=== PATIENT | female | born 1975 | race Caucasian/White ===

== ENCOUNTER 2020-03-31 07:11 | Outpatient (REF) | payer OTHER, SELFPAY ==
[2020-03-31 08:03] LABS: COVID-19 Test Negative (Negative)
== END 2020-03-31 07:12 | disposition home or self-care (01) ==
LOC: HO.EMPCOV 07:11
PROVIDERS: PCP Internal Medicine; Visit Provider Internal Medicine
DX: Z20.828 Contact with and (suspected) exposure to other viral communicable diseases (principal)
CPT/HCPCS: 87635; C9803

== ENCOUNTER 2020-06-11 12:55 | Outpatient (REF) | payer OTHER, SELFPAY ==
[2020-06-11 13:24] LABS: COVID-19 Test Negative (Negative)
== END 2020-06-11 12:56 | disposition home or self-care (01) ==
LOC: HO.EMPCOV 12:55
PROVIDERS: Visit Provider Internal Medicine
DX: Z20.822 Contact with and (suspected) exposure to COVID-19 (principal)
CPT/HCPCS: 36415; 87635; C9803

== ENCOUNTER 2020-06-17 08:00 | Outpatient (REF) | payer OTHER, SELFPAY ==
[2020-06-17 08:40] LABS: COVID-19 Test Negative (Negative)
== END 2020-06-17 08:01 | disposition home or self-care (01) ==
LOC: HO.EMPCOV 08:00
PROVIDERS: Visit Provider Internal Medicine
DX: Z20.822 Contact with and (suspected) exposure to COVID-19 (principal)
CPT/HCPCS: 36415; 87635; C9803

== ENCOUNTER 2020-09-22 16:18 | Outpatient (REF) | payer OTHER, SELFPAY ==
--- NOTE | ~2020-09-22 | XR_ITS ---
EXAMINATION: XR CERVICAL SPINE XR LUMBAR SPINE CLINICAL INFORMATION: Cervical radiculopathy. Lumbar radiculitis. COMPARISON: None TECHNIQUE: AP, lateral, open-mouth, and bilateral oblique views of the cervical spine. AP, lateral, coned-down, and bilateral oblique views of the lumbar spine. FINDINGS: Cervical Spine: Mild reversal of the normal cervical lordosis, which may be positional or related to muscular spasm. No acute fracture or subluxation. Normal atlantoaxial alignment. No loss of vertebral body height. Moderate loss of intervertebral disc height with endplate osteophytes at C3-C4 and C4-C5. No significant neural foraminal stenosis. Surgical clips within the thyroid fossa. Otherwise unremarkable prevertebral soft tissues. Lumbar Spine: Normal vertebral body alignment. The lumbar lordosis is maintained. No acute fracture or subluxation. No loss of vertebral body height. Loss of intervertebral disc height with anterior endplate osteophytes at L1-L4. No lytic or blastic osseous lesion. Right upper quadrant surgical clips. XR/XR lumbar spine 4V min IMPRESSION: Cervical Spine: Mild reversal of the normal cervical lordosis, which may be positional or related to muscle spasm. Moderate degenerative disc disease at C3-C4 and C4-C5. Lumbar Spine: Mild degenerative disc disease at L1-L4.
--- NOTE | ~2020-09-22 | XR_ITS ---
EXAMINATION: XR CERVICAL SPINE XR LUMBAR SPINE CLINICAL INFORMATION: Cervical radiculopathy. Lumbar radiculitis. COMPARISON: None TECHNIQUE: AP, lateral, open-mouth, and bilateral oblique views of the cervical spine. AP, lateral, coned-down, and bilateral oblique views of the lumbar spine. FINDINGS: Cervical Spine: Mild reversal of the normal cervical lordosis, which may be positional or related to muscular spasm. No acute fracture or subluxation. Normal atlantoaxial alignment. No loss of vertebral body height. Moderate loss of intervertebral disc height with endplate osteophytes at C3-C4 and C4-C5. No significant neural foraminal stenosis. Surgical clips within the thyroid fossa. Otherwise unremarkable prevertebral soft tissues. Lumbar Spine: Normal vertebral body alignment. The lumbar lordosis is maintained. No acute fracture or subluxation. No loss of vertebral body height. Loss of intervertebral disc height with anterior endplate osteophytes at L1-L4. No lytic or blastic osseous lesion. Right upper quadrant surgical clips. XR/XR cervical spine min 6V IMPRESSION: Cervical Spine: Mild reversal of the normal cervical lordosis, which may be positional or related to muscle spasm. Moderate degenerative disc disease at C3-C4 and C4-C5. Lumbar Spine: Mild degenerative disc disease at L1-L4.
== END 2020-09-22 16:19 | disposition home or self-care (01) ==
LOC: HO.XRAY 16:18
PROVIDERS: PCP Internal Medicine; Visit Provider Physician Assistant Medical
DX: M54.12 Radiculopathy, cervical region (principal); M54.16 Radiculopathy, lumbar region
CPT/HCPCS: 72052; 72110

== ENCOUNTER 2020-10-02 12:49 | Outpatient (REF) | payer OTHER, SELFPAY ==
--- NOTE | ~2020-10-02 | MR_ITS ---
EXAMINATION: MR CERVICAL SPINE WITHOUT CONTRAST CLINICAL INFORMATION: 45-year-old with worsening left-sided cervical radiculopathy. Left hand numbness. COMPARISON: None TECHNIQUE: MRI of the cervical spine was obtained using routine sequences without contrast. FINDINGS: ALIGNMENT: There is lordotic loss in the upper cervical spine with a very slight reversal centered at C4-C5. No spondylolisthesis or retrolisthesis. CRANIOCERVICAL JUNCTION/C1-C2 ARTICULATIONS: Intact and aligned. VISUALIZED INTRACRANIAL STRUCTURES: The visualized intracranial structures appear grossly unremarkable. VERTEBRAL BODIES: Normal height. BONE MARROW: Multilevel degenerative endplate changes primarily at C3-C4 and to a lesser degree at C4-C5. Scattered small benign vertebral hemangiomata noted throughout the cervical and upper thoracic spine. C2-C3: Disc space height is well maintained. Tiny central disc protrusion noted with no significant spondylosis, DJD, canal or neural foraminal stenosis. C3-C4: Mild disc space height loss is noted with disc desiccation, Schmorl's nodes and type II marrow signal changes along the endplates with anterior marginal disc osteophyte complex. Broad-based central disc herniation noted with effacement of the dural sac centrally without cord compression. There is mild central spinal canal stenosis associated with this. There is minor facet hypertrophic change on the left with no significant bony canal stenosis. C4-C5: Severe loss of disc space height is noted with Schmorl's nodes, disc desiccation and minor anterior marginal endplate spurring. There is posterior disc osteophyte complex with effacement of the dural sac resulting in mild ventral cord impingement. There is associated [id number] central spinal canal stenosis. Bilateral uncovertebral spurring is noted, left more than right with no significant neural foraminal stenosis. C5-C6: Disc space height is well maintained, with disc desiccation and minor anterior marginal endplate spurring. Tiny central disc protrusion noted with a tiny central annular fissure without significant thecal sac encroachment. No significant DJD, canal or neural foraminal stenosis. C6-C7: Disc space height is well maintained with disc desiccation. Mild broad-based central disc protrusion with [id number]-[id number] flattening of the dural sac without cord impingement. No significant DJD, canal or neural foraminal stenosis. C7-T1: Disc space height is well maintained, with normal disc signal and contours. No disc herniation or spondylosis. There is mild facet hypertrophic change on the right without significant canal or neural foraminal stenosis. The cervical and visualized upper thoracic spinal cord is normal in signal intensity throughout, without focal lesion, edema or syrinx formation. MR/MR cervical spine wo con IMPRESSION: 1. Slight lordotic reversal centered at C4-C5 noted with multilevel discogenic degenerative changes between C3-C4 and C6-C7 inclusive. 2. Posterior disc osteophyte complex at C4-C5 resulting in mild ventral cord impingement with [id number] spinal canal stenosis. 3. Central disc herniations at C3-C4, C5-C6 and C6-C7 without spinal cord impingement with mild central spinal canal narrowing at C3-C4. 4. No significant bony neural foraminal stenosis.
--- NOTE | ~2020-10-02 | MR_ITS ---
EXAMINATION: MR LUMBAR SPINE WITHOUT CONTRAST CLINICAL INFORMATION: Worsening back pain. COMPARISON: None TECHNIQUE: MRI of the lumbar spine was obtained using routine sequences without contrast. FINDINGS: VERTEBRAL BODIES AND PARASPINAL STRUCTURES: The marrow signal is mildly heterogeneous with regions of fatty change. There is mild disc space narrowing with anterior endplate spurring and mild degenerative Schmorl's nodes at the L1-L2 and L2-L3 levels. No compression fracture or subluxation is visible. Mild rightward lumbar spinal curvature noted. The paraspinal soft tissues are unremarkable. The imaged bony pelvis appears normal. CONUS MEDULLARIS AND CAUDA EQUINA: Normal, terminating at the level of L1-L2. No lower cord signal abnormality is seen. The cauda equina nerve roots are normal. SPINAL LEVELS: L1-L2: Mild disc bulge and anterior endplate spurring without central canal stenosis or foraminal narrowing. L2-L3: Mild generalized disc bulge without central canal stenosis or foraminal encroachment. L3-L4 and L4-L5: Well-hydrated normal appearance of the disc without central canal stenosis or foraminal narrowing. Mild facet arthropathy at the L4-L5 level. L5-S1: Very mild facet arthropathy and small right subarticular zone disc protrusion without nerve root compression. Partially conjoined right L5 and S1 nerve roots. MR/MR lumbar spine wo con IMPRESSION: Mild degenerative endplate changes and disc bulges at the L1-L2 and L2-L3 levels. Very small right subarticular zone disc protrusion without nerve root impingement at L5-S1 with partially conjoined right L5/S1 nerve roots.
== END 2020-10-02 12:50 | disposition home or self-care (01) ==
LOC: HO.MRI 12:49
PROVIDERS: PCP Physician Assistant Medical; Visit Provider Physician Assistant Medical
DX: M51.9 Unspecified thoracic, thoracolumbar and lumbosacral intervertebral disc disorder (principal); M54.12 Radiculopathy, cervical region
CPT/HCPCS: 72141; 72148

== ENCOUNTER 2020-10-31 16:36 | Outpatient (REF) | payer OTHER, SELFPAY ==
--- NOTE | ~2020-10-31 | XR_ITS ---
EXAMINATION: XR THORACIC SPINE CLINICAL INFORMATION: Thoracic back pain COMPARISON: None TECHNIQUE: 3 views of the thoracic spine were obtained. FINDINGS: Multilevel mild degenerative disc changes manifested by endplate osteophytes without significant disc space narrowing. Surrounding soft tissues normal. No fracture or bone lesion. Miscellaneous: Surgical clips overlie the right upper quadrant XR/XR thoracic spine 3V IMPRESSION: Mild Spondylosis of the dorsal spine. No acute disease.
== END 2020-10-31 16:37 | disposition home or self-care (01) ==
LOC: HO.XRAY 16:36
PROVIDERS: PCP Internal Medicine; Visit Provider Physician Assistant Medical
DX: M54.6 Pain in thoracic spine (principal); G89.29 Other chronic pain
CPT/HCPCS: 72072

== ENCOUNTER 2021-03-05 09:33 | Outpatient (REF) | payer OTHER, SELFPAY ==
--- NOTE | ~2021-03-05 | MM_ITS ---
EXAMINATION: BONE DENSITOMETRY CLINICAL INDICATION: Age-related osteoporosis without current pathological fracture. COMPARISON: This is the patient's baseline examination. TECHNIQUE: Using a [employer] DXA System (software version: 13.1) manufactured by [employer], dual-energy x-ray absorptiometry was performed of the lumbar spine and left hip. The images are of good technical quality. Summary results are attached. FINDINGS: AP SPINE L1-L4: BMD 1.388 g/cm2, Z-score 1.1, T-score 1.7, normal. LEFT FEMUR, NECK: BMD 1.037 g/cm2, Z-score 0.2, T-score 0.0, normal. LEFT FEMUR, TOTAL: BMD 1.139 g/cm2, Z-score 0.9, T-score 1.0, normal. IDENTIFIED RISK FACTORS: Osteoporosis, low calcium intake. Early menopause, secondary osteoporosis, hysterectomy. HISTORY OF FRACTURE: None listed. MEDICATIONS: Vitamin D. MM/XR DEXA axial skeleton IMPRESSION: 1. DIAGNOSIS: Normal bone density based on the lowest T-score value of 0.0 in the femoral neck applying World Health Organization criteria. 2. 10-YEAR FRACTURE RISK PREDICTION, FRAX: Major osteoporotic fracture (clinical spine, forearm, hip or shoulder) 2.2%. Hip fracture 0.0%. 3. Treatment Recommendations: NOF guidelines recommend consideration for treatment in postmenopausal women and men age 50 and older presenting with the following: -A hip or vertebral (clinical or morphometric) fracture. -T-score less than or equal to -2.5 at the femoral neck or spine after appropriate evaluation to exclude secondary causes. -Low bone mass at the hip or spine and a 10-year fracture probability by FRAX of greater than or equal to 3% for hip fracture or greater than or equal to 20% for major osteoporotic fracture based on the [place] adapted WHO algorithm. 4. Other Recommendations: All treatment decisions require clinical judgment and consideration of individual patient factors, including patient preferences, comorbidities, previous drug use, risk factors not captured in the FRAX model (e.g. frailty, falls, vitamin D deficiency, increased bone turnover, interval significant decline in bone density) and possible under or overestimation of fracture risk by FRAX. FUTURE SCAN RECOMMENDATION: People with diagnosed cases of osteoporosis or at high risk for fracture should have regular bone mineral density tests. For patients eligible for Medicare, routine testing is allowed once every 2 years. The testing frequency can be increased to one year for patients who have rapidly progressing disease, those who are receiving or discontinuing medical therapy to restore bone mass, or have additional risk factors.
== END 2021-03-05 09:34 | disposition home or self-care (01) ==
LOC: HO.MAMMO 09:33
PROVIDERS: Visit Provider Nurse Practitioner Family
DX: Z13.820 Encounter for screening for osteoporosis (principal); M81.0 Age-related osteoporosis without current pathological fracture; Z78.0 Asymptomatic menopausal state; Z79.899 Other long term (current) drug therapy; Z98.890 Other specified postprocedural states
CPT/HCPCS: 77080

== ENCOUNTER 2021-03-09 08:49 | Outpatient (REF) | payer OTHER, SELFPAY ==
[2021-03-09 17:44] LABS: Alanine Aminotransferase 28 U/L (0-31); Albumin Level 4.5 g/dL (3.5-5.0); Alkaline Phosphatase 77 U/L (39-117); Anion Gap 12 (12-20); Aspartate Amino Transferase 18 U/L (5-31); Bilirubin Total 0.7 mg/dL (0.0-1.0); Blood Urea Nitrogen 17 mg/dL (9-16); C Reactive Protein 0.36 mg/dL (< or = 0.50); Calcium 9.9 mg/dL (8.4-10.2); Carbon Dioxide 25 mmol/L (22-29); Chloride 108 mmol/L (96-108); Estimated Glomerular Filt Rate > 60; Glucose Random 96 mg/dL (60-115); Potassium 4.4 mmol/L (3.3-5.1); Sodium 141 mmol/L (135-145); Total Protein 7.1 g/dL (6.5-8.0)
[2021-03-09 17:57] LABS: Eosinophils Absolute Auto 0.2 X10*3/uL (0.0-0.4); Eosinophils Percent Auto 2.3 % (0-4); Hemoglobin 12.9 g/dl (12.0-16.0); Imm Gran Abs Auto 0.05 X10*3/uL (0.00-0.03); Imm Gran Pct Auto 0.5 % (0.0-0.4); MANUAL DIFF FLAG SCAN; PLT CLUMP 1; Red Cell Distribution Width 12.2 % (11.0-16.0); SCAN SMEAR FLAG 1
[2021-03-09 17:59] LABS: Basophils Absolute Auto 0.1 X10*3/uL (0.0-0.2); Basophils Percent Auto 0.9 % (0-2); Hematocrit 38.1 % (37.0-47.0); Lymphocytes Absolute Auto 3.4 X10*3/uL (1.2-4.9); Lymphocytes Percent Auto 33.7 % (20-40); Mean Corpuscular HGB Conc 33.9 g/dl (31.0-35.0); Mean Corpuscular Hemoglobin 28.7 pg (27.0-33.0); Mean Corpuscular Volume 84.7 fL (80.0-98.0); Monocytes Absolute Auto 0.5 X10*3/uL (0.1-1.2); Monocytes Percent Auto 5.4 % (2-11); Neutrophils Absolute Auto 5.7 x10*3/uL (2.0-8.3); Neutrophils Percent Auto 57.2 % (45-73)
[2021-03-09 18:05] LABS: Ferritin 43 ng/mL (10-250); TSH reflex Free T4 2.03 uIU/mL (0.32-4.0); Vitamin D 25-OH Total 33.6 ng/mL (>30)
[2021-03-09 18:18] LABS: Folate 5.5 ng/mL (> or = 4.0); Vitamin B12 523 pg/mL (200-900)
[2021-03-09 18:24] LABS: SLIDE REVIEW VERIFIED
[2021-03-09 18:46] LABS: Erythrocyte Sedimentation Rate 3 MM/HR (0-20)
[2021-03-10 20:31] LABS: Immunoglobulin G Subclass 1 231 mg/dL (382-929); Immunoglobulin G Subclass 2 307 mg/dL (241-700); Immunoglobulin G Subclass 3 13 mg/dL (22-178); Immunoglobulin G Subclass 4 19.4 mg/dL (4-86); Immunoglobulin G Total 643 mg/dL (600-1640)
[2021-03-11 02:16] LABS: IgA 257 mg/dL (47-310); IgG 649 mg/dL (600-1640); IgM 107 mg/dL (50-300)
[2021-03-11 21:21] LABS: Zinc 73 mcg/dL (60-130)
[2021-03-12 14:37] LABS: Vitamin C 0.2 mg/dL (0.3-2.7)
[2021-03-12 16:31] LABS: Gliadin Deamidated IgA Ab <1.0 U/mL; Gliadin Deamidated IgG Ab <1.0 U/mL; Transglutaminase Ab IgG <1.0 U/mL; Transglutaminase IgA <1.0 U/mL
[2021-03-12 17:17] LABS: Vitamin B6 5.5 ng/mL (2.1-21.7)
[2021-03-13 09:46] LABS: Nicotinamide <20 ng/mL; Vit B3 - Nicotinic Acid <20 ng/mL
[2021-03-13 12:41] LABS: Vitamin B5 (Pantothenic Acid) <40 ng/mL (<275)
[2021-03-13 14:20] LABS: Vitamin K1 1250 pg/mL (130-1500)
[2021-03-13 15:35] LABS: Vitamin A 63 mcg/dL (38-98)
[2021-03-13 18:46] LABS: Histamine Plasma >28.6 ng/mL (< OR = 1.8)
[2021-03-14 01:46] LABS: Alpha-Tocopherol 18.9 mg/L (5.7-19.9); Beta-Gamma Tocopherol 2.4 mg/L (<=4.3)
== END 2021-03-09 08:50 | disposition home or self-care (01) ==
LOC: HO.LAB 08:49
PROVIDERS: PCP Nurse Practitioner Family; Referring Provider Nurse Practitioner Family; Visit Provider Internal Medicine Gastroenterology
DX: R19.7 Diarrhea, unspecified (principal); K75.81 Nonalcoholic steatohepatitis (NASH); G89.29 Other chronic pain; R10.33 Periumbilical pain; Z90.49 Acquired absence of other specified parts of digestive tract
CPT/HCPCS: 36415; 80053; 82180; 82306; 82607; 82728; 82746; 82784; 83088; 83516; 83520; 84207; 84443; 84446; 84590; 84591; 84597; 84630; 85025; 85652; 86003; 86140

== ENCOUNTER 2021-03-09 18:20 | Outpatient (REF) | payer OTHER, SELFPAY ==
[2021-03-10 12:40] LABS: CDiff Gene PCR NEGATIVE (Negative)
[2021-03-13 21:42] LABS: Calprotectin, Fecal 8 mcg/g
[2021-03-16 14:21] LABS: Fecal Fat Qualitative Normal (Normal)
[2021-03-16 22:11] LABS: Pancreatic Elastase-1 >500 mcg/g
== END 2021-03-09 18:21 | disposition home or self-care (01) ==
LOC: HO.LNP 18:20
PROVIDERS: Visit Provider Internal Medicine Gastroenterology
DX: R19.7 Diarrhea, unspecified (principal)
CPT/HCPCS: 82656; 82705; 83993; 87329; 87493

== ENCOUNTER 2021-03-12 08:00 | Outpatient (RCR) | payer OTHER, SELFPAY | END 2021-09-07 11:31 | disposition home or self-care (01) | LOC: HO.PTCHIC 08:00 | PROVIDERS: PCP Nurse Practitioner Family; Visit Provider Physician Assistant | DX: M54.2 Cervicalgia (principal); M54.50 Low back pain, unspecified | CPT/HCPCS: 97014; 97110; 97140; 97161 ==

== ENCOUNTER 2021-03-12 10:18 | Outpatient (REF) | payer OTHER, SELFPAY ==
--- NOTE | ~2021-03-12 | MR_ITS ---
EXAMINATION: MR LUMBAR SPINE WITHOUT CONTRAST CLINICAL INFORMATION: Incontinence. Low back pain. COMPARISON: MRI dated 10/02/2020. TECHNIQUE: MRI of the lumbar spine was obtained using routine sequences without contrast. FINDINGS: VERTEBRAL BODIES AND PARASPINAL STRUCTURES: The marrow signal is within normal limits. There are no compression fractures or subluxations. Endplate spurring again visible at the L1-L2 and L2-L3 levels with mild disc space narrowing. The paraspinal soft tissues are unremarkable. Low signal foci in the left iliac bone are stable, possibly representing bone islands. CONUS MEDULLARIS AND CAUDA EQUINA: Normal, terminating at the level of L2. No lower cord signal abnormality is seen. The cauda equina nerve roots are normal. SPINAL LEVELS: L1-L2: Mild disc bulge and shallow left paracentral disc protrusion without central canal stenosis or foraminal narrowing. Bulky anterior endplate spurring again evident. L2-L3: Mild disc bulge and endplate spurring again evident without central canal stenosis or foraminal narrowing. L3-L4: Very small central disc protrusion and left lateral annular fissure with mild facet arthropathy. No central canal stenosis or foraminal narrowing. L4-L5: Hypertrophic facet arthropathy is stable without disc disease. Patent central canal and foramina. L5-S1: Stable facet arthropathy, worse on the right side with partially conjoined right L5-S1 nerve roots. No central canal stenosis or foraminal narrowing. MR/MR lumbar spine wo con IMPRESSION: Stable mild degenerative endplate changes and loss of disc height with disc bulges at the L1-L2 and L2-L3 levels. No central canal stenosis.
== END 2021-03-12 10:19 | disposition home or self-care (01) ==
LOC: HO.MRI 10:18
PROVIDERS: PCP Nurse Practitioner Family; Visit Provider Nurse Practitioner Family
DX: R15.9 Full incontinence of feces (principal)
CPT/HCPCS: 72148

== ENCOUNTER 2021-05-27 09:52 | Day surgery (SDC) | payer OTHER, SELFPAY ==
--- NOTE | 2021-05-26 09:37 | P.CONAN_ITS ---
Documented by User: Kourtney Aguilar NP 05/26/21 09:38 HPI - Anesthesia Eval Consult details Narrative: 46yo F for Upper Endoscopy and Colonoscopy PMFSH Active Problems Active Problems: All Active Problems (Updated 05/08/21 @ 11:30 by Mary Yeung) Diarrhea (Acute) Past Medical History Medical History (Updated 05/27/21 @ 10:22 by Adri Jensen RN) Anxiety GERD (gastroesophageal reflux disease) Hypothyroid Intermittent palpitations Lichen planus Low vitamin D level Migraine Rapid palpitations Surgical History Surgical History (Updated 05/06/21 @ 09:15 by VERONICA Bowser) H/O partial thyroidectomy H/O wisdom tooth extraction H/O: hysterectomy Hx of cholecystectomy Social History Social History Patient Tobacco Use Status: Never used Tobacco Are you DNR?: No Advance Directives: No Advance Directives Information Provided: Yes Meds Allergies Allergy/AdvReac Type Severity Reaction Status Date / Time Iodinated Contrast Media AdvReac Severe Hives Verified 03/09/21 08:58 Home Medications Medication Instructions Recorded Confirmed Last Taken Type cholecalciferol 10 mcg PO DAILY 03/09/21 Unknown History (vitamin D3) 10 mcg (400 unit) capsule estradiol g VAGINAL 03/09/21 Unknown History hydroxyzine HCl 25 mg PO BEDTIME 03/09/21 Unknown History 25 mg tablet levothyroxine 50 50 mcg PO DAILY 03/09/21 Unknown History mcg capsule meloxicam 7.5 mg mg PO 03/09/21 Unknown History tablet metoprolol 25 mg PO DAILY 03/09/21 Unknown History succinate 25 mg tablet,extended release 24 hr omeprazole 20 mg 20 mg PO DAILY 03/09/21 Unknown History tablet,delayed release sertraline 100 mg 100 mg PO DAILY 03/09/21 Unknown History tablet tizanidine 4 mg 0 mg PO 03/09/21 Unknown History tablet topiramate 25 mg 25 mg PO BID 03/09/21 Unknown History tablet triamcinolone TOPICAL BEDTIME 03/09/21 Unknown History acetonide 0.1 % topical ointment ubrogepant 50 mg 0 mg PO 03/09/21 Unknown History tablet (Ubrelvy) Exam Exam Date and Time: May 26, 2021 0937 Pertinent Lab Results Pertinent Lab Results: Laboratory Tests 03/09/21 03/09/21 17:20 17:20 WBC 10.0 Hgb 12.9 Hct 38.1 Sodium 141 Potassium 4.4 Chloride 108 Carbon Dioxide 25 BUN 17 H Creatinine 0.88 Assessment and Plan Assessment Anesthesia Assessment: Chart Reviewed Documented by User: Noy Guzmán MD 05/27/21 10:42 [facility] Past Medical History Medical History (Updated 05/27/21 @ 10:22 by Adri Jensen RN) Anxiety GERD (gastroesophageal reflux disease) Hypothyroid Intermittent palpitations Lichen planus Low vitamin D level Migraine Rapid palpitations Family History Family history of problems with anesthesia: No Surgical History Surgical History (Updated 05/06/21 @ 09:15 by VERONICA Bowser) H/O partial thyroidectomy H/O wisdom tooth extraction H/O: hysterectomy Hx of cholecystectomy History of Problems with Anesthesia: No Social History Social History Patient Tobacco Use Status: Never used Tobacco Are you DNR?: No Advance Directives: No Advance Directives Information Provided: Yes Meds Allergies Allergy/AdvReac Type Severity Reaction Status Date / Time Iodinated Contrast Media AdvReac Severe Hives Verified 03/09/21 08:58 Home Medications Medication Instructions Recorded Confirmed Last Taken Type cholecalciferol 10 mcg PO DAILY 03/09/21 Unknown History (vitamin D3) 10 mcg (400 unit) capsule estradiol g VAGINAL 03/09/21 Unknown History hydroxyzine HCl 25 mg PO BEDTIME 03/09/21 Unknown History 25 mg tablet levothyroxine 50 50 mcg PO DAILY 03/09/21 Unknown History mcg capsule meloxicam 7.5 mg mg PO 03/09/21 Unknown History tablet metoprolol 25 mg PO DAILY 03/09/21 Unknown History succinate 25 mg tablet,extended release 24 hr omeprazole 20 mg 20 mg PO DAILY 03/09/21 Unknown History tablet,delayed release sertraline 100 mg 100 mg PO DAILY 03/09/21 Unknown History tablet tizanidine 4 mg 0 mg PO 03/09/21 Unknown History tablet topiramate 25 mg 25 mg PO BID 03/09/21 Unknown History tablet triamcinolone TOPICAL BEDTIME 03/09/21 Unknown History acetonide 0.1 % topical ointment ubrogepant 50 mg 0 mg PO 03/09/21 Unknown History tablet (Ubrelvy) Exam Airway Mallampati Class: II TM Dist: >3cm Neck ROM: Full Heart: rrr Lungs: cta Assessment and Plan Assessment Anesthesia Assessment: Anesthesia Plan Discussed and Chart Reviewed Final Anesthetic Review Family History of Problems with Anesthesia: No History of Problems with Anesthesia: No NPO: Yes ASA Class: II Final Preanesthetic Review: No Changes in Pt Med Stat, Meds/Allgs Chart Reviewed and Consent Obtained/Reviewed Patient Risk: Intermediate Procedure Risk: Intermediate Anesthetic Plan Anesthetic Plan: MAC: Disposition: Standard PACU
--- NOTE | 2021-05-26 09:37 | HO.ANESPROP2 ---
Documented by User: Kourtney Aguilar NP 05/26/21 09:38 HPI - Anesthesia Eval Consult details Narrative: 46yo F for Upper Endoscopy and Colonoscopy PMFSH Active Problems Active Problems: All Active Problems (Updated 05/08/21 @ 11:30 by Mary Yeung) Diarrhea (Acute) Past Medical History Medical History (Updated 05/27/21 @ 10:22 by Adri Jensen RN) Anxiety GERD (gastroesophageal reflux disease) Hypothyroid Intermittent palpitations Lichen planus Low vitamin D level Migraine Rapid palpitations Surgical History Surgical History (Updated 05/06/21 @ 09:15 by VERONICA Bowser) H/O partial thyroidectomy H/O wisdom tooth extraction H/O: hysterectomy Hx of cholecystectomy Social History Social History Patient Tobacco Use Status: Never used Tobacco Are you DNR?: No Advance Directives: No Advance Directives Information Provided: Yes Meds Allergies Allergy/AdvReac Type Severity Reaction Status Date / Time Iodinated Contrast Media AdvReac Severe Hives Verified 03/09/21 08:58 Home Medications Medication Instructions Recorded Confirmed Last Taken Type cholecalciferol (vitamin D3) 10 10 mcg PO DAILY 03/09/21 Unknown History mcg (400 unit) capsule estradiol g VAGINAL 03/09/21 Unknown History hydroxyzine HCl 25 mg tablet 25 mg PO BEDTIME 03/09/21 Unknown History levothyroxine 50 mcg capsule 50 mcg PO DAILY 03/09/21 Unknown History meloxicam 7.5 mg tablet mg PO 03/09/21 Unknown History metoprolol succinate 25 mg 25 mg PO DAILY 03/09/21 Unknown History tablet,extended release 24 hr omeprazole 20 mg tablet,delayed 20 mg PO DAILY 03/09/21 Unknown History release sertraline 100 mg tablet 100 mg PO DAILY 03/09/21 Unknown History tizanidine 4 mg tablet 0 mg PO 03/09/21 Unknown History topiramate 25 mg tablet 25 mg PO BID 03/09/21 Unknown History triamcinolone acetonide 0.1 % TOPICAL BEDTIME 03/09/21 Unknown History topical ointment ubrogepant 50 mg tablet (Ubrelvy) 0 mg PO 03/09/21 Unknown History Exam Exam Date and Time: May 26, 2021 0937 Pertinent Lab Results Pertinent Lab Results: Laboratory Tests 03/09/21 03/09/21 17:20 17:20 WBC 10.0 Hgb 12.9 Hct 38.1 Sodium 141 Potassium 4.4 Chloride 108 Carbon Dioxide 25 BUN 17 H Creatinine 0.88 Assessment and Plan Assessment Anesthesia Assessment: Chart Reviewed Documented by User: Noy Guzmán MD 05/27/21 10:42 [facility] Past Medical History Medical History (Updated 05/27/21 @ 10:22 by Adri Jensen RN) Anxiety GERD (gastroesophageal reflux disease) Hypothyroid Intermittent palpitations Lichen planus Low vitamin D level Migraine Rapid palpitations Family History Family history of problems with anesthesia: No Surgical History Surgical History (Updated 05/06/21 @ 09:15 by VERONICA Bowser) H/O partial thyroidectomy H/O wisdom tooth extraction H/O: hysterectomy Hx of cholecystectomy History of Problems with Anesthesia: No Social History Social History Patient Tobacco Use Status: Never used Tobacco Are you DNR?: No Advance Directives: No Advance Directives Information Provided: Yes Meds Allergies Allergy/AdvReac Type Severity Reaction Status Date / Time Iodinated Contrast Media AdvReac Severe Hives Verified 03/09/21 08:58 Home Medications Medication Instructions Recorded Confirmed Last Taken Type cholecalciferol (vitamin D3) 10 10 mcg PO DAILY 03/09/21 Unknown History mcg (400 unit) capsule estradiol g VAGINAL 03/09/21 Unknown History hydroxyzine HCl 25 mg tablet 25 mg PO BEDTIME 03/09/21 Unknown History levothyroxine 50 mcg capsule 50 mcg PO DAILY 03/09/21 Unknown History meloxicam 7.5 mg tablet mg PO 03/09/21 Unknown History metoprolol succinate 25 mg 25 mg PO DAILY 03/09/21 Unknown History tablet,extended release 24 hr omeprazole 20 mg tablet,delayed 20 mg PO DAILY 03/09/21 Unknown History release sertraline 100 mg tablet 100 mg PO DAILY 03/09/21 Unknown History tizanidine 4 mg tablet 0 mg PO 03/09/21 Unknown History topiramate 25 mg tablet 25 mg PO BID 03/09/21 Unknown History triamcinolone acetonide 0.1 % TOPICAL BEDTIME 03/09/21 Unknown History topical ointment ubrogepant 50 mg tablet (Ubrelvy) 0 mg PO 03/09/21 Unknown History Exam Airway Mallampati Class: II TM Dist: >3cm Neck ROM: Full Heart: rrr Lungs: cta Assessment and Plan Assessment Anesthesia Assessment: Anesthesia Plan Discussed and Chart Reviewed Final Anesthetic Review Family History of Problems with Anesthesia: No History of Problems with Anesthesia: No NPO: Yes ASA Class: II Final Preanesthetic Review: No Changes in Pt Med Stat, Meds/Allgs Chart Reviewed and Consent Obtained/Reviewed Patient Risk: Intermediate Procedure Risk: Intermediate Anesthetic Plan Anesthetic Plan: MAC: Disposition: Standard PACU
[2021-05-27 10:12] VITALS: BP 120/69; PULSE 128; RESP 18; TEMP 36.6; O2SAT 97; BMI 35.9
[2021-05-27 10:29] VITALS: BP 121/69; PULSE 103; RESP 18; TEMP 36.6; O2SAT 97
[2021-05-27] MEDS: Lactated Ringers 1,000 ML 100 ML IVCONT (10:29)
--- NOTE | 2021-05-27 10:30 | MHC.SHP ---
Pre-Procedural Eval Section A Date of Service: 05/27/21 Section B Chief Complaint: screening,reflux disease Relevant Family History (Specify if Yes): No Relevant Social History: None Present Medications: see Short Stay Collaborative assessment Medical History: Significant History (Anxiety GERD (gastroesophageal reflux disease) Hypothyroid Intermittent palpitations Lichen planus Low vitamin D level Migraine Rapid palpitations) History of Previous Operations: Relevant previous surgery/procedure and date(s) (H/O partial thyroidectomy H/O wisdom tooth extraction H/O: hysterectomy Hx of cholecystectomy) Allergies: Allergies Allergy/AdvReac Type Severity Reaction Status Date / Time Iodinated Contrast Media AdvReac Severe Hives Verified 03/09/21 08:58 Review of Systems Sugical H&P ROS: Negative: Constitution, Cardiovascular, Respiratory, Neurological, Psychiatric, Hem-Onc, Allergic/Immunologic, Gastrointestinal, Genitourinary, Musculoskeletal, Integumentary, Endocrine and Eyes/Ears/Nose/Throat Exam Surgical H&P Exam: Normal: HEENT, Normal: Heart, Normal: Lungs, Normal: Extremities, Normal: Abdomen, Normal: Skin and Normal: Neurological Plan Diagnosis/Plan: Unchanged I have reviewed the history and physical and performed a pertinent physical examination on my patient. No changes have occurred unless specified.
--- NOTE | 2021-05-27 11:45 | P.OP_ITS ---
Operative Note Operative Note Date of Service: 05/27/21 Narrative: Operative Information Procedure Description: EGD, Colonoscopy FLEXIBLE TRANSORAL UPPER GASTROINTESTINAL ENDOSCOPY AND COLONOSCOPY PROCEDURE NOTE UPPER ENDOSCOPY Consent: Indications for the procedure and potential complications of bleeding, perforation, reaction to medications and missed diagnosis were discussed with the patient and informed consent was obtained. Instrument: Olympus GIF H 190 J mid size upper endoscope Monitoring: Vital signs and clinical assessment, continuous EKG monitoring, Pulse oximetry, Carbon Dioxide monitoring and blood pressure monitoring were done throughout the procedure. Procedure: The patient was placed in the left lateral decubitis position and pre-procedure medications were administered and a bite block was placed. The endoscope was inserted into the mouth and advanced under direct vision to the third part of duodenum. A careful inspection was made as the upper endoscope was withdrawn including a retroflexed examination of the proximal stomach; Findings and interventions are described below. Findings: Larynx:normal Esophagus: GE junction at 38 cm, diaphragm hiatus at 38 cm, normal mucosa Stomach: Streaky gastritis. Biopsies were obtained. Grade 3 flap valve on retroflexed examination of the cardia with lax LEs. There were several large transparent appearing polpys in the mid stomach area, consistent with fundic gland polyps, measuring in range from 10-18 mm, several were snare excised and retrieved. Duodenum: Normal bulb and descending duodenum, bx taken Intervention: Biopsies as noted above, snare polypectomy COLONOSCOPY Instrument: Olympus variable stiffness pediatric scope 190L Colonoscopy Monitoring: Vital signs and clinical assessment, continuous EKG monitoring, Pulse oximetry, Carbon Dioxide monitoring and blood pressure monitoring were done throughout the procedure. Colon withdrawal time was 7 minutes. Procedure: The patient was placed in the left lateral decubitis position and pre-procedure medications were administered. After a digital rectal examination of the ano-rectum, the video colonoscope was inserted into the rectum and advanced through the colon to the cecum/TI. The colonoscope was slowly withdrawn in a retrograde panoramic fashion and the colon mucosa was carefully examined including a retroflexed view of the rectum. Findings and interventions are described below. Procedure Difficulty: easy Findings: Terminal Ileum-normal, bx taken Bx taken from right and left colon in separate jars Cecum:normal Ascending Colon: normal Transverse Colon -normal Descending Colon:normal Sigmoid Colon: normal Rectum: Retroflexion with small internal hemorrhoids, grade I Anorectum - normal Colon preparation: [place] Bowel Preparation Scale Right colon; 2 Transverse colon: 2 Left colon; 2 (0 = Unprepared colon segment with mucosa not seen due to solid stool that cannot be cleared. 1 = Portion of mucosa of the colon segment seen, but other areas of the colon segment not well seen due to staining, residual stool and/or opaque liquid. 2 = Minor amount of residual staining, small fragments of stool and/or opaque l iquid, but mucosa of colon segment seen well. 3 = Entire mucosa of colon segment seen well with no residual staining, small fragments of stool or opaque liquid) Impression and Post Procedure Diagnosis: Endoscopy Findings: gastric polyps gastritis Colonoscopy Findings: internal hemorrhoids Plan: Await Pathology results Repeat Colonoscopy in 10 years or earlier if clinically indicated High fiber diet leaflet avoid straining at stool, epsom salts and sitz bath, anusol supps or cream if hyperplastic polyps then will need repeat EGD in 3-6 months, if H pylori pos then treat Above findings were reviewed with the patient and relevant handouts were provided if indicated.
--- NOTE | 2021-05-27 11:45 | P.BOP_ITS ---
Brief Operative Note Date of Service: 05/27/21 Pre-op diagnosis: diarrhea Post-op diagnosis: same Procedure: see op note Surgeon: Solange Kaur MD Anesthesia: MAC Was an Ammonium Nitrate Crystallizer used for this Procedure?: No Estimated blood loss (mL): 0 Condition: stable Disposition: PACU
[2021-05-27 12:11] VITALS: BP 108/71; PULSE 92; RESP 12; TEMP 36.2; O2SAT 97
[2021-05-27 12:26] VITALS: BP 121/72; PULSE 96; RESP 18; TEMP 36.4; O2SAT 97
== END 2021-05-27 12:50 | disposition home or self-care (01) ==
PROVIDERS: PCP Nurse Practitioner Family; Visit Provider Internal Medicine Gastroenterology
PROC: (CPT 45380; principal; 2021-05-27 11:10)
DX: Z12.11 Encounter for screening for malignant neoplasm of colon (principal); K64.0 First degree hemorrhoids; K21.9 Gastro-esophageal reflux disease without esophagitis; K31.7 Polyp of stomach and duodenum; K29.50 Unspecified chronic gastritis without bleeding; K44.9 Diaphragmatic hernia without obstruction or gangrene; E03.9 Hypothyroidism, unspecified; E55.9 Vitamin D deficiency, unspecified; G43.909 Migraine, unspecified, not intractable, without status migrainosus; L43.9 Lichen planus, unspecified; F41.1 Generalized anxiety disorder; Z91.040 Latex allergy status; Z90.49 Acquired absence of other specified parts of digestive tract; Z79.899 Other long term (current) drug therapy
CPT/HCPCS: 45380; 43251; 88305; 88342

== ENCOUNTER → 2021-08-10 11:32 | Outpatient (BNVA) | payer OTHER, SELFPAY | PROVIDERS: PCP Nurse Practitioner Family; Referring Provider Nurse Practitioner Family; Visit Provider Internal Medicine Gastroenterology | DX: Z13.89 Encounter for screening for other disorder (principal) ==

== ENCOUNTER 2021-09-04 11:22 | Outpatient (REF) | payer OTHER, SELFPAY ==
--- NOTE | ~2021-09-04 | MM_ITS ---
EXAMINATION: MM SCREENING DIGITAL BREAST TOMOSYNTHESIS, BILATERAL CLINICAL INFORMATION: Screening. Asymptomatic. Age 46. No prior family history breast cancer. The lifetime risk of breast cancer based on the Tyrer-Cuzick Model is 8%. COMPARISON: Outside mammography: 04/03/2020, 03/22/2019, 03/16/2018 ([facility]). TECHNIQUE: Digital breast tomosynthesis is performed in both the craniocaudal and mediolateral oblique views along with computer-aided detection (CAD). Synthesized 2D images are generated from the tomosynthesis. FINDINGS: There are scattered areas of fibroglandular density (ACR BI-RADS breast composition Category b). There are no significant masses, abnormal calcifications, or other abnormalities. Parenchymal pattern is similar to prior outside exams. No developing density. The axilla and skin contours are unremarkable. MM/MM tomosynthesis screening BI IMPRESSION: No mammographic evidence of malignancy. ASSESSMENT: BI-RADS 1: Negative RECOMMENDATION: Routine annual mammography screening. This patient's information was entered into a reminder system with a target due date for their next mammogram.
== END 2021-09-04 11:23 | disposition home or self-care (01) ==
LOC: HO.MAMMO 11:22
PROVIDERS: Visit Provider Nurse Practitioner Family
DX: Z12.31 Encounter for screening mammogram for malignant neoplasm of breast (principal)
CPT/HCPCS: 77063; 77067

== ENCOUNTER 2022-02-19 09:17 | Outpatient (REF) | payer OTHER, SELFPAY ==
[2022-02-19 09:41] LABS: MANUAL DIFF FLAG NO
[2022-02-19 10:04] LABS: Basophils Absolute Auto 0.1 X10*3/uL (0.0-0.2); Basophils Percent Auto 1.4 % (0-2); Eosinophils Absolute Auto 0.4 X10*3/uL (0.0-0.4); Eosinophils Percent Auto 4.5 % (0-4); Imm Gran Abs Auto 0.04 X10*3/uL (0.00-0.03); Imm Gran Pct Auto 0.5 % (0.0-0.4); Lymphocytes Absolute Auto 2.9 X10*3/uL (1.2-4.9); Mean Corpuscular HGB Conc 33.3 g/dl (31.0-35.0); Mean Corpuscular Hemoglobin 27.8 pg (27.0-33.0); Mean Corpuscular Volume 83.3 fL (80.0-98.0); Monocytes Absolute Auto 0.6 X10*3/uL (0.1-1.2); Monocytes Percent Auto 6.4 % (2-11); Neutrophils Absolute Auto 4.7 x10*3/uL (2.0-8.3); Neutrophils Percent Auto 54.2 % (45-73); Platelet Count 286 X10*3/uL (160-400); Red Blood Count 5.04 X10*6/uL (4.20-5.50); Red Cell Distribution Width 12.2 % (11.0-16.0); White Blood Count 8.7 X10*3/uL (4.8-10.8)
[2022-02-19 10:13] LABS: Estimated Average Glucose 114 mg/dL; Hemoglobin A1c % 5.6 %
[2022-02-19 10:35] LABS: Alanine Aminotransferase 34 U/L (0-31); Albumin Level 4.5 g/dL (3.5-5.0); Alkaline Phosphatase 76 U/L (39-117); Anion Gap 16 (12-20); Aspartate Amino Transferase 22 U/L (5-31); Bilirubin Total 0.5 mg/dL (0.0-1.0); Blood Urea Nitrogen 15 mg/dL (9-16); Calcium 9.8 mg/dL (8.4-10.2); Carbon Dioxide 22 mmol/L (22-29); Chloride 109 mmol/L (96-108); Cholesterol 195 mg/dL; Estimated Glomerular Filt Rate > 60; Glucose Random 114 mg/dL (60-115); HDL Cholesterol 32 mg/dL; LDL Cholesterol Calculated 101 mg/dl; Potassium 4.5 mmol/L (3.3-5.1); Sodium 142 mmol/L (135-145); Total Protein 7.1 g/dL (6.5-8.0); Triglycerides 311 mg/dL; Uric Acid 4.1 mg/dL (2.4-5.7)
[2022-02-19 10:47] LABS: Free T4 (Free Thyroxine) 0.95 ng/dL (0.71-1.85); Thyroid Stimulating Hormone 0.81 uIU/mL (0.32-4.0); Vitamin D 25-OH Total 36.9 ng/mL (>30)
[2022-02-21 18:02] LABS: DHEA Sulfate 65 mcg/dL (15-205); Follicle Stimulating Hormone 3.3 mIU/mL; Lutenizing Hormone 3.5 mIU/mL
[2022-02-24 10:36] LABS: Triiodothyronine T3 Reverse 11 ng/dL (8-25)
[2022-02-27 00:22] LABS: Estrogen 320.5 pg/mL
[2022-03-02 17:27] LABS: Progesterone 3.5 ng/mL
== END 2022-02-19 09:18 | disposition home or self-care (01) ==
LOC: HO.LAB 09:17
PROVIDERS: PCP Registered Nurse; Visit Provider Registered Nurse
DX: N95.1 Menopausal and female climacteric states (principal); R73.01 Impaired fasting glucose; R53.83 Other fatigue; M13.0 Polyarthritis, unspecified; E03.9 Hypothyroidism, unspecified; R00.2 Palpitations; E78.2 Mixed hyperlipidemia; E28.2 Polycystic ovarian syndrome; E55.9 Vitamin D deficiency, unspecified
CPT/HCPCS: 36415; 80053; 80061; 82306; 82627; 82672; 83001; 83002; 83036; 84144; 84439; 84443; 84482; 84550; 85025

== ENCOUNTER 2022-06-08 12:24 | Outpatient (REF) | payer OTHER, SELFPAY ==
--- NOTE | ~2022-06-08 | US_ITS ---
EXAMINATION: US PELVIS CLINICAL INFORMATION: Right lower quadrant pain; postmenopausal patient; there is a history of prior hysterectomy. COMPARISON: None TECHNIQUE: Ultrasound of the pelvis is performed using both transabdominal and transvaginal transducers along with Doppler. Transvaginal imaging is performed due to inadequate visualization transabdominally. FINDINGS: Uterus: The uterus is surgically absent. Adnexa: Both ovaries are visualized. There is normal color flow to the adnexa. There is no ovarian torsion. There is no pelvic ascites or fluid collection. Right ovary measures 2.5 x 2.0 x 1.6 cm, volume 4.2 mL. Small simple follicles are noted. Left ovary measures 2.8 x 1.2 x 1.5 cm, volume 2.6 mL. 3 simple follicles are noted, the largest measuring 1.0 cm in maximal diameter. US/US pelvic and transvaginal IMPRESSION: The uterus is surgically absent. The examination is otherwise unremarkable
--- NOTE | ~2022-06-08 | US_ITS ---
EXAMINATION: US ABDOMEN COMPLETE CLINICAL INFORMATION: Right lower quadrant pain. COMPARISON: None TECHNIQUE: Real-time imaging of the abdominal viscera. FINDINGS: PANCREAS: Normal. The visualized pancreatic head and body are normal in appearance. The remainder of the pancreas is obscured from visualization by the overlying bowel gas. ABDOMINAL AORTA: The proximal, mid, and distal segments are normal in caliber. INFERIOR VENA CAVA: Visualized portions are normal. LIVER: There is hepatomegaly, with a longitudinal span of 21.1 cm. The liver contour is normal. There is diffuse increased liver parenchymal echogenicity. Within the left hepatic lobe, a 5 mm anechoic, simple cyst is seen. This is a benign finding, for which no imaging follow-up is recommended. There is no intrahepatic biliary duct dilatation seen. GALLBLADDER: Surgically absent. COMMON BILE DUCT: Normal in caliber measuring 0.7 cm in diameter. RIGHT KIDNEY: Normal. No hydronephrosis. No renal calculi or focal parenchymal lesions. The kidney measures 11.4 cm in maximum dimension. LEFT KIDNEY: Normal. No hydronephrosis. No renal calculi or focal parenchymal lesions. The kidney measures 11.7 cm in maximum dimension. SPLEEN: Normal. The spleen measures 11.7 cm in maximum dimension. FREE FLUID: None. US/US abdomen complete IMPRESSION: 1. There is hepatomegaly. 2. There is generalized increase in hepatic echotexture, consistent with fatty infiltration or hepatocellular disease. Please correlate clinically. No focal hepatic mass or intrahepatic biliary dilatation is seen. 3. Technically limited ultrasound examination of the pancreatic tail.
== END 2022-06-08 12:25 | disposition home or self-care (01) ==
LOC: HO.US 12:24
PROVIDERS: PCP Registered Nurse; Visit Provider Registered Nurse
DX: R10.31 Right lower quadrant pain (principal)
CPT/HCPCS: 76700; 76830; 76856

== ENCOUNTER 2022-06-14 16:47 | Outpatient (REF) | payer OTHER, SELFPAY ==
--- NOTE | ~2022-06-14 | XR_ITS ---
EXAMINATION: XR LUMBOSACRAL SPINE CLINICAL INFORMATION: Back pain, sacroiliitis. M46.1 COMPARISON: MR lumbar spine 03/12/2021, radiographs lumbar spine 09/22/2020 TECHNIQUE: 4 views of the lumbosacral spine. FINDINGS: Normal lumbar segmentation with 5 nonrib-bearing lumbar vertebrae of normal height and normal lumbar lordosis. No lumbar vertebral compression, spondylolisthesis, destructive process. There are multilevel degenerative disc changes again seen, greatest at L1-L2 and L2-L3 with disc narrowing and vertebral spurring. Lesser degenerative changes other 3 levels. The SI joints are similar to prior radiographs 2020. No interval erosive changes or subchondral sclerosis. There is bone island again suggested upper left medial ilium. XR/XR lumbar spine 2-3V IMPRESSION: 1. Multilevel degenerative disc changes, greatest at L1-L2 and L2-L3. 2. No vertebral compression, spondylolisthesis, destructive process. 3. SI joint stable from prior study.
== END 2022-06-14 16:48 | disposition home or self-care (01) ==
LOC: HO.XRAY 16:47
PROVIDERS: PCP Registered Nurse; Visit Provider Registered Nurse
DX: M46.1 Sacroiliitis, not elsewhere classified (principal)
CPT/HCPCS: 72100

== ENCOUNTER 2022-09-03 14:56 | Outpatient (REF) | payer OTHER, SELFPAY ==
--- NOTE | ~2022-09-03 | MR_ITS ---
EXAMINATION: MR LUMBAR SPINE WITHOUT CONTRAST CLINICAL INFORMATION: Left lower extremity pain, numbness, and weakness. COMPARISON: Lumbar spine MRI 03/12/2021. TECHNIQUE: MRI of the lumbar spine was obtained using routine sequences without contrast. FINDINGS: Alignment is normal. Vertebral body heights are preserved. There are type I degenerative endplate changes at L1-L2. Bone marrow signal intensity is otherwise unremarkable. There is slight loss of intervertebral disc height and T2 signal intensity at multiple levels related to disc degeneration. The tip of the conus medullaris is located at L2. No mass effect on the conus. Visualized distal cord signal intensity is normal. At L1-L2 there is a shallow left central protrusion superimposed upon a bulging disc. No canal stenosis. No mass effect on the traversing or foraminal nerve roots. At L2-L3 there is a slightly bulging disc. No canal stenosis. No mass effect on the traversing or foraminal nerve roots. At L3-L4 there is a shallow central protrusion superimposed upon a bulging disc. No canal stenosis. No mass effect on the traversing or foraminal nerve roots. At L4-L5 the annular contour is normal. Bilateral facet degenerative change. No canal stenosis. No mass effect on the traversing or foraminal nerve roots. At L5-S1 the annular contour is normal. No canal stenosis. 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 This finding is best depicted on sagittal image 11 of 14 series 2 and axial image 27 of 30 series 6. Otherwise no mass effect on traversing or foraminal nerve roots. Limited visualization of the retroperitoneal anatomy reveals no abnormal finding. Psoas and paraspinal muscle groups are symmetric. MR/MR lumbar spine wo con IMPRESSION: There is disc degeneration at multiple levels within the lumbar spine. No canal stenosis. No mass effect on the traversing or foraminal nerve roots. 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
== END 2022-09-03 14:57 | disposition home or self-care (01) ==
LOC: HO.MRI 14:56
PROVIDERS: PCP Registered Nurse; Visit Provider Registered Nurse
DX: M51.37 Other intervertebral disc degeneration, lumbosacral region (principal)
CPT/HCPCS: 72148

== ENCOUNTER 2022-09-24 11:53 | Outpatient (REF) | payer OTHER, SELFPAY ==
--- NOTE | ~2022-09-24 | MM_ITS ---
EXAMINATION: MM SCREENING DIGITAL BREAST TOMOSYNTHESIS, BILATERAL CLINICAL INFORMATION: Screening. Asymptomatic. The lifetime risk of breast cancer based on the Tyrer-Cuzick Model is 6%. COMPARISON: Mammography: 09/04/2021; outside exams 04/03/2020, 02/19/2019 ([place]) TECHNIQUE: Digital breast tomosynthesis is performed in both the craniocaudal and mediolateral oblique views along with computer-aided detection (CAD). Synthesized 2D images are generated from the tomosynthesis. FINDINGS: There are scattered areas of fibroglandular density (ACR BI-RADS breast composition Category b). There are no significant masses, abnormal calcifications, or other abnormalities. Parenchymal pattern is similar to prior studies. There is no developing density or architectural abnormality. The axilla and skin contours are unremarkable. No significant changes. MM/MM tomosynthesis screening BI IMPRESSION: No mammographic evidence of malignancy. ASSESSMENT: BI-RADS 1: Negative RECOMMENDATION: Routine annual mammography screening. This patient's information was entered into a reminder system with a target due date for their next mammogram.
== END 2022-09-24 11:54 | disposition home or self-care (01) ==
LOC: HO.MAMMO 11:53
PROVIDERS: PCP Registered Nurse; Visit Provider Registered Nurse
DX: Z12.31 Encounter for screening mammogram for malignant neoplasm of breast (principal)
CPT/HCPCS: 77063; 77067

== ENCOUNTER → 2022-10-15 11:23 | Outpatient (BNVA) | payer OTHER, SELFPAY | PROVIDERS: PCP Registered Nurse; Visit Provider Internal Medicine Gastroenterology ==

== ENCOUNTER 2022-12-21 16:08 | Outpatient (AMB) | payer OTHER, SELFPAY ==
--- NOTE | 2022-12-21 16:10 | A.OFFVIS_ITS ---
Intake Intake Visit Reasons: breast exam Intake Note: The patient agreed to use of a medical records assistant during this encounter. Scribed for DL Lopes by Selma Velásquez medical records assistant, on 12/21/2022 at 4:09p m EST. Allergies Iodinated Contrast Media Adverse Reaction (Severe, Verified 10/15/22 11:26) Hives HPI HPI Comments History of Present Illness Details She is here for a breast exam due to right sided breast pain. Denies breast reduction, prior breast surgeries, no scarring, biopsies, nipple discharge, breast lumps or FMHx of breast cancer. UTD with mammogram. Reports Hx of cyst but does not recall which breast. PFS Medical History Anxiety Breast pain, right GERD (gastroesophageal reflux disease) Hypothyroid Intermittent palpitations Lichen planus Low vitamin D level Migraine Rapid palpitations Surgical History H/O partial thyroidectomy H/O wisdom tooth extraction H/O: hysterectomy History of esophagogastroduodenoscopy (EGD) Hx of cholecystectomy Hx of colonoscopy Social History Patient Tobacco Use Status: Never used Tobacco Physical Exam Const General: cooperative, healthy appearing, comfortable, no acute distress, well developed, alert and awake Chest Other: patient referred to pain at 12:00 area of right breast; large pendulous breast. Chest palpation & inspection: normal inspection of the chest and normal palpation of entire chest wall Breast/axilla inspection: normal inspection of the breasts, normal inspection of the axillae and Other ((no puckering, dimpling, peau de orange, retraction, discharge, masses)) Breast/axilla palpation: normal palpation of the breasts and normal palpation of the axillae Assessment & Plan Assessment & Plan (1) Breast pain, right: Code(s): N64.4 - Mastodynia Plan: Discussed: Dx.Mammogram and Right breast US ordered. All of her questions and concerns were addressed to the best of my ability and shared decision making. She is agreeable to plan of care. Orders: Orders MM tomosynthesis diagnostic BI Today Z12.31 - Encounter for screening mammogram for malignant neoplasm of breast US breast RT complete Today N64.4 - Mastodynia Coding Level of Care Code New Pt Level 3 (94174) Diagnoses Breast pain, right N64.4
== END 2022-12-22 08:48 | disposition home or self-care (01) ==
LOC: HO.HWS 16:08
PROVIDERS: PCP Registered Nurse; Visit Provider Advanced Practice Midwife
DX: N64.4 Mastodynia (principal)
CPT/HCPCS: 99203

== ENCOUNTER → 2022-12-21 16:08 | Outpatient (BNVA) | payer OTHER, SELFPAY | PROVIDERS: PCP Registered Nurse; Visit Provider Advanced Practice Midwife ==

== ENCOUNTER 2022-12-23 13:51 | Outpatient (REF) | payer OTHER, SELFPAY ==
--- NOTE | ~2022-12-23 | US_ITS ---
EXAMINATION: MM DIAGNOSTIC DIGITAL BREAST TOMOSYNTHESIS, RIGHT US BREAST LIMITED, RIGHT MAMMOGRAPHY: CLINICAL INFORMATION: 47-year-old female complaining of right breast pain in the 12:00 axis. No palpable abnormality. COMPARISON: Mammography: 09/24/2022, 09/04/2021, and dating back to 2019. TECHNIQUE: Digital right breast tomosynthesis is performed in both the craniocaudal and mediolateral oblique views along with computer-aided detection (CAD). Synthesized 2D images are generated from the tomosynthesis. FINDINGS: There are scattered areas of fibroglandular density (ACR BI-RADS breast composition Category b). There are no suspicious masses, suspicious grouped calcifications, or areas of architectural distortion in the right breast. The parenchymal pattern is stable from prior exams. Specifically, there is no mammographic abnormality in the superior right breast to correlate with the region of breast pain as reported by the patient. ULTRASOUND: CLINICAL INFORMATION: 47-year-old female complaining of right breast pain in the 12:00 axis. No palpable abnormality. COMPARISON: None relevant. TECHNIQUE: Targeted sonographic evaluation right breast superior axis was performed using a high frequency linear transducer. Selected archived documentation. FINDINGS: RIGHT BREAST: The right breast was scanned from the 10 to the 2:00 location, in the region of the main as reported by the patient. No mass, cystic abnormality, abnormal shadowing, or shift edema along soft tissue planes is identified. Only normal fibrofatty breast tissue is seen. US/US breast RT limited mamm only IMPRESSION: No sonographic or mammographic abnormality to correlate with the patient's complaint of superior right breast pain. No findings suspicious for malignancy. Recommend clinical management. OVERALL ASSESSMENT: Mammography: BI-RADS 1 - Negative Ultrasound: BI-RADS 1 - Negative RECOMMENDATION: 1 year F/U Results were provided to the patient at time of visit by the technologist. This patient's information was entered into a reminder system with a target due date for their next mammogram.
== END 2022-12-23 13:52 | disposition home or self-care (01) ==
LOC: HO.MAMMO 13:51
PROVIDERS: PCP Registered Nurse; Visit Provider Registered Nurse
DX: N64.4 Mastodynia (principal)
CPT/HCPCS: 76642; 77061; 77065

== ENCOUNTER → 2022-12-23 14:00 | Outpatient (BNV) | payer OTHER, SELFPAY | PROVIDERS: PCP Registered Nurse; Visit Provider Radiology Diagnostic Radiology | DX: N64.4 Mastodynia (principal) | CPT/HCPCS: 76642; 77061; 77065 ==

== ENCOUNTER 2023-07-18 07:02 | Outpatient (REF) | payer OTHER, SELFPAY ==
[2023-07-18 07:19] LABS: MANUAL DIFF FLAG NO
[2023-07-18 07:40] LABS: Basophils Absolute Auto 0.1 X10*3/uL (0.0-0.2); Basophils Percent Auto 1.6 % (0-2); Eosinophils Absolute Auto 0.4 X10*3/uL (0.0-0.4); Eosinophils Percent Auto 5.1 % (0-4); Hematocrit 40.3 % (37.0-47.0); Hemoglobin 13.3 g/dl (12.0-16.0); Imm Gran Abs Auto 0.05 X10*3/uL (0.00-0.03); Imm Gran Pct Auto 0.6 % (0.0-0.4); Lymphocytes Absolute Auto 2.2 X10*3/uL (1.2-4.9); Mean Corpuscular Hemoglobin 27.9 pg (27.0-33.0); Mean Corpuscular Volume 84.7 fL (80.0-98.0); Mean Platelet Volume 9.9 fL (9.4-12.3); Monocytes Absolute Auto 0.5 X10*3/uL (0.1-1.2); Monocytes Percent Auto 5.6 % (2-11); Neutrophils Absolute Auto 4.9 x10*3/uL (2.0-8.3); Neutrophils Percent Auto 60.1 % (45-73); Platelet Count 312 X10*3/uL (160-400); Red Blood Count 4.76 X10*6/uL (4.20-5.50); Red Cell Distribution Width 12.3 % (11.0-16.0); White Blood Count 8.2 X10*3/uL (4.8-10.8)
[2023-07-18 07:42] LABS: Estimated Average Glucose 120 mg/dL; Hemoglobin A1c % 5.8 % (<6.0)
[2023-07-18 08:03] LABS: Appearance Urine Cloudy; Color Urine Yellow; Glucose Urine UA Negative (Negative); Leukocyte Esterase Urine Negative (Negative); Nitrite Urine Negative (Negative); PH 6.5 (5.0-9.0); Specific Gravity - Urine 1.015 (1.005-1.025); Urine Blood Negative (Negative); Urine Ketones Negative (Negative); Urine Protein Negative (Neg-Trace)
[2023-07-18 08:07] LABS: Alanine Aminotransferase 53 U/L (0-31); Albumin Level 4.3 g/dL (3.5-5.0); Alkaline Phosphatase 49 U/L (39-117); Anion Gap 12 (12-20); Aspartate Amino Transferase 48 U/L (5-31); Bilirubin Total 0.4 mg/dL (0.0-1.0); Blood Urea Nitrogen 18 mg/dL (9-16); Calcium 9.4 mg/dL (8.4-10.2); Carbon Dioxide 22 mmol/L (22-29); Chloride 111 mmol/L (96-108); Estimated Glomerular Filt Rate > 60; Glucose Random 106 mg/dL (60-115); Lipase 20 U/L (8-78); Potassium 3.9 mmol/L (3.3-5.1); Sodium 141 mmol/L (135-145); Total Protein 6.8 g/dL (6.5-8.0)
[2023-07-18 08:25] LABS: Ferritin 108 ng/mL (10-250); Thyroid Stimulating Hormone 2.28 uIU/mL (0.32-4.0); Vitamin D 25-OH Total 40.8 ng/mL (>30)
[2023-07-18 08:33] LABS: Creatinine Urine 152.43 mg/dL; Microalbum/Creatinine Ratio Ur 4.5 ug/mg cr (<30)
[2023-07-21 22:18] LABS: Apolipoprotein A1 141 mg/dL (>=125); Apolipoprotein B 98 mg/dL (<90)
[2023-07-22 16:28] LABS: Triiodothyronine T3 Reverse 18 ng/dL (8-25)
== END 2023-07-18 07:03 | disposition home or self-care (01) ==
LOC: HO.LAB 07:02
PROVIDERS: PCP Registered Nurse; Visit Provider Registered Nurse
DX: Z00.01 Encounter for general adult medical examination with abnormal findings (principal); Z13.31 Encounter for screening for depression; Z13.89 Encounter for screening for other disorder; Z12.11 Encounter for screening for malignant neoplasm of colon; L43.9 Lichen planus, unspecified
CPT/HCPCS: 36415; 80053; 81003; 82043; 82172; 82306; 82570; 82728; 83036; 83690; 84443; 84482; 85025

== ENCOUNTER 2023-10-04 15:24 | Outpatient (REF) | payer OTHER, SELFPAY | END 2023-10-04 15:25 | disposition home or self-care (01) | LOC: HO.MAMMO 15:24 | PROVIDERS: PCP Registered Nurse; Visit Provider Registered Nurse | DX: Z12.31 Encounter for screening mammogram for malignant neoplasm of breast (principal) | CPT/HCPCS: 77063; 77067 ==

== ENCOUNTER → 2023-10-04 16:00 | Outpatient (BNV) | payer OTHER, SELFPAY | PROVIDERS: PCP Registered Nurse; Visit Provider Radiology Diagnostic Radiology | DX: Z12.31 Encounter for screening mammogram for malignant neoplasm of breast (principal) | CPT/HCPCS: 77063; 77067 ==

== ENCOUNTER 2023-12-19 08:23 | Outpatient (REF) | payer OTHER, SELFPAY ==
--- NOTE | ~2023-12-19 | US_ITS ---
EXAMINATION: US ABDOMEN COMPLETE CLINICAL INFORMATION: Elevated LFTs. COMPARISON: Ultrasound abdomen complete 06/08/2022. TECHNIQUE: Real-time imaging of the abdominal viscera. FINDINGS: PANCREAS: Normal. ABDOMINAL AORTA: The proximal, mid, and distal segments are normal in caliber. INFERIOR VENA CAVA: Visualized portions are normal. LIVER: Liver is mildly enlarged measuring 18.8 cm in span, previously 21.1 cm in span. The liver contour is normal. Moderately increased hepatic echogenicity which can be seen in the setting of hepatic steatosis or underlying liver disease similar to prior. Subcentimeter simple hepatic cyst. There is no intrahepatic biliary duct dilatation seen. GALLBLADDER: Surgically absent. COMMON BILE DUCT: Normal in caliber measuring 0.7 cm in diameter. RIGHT KIDNEY: Pelviectasis without iron hydronephrosis, slightly increased from prior. No renal calculi or focal parenchymal lesions. The kidney measures 11.1 cm in maximum dimension. LEFT KIDNEY: Normal. No hydronephrosis. No renal calculi or focal parenchymal lesions. The kidney measures 12.2 cm in maximum dimension. SPLEEN: Normal. The spleen measures 11.4 cm in maximum dimension. FREE FLUID: None. US/US abdomen complete IMPRESSION: 1. Mild hepatomegaly, decreased from prior. Moderately increased hepatic echogenicity which can be seen in the setting of hepatic steatosis or underlying liver disease similar to prior. 2. Pelviectasis without iron hydronephrosis, slightly increased from prior. Electronically signed by: Ana Laura Johnson MD 01/09/2024 06:11 PM EDT
== END 2023-12-19 08:24 | disposition home or self-care (01) ==
LOC: HO.US 08:23
PROVIDERS: PCP Physician Assistant Medical; Visit Provider Physician Assistant Medical
DX: R79.89 Other specified abnormal findings of blood chemistry (principal)
CPT/HCPCS: 76700

== ENCOUNTER 2024-04-02 13:03 | Outpatient (AMB) | payer OTHER, SELFPAY ==
--- NOTE | 2024-04-02 13:07 | MHC.OFFVIS ---
Intake Visit Reasons: LUTS/hx of urinary retention Intake Note: Patient is present for LUTS/HX OF URINARY RETENTION Urology Medication:NONE Antibiotic Allergy:NONE Blood Thinner:NONE TODAY'S PVR:0ML'S Flat Machine Cutter Required: No Allergies Iodinated Contrast Media Adverse Reaction (Severe, Verified 04/02/24 13:08) Hives HPI Comments Details: Lyla is a pleasant 49-year-old female patient of . She has a past medical history of palpitations, GERD, anxiety, hypothyroidism, migraines, and lichen planus. She presents to the office today as a new patient for LUTS and history of urinary retention. In discussion with the patient today she reports having had a recent abdominal ultrasound and recommendations were made for urology referral as there was an abnormality within the imaging. These results were reviewed with the patient today. Right kidney with pelviectasis without iron hydronephrosis, slightly increased from prior. No renal calculi or focal parenchymal lesions. The kidney measures 11.1 cm in maximum dimension. Left kidney normal. No hydronephrosis. No renal calculi or focal parenchymal lesions. The kidney measures 12.2 cm in maximum dimension. In office urinalysis results reviewed with the patient today. PVR 0 mL. When asked she denies any bothersome urinary issues or concerns. She denies urinary urgency, urinary frequency, incontinence, nocturia, hematuria, dysuria, foul smelling urine, changes to urinary stream, flank pain, fever, and or chills. She is happy with her current voiding parameters. We discussed potential causes of pelviectasis. We discussed surveillance monitoring. She otherwise offers no other issues or concerns at this time. BUN: 02/20 15, 07/23 18 Creatinine: 02/20 0.79, 07/23 0.97 PFSH Medical History Breast pain, right Rapid palpitations Intermittent palpitations GERD (gastroesophageal reflux disease) Anxiety Low vitamin D level Hypothyroid Migraine Lichen planus Surgical History H/O partial thyroidectomy H/O wisdom tooth extraction H/O: hysterectomy History of esophagogastroduodenoscopy (EGD) Hx of cholecystectomy Hx of colonoscopy Social History Patient Tobacco Use Status: Never used Tobacco Review of Systems Const All systems reviewed & are unremarkable except as noted in HPI and below Physical Exam Const General: cooperative, comfortable, no acute distress, well developed, alert and awake Orientation/consciousness: patient oriented x3 HEENT Head: Yes normal to inspection, Yes normocephalic and Yes atraumatic Ears: hearing grossly normal bilaterally Eyes General: appearance normal, both eyes and all related structures Neck Neck: Yes normal visual inspection and Yes trachea midline Chest Chest palpation & inspection: normal inspection of the chest Resp Effort & Inspection: normal respiratory effort and able to speak in complete sentences Cardio Rate: regular rate GI Inspection: Yes normal to inspection General: Yes no CVA tenderness Back/Spine/Pelvis Back: no CVA tenderness Skin General skin exam: no rashes or lesions noted Neuro General: patient oriented x3 Extrem General: Yes normal to inspection Psych Appearance: grossly normal and well kempt Mental Status: mental status grossly normal Speech and movement: Normal speech and movement present and Clear speech present Affect: normal affect Attitude: cooperative Thought process: Normal thought process present Thought content: Normal thought content present Office Procedures Post Void Residual Post Residual Void Post Void Residual (PVR): 0 [id number]-[id number] Void Residual by ultrasound Results AMB Urinalysis, Automated UA Leukoctes 0 Roma/uL Last Edit by ANGEL LUIS Stone on 04/02/24 13:21 UA Nitrite Negative Last Edit by ANGEL LUIS Stone on 04/02/24 13:21 UA Urobilinogen 0.2 mg/dL Last Edit by ANGEL LUIS Stone on 04/02/24 13:21 UA Protein 0 mg/dL Last Edit by ANGEL LUIS Stone on 04/02/24 13:21 UA pH 6.0 Last Edit by ANGEL LUIS Stone on 04/02/24 13:21 UA Blood 10 Aston/uL Last Edit by ANGEL LUIS Stone on 04/02/24 13:21 UA Specific [place] 1.020 Last Edit by ANGEL LUIS Stone on 04/02/24 13:21 UA Ketone Negative Last Edit by ANGEL LUIS Stone on 04/02/24 13:21 UA Bilirubin 0 mg/dL Last Edit by ANGEL LUIS Stone on 04/02/24 13:21 UA Glucose 0 mg/dL Last Edit by ANGEL LUIS Stone on 04/02/24 13:21 Results Reviewed Results Reviewed: Laboratory Last Values Urine pH (Auto) 6.0 04/02/24 13:21 Specific [place] (Auto) 1.020 04/02/24 13:21 Urine Protein (Auto) 0 mg/dL 04/02/24 13:21 Glucose (UA)(Auto) 0 mg/dL 04/02/24 13:21 Urine Ketones (Auto) Negative 04/02/24 13:21 Urine Blood (Auto) 10 Aston/uL 04/02/24 13:21 Urine Nitrite (Auto) Negative 04/02/24 13:21 Urine Bilirubin (Auto) 0 mg/dL 04/02/24 13:21 Urine Urobilinogen (Auto) 0.2 mg/dL 04/02/24 13:21 Leukocyte Esterase (Auto) 0 Roma/uL 04/02/24 13:21 Date of Service: 12/19/23 EXAMINATION: US ABDOMEN COMPLETE FINDINGS: PANCREAS: Normal. ABDOMINAL AORTA: The proximal, mid, and distal segments are normal in caliber. INFERIOR VENA CAVA: Visualized portions are normal. LIVER: Liver is mildly enlarged measuring 18.8 cm in span, previously 21.1 cm in span. The liver contour is normal. Moderately increased hepatic echogenicity which can be seen in the setting of hepatic steatosis or underlying liver disease similar to prior. Subcentimeter simple hepatic cyst. There is no intrahepatic biliary duct dilatation seen. GALLBLADDER: Surgically absent. COMMON BILE DUCT: Normal in caliber measuring 0.7 cm in diameter. RIGHT KIDNEY: Pelviectasis without iron hydronephrosis, slightly increased from prior. No renal calculi or focal parenchymal lesions. The kidney measures 11.1 cm in maximum dimension. LEFT KIDNEY: Normal. No hydronephrosis. No renal calculi or focal parenchymal lesions. The kidney measures 12.2 cm in maximum dimension. SPLEEN: Normal. The spleen measures 11.4 cm in maximum dimension. FREE FLUID: None. IMPRESSION: 1. Mild hepatomegaly, decreased from prior. Moderately increased hepatic echogenicity which can be seen in the setting of hepatic steatosis or underlying liver disease similar to prior. 2. Pelviectasis without iron hydronephrosis, slightly increased from prior. Assessment & Plan Assessment & Plan (1) Pelviectasis: Code(s): N28.89 - Other specified disorders of kidney and ureter Category: Medical Plan In office urinalysis results reviewed with the patient today; as noted above. PVR 0 mL Recent abdominal ultrasound results reviewed with the patient today; as noted above. Patient currently denies any bothersome urinary issues or concerns. She reports be happy with current voiding parameters. Will continue with surveillance monitoring. Will obtain renal ultrasound in 6 months. Will obtain BUN and creatinine. Follow-up in 6 months with imaging and labs; or sooner with any issues, concerns, and or questions. Orders: Orders Blood Urea Nitrogen Today R39.15 - Urgency of urination US retroperitoneal comp 6 Months N28.89 - Other specified disorders of kidney and ureter AMB Urinalysis Automated Today Z13.9 - Encounter for screening, unspecified Creatinine Today R39.15 - Urgency of urination Patient Instructions: The patient had an opportunity to ask questions regarding the treatment plan. All questions were answered. Physical exam, labs, and imaging were discussed and reviewed in detail. As well as risks, benefits, and discussion of treatment choices. No major barriers to understanding were identified. The patient expressed understanding and agreement with the above treatment plan. The patient was made aware they should contact our office by phone for worsening of their current condition, the appearance of new symptoms, or with any questions or concerns. Compliance is encouraged with any medications and follow up testing that is ordered. It is a privilege to be allowed the opportunity to participate in? your urological care.? Again, if you have any questions or concerns If you have any questions or concerns please do not hesitate to contact me. The office is [phone]. This note is constructed using voice recognition software. While every effort has been made to ensure accuracy architectural wood model maker errors may have been included. Yours sincerely, BEATRICE Becerril Coding Level of Care Code New Pt Level 3 (06297) Diagnoses Pelviectasis N28.89 CPT Codes Post Residual Void - PVR CPT Code: 64816-Dgei Void Residual by ultrasound ([id number])
== END 2024-04-02 13:42 | disposition home or self-care (01) ==
PROVIDERS: PCP Physician Assistant Medical; Visit Provider Nurse Practitioner Family
DX: N28.89 Other specified disorders of kidney and ureter (principal); Z13.9 Encounter for screening, unspecified
CPT/HCPCS: 99203

== ENCOUNTER → 2024-04-02 13:03 | Outpatient (BNVA) | payer OTHER, SELFPAY | PROVIDERS: PCP Physician Assistant Medical; Visit Provider Nurse Practitioner Family | DX: N28.89 Other specified disorders of kidney and ureter (principal); R39.15 Urgency of urination | CPT/HCPCS: 51798; 81003 ==

== ENCOUNTER 2024-04-04 07:01 | Outpatient (REF) | payer OTHER, SELFPAY ==
[2024-04-04 08:31] LABS: Alanine Aminotransferase 57 U/L (0-31); Albumin Level 4.6 g/dL (3.5-5.0); Alkaline Phosphatase 47 U/L (39-117); Aspartate Amino Transferase 48 U/L (5-31); Bilirubin Direct 0.2 mg/dL (0.0-0.5); Bilirubin Total 0.5 mg/dL (0.0-1.0); Iron 82 mcg/dL (30-160); Percent Iron Saturation 19 % (15-50); Total Iron Binding Capacity 440 mcg/dL (228-428); Total Protein 7.3 g/dL (6.5-8.0); Unsaturated Iron Binding 358 ug/dL
[2024-04-04 08:46] LABS: HBS Num1 29.33 mIU/mL (0-7.99); HBsAGNum1 0.45 S/CO (0.00-0.99); Hepatitis B Surface Antigen Negative (Negative); TSH reflex Free T4 2.41 uIU/mL (0.32-4.0); ~HepC Num1 0.09 S/CO (0.00-0.79); ~Hepatitis B Surface Antibody REACTIVE (Nonreactive); ~Hepatitis C Antibody Nonreactive (Nonreactive)
[2024-04-04 09:16] LABS: HBc Num1 0.06 S/CO (0.00-0.79); Hepatitis A Antibody IgM 0.13 Index (0-0.79); Hepatitis B Core Antibody Nonreactive (Nonreactive); ~Hepatitis A Antibody IgM Nonreactive (Nonreactive)
[2024-04-04 09:25] LABS: Hepatitis A Antibody IgG Nonreactive (Nonreactive); ~Hepatitis A Antibody IgG 0.17 S/CO (0.00-0.99)
[2024-04-05 20:14] LABS: Immunoglobulin A 223 mg/dL (47-310); Transglutaminase IgA <1.0 U/mL
[2024-04-06 11:34] LABS: Anti Nuclear Antibody Screen NEGATIVE (NEGATIVE)
[2024-04-06 12:44] LABS: Alpha 1 Anti-trypsin 164 mg/dL (83-199); Ceruloplasmin 27 mg/dL (14-48)
[2024-04-07 23:34] LABS: Smooth Muscle Antibody <20 U (<20)
--- OUTSIDE RECORDS SUMMARY | 2024-04-10 16:13 | XMS_ITS | Patient Health Record ---
Author Organization [facility] [employer] Address [address] [place] [address] [phone] Care Team Providers Care Visual Designer Name Role Phone MARLENE MCLAIN Primary Care Provider ALLERGIES Allergen (clinical drug ingredient) Drug/Non Drug Allergy documented on EMR Reaction Allergy Type Onset Date Status Deconsal CT Tannate (uncoded) , Severity Observation:Mode rate to severe , Allergy Active REASON FOR REFERRAL No Information MEDICATIONS Medication SIG (Take, Route, Frequency, Duration) Notes Start Date End Date Status Omeprazole 20 MG TAKE 1 CAPSULE BY MOUTH EVERY DAY for 90 Active Levothyroxine Sodium 100 MCG TAKE 1 TABLET BY MOUTH EACH MORNING DIRECTED for 90 Active Fenofibrate Micronized 134 MG 1 capsule with a meal Orally Once a day for 90 days Active Janeth 0.05 MG/24HR APPLY 1 PATCH TO THE SKIN TWICE WEEKLY DIRECTED Transdermal Two times a Week for 90 days Active Sertraline HCl 50 MG TAKE 3 TABLETS BY MOUTH ONCE A DAY FOR 90 DAYS for 90 Active hydrOXYzine HCl 25 MG TAKE 1 TABLET BY MOUTH THREE (3) TIMES DAILY NEEDED for 90 Active magnenesium Glyci 400mg 1daily @ night magnenesium Glyci *Reorder from [employer] for eRx and Interaction Alerts* 02/05/2022 Active Niacin 500 MG 1 tablet with food Oral Once a day 04/19/2022 Active Progesterone 100 MG TAKE 1 CAPSULE BY MOUTH EVERYDAY AT BEDTIME for 90 days Active Colestipol HCl 1 GM daily Oral colestipoL 1 gram tablet 02/05/2022 Active Vitamin D3 50 MCG (1999 UT) 2 Tablets Orally Once a day Active Fenofibrate 40 MG TAKE 1 TABLET BY MOUTH DAILY for 90 Active tiZANidine HCl 4 MG 1 tablet as needed Orally Three times a day Active Benzonatate 100 MG 1 capsule as needed Orally Three times a day for 10 days 05/09/2023 Not-Taking Azithromycin 250 MG 2 tabs once on day one, then 1 tab daily until gone Orally once a day for 5 days 05/09/2023 Not-Taking Ubrelvy 50 MG 1 tablet may take second dose at least 2 hours after first dose as needed Oral Once a day for 90 days Ubrelvy 50 mg tablet 02/05/2022 Active ALPRAZolam 0.5 MG 1 tablet Orally Twice a day for 30 days 07/18/2023 Active Metoprolol Succinate ER 25 MG TAKE 1 TABLET BY MOUTH EVERY EVENING DIRECTED Orally Once a day for 90 days Active Ondansetron HCl 8 MG 1 tablet as needed Orally Once a day for 30 day(s) 07/25/2022 Active Estradiol 0.1 MG/GM 1 gram Vaginal once daily for 14 days, then twice a week for 30 days 07/08/2023 Active Topiramate 50 MG TAKE 1 TABLET BY MOUTH TWICE DAILY Orally Once a day for 90 days Active buPROPion HCl ER (XL) 150 MG THEN BY MOUTH EVERY DAY IN THE MORNING for 90 Active SOCIAL HISTORY Sex Assigned At : Social History Observation Description Sex Assigned At Female Section Notes: Lives in [place], [place] with h usband & daughter Lives [place] usband & daughter Lives [place] usband & daughter Lives [place] usband & daughter [place] usband & daughter [place] usband & daughter [place] usband & daughter [place] usband [place] daughter [place] usband & daughter [place] usband [place] daughter [place] usband & daughter Lives [place] usband & daughter Lives [place] usband & daughter PROBLEMS Problem Type ICD Code Onset Dates Problem Status W/U Status Risk SNOMED Code Notes Problem Major depressive disorder, recurrent, in partial remission (F33.41) Active confirmed Recurrent major depression in remission (71043893) Problem Sacroiliitis, not elsewhere classified (M46.1) Active confirmed Solitary sacroiliitis (226170607) Problem Other intervertebral disc degeneration, lumbosacral region (M51.37) Active confirmed Degeneration of lumbosacral intervertebral disc (95649480) Problem Mittelschmerz (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) Active confirmed Mittelschmerz (04395378) Problem Anxiety (F41.9) Active confirmed Anxiet y (23065916) Problem Degenerative disc disease, lumbar (M51.36) Active confirmed Degeneration of lumbar intervertebral disc (51115843) Problem PTSD (post-traumatic stress disorder) (F43.10) Active confirmed Posttraumatic stress disorder (44987214) VITAL SIGNS Heart Rate 85 /min 08/01/2023 Height-cm 154.94 cm 08/01/2023 Oximetry 99 % 08/01/2023 Blood pressure diastolic 64 mm Hg 08/01/2023 Weight-kg 86.82 kg 08/01/2023 Height 61 in 08/01/2023 Blood pressure systolic 108 mm Hg 08/01/2023 Weight 191.4 lbs 08/01/2023 BMI 36.16 kg/m2 08/01/2023 Encounters Encounter Location Date Provider Diagnosis [address] [id number] 05/09/[address] [id number] 06/27/[address] [id number] 09/12/[address] [id number] 04/12/2023 [facility] Anxiety F41.9 and PT SD (post-traumatic stress disorder) F43.[address] [id number] 07/08/2023 [facility] Annual visit for general adult medical examination with abnormal findings Z00.01 ; Depression screen Z13.31 ; Encounter for screening for other disorder Z13.89 ; Encounter for screening for malignant neoplasm of colon Z12.11 ; Encounter for screening for cardiovascular disorders Z13.6 ; Encounter for screening mammogram for malignant neoplasm of breast Z12.31 ; Encounter for screening for malignant neoplasm of cervix Z12.4 ; Lichen planus L43.9 and Phimosis N47.[address] [id number] 08/01/2023 MARLENETIERNEY MCLAIN Phimosis N47.1 [facility], [address] [id number] 04/10/2023 MARLENE MCLAIN Anxiety F41.[address] [id number] 04/11/[address] [id number] 04/12/[address] [id number] 04/13/[address] [id number] 05/03/[address] [id number] 05/06/[address] [id number] 05/09/2023 [facility] SARS-associated coronavirus as the cause of diseases classified elsewhere B97.21 ; Cough R05.1 ; Fever and chills R50.9 ; Dyspnea, unspecified type R06.00 and Sore throat J02.[address] [id number] 05/10/[address] [id number] 05/30/[address] [id number] 07/12/2023 MARLENE MCLAIN Lichen planus L43.[address] [id number] 07/21/[address] [id number] 09/13/[address] [id number] 10/20/[address] [id number] 05/10/2023 [facility] ASSESSMENTS Encounter Date Diagnosis Assessment Notes Treatment Notes Treatment Clinical Notes Section Notes 04/10/2023 Anxiety (ICD-10 - F41.9) 04/12/2023 Anxiety (ICD-10 - F41.9) Referral made to our therapy group ([facility]OR[facility]) 04/12/2023 PTSD (post-traumatic stress disorder) (ICD-10 - F43.10) a lot of childhood trauma coming back, we spent a great deal of time talking about this and tools. She would benefit greatly from seeing a therapist 05/09/2023 SARS-associated coronavirus as the cause of diseases classified elsewhere (ICD-10 - B97.21) 05/09/2023 Cough (ICD-10 - R05.1) Cough: Care Instructions material was published 08/01/2023 Phimosis (ICD-10 - N47.1) We performed a clitoril phimosis procedure today under local anasthesia, bulb of clitoris was palpated and 2 sterile tip applicators were used with traction to expose and separate labia minora from clitoris-debris was removed and procedure was tolerated well with NBL and minimal discomfort to the patient. Advised to continue daily use of clobetasol and estrodial as discussed. We will plan to have her f/u in office in 6 weeks 07/08/2023 Annual visit for general adult medical examination with abnormal findings (ICD-10 - Z00.01) The exam today was without concern. We discussed short and long-term health goals. The exam today was without concerns, states feel safe at home. Reports having working CO2 and Smoke detectors. Encouraged to wear sunscreen. Reports wearing a seatbelt when driving or as a passenger. Encourage regular exercise of moderate intensity 30 min 5x/week., Well Visit 50 to 65: Care Instructions material was published, Learning About Sleeping Well material was published, Learning About Polypharmacy material was published 07/08/2023 Depression screen (ICD-10 - Z13.31) PHQ9 Score: 13 High risk for major depressive disorder, is feeling better and is seeing a therapist, Learning About Depression Screening material was published 07/12/2023 Lichen planus (ICD-10 - L43.9) 07/08/2023 Encounter for screening for other disorder (ICD-10 - Z13.89) CAGE Questions Adapted to Include Drug Use (CAGE-AID) 1. Have you ever felt you ought to cut down on your drinking or drug use? N 2. Have people annoyed you by criticizing your drinking or drug use? N 3. Have you felt bad or guilty about your drinking or drug use? N 4. Have you ever had a drink or used drugs first thing in the morning to steady your nerves or to get rid of a hangover (eye-accident report clerk)? N Total Score: 0 Scoring: Item responses on the CAGE questions are scored 0 for no and 1 for yes answers, with a higher score being an indication of alcohol problems. A total score of two or greater is considered clinically significant. 05/09/2023 Fever and chills (ICD-10 - R50.9) Fever: Care Instructions material was published 05/09/2023 Dyspnea, unspecified type (ICD-10 - R06.00) Shortness of Breath: Care Instructions material was published 07/08/2023 Encounter for screening for malignant neoplasm of colon (ICD-10 - Z12.11) Pap not done at patient's request, Colon Cancer Screening: Care Instructions material was published 07/08/2023 Encounter for screening for cardiovascular disorders (ICD-10 - Z13.6) 05/09/2023 Sore throat (ICD-10 - J02.9) Sore Throat: Care Instructions material was published 07/08/2023 Encounter for screening mammogram for malignant neoplasm of breast (ICD-10 - Z12.31) Patient Education was given regarding breast mass and breast pain. Self breast examination was discussed. Assessment and plan reviewed with patient 07/08/2023 Encounter for screening for malignant neoplasm of cervix (ICD-10 - Z12.4) Colon cancer screening options reviewed in detail. Schedule colonoscopy for colorectal cancer screening 07/08/2023 Lichen planus (ICD-10 - L43.9) 07/08/2023 Phimosis (ICD-10 - N47.1) This is a procedure we can do in the office. She agrees to book today 04/12/2023 Other Total time spen t with patient 34 minutes which includes face to face visit, education and coordination of care. 08/01/2023 Other Total time spen t with patient 41 minutes which includes face to face visit, education and coordination of care. PLAN OF TREATMENT Pending Test Test Name Order Date MRI : Lumbosacral Spines 08/16/2022 X ray : Spines, lumbosacral 06/11/2022 Ultrasound : Abdomen and Pelvis 06/04/19 Ultrasound : (OB) Transavaginal 06/04/19 THYROID PANEL WITH TSH (7444) 07/08/2023 ALBUMIN, RANDOM URINE W/CREATININE (6517 ) 07/08/2023 COMPREHENSIVE METABOLIC PANEL (99802) CBC (INCLUDES DIFF/PLT) (6399) URINALYSIS, COMPLETE (5463) 07/08/2023 HEMOGLOBIN A1c (496) 07/08/2023 LIPASE (606) 07/08/2023 APOLIPOPROTEIN A1 (5223) 07/08/2023 APOLIPOPROTEIN B (5224) 07/08/2023 FERRITIN (457) 07/08/2023 VITAMIN D,25-OH,TOTAL,IA (75925) 024 T3 REVERSE, LC/MS/MS (01916) 07/08/2023 Insurance Providers Payer Name Payer Address Payer Phone Subscriber Number Group Number Insured Name Patient Relationship to Insured Coverage Start Date Coverage End Date [employer] [place] [address] [address] [place] [address] [id number] JESSA CABRERA Self - patient is the insured MEDICAL (GENERAL) HISTORY Medical History History ICD Code Depression GERD Severe headache/migraines Hypothyroidism Moles Psoriasis Sinus infections Hemorrhoids Lichen Planus Surgical History Surgery Date(Month/Year) Cholecystectomy 2010 Hysterectomy 2013 Colonoscopy - normal per patient 2021 Endoscopy - Polyp on her stomach 2021 Thyroidectomy (partial) 2016
--- OUTSIDE RECORDS SUMMARY | 2024-04-10 16:13 | XMS_ITS ---
Author Organization [facility], [facility] Address [address] [place] [phone] Care Team Providers Care Logistics Planning Manager Name Role Phone MARLENE MCLAIN Primary Care Provider [phone] REASON FOR VISIT RTW note SOCIAL HISTORY Sex Assigned At : Social History Observation Description Sex Assigned At Female Encounters Encounter Location Date Provider Diagnosis [facility], [address] [id number] 10/20/2023 MARLENE MCLAIN PLAN OF TREATMENT No Information Progress Notes * JESSA CABRERA MDOB:1974 (48 yo F)Acc No.[id number]:10/20/2023 Patient:??JESSA CABRERA :1975?Age:48 Y?Sex:Fe male Phone: Address:[facility] [place] [address] * true * Date:??
--- OUTSIDE RECORDS SUMMARY | 2024-04-10 16:13 | XMS_ITS ---
Author Organization [facility], [facility] Address [address] [place] [phone] Care Team Providers Care Branch Specialist Name Role Phone MARLENE MCLAIN Primary Care Provider REASON FOR VISIT PFMLA SOCIAL HISTORY Sex Assigned At : Social History Observation Description Sex Assigned At Female Encounters Encounter Location Date Provider Diagnosis [facility], [address] [id number] 09/13/2023 MARLENE MCLAIN PLAN OF TREATMENT No Information Progress Notes * JESSA CABRERA MDOB:1974 (48 yo F)Acc No.[id number]:09/13/2023 Patient:??JESSA CABRERA :1975?Age:48 Y?Sex:Fe male Phone: Address:[facility] [place] [address] * true * Date:??
--- OUTSIDE RECORDS SUMMARY | 2024-04-10 16:13 | XMS_ITS ---
Author Organization [facility], [facility] Address [address] [place] [phone] Care Team Providers Care Gambling Dealer Name Role Phone MARLENE PLATA Primary Care Provider [phone] ALLERGIES Allergen (clinical drug ingredient) Drug/Non Drug Allergy documented on EMR Reaction Allergy Type Onset Date Status Deconsal CT Tannate (uncoded) , Severity Observation:Mode rate to severe , Allergy Active REASON FOR VISIT Phimosis SOCIAL HISTORY Sex Assigned At : Social History Observation Description Sex Assigned At Female Section Notes: Lives in [place], [place] with h usband & daughter Encounters Encounter Location Date Provider Diagnosis [facility], [address] [phone] 09/12/2023 MARLENE PLATA PLAN OF TREATMENT No Information Progress Notes * LYLA CABRERA MDOB:1974 (49 yo F)Acc No.[id number]:09/12/2023 Progress Notes Patient:??LYLA CABRERA Provider:??Marlene Plata DNP :1975?Age:48 Y?Sex:Fe male Date:09/12/2023 Phone: Address:[address] [place] [address] [place], [place] Subjective: * Chief Complaints: * ?1. Phimosis. * HPI: ?Patient Care Team:?Automation Software Engineer:??Dr. Kaur @ [facility]..?Clothes Drier Assembler:??Lens Mark Sawyer MA.? Lyla presents today for Phimosis procedure. * Medical History:??Depression , GERD, Severe headache/migraines, Hypothyroidism, Moles, Psoriasis, Sinus infections, Hemorrhoids, Lichen Planus. * Central Sterilization Technician History:?Menstrual history: ?LMP:??Hysterectomy 10 years ago ?Age of Menarche:??12 ?Abnormal menstruations??yes, Hx of irregular menses.?Last pap smear date??10+ years ago.?Last mammogram date??08/2022 - normal per patient.?Infertility??Hx of HRT use, Hx of fertility drugs,.?? * OB History:? History:?Total pregnancies:??3 ?Full-term pregnancies:??2 ?AB Induced:??1 * Surgical History:??Cholecyst ectomy 2010, Hysterectomy 2013, Colonoscopy - normal per patient 2021, Endoscopy - Polyp on her stomach 2021, Thyroidectomy (partial) 2016. * Family History:??Father: ali ve, Hyperlipidemia.??Mother: alive, HTN.??Brother: alive, Cerebral Palsy.?? * Social History:?Migrated Social History:?Migrated Social History: Smoking Status:Former smoker, [[id number]],. ?Drugs/Alcohol:?Do you drink alcohol?: Yes, Occasionally. ?Lives in [place], [place] with & daughter. * Allergies:??Deconsal CT Tann ate: , Severity Observation:Moderate to severe , - Allergy. Objective: Assessment: Plan: * Treatment: * Preventive Medicine:?Last CPE: 2021 @ [facility] Colonoscopy: Yes, 05/2021 for diarrhea (Dx'd Bile Acid Disease) @ [facility] Endoscopy: Yes, 05/2021 for diarrhea (Dx'd Bile Acid Disease) @ [facility] Covid Vac: Yes Flu Vac: No. * Billing Information: * Visit Code:?? * Procedure Codes:?? * Sign off status: Pending * Provider:??Marlene Plata DNP Date:??0 09/12/2023 History and Physical Notes * HPI (History of Present Illness) Category Sub-Category Detail Notes Category Not es Patient Care Team Automation Software Engineer: Dr. Kaur @ [facility]. Lyla presents today for Phimosis procedure. Clothes Drier Assembler: Tierra Lang MA
--- OUTSIDE RECORDS SUMMARY | 2024-04-10 16:13 | XMS_ITS | Continuity of Care Document ---
Author Organization [facility] Address [address] [place] [address] Phone [phone] Social History Type Date Description Comments Sex Unknown Medications Active Medications SIG Qnty Indications Ordering Provider Date Hydroxyzine VSD43tu Tablets take 2 tablets at bedtime, can add 1 extra tab as needed Misty Sharma M.D. 11/11/2021 Sertraline [id number] Tablets 1 by mouth every day Misty Sharma M.D. 11/11/2021 Metoprolol Succinate ER25mg Tablets ER 24HR 1 by mouth every day Misty Sharma M.D. 11/11/[address] 1 tab by mouth as needed 90caps Misty Sharma M.D. 11/11/2021 Lenxvvw47cs Tablets take 1 tablet twice daily Misty Sharma M.D. 11/11/2021 Levothyroxine Zquogu03lbi Capsules 1 cap by mouth every day Misty Sharma M.D. 10/09/2021 Procedures Date Code Description Status 11/12/2021 NSHOWOFF No Show Office Visit Complet ed Medical Devices Description No Information Available Encounters Description No Information Available Assessments Description No Information Available Plan of Treatment No Information Available Functional Status Description No Information Available Mental Status Description No Information Available Referrals Description No Information Available
== END 2024-04-04 07:02 | disposition home or self-care (01) ==
LOC: HO.LAB 07:01
PROVIDERS: PCP Physician Assistant Medical; Visit Provider Physician Assistant Medical
DX: R79.89 Other specified abnormal findings of blood chemistry (principal)
CPT/HCPCS: 36415; 80076; 82103; 82390; 82784; 83540; 84443; 86015; 86038; 86364; 86704; 86706; 86708; 86709; 86803; 87340

== ENCOUNTER 2024-06-09 18:17 | Outpatient (REF) | END 2024-06-09 18:18 | disposition home or self-care (01) | LOC: HO.MRI 18:17 | DX: G25.2 Other specified forms of tremor (principal) | CPT/HCPCS: 70551 ==

== ENCOUNTER → 2024-06-09 18:17 | Outpatient (BNV) | payer OTHER, SELFPAY | PROVIDERS: PCP Physician Assistant Medical; Visit Provider Radiology Diagnostic Radiology | DX: G25.2 Other specified forms of tremor (principal) | CPT/HCPCS: 70551 ==

== ENCOUNTER 2024-07-10 10:50 | Outpatient (REF) | payer OTHER, SELFPAY ==
--- NOTE | ~2024-07-10 | US_ITS ---
EXAMINATION: US PELVIS CLINICAL INFORMATION: Pelvic and perineal pain COMPARISON: None available. TECHNIQUE: Ultrasound of the pelvis is performed using both transabdominal and transvaginal transducers along with Doppler. Transvaginal imaging is performed due to inadequate visualization transabdominally. FINDINGS: The uterus has been surgically removed. Adnexa: Both ovaries are visualized. There is normal color flow to the adnexa. There is no ovarian torsion. There is no pelvic ascites or fluid collection. Right ovary measures 1.8 x 1 0.0, 1.1 cm. Volume 1.0 mL. There are small follicles visualized. There are dilated right pelvic vessels question venous congestion. Left ovary measures 2.2 x 1.7 x 1.1 cm. Volume 2.1 mL. There is a echogenic heterogenesis lesion measuring 1.0 x 0.6 x 1.1 cm and peripheral vascularity most suspicious for corpus luteal cyst. There is minimal free fluid adjacent to left ovary. There is a left paraovarian anechoic cyst measuring 1.0 x 0.8 x 1.0 cm. US/US pelvic and transvaginal IMPRESSION: Uterus has been cyst removal. Suspect corpus luteal cyst left ovary. There are bilateral ovarian simple anechoic cyst. Right ovary is unremarkable except for small follicular cysts. There is a right pelvic venous congestion suspected. Electronically signed by: Parish Hannah MD 07/10/2024 11:51 AM EDT
--- OUTSIDE RECORDS SUMMARY | 2024-07-10 13:09 | XMS_ITS | Encounter Summary ---
Author Organization [facility] Address [address] [place] [address] Care Team Providers Care Counterintelligence Analyst Name Role Phone Pcp, No Primary Care Provider Ashley Tyson PA-C Primary Care Provi mario Encounter Details Date Type Department Care Team (Late st Contact Info) Description 03/04/2022 Scanned Document [facility] INTERNAL MED SCAN Provider, Generic External Data Social History Tobacco Use Types Packs/Day Years Used Date Smoking Tobacco: Never Assessed Sex and Gender Information Value Date Recorded Sex Assigned at Female 10/03/2023 1:43 PM EDT Gender Identity Female 10/03/2023 1:43 PM EDT Sexual Orientation Heterosexual (straight) 10/02 1:43 PM EDT documented as of this encounter Plan of Treatment Upcoming Encounters Date Type Department Care Team (Late st Contact Info) Description 12/07/2024 10:00 AM EDT Office Visit [address] [place] [phone] Ashley Beal PA-C [address] [place] [address] documented as of this encounter Visit Diagnoses Not on filedocumented in this encounter Care Teams Counterintelligence Analyst Relationship Specialty Start Date End Date Pcp, No PCP - General General Medicine 10/03/23 10/10/23 Ashley Beal PA-C [address] [place], [place] [phone] PCP - General Internal Medicine 10/11/23 Solange Kaur Physician Gastroenterology 09/26/23 Gab Campos Physician Ophthalmology 09/26/23 documented as of this encounter
--- OUTSIDE RECORDS SUMMARY | 2024-07-10 13:09 | XMS_ITS | Encounter Summary ---
Author Organization [facility] Address [address] [place] [address] Care Team Providers Care Floor Covering Contractor Name Role Phone Pcp, No Primary Care Provider Ashley Tyson PA-C Primary Care Provi mario Encounter Details Date Type Department Care Team (Late st Contact Info) Description 08/16/2022 Scanned Document [facility] INTERNAL MED SCAN Provider, Generic External Data [...] Description 12/07/2024 10:00 AM EDT Office Visit [address] [place] [phone] Ashley Beal PA-C [address] [place], [place] [address] documented as of this encounter Visit Diagnoses Not on filedocumented in this encounter Care Teams Floor Covering Contractor Relationship Specialty Start Date End Date Pcp, No PCP - General General Medicine 10/03/23 10/10/23 Ashley Beal PA-C [address] [place], [place] [phone] PCP - General Internal Medicine 10/11/23 Solange Kaur Physician Gastroenterology 09/26/23 Gab Campos Physician Ophthalmology 09/26/23 documented as of this encounter
--- OUTSIDE RECORDS SUMMARY | 2024-07-10 13:09 | XMS_ITS | Clinical Summary ---
Author Organization [facility] Address [address] [place] [address] Care Team Providers Care Radiology Orderly Name Role Phone Ashley Beal PA-C Primary Care Provi mario Allergies Active Allergy Reactions Criticality Noted Date Comments Oxymetazoline Unknown/Patient and Family Unable to Define Medium 10/12/2023 Iodinated Contrast Media Hives,Shortness Of Breath High 10/12/2023 Medications Medication Sig Dispensed Refills Start Date End Date Status colestipol (COLESTID) 1 g tablet Take 1 tablet (1 g total) by mouth 2 (two) times a day. Active estradiol (VIVELLE-DOT) 0.0375 MG/24HR external patch Apply twice weekly Active metoPROLOL SUCCINATE (TOPROL-XL) 25 MG 24 hr tablet Take 1 tablet (25 mg total) by mouth daily. 09/27/2023 Active niacin 250 MG tablet Take 2 tablets (500 mg total) by mouth daily. Active progesterone (PROMETRIUM) 100 MG capsule Take 1 capsule (100 mg total) by mouth nightly. 09/21/2023 Active sertraline (ZOLOFT) 50 MG tablet Take 3 tablets (150 mg total) by mouth daily. 08/08/2023 Active buPROPion (WELLBUTRIN XL) 150 MG 24 hr tablet Take 1 tablet (150 mg total) by mouth every morning. Swallow whole; do not crush, chew, or divide. Active fexofenadine (BIRDIE) 180 MG tablet Take 1 tablet (180 mg total) by mouth daily. Administer with water only; do not administer with fruit juices. Active Vitamin D3 (CHOLECALCIFEROL) 50 MCG (2000 UT) tablet Take 2 tablets (4,000 Units total) by mouth daily. Active MAGNESIUM GLYCINATE PO Take 400 mg by mouth. Active hydrOXYzine pamoate (VISTARIL) 50 MG capsule Take 1 capsule (50 mg total) by mouth 3 (three) times a day as needed for itching. Active TiZANidine (ZANAFLEX) 4 MG capsule Take 1 capsule (4 mg total) by mouth 3 (three) times a day. Active estradiol (ESTRACE) 0.01 % vaginal cream Insert 2 g into the vagina daily. Active clobetasol (TEMOVATE) 0.05 % ointment Apply topically as needed. Active OMEprazole (PriLOSEC) 20 MG capsuleIndication s:Gastroesophagea l reflux disease without esophagitis TAKE ONE (1) CAPSULE BY MOUTH EVERY DAY 90 capsule 2 04/30/2024 Active fenofibrate micronized (LOFIBRA) 134 MG capsuleIndication s:Hypertriglyceri demia TAKE ONE (1) CAPSULE BY MOUTH EVERY DAY WITH FOOD 90 capsule 1 04/30/2024 Active topiramate (TOPAMAX) 50 MG tabletIndications :Migraine without aura and without status migrainosus, not intractable Take 1 tablet (50 mg total) by mouth 2 times a day. 60 tablet 5 06/04/2024 Active Ubrelvy 50 MG tabletIndications :Migraine without aura and without status migrainosus, not intractable Take 1 tablet (50 mg total) by mouth as needed for migraine. For Migraine. 10 tablet 1 06/04/2024 Active ALPRAZolam (XANAX) 0.5 MG tabletIndications :Anxiety Take 1 tablet (0.5 mg total) by mouth 3 times daily (every 8 hours) as needed for anxiety. 30 tablet 06/04/2024 Active levothyroxine (SYNTHROID, LEVOTHROID) 100 MCG tabletIndications :Hypothyroidism, unspecified type Take 1 tablet (100 mcg total) by mouth daily. 30 tablet 5 06/19/2024 Active levothyroxine (SYNTHROID, LEVOTHROID) 100 MCG tablet Take 1 tablet (100 mcg total) by mouth daily. 08/09/2023 Discontinue d(Reorder) Active Problems Problem Noted Date Diagnosed Date Class 2 obesity 01/08/2024 Palpitations 12/01/2023 Tremor 12/01/2023 Recurrent major depressive disorder, in partial remission 12/01/2023 Other specified hypothyroidism 10/12/2023 Psoriasis 10/12/2023 Elevated LFTs 10/12/2023 IFG (impaired fasting glucose) 10/12/2023 Hypertriglyceridemia 10/12/2023 Anxiety 10/11/2023 10/11/2023 Fatty (change of) liver, not elsewhere classifie d 10/11/2023 10/11/2023 GERD (gastroesophageal reflux disease) 10/11/2023 Lichen planus 10/11/2023 10/11/2023 Migraine 10/11/2023 10/11/2023 Degenerative disc disease, cervical 10/11/2023 10/11/2023 Degenerative disc disease, lumbar 10/11/2023 10/11/2023 PCOS (polycystic ovarian syndrome) 10/11/2023 Degenerative cervical spinal stenosis 11/17/2020 Overview (01/08/2024): Has been evaluated by neurosurgery and she is not a surgical candidate. Follows with [facility] spine and sport on a as needed basis. Has had good relief with cortisone injections. Vaginal atrophy 09/07/2019 Overview (01/08/2024): Last Assessment & Plan: Continue Estrace cream. Use oil based lubricant and superior position to see if more comfortable. TRINITY (obstructive sleep apnea) 07/12/2019 Overview (01/08/2024): Mild. Currently on CPAP. Vitamin D deficiency 04/04/2016 Thyroid nodule 01/20/2016 Overview (01/08/2024): Left thyroid lobectomy 04/20/2016, nodular follicular hyperplasia Premature atrial contraction 02/25/2015 Resolved Problems Problem Noted Date Diagnosed Date Resolved Date Bilateral ovarian cysts 10/11/2023 09/0 12/2023 Perimenopausal vasomotor symptoms 09/07/2019 01/08/2024 Overview (01/08/2024): Last Assessment & Plan: Will check FSH, TSH, estradiol. Cerebellar tonsillar ectopia 04/30/2018 01/08/2024 Sinus tachycardia by electrocardiogram 02/25/2015 01/08/2024 Obese 08/21/2012 01/08/2024 Neck pain 08/21/2012 01/08/2024 Dysplastic nevi 11/18/2009 01/08/2024 Overview (01/08/2024): Dysplastic nevi 11/12 right arm (moderate atypia) 11/08 left upper back, superior & inferior (mild atypia) Encounters Date Type Department Care Team Description 06/18/[address] [place] [address] Ashley Beal PA-C Hypothyroidism, unspecified type (Primary Dx) 06/12/2024 Scanned Document [facility] [address] [place] [address] Neurology, Scan 06/11/2024 Orders Only [facility] [address] [place] [address] Neurology, Scan 06/04/2024 [facility] [address] [facility] [address] [place] [address] Ashley Beal PA-C Migraine without aura and without status migrainosus, not intractable; Anxiety 06/04/2024 [facility] [address] [facility] [address] [place] [address] Ashley Beal PA-C Migraine without aura and without status migrainosus, not intractable 05/14/2024 3:45 PM EST Office Visit [facility] [address] [facility] [address] [place] [address] Ashley Beal PA-C Migraine without aura and without status migrainosus, not intractable (Primary Dx); Elevated LFTs; Palpitations; Tremor 05/14/2024 Travel 05/01/2024 Orders Only [address] [phone] Provider, Generic External Data 04/30/[address] [phone] Ashley Beal PA-C Gastroesophageal reflux disease without esophagitis (Primary Dx); Anxiety; Hypertriglyceridemia 04/26/2024 Scanned Document [address] [phone] Primary Care, Scan from Last 3 Months Immunizations Name Administration Dates Next Due Hepatitis B 06/07/2011, 5,01/08/2004,2003 Influenza Inactivated/Split Preservative Free IM 03/04/2017,02/10/2011,02/09/2010 MMR 10/07/2009 Tdap 06/07/2011 Family History Medical History Relation Name Comments Cerebral palsy Brother Hyperlipidemia Father Hypertension Mother Relation Name Status Comments Brother Father Mother Social History Tobacco Use Types Packs/Day Years Used Date Smoking Tobacco: Former Cigarettes Smokeless Tobacco: Former Tobacco Cessation:Counseling Given: Not Answered Alcohol Use Standard Drinks/Week Comments Yes 0 (1 standard drink = 0.6 oz pur e alcohol) [facility] Utilities Answer Date Recorded In the past 12 months has [employer], gas, oil, or water [employer] threatened to shut off services in your home? No 05/13/2024 Social Connection and Isolation Panel [NHANES] A nswer Date Recorded In a typical week, how many times do you talk on the phone with family, friends, or neighbors? Once a week 05/13/2024 Frequency of Social Gatherings with Friends and Family Not on file 05/13/2024 Attends Alevism Services Not on file 05/13 Active Member of Clubs or Organizations Not on f ile 05/13/2024 Attends Club or Organization Meetings Not on janes e 05/13/2024 Marital Status Not on file 05/13/2024 AUDIT-C Answer Date Recorded Q1: How often do you have a drink containing alc ohol? Monthly or less 05/13/2024 Q2: How many drinks containi ng alcohol do you have on a typical day when you are drinking? 1 or 2 05/13/2024 Frequency of Binge Drinking Not on file 05/02 PHQ-2 Answer Date Recorded PHQ-2 Total Score 2 12/01/2023 Hunger Vital Sign Answer Date Recorded Within the past 12 months, y ou worried that your food would run out before you got the money to buy more. Never true 05/13/19 25 Within the past 12 months, t he food you bought just didn't last and you didn't have money to get more. Never true 05/13/2024 PRAPARE - Transportation Answer Date Re corded In the past 12 months, has l ack of transportation kept you from medical appointments or from getting medications? No 05/02 In the past 12 months, has l ack of transportation kept you from meetings, work, or from getting things needed for daily living? No 05/13/2024 Housing Stability Vital Sign Answer Allen e Recorded In the last 12 months, was t here a time when you were not able to pay the mortgage or rent on time? No 05/13/2024 In the past 12 months, how m any times have you moved where you were living? 0 05/13/2024 At any time in the past 12 m [facility], were you homeless or living in a snf (including now)? No 05/13/2024 Education Answer Date Recorded What is the highest level of school you have completed or the highest degree you have received? Associate degree: occupational, technical, or vocational program 05/13/2024 Sex and Gender Information Value Date Recorded Sex Assigned at Female 10/03/2023 1:43 PM EDT Gender Identity Female 10/03/2023 1:43 PM EDT Sexual Orientation Heterosexual (straight) 10/02 1:43 PM EDT Last Filed Vital Signs Vital Sign Reading Time Taken Comments Blood Pressure 112/80 05/14/2024 3:37 PM EST Pulse 71 05/14/2024 3:37 PM EST Temperature 35.9 ??C (96.7 ??F) 05/14/2024 3:37 PM ES T Respiratory Rate 17 05/14/2024 3:37 PM EST Oxygen Saturation 97% 05/14/2024 3:37 PM EST Inhaled Oxygen Concentration - - Weight 86.2 kg (190 lb) 05/14/2024 3:37 PM EST Height 154.9 cm (5' 1 ) 05/14/2024 3:37 PM EST Body Mass Index 35.9 05/14/2024 3:37 PM EST Plan of Treatment Upcoming Encounters Date Type Department Care Team (Late st Contact Info) Description 12/07/2024 10:00 AM EDT Office Visit [facility] [address] [place] [address] Ashley Beal PA-C [address] [place] [address] Health Maintenance Due Date Last Done Comments HIV Screening 01/09/1989 Physical 01/09/1994 Pap Smear (Ages 21-65) 01/09/1997 Mammogram 2016 DTaP/Tdap/Td Vaccines (2 - Td or Tdap) 06/07/2021 06/07/2011 Influenza Vaccine 12/01/2023 03/04/2017, , 02/09/2010 COVID-19 Vaccine ( season) 2024 Colonoscopy 05/02/2031 05/02/2021 (Prev iously Completed) Hepatitis B Vaccines Completed 06/07/2011, 06/13/2004, 01/08/2004, Additional history exists Hepatitis C Virus Screening Completed 04/04/2024 Pneumococcal Vaccine: Pediatric (0-5 Years) and At-Risk Patients (6 to 49 Years) Aged Out No longer eligible based on patient's age to complete this topic Procedures Procedure Name Priority Date/Time Associated Diagnosis Comments MRI EXTERNAL RESULT Routine 06/09/2024 1 :33 PM EST HEPATITIS C VIRUS (HCV) ANTIBODY Routine 04/04/2024 Elevated LFTs from Last 3 Months or Most Recently Relevant to Health Maintenance Results * MRI External Result (06/09/2024 1:33 PM EST) Anatomical Region Laterality Modality Magnetic Resonan ce Scan Neurology IMG MRI ORDERABLES * HEPATITIS C VIRUS (HCV) ANTIBODY (04/04/2024) Blood Blood specimen / Unknown 04/04/2024 Ashley Beal PA-C LAB BLOOD O RDERABLES [facility] from Last 3 Months or Most Recently Relevant to Health Maintenance Care Teams Radiology Orderly Relationship Specialty Start Date End Date Ashley Beal PA-C [address] [place] [address] PCP - General Internal Medicine 10/11/23 Solange Kaur Physician Gastroenterology 09/26/23 Gab Campos Physician Ophthalmology 09/26/23
--- OUTSIDE RECORDS SUMMARY | 2024-07-10 13:09 | XMS_ITS | Encounter Summary ---
Author Organization [facility] Address [address] [place] [address] Care Team Providers Care Navy Senior Officer Name Role Phone Pcp, No Primary Care Provider Ashley Tyson PA-C Primary Care Provi mario Encounter Details Date Type Department Care Team (Late st Contact Info) Description 06/23/2022 Scanned Document [facility] INTERNAL MED SCAN Provider, Generic External [...] Description 12/07/2024 10:00 AM EDT Office Visit [address] [place] [phone] Ashley Beal PA-C [address] [place], [place] [address] documented as of this encounter Visit Diagnoses Not on filedocumented in this encounter Care Teams Navy Senior Officer Relationship Specialty Start Date End Date Pcp, No PCP - General General Medicine 10/03/23 10/10/23 Ashley Beal PA-C [address] [place], [place] [phone] PCP - General Internal Medicine 10/11/23 Solange Kaur Physician Gastroenterology 09/26/23 Gab Campos Physician Ophthalmology 09/26/23 documented as of this encounter
--- OUTSIDE RECORDS SUMMARY | 2024-07-10 13:09 | XMS_ITS | Encounter Summary ---
Author Organization [facility] Address [address] [place] [address] Care Team Providers Care Webmethods Architect Name Role Phone Pcp, No Primary Care Provider Ashley Tyson PA-C Primary Care Provi mario Encounter Details Date Type Department Care Team (Late st Contact Info) Description 02/16/2023 Scanned Document [facility] INTERNAL MED SCAN Provider, Generic External [...] Description 12/07/2024 10:00 AM EDT Office Visit [address] [place] [phone] Ashley Beal PA-C [address] [place], [place] [address] documented as of this encounter Visit Diagnoses Not on filedocumented in this encounter Care Teams Webmethods Architect Relationship Specialty Start Date End Date Pcp, No PCP - General General Medicine 10/03/23 10/10/23 Ashley Beal PA-C [address] [place], [place] [phone] PCP - General Internal Medicine 10/11/23 Solange Kaur Physician Gastroenterology 09/26/23 Gab Campos Physician Ophthalmology 09/26/23 documented as of this encounter
--- OUTSIDE RECORDS SUMMARY | 2024-07-10 13:09 | XMS_ITS ---
Author Organization [facility] Address [address] [place] [id number] Care Team Providers Care Steam Setter Name Role Phone MARLENE MCLAIN Primary Care Provider REASON FOR VISIT PFMLA SOCIAL HISTORY Sex Assigned At : Social History Observation Description Sex Assigned At Female Encounters Encounter Location Date Provider Diagnosis [facility], [address] [phone] 09/13/2023 MARLENE MCLAIN PLAN OF TREATMENT No Information Progress Notes * JESSA CABRERA MDOB:1974 (48 yo F)Acc No.[id number]:09/13/2023 Patient:??JESSA CABRERA :1975?Age:48 Y?Sex:Fe male Phone: Address:[facility] [place] [place] [address] * true * Date:??
--- OUTSIDE RECORDS SUMMARY | 2024-07-10 13:09 | XMS_ITS | Encounter Summary ---
Author Organization [facility] Address [address] [place] [address] Care Team Providers Care Manager Finance Name Role Phone Pcp, No Primary Care Provider Ashley Tyson PA-C Primary Care Provi mario Encounter Details Date Type Department Care Team (Late st Contact Info) Description 07/08/2023 Scanned Document [facility] INTERNAL MED SCAN Provider, Generic External [...] Description 12/07/2024 10:00 AM EDT Office Visit [address] [place] [phone] Ashley Beal PA-C [address] [place], [place] [address] documented as of this encounter Visit Diagnoses Not on filedocumented in this encounter Care Teams Manager Finance Relationship Specialty Start Date End Date Pcp, No PCP - General General Medicine 10/03/23 10/10/23 Ashley Beal PA-C [address] [place], [place] [phone] PCP - General Internal Medicine 10/11/23 Solange Kaur Physician Gastroenterology 09/26/23 Gab Campos Physician Ophthalmology 09/26/23 documented as of this encounter
--- OUTSIDE RECORDS SUMMARY | 2024-07-10 13:09 | XMS_ITS ---
Author Name [facility] Organization Unknown Encounters Encounter Type Encounter Reason Primary Diagnosis Location Date Ambulatory Follow-up Follow-up [facility] 05/14/2024 Ambulatory Other specified abnormal findings of blood chemistry Other specified abnormal findings of blood chemistry [facility] 12/01/2023
--- OUTSIDE RECORDS SUMMARY | 2024-07-10 13:09 | XMS_ITS | Encounter Summary ---
Author Organization [facility] Address [address] [place] [address] Care Team Providers Care Farmworker Vegetable Name Role Phone Pcp, No Primary Care Provider Ashley Tyson PA-C Primary Care Provi mario Encounter Details Date Type Department Care Team (Late st Contact Info) Description 08/01/2023 Scanned Document [place] INTERNAL MED SCAN Provider, Generic External Data [...] 12/07/2024 10:00 AM EDT Office Visit [address] [place] [phone] Ashley Beal PA-C [address] [place], [place] [address] documented as of this encounter Visit Diagnoses Not on filedocumented in this encounter Care Teams Farmworker Vegetable Relationship Specialty Start Date End Date Pcp, No PCP - General General Medicine 10/03/23 10/10/23 Ashley Beal PA-C [address] [place], [place] [phone] PCP - General Internal Medicine 10/11/23 Solange Kaur Physician Gastroenterology 09/26/23 Gab Campos Physician Ophthalmology 09/26/23 documented as of this encounter
--- OUTSIDE RECORDS SUMMARY | 2024-07-10 13:09 | XMS_ITS | Encounter Summary ---
Author Organization [facility] Address [address] [place] [address] Care Team Providers Care Limehouse Worker Name Role Phone Ashley Beal PA-C Primary Care [facility] Encounter Details Date Type Department Care Team (Late st Contact Info) Description 06/11/2024 Orders Only [facility] [address] [place] [address] Neurology, Scan Social History Tobacco Use Types Packs/Day Years Used Date Smoking Tobacco: Former Cigarettes Smokeless Tobacco: Former Alcohol Use Standard Drinks/Week Comments Yes 0 (1 standard drink = 0.6 oz pur e alcohol) [facility] Utilities Answer Date Recorded In the past 12 months has e electric, gas, oil, or water company threatened to shut off services in your home? No 05/13/2024 Social Connection and Isolation Panel [NHANES] A nswer Date Recorded In a typical week, how many times do you talk on the phone with family, friends, or neighbors? Once a week 05/13/2024 Frequency of Social Gatherings with Friends and Family Not on file 05/13/2024 Attends Sikhism Services Not on file 05/13 Active Member [...] any time in the past [address] [facility], were you homeless or living in a chcf (including now)? No 05/13/2024 Education Answer Date [...] Description 12/07/2024 10:00 AM EDT Office Visit [address] [phone] Ashley Beal PA-C [address] [place] [address] documented as of this encounter Procedures Procedure Name Priority Date/Time Associated Diagnosis Comments MRI EXTERNAL RESULT Routine 06/09/2024 1:33 PM EST documented in this encounter Results * MRI External Result (06/09/2024 1:33 PM EST) Anatomical Region Laterality Modality Magnetic Resonan ce Scan Neurology IMG MRI ORDERABLES documented in this encounter Visit Diagnoses Not on filedocumented in this encounter Care Teams Limehouse Worker Relationship Specialty Start Date End Date Ashley Beal PA-C [address] [place] [address] PCP - General Internal Medicine 10/11/23 Solange Kaur Physician Gastroenterology 09/26/23 Gab Campos Physician Ophthalmology 09/26/23 documented as of this encounter
--- OUTSIDE RECORDS SUMMARY | 2024-07-10 13:09 | XMS_ITS ---
Continuity of Care Document (CCD) Created on: July 10, 2024 Lyla Castaneda External Reference #: [id number] : [id number] Sex: Female Author Organization [facility] Address [address] [facility] [place] [address] Phone [phone] Social History Type Date Description Comments Sex Unknown Medications Active Medications SIG Qnty Indications Ordering Provider Date Hydroxyzine [id number] Tablets take 2 tablets at bedtime, can add 1 extra tab as needed Misty Sharma M.D. 11/11/2021 Sertraline UQH370by Tablets 1 by mouth every day Misty Sharma M.D. 11/11/2021 Metoprolol Succinate ER25mg Tablets ER 24HR 1 by mouth every day Misty Sharma M.D. 11/11/[id number] 1 tab by mouth as needed 90caps Misty Sharma M.D. 11/11/2021 Xymntxc02gt Tablets take 1 tablet twice daily Misty Sharma M.D. 11/11/2021 Levothyroxine Efzxbh09ydq Capsules 1 cap by mouth every day [...]
--- OUTSIDE RECORDS SUMMARY | 2024-07-10 13:09 | XMS_ITS | Encounter Summary ---
Author Organization [facility] Address [address] [place] [address] Care Team Providers Care Unix Systems Administrator Name Role Phone Pcp, No Primary Care Provider Ashley Tyson PA-C Primary Care Provi mario Encounter Details Date Type Department Care Team (Late st Contact Info) Description 02/05/2022 Scanned Document [facility] INTERNAL MED SCAN Provider, Generic [...] Description 12/07/2024 10:00 AM EDT Office Visit [address] [place] [phone] Ashley Beal PA-C [address] [place] [address] documented as of this encounter Visit Diagnoses Not on filedocumented in this encounter Care Teams Unix Systems Administrator Relationship Specialty Start Date End Date Pcp, No PCP - General General Medicine 10/03/23 10/10/23 Ashley Beal PA-C [address] [place], [place] [phone] PCP - General Internal Medicine 10/11/23 Solange Kaur Physician Gastroenterology 09/26/23 Gab Campos Physician Ophthalmology 09/26/23 documented as of this encounter
--- OUTSIDE RECORDS SUMMARY | 2024-07-10 13:09 | XMS_ITS | Encounter Summary ---
Author Organization [facility] Address [address] [place] [address] Care Team Providers Care Vertical Roll Operator Name Role Phone Ashley Beal PA-C Primary Care [facility] Encounter Details Date Type Department Care Team (Late Contact Info) Description 04/26/2024 Scanned Document [address] [phone] Primary Care, Scan Social History Tobacco Use Types Packs/Day Years Used Date Smoking Tobacco: Former Cigarettes Smokeless Tobacco: Former Alcohol Use Standard Drinks/Week Comments Yes 0 (1 standard drink = 0.6 oz pur e alcohol) PHQ-2 Answer Date Recorded PHQ-2 Total Score 2 12/01/2023 Sex and Gender Information Value Date Recorded Sex Assigned at Female 10/03/2023 1:43 PM EDT Gender Identity Female 10/03/2023 1:43 PM EDT Sexual Orientation Heterosexual (straight) 10/02 1:43 PM EDT documented as of this encounter Plan of Treatment Upcoming Encounters Date Type Department Care Team (Late st Contact Info) Description 12/07/2024 10:00 AM EDT Office Visit [address] [phone] Ashley Beal PA-C [address] [place] [address] documented as of this encounter Visit Diagnoses Not on filedocumented in this encounter Care Teams Vertical Roll Operator Relationship Specialty Start Date End Date Ashley Beal PA-C [address] [place] [address] PCP - General Internal Medicine 10/11/23 Solange Kaur Physician Gastroenterology 09/26/23 Gab Campos Physician Ophthalmology 09/26/23 documented as of this encounter
--- OUTSIDE RECORDS SUMMARY | 2024-07-10 13:09 | XMS_ITS ---
Author Organization [facility] Address [address] [place] [id number] Care Team Providers Care Coil Cleaner Name Role Phone MARLENE PLATA Primary Care Provider ALLERGIES Allergen (clinical drug ingredient) Drug/Non Drug Allergy documented on EMR Reaction Allergy Type Onset Date Status Deconsal CT Tannate (uncoded) , Severity Observation:Mode rate to severe , Allergy Active REASON FOR VISIT Phimosis SOCIAL HISTORY Sex Assigned At : Social History Observation Description Sex Assigned At Female Section Notes: Lives in [place], [place] with h usband & daughter Encounters Encounter Location Date Provider Diagnosis [facility], [address] [phone] 09/12/2023 MARLENE PLATA PLAN OF TREATMENT No Information Progress Notes * LYLA CABRERA MDOB:1974 (49 yo F)Acc No.[id number]:09/12/2023 Progress Notes Patient:??LYLA CABRERA Provider:??Marlene Plata DNP :1975?Age:48 Y?Sex:Fe male Date:09/12/2023 Phone: Address:[address] [place] [address] [id number] Subjective: * Chief Complaints: * ?1. Phimosis. * HPI: ?Patient Care Team:?Collet Gluer:??Dr. Kaur @ [facility]..?School Program Director:??Lens Mark Sawyer MA.? Lyla presents today for Phimosis procedure. * Medical History:??Depression , GERD, Severe headache/migraines, Hypothyroidism, Moles, Psoriasis, Sinus infections, Hemorrhoids, Lichen Planus. * Substation Engineer History:?Menstrual history: ?LMP:??Hysterectomy 10 years ago ?Age [...] Social History:?Migrated Social History: Smoking Status:Former smoker, [[id number]],. ?Drugs/Alcohol:?Do you drink alcohol?: Yes, Occasionally. ?Lives in [place], [place] with & daughter. * Allergies:??Deconsal CT Tann ate: , Severity Observation:Moderate to severe , - Allergy. 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 Covid Vac: Yes Flu Vac: No. * Billing Information: * Visit Code:?? * Procedure Codes:?? * Sign off status: Pending * Provider:??Marlene Plata DNP Date:??0 09/12/2023 History and Physical Notes * HPI (History of Present Illness) Category Sub-Category Detail Notes Category Not es Patient Care Team Collet Gluer: Dr. Kaur @ [facility]. Lyla presents today for Phimosis procedure. School Program Director: Tierra Lang MA
--- OUTSIDE RECORDS SUMMARY | 2024-07-10 13:09 | XMS_ITS | Encounter Summary ---
Author Organization [facility] Address [address] [place] [address] Care Team Providers Care Windshield Wiper Repairer Name Role Phone Pcp, No Primary Care Provider Ashley Tyson PA-C Primary Care Provi mario Encounter Details Date Type Department Care Team (Late st Contact Info) Description 04/12/[address] [facility] INTERNAL MED SCAN Provider, Generic External [...] Description 12/07/2024 10:00 AM EDT Office Visit [address] [place] [phone] Ashley Beal PA-C [address] [place], [place] [address] documented as of this encounter Visit Diagnoses Not on filedocumented in this encounter Care Teams Windshield Wiper Repairer Relationship Specialty Start Date End Date Pcp, No PCP - General General Medicine 10/03/23 10/10/23 Ashley Beal PA-C [address] [place], [place] [phone] PCP - General Internal Medicine 10/11/23 Solange Kaur Physician Gastroenterology 09/26/23 Gab Campos Physician Ophthalmology 09/26/23 documented as of this encounter
--- OUTSIDE RECORDS SUMMARY | 2024-07-10 13:09 | XMS_ITS | Encounter Summary ---
Author Organization [facility] Address [address] [place] [address] Care Team Providers Care Scrap Charger Name Role Phone Pcp, No Primary Care Provider Ashley Tyson PA-C Primary Care Provi mario Encounter Details Date Type Department Care Team (Late st Contact Info) Description 03/16/2023 Scanned Document [facility] INTERNAL MED SCAN Provider, Generic External [...] Description 12/07/2024 10:00 AM EDT Office Visit [address] [place] [phone] Ashley Beal PA-C [address] [place], [place] [address] documented as of this encounter Visit Diagnoses Not on filedocumented in this encounter Care Teams Scrap Charger Relationship Specialty Start Date End Date Pcp, No PCP - General General Medicine 10/03/23 10/10/23 Ashley Beal PA-C [address] [place], [place] [phone] PCP - General Internal Medicine 10/11/23 Solange Kaur Physician Gastroenterology 09/26/23 Gab Campos Physician Ophthalmology 09/26/23 documented as of this encounter
--- OUTSIDE RECORDS SUMMARY | 2024-07-10 13:09 | XMS_ITS | Encounter Summary ---
Author Organization [facility] Address [address] [place] [address] Care Team Providers Care Business Intelligence Etl Developer Name Role Phone Pcp, No Primary Care Provider Ashley Tyson PA-C Primary Care Provi mario Encounter Details Date Type Department Care Team (Late st Contact Info) Description 09/15/2022 Scanned Document [facility] INTERNAL MED SCAN Provider, Generic [...] Description 12/07/2024 10:00 AM EDT Office Visit [address] [place] [phone] Ashley Beal PA-C [address] [place], [place] [address] documented as of this encounter Visit Diagnoses Not on filedocumented in this encounter Care Teams Business Intelligence Etl Developer Relationship Specialty Start Date End Date Pcp, No PCP - General General Medicine 10/03/23 10/10/23 Ashley Beal PA-C [address] [place], [place] [phone] PCP - General Internal Medicine 10/11/23 Solange Kaur Physician Gastroenterology 09/26/23 Gab Campos Physician Ophthalmology 09/26/23 documented as of this encounter
--- OUTSIDE RECORDS SUMMARY | 2024-07-10 13:10 | XMS_ITS | Encounter Summary ---
Author Organization [facility] Address [address] [place] [address] Care Team Providers Care Twisting Department End Finder Name Role Phone Pcp, No Primary Care Provider Ashley Tyson PA-C Primary Care Provi mario Encounter Details Date Type Department Care Team (Late st Contact Info) Description 03/12/2022 Scanned Document [facility] INTERNAL [...] Description 12/07/2024 10:00 AM EDT Office Visit [address] [place] [phone] Ashley Beal PA-C [address] [place] [address] documented as of this encounter Visit Diagnoses Not on filedocumented in this encounter Care Teams Twisting Department End Finder Relationship Specialty Start Date End Date Pcp, No PCP - General General Medicine 10/03/23 10/10/23 Ashley Beal PA-C [address] [place], [place] [phone] PCP - General Internal Medicine 10/11/23 Solange Kaur Physician Gastroenterology 09/26/23 Gab Campos Physician Ophthalmology 09/26/23 documented as of this encounter
--- OUTSIDE RECORDS SUMMARY | 2024-07-10 13:10 | XMS_ITS ---
Author Organization [facility] Address [address] [place] [id number] Care Team Providers Care Tso Name Role Phone MARLENE MCLAIN Primary Care Provider REASON FOR VISIT RTW note SOCIAL HISTORY Sex Assigned At : Social History Observation Description Sex Assigned At Female Encounters Encounter Location Date Provider Diagnosis [facility], [address] [phone] 10/20/2023 MARLENE MCLAIN PLAN OF TREATMENT No Information Progress Notes * JESSA CABRERA MDOB:1974 (48 yo F)Acc No.[id number]:10/20/2023 Patient:??JESSA CABRERA :1975?Age:48 Y?Sex:Fe male Phone: Address:[facility] [address] * true * Date:??
--- OUTSIDE RECORDS SUMMARY | 2024-07-10 13:10 | XMS_ITS | Encounter Summary ---
Author Organization [facility] Address [address] [place] [address] Care Team Providers Care Size Roller Operator Name Role Phone Ashley Beal PA-C Primary Care [facility] Encounter Details Date Type Department Care Team (Late st Contact Info) Description 06/12/2024 Scanned Document [facility]ENTRAL SCANNING [address] [place] [address] Neurology, Scan Social History Tobacco Use Types Packs/Day Years Used Date Smoking Tobacco: Former Cigarettes Smokeless Tobacco: Former Alcohol Use Standard Drinks/Week Comments Yes 0 (1 standard drink = 0.6 oz pur e alcohol) [facility] Utilities Answer Date Recorded In the past 12 months has [employer] electric, gas, oil, or water company threatened to shut off services in your home? No 05/13/2024 Social Connection and Isolation Panel [NHANES] A nswer Date Recorded In a typical week, how many times do you talk on the phone with family, friends, or neighbors? Once a week 05/13/2024 Frequency of Social Gatherings with Friends and Family Not on file 05/13/2024 Attends Restorationism Services Not on file 05/13 Active Member [...] any time in the past 12 m [facility], were you homeless or living in a retirement (including now)? No 05/13/2024 Education Answer Date [...] 12/07/2024 10:00 AM EDT Office Visit [address] [phone] Ashley Beal PA-C [address] [place] [address] documented as of this encounter Visit Diagnoses Not on filedocumented in this encounter Care Teams Size Roller Operator Relationship Specialty Start Date End Date Ashley Beal PA-C [address] [place] [address] PCP - General Internal Medicine 10/11/23 Solange Kaur Physician Gastroenterology 09/26/23 Gab Campos Physician Ophthalmology 09/26/23 documented as of this encounter
--- OUTSIDE RECORDS SUMMARY | 2024-07-10 13:10 | XMS_ITS | Encounter Summary ---
Author Organization [facility] Address [address] [place] [address] Care Team Providers Care Storm Chaser Name Role Phone Pcp, No Primary Care Provider Ashley Tyson PA-C Primary Care Provi mario Encounter Details Date Type Department Care Team (Late st Contact Info) Description 04/19/2022 Scanned Document [facility] INTERNAL MED SCAN Provider, Generic External Data [...] Description 12/07/2024 10:00 AM EDT Office Visit [address] [place] [phone] Ashley Beal PA-C [address] [place] [address] documented as of this encounter Visit Diagnoses Not on filedocumented in this encounter Care Teams Storm Chaser Relationship Specialty Start Date End Date Pcp, No PCP - General General Medicine 10/03/23 10/10/23 Ashley Beal PA-C [address] [place], [place] [phone] PCP - General Internal Medicine 10/11/23 Solange Kaur Physician Gastroenterology 09/26/23 Gab Campos Physician Ophthalmology 09/26/23 documented as of this encounter
--- OUTSIDE RECORDS SUMMARY | 2024-07-10 13:10 | XMS_ITS | Encounter Summary ---
Author Organization [facility] Address [address] [place] [address] Care Team Providers Care Grease Buffer Name Role Phone Pcp, No Primary Care Provider Ashley Tyson PA-C Primary Care Provi mario Encounter Details Date Type Department Care Team (Late st Contact Info) Description 06/04/2022 Scanned Document [facility] INTERNAL MED SCAN Provider, Generic External Data [...] Description 12/07/2024 10:00 AM EDT Office Visit [address] [place] [phone] Ashley Beal PA-C [address] [place], [place] [address] documented as of this encounter Visit Diagnoses Not on filedocumented in this encounter Care Teams Grease Buffer Relationship Specialty Start Date End Date Pcp, No PCP - General General Medicine 10/03/23 10/10/23 Ashley Beal PA-C [address] [place], [place] [phone] PCP - General Internal Medicine 10/11/23 Solange Kaur Physician Gastroenterology 09/26/23 Gab Campos Physician Ophthalmology 09/26/23 documented as of this encounter
--- OUTSIDE RECORDS SUMMARY | 2024-07-10 13:10 | XMS_ITS | Encounter Summary ---
Author Organization [facility] Address [address] [place] [address] Care Team Providers Care Lunch Truck Operator Name Role Phone Ashley Beal PA-C Primary Care [facility] Reason for Visit * Reason Onset Date Comments Medication Refill 06/18/2024 Encounter Details Date Type Department Care Team (Late st Contact Info) Description 06/18/[address] [phone] Ashley Beal PA-C [address] [place] [address] Hypothyroidism, unspecified type (Primary Dx) Social History Tobacco Use Types Packs/Day Years Used Date Smoking Tobacco: Former Cigarettes Smokeless Tobacco: Former Alcohol Use Standard Drinks/Week Comments Yes 0 (1 standard drink = 0.6 oz pur e alcohol) [facility] Utilities Answer Date Recorded In the past 12 months has e [employer], gas, oil, or water [employer] threatened to shut off services in your home? No 05/13/2024 Social Connection and Isolation Panel [NHANES] A nswer Date Recorded In a typical week, how many times do you talk on the phone with family, friends, or neighbors? Once a week 05/13/2024 Frequency of Social Gatherings with Friends and Family Not on file 05/13/2024 Attends Mormonism Services Not on file 05/13 Active Member [...] any time in the past 12 m [facility], were you homeless or living in a assisted (including now)? No 05/13/2024 Education Answer Date [...] Description 12/07/2024 10:00 AM EDT Office Visit [address] [place] [address] Ashley Beal PA-C [address] [place] [address] documented as of this encounter Visit Diagnoses Diagnosis Hypothyroidism, unspecified type- Primary documented in this encounter Care Teams Lunch Truck Operator Relationship Specialty Start Date End Date Ashley Beal PA-C [address] [place] [address] PCP - General Internal Medicine 10/11/23 Solange Kaur Physician Gastroenterology 09/26/23 Gab Campos Physician Ophthalmology 09/26/23 documented as of this encounter
--- OUTSIDE RECORDS SUMMARY | 2024-07-10 13:10 | XMS_ITS | Encounter Summary ---
Author Organization [facility] Address [address] [place] [address] Care Team Providers Care Commodity Lead Name Role Phone Pcp, No Primary Care Provider Ashley Tyson PA-C Primary Care Provi mario Encounter Details Date Type Department Care Team (Late st Contact Info) Description 06/11/2022 Scanned Document [facility] INTERNAL MED SCAN [...] Description 12/07/2024 10:00 AM EDT Office Visit [address] [place] [phone] Ashley Beal PA-C [address] [place], [place] [address] documented as of this encounter Visit Diagnoses Not on filedocumented in this encounter Care Teams Commodity Lead Relationship Specialty Start Date End Date Pcp, No PCP - General General Medicine 10/03/23 10/10/23 Ashley Beal PA-C [address] [place], [place] [phone] PCP - General Internal Medicine 10/11/23 Solange Kaur Physician Gastroenterology 09/26/23 Gab Campos Physician Ophthalmology 09/26/23 documented as of this encounter
== END 2024-07-10 10:51 | disposition home or self-care (01) ==
LOC: HO.US 10:50
PROVIDERS: PCP Physician Assistant Medical; Visit Provider Advanced Practice Midwife
DX: R10.2 Pelvic and perineal pain (principal)
CPT/HCPCS: 76830; 76856

== ENCOUNTER → 2024-07-10 10:51 | Outpatient (BNV) | payer OTHER, SELFPAY | PROVIDERS: PCP Physician Assistant Medical; Visit Provider Radiology Diagnostic Radiology | DX: R10.2 Pelvic and perineal pain (principal) | CPT/HCPCS: 76830; 76856 ==

== ENCOUNTER → 2024-08-06 09:52 | Outpatient (REF) | payer OTHER, SELFPAY ==
--- OUTSIDE RECORDS SUMMARY | 2024-08-06 11:31 | XMS_ITS ---
Author Organization [facility], [facility] Address [address] [place] [id number] Care Team Providers Care Housekeeping Staff Name Role Phone MARLENE PLATA Primary Care Provider ALLERGIES Allergen (clinical drug ingredient) Drug/Non Drug Allergy documented on EMR Reaction Allergy Type Onset Date Status Deconsal CT Tannate (uncoded) , Severity Observation:Mode rate to severe , Allergy Active REASON FOR VISIT Phimosis SOCIAL HISTORY Sex Assigned At : Social History Observation Description Sex Assigned At Female Section Notes: Lives in [place], [place] with h usband & daughter Encounters Encounter Location Date Provider Diagnosis [facility], [address] [id number] 09/12/2023 MARLENE PLATA PLAN OF TREATMENT No Information Progress Notes * LYLA CABRERA MDOB:1974 (49 yo F)Acc No.[id number]:09/12/2023 Progress Notes Patient:??LYLA CABRERA Provider:??Marlene Plata DNP :1975?Age:48 Y?Sex:Fe male Date:09/12/2023 Phone: Address:[address] [place] [address] [place], [place] Subjective: * Chief Complaints: * ?1. Phimosis. * HPI: ?Patient Care Team:?Home Demonstrator:??Dr. Kaur @ [facility]..?Chief Of Field Operations:??Lens Mark Sawyer MA.? Lyla presents today for Phimosis procedure. * Medical History:??Depression , GERD, Severe headache/migraines, Hypothyroidism, Moles, Psoriasis, Sinus infections, Hemorrhoids, Lichen Planus. * Basket Grader History:?Menstrual history: ?LMP:??Hysterectomy 10 years ago ?Age [...] Social History:?Migrated Social History: Smoking Status:Former smoker, [[id number]],. ?Drugs/Alcohol:?Do you drink alcohol?: Yes, Occasionally. ?Lives in [place], [place] with & daughter. * Allergies:??Deconsal CT Tann ate: , Severity Observation:Moderate to severe , - Allergy. 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 * Billing Information: * Visit Code:?? * Procedure Codes:?? * Sign off status: Pending * Provider:??Marlene Plata DNP Date:??0 09/12/2023 History and Physical Notes * HPI (History of Present Illness) Category Sub-Category Detail Notes Category Not es Patient Care Team Home Demonstrator[facility] Lyla presents today for Phimosis procedure. Chief Of Field Operations: Tierra Lang MA
--- OUTSIDE RECORDS SUMMARY | 2024-08-06 11:31 | XMS_ITS | Encounter Summary ---
Author Organization [facility] Address [address] [place] [address] Care Team Providers Care Senior Stack Engineer Name Role Phone Kirit Amado MD Primary Care Provider [phone] [facility], [facility] Encounter Details Date Type Department Care Team Description 08/30/2019 Pt. Non Urgent Medical Question Dermatology - [address] [phone] Ania Allen PA-C Social History Tobacco Use Types Packs/Day Years Used Date Smoking Tobacco: Former Cigarettes 0.5 10 Q uit: 05/02/1996 Smokeless Tobacco: Never Alcohol Use Standard Drinks/Week Comments Yes 0 (1 standard drink = 0.6 oz pur e alcohol) soc Alcohol Habits Answer Date Recorded How often do you have a drink containing alcohol ? Monthly or less 04/26/2019 How many drinks containing a lcohol do you have on a typical day when you are drinking? 1 or 2 04/26/2019 How often do you have six or more drinks on one occasion? Never 04/26/2019 Sex Assigned at Date Recorded Female 09/03/2020 11:19 AM EDT documented as of this encounter Miscellaneous Notes * Telephone Encounter - Amy Araiza MA. - 08/30/2019 2:34 PM EDTFrom: Lyla Leonel To: Ania Allen PA-C Sent: 08/30/2019 11:16 AM EDT Subject: appointment I would like to change the appointment i have on September 12 to my follow up i was supposed to have . documented in this encounter Plan of Treatment Not on file documented as of this encounter Visit Diagnoses Not on filedocumented in this encounter Care Teams Senior Stack Engineer Relationship Specialty Start Date End Date Kirit Amado MD [address] [place] [address] PCP - General 07/15/09 07/07/21 [facility], Pcp [address] [place] [address] PCP - General Internal Medicine 07/08/21 documented as of this encounter
--- OUTSIDE RECORDS SUMMARY | 2024-08-06 11:31 | XMS_ITS | Encounter Summary ---
Author Organization [facility] Address [address] [place] [address] Care Team Providers Care Electrical Manufacturing Engineer Name Role Phone Kirit Amado MD Primary Care Provider [phone] [facility], [facility] Encounter Details Date Type Department Care Team Description 01/08/2020 Pt. Non Urgent Medic al Question Adult Medicine [address] [address] Tigist Duncan PA Social History Tobacco Use Types Packs/Day Years [...] Date Recorded Female 09/03/2020 11:19 AM EDT COVID-19 Exposure Response Date Recorded In the last month, have you been in contact with someone who was confirmed or suspected to have Coronavirus / COVID-19? No / Unsure 01/03/2020 1:22 PM EDT documented as of this encounter Miscellaneous Notes * Telephone Encounter - Jessika Lynch M.A. - 01/08/2020 3:08 PM EDTFrom: Lyla Castaneda To: Tigist Whittaker PA-C Sent: 01/08/2020 1:29 PM EDT Subject: appointment I would like to schedule an appointment to discuss my ongoing issues with depression and anxiety. Garcia only available on but not this (the ). If you could please get back to me. Thank you in advance documented in this encounter Plan of Treatment Not on file documented as of this encounter Visit Diagnoses Not on filedocumented in this encounter Care Teams Electrical Manufacturing Engineer Relationship Specialty Start Date End Date Kirit Amado MD [address] [place] [address] PCP - General 07/15/09 07/07/21 [facility], Pcp [address] [place] [address] PCP - General Internal Medicine 07/08/21 documented as of this encounter
--- OUTSIDE RECORDS SUMMARY | 2024-08-06 11:31 | XMS_ITS | Encounter Summary ---
Author Organization [facility] Address [address] [place] [address] Care Team Providers Care Tassel Snipper Name Role Phone Kirit Amado MD Primary Care Provider [phone] [facility] Primary Care Provider Unavailabl e Reason for Visit * Reason Onset Date Comments Faxed Refill 09/05/2019 Encounter Details Date Type Department Care Team Description 09/05/2019 Refill Adult Medicine [facility] [address] [place] [address] Kirit Amado MD [address] [place] [address] [phone] Faxed Refill Social History Tobacco Use Types Packs/Day Years [...] AM EDT documented as of this encounter Plan of Treatment Not on file documented as of this encounter Visit Diagnoses Not on filedocumented in this encounter Care Teams Tassel Snipper Relationship Specialty Start Date End Date Kirit Amado MD [address] [place] [address] PCP - General 07/15/09 07/07/21 [facility], [address] [address] PCP - General Internal Medicine 07/08/21 documented as of this encounter
--- OUTSIDE RECORDS SUMMARY | 2024-08-06 11:31 | XMS_ITS | Encounter Summary ---
Author Organization [facility] Address [address] [place] [address] Care Team Providers Care Industrial Services Worker Name Role Phone Kirit Amado MD Primary Care Provider [phone] [facility], Pcp Primary Care Provider Unavailabl e Encounter Details Date Type Department Care Team Description 02/20/2016 Camp Nurse Report Medical Records [address] [place] [address] Precious Pressley MD Social History Tobacco Use Types Packs/Day Years [...] on filedocumented in this encounter Care Teams Industrial Services Worker Relationship Specialty Start Date End Date Kirit Amado MD [address] [place], [place] [phone] PCP - General 07/15/09 07/07/21 [facility], Pcp [address] [place] [address] PCP - General Internal Medicine 07/08/21 documented as of this encounter
--- OUTSIDE RECORDS SUMMARY | 2024-08-06 11:31 | XMS_ITS | Encounter Summary ---
Author Organization [facility] Address [address] [place] [address] Care Team Providers Care Senior Account Representative Name Role Phone Kirit Amado MD Primary Care Provider [phone] [facility], [facility] Primary Care Provider Unavailabl e Encounter Details Date Type Department Care Team Description 01/16/2016 Pt. Non Urgent Medical Question Adult Medicine [facility] [address] [place] [phone] Kirit Amado MD [address] [place] [address] [phone] Social History Tobacco Use Types Packs/Day Years [...] AM EDT documented as of this encounter Progress Notes * Zina Tolbert M.A. - 01/16/2016 1:18 PM EDTFrom: Lyla Castaneda To: Kirit Amado MD Sent: 01/16/2016 1:13 PM EDT Subject: ultrasound I saw Tigist Whittkaer yesterday 01/14. I was just wondering if she had a chance to review my ultrasound results. documented in this encounter Plan of Treatment Not on file documented as of this encounter Visit Diagnoses Not on filedocumented in this encounter Care Teams Senior Account Representative Relationship Specialty Start Date End Date Kirit Amado MD [address] [place] [address] PCP - General 07/15/09 07/07/21 [facility], Pcp [address] [place] [address] PCP - General Internal Medicine 07/08/21 documented as of this encounter
--- OUTSIDE RECORDS SUMMARY | 2024-08-06 11:31 | XMS_ITS | Encounter Summary ---
Author Organization [facility] Address [address] [place] [address] Care Team Providers Care Wig Comber Name Role Phone Kirit Amado MD Primary Care Provider [phone] [facility], [facility] Primary Care Provider [facility] Encounter Details Date Type Department Care Team Description 07/25/2019 Pt. Non Urgent Medic al Question Adult Medicine [address] [address] Tigist Duncan PA Social History Tobacco Use [...] encounter Miscellaneous Notes * Telephone Encounter - Gerri Biggs M.A. - 07/25/2019 10:11 AM EDTFrom: Lyla Castaneda To: Tigist Whittaker PA-C Sent: 07/25/2019 10:06 AM EDT Subject: Form for migraine Hi Tigist hope you are well. I dropped off a FMLA form for my migraines (just to cover me at work in case I am out because of one). I was hoping you would be able to fill it out for me. Thanks in advance. Have a good day. Lyla documented in this encounter Plan of Treatment Not on file documented as of this encounter Visit Diagnoses Not on filedocumented in this encounter Care Teams Wig Comber Relationship Specialty Start Date End Date Kirit Amado MD [address] [place] [address] PCP - General 07/15/09 07/07/21 [facility], Pcp [address] [place] [address] PCP - General Internal Medicine 07/08/21 documented as of this encounter
--- OUTSIDE RECORDS SUMMARY | 2024-08-06 11:32 | XMS_ITS | Encounter Summary ---
Author Organization [facility] Address [address] [place] [address] Care Team Providers Care Smeller Name Role Phone Kirit Amado MD Primary Care Provider [phone] [facility], [facility] Primary Care Provider [facility] Encounter Details Date Type Department Care Team Description 12/24/2013 Pt. Non Urgent Medical Question Adult Medicine [address] [address] Hoang Mueller PA-C Lumbar paraspinal muscle spasm (Primary Dx) Social History Tobacco Use Types [...] as of this encounter Progress Notes * Tabatha Madison L.P.N. - 12/24/2013 3:01 PM EDTFrom: Lyla Castaneda To: Hoang Mueller PA-C Sent: 12/24/2013 1:58 PM EDT Subject: Back pain Hoang, I finished the prednisone for about 10 days now and the pain has returned. I have been taking the muscle relaxers that you gave me with no relief. I was wondering what to do next. Thank you. Lyla documented in this encounter Plan of Treatment Not on file documented as of this encounter Visit Diagnoses Diagnosis Lumbar paraspinal muscle spasm- Primary Other symptoms referable to back documented in this encounter Care Teams Smeller Relationship Specialty Start Date End Date Kirit Amado MD [address] [place] [address] PCP - General 07/15/09 07/07/21 [facility], Pcp [address] [place] [address] PCP - General Internal Medicine 07/08/21 documented as of this encounter
--- OUTSIDE RECORDS SUMMARY | 2024-08-06 11:32 | XMS_ITS | Encounter Summary ---
Author Organization [facility] Address [address] [place] [address] Care Team Providers Care Molder Wax Ball Name Role Phone Kirit Amado MD Primary Care Provider [phone] [facility], [facility] Primary Care Provider [facility] Encounter Details Date Type Department Care Team Description 10/26/2020 Pt. Non Urgent Medic al Question Adult Medicine [address] [address] Tigist Duncan PA Social History Tobacco Use Types Packs/Day Years Used Date Smoking Tobacco: Former Cigarettes 0.5 10 Q uit: 05/02/1996 Smokeless Tobacco: Never Alcohol Use Standard Drinks/Week Comments Not Currently 0 (1 standard drink = 0.6 oz [...] have Coronavirus / COVID-19? No / Unsure 10/01/2020 9:30 AM EDT documented as of this encounter Miscellaneous Notes * Telephone Encounter - Juana Garcia M.A. - 10/27/2020 7:24 AM EDTFrom: Lyla Castaneda To: Ernesto Whittaker Sent: 10/26/2020 10:35 AM EDT Subject: back pain Tigist, I know it is Tuesday and you will not see this till tomorrow. I have been having a lot of pain in the middle of my back the past few days. I know we did the MRIs on cervical and lumbar but I was wondering if I should get one on my thoracic spine too. I have pain and stiffness every morning especially bending over. It has just increased the past few days. The pain is in the center of my spine. Let me know your thoughts. documented in this encounter Plan of Treatment Not on file documented as of this encounter Visit Diagnoses Not on filedocumented in this encounter Care Teams Molder Wax Ball Relationship Specialty Start Date End Date Kirit Amado MD [address] [place] [address] PCP - General 07/15/09 07/07/21 [facility], [address] [address] PCP - General Internal Medicine 07/08/21 documented as of this encounter
--- OUTSIDE RECORDS SUMMARY | 2024-08-06 11:32 | XMS_ITS | Encounter Summary ---
Author Organization [facility] Address [address] [place] [address] Care Team Providers Care Lumber Tripper Name Role Phone Kirit Amado MD Primary Care Provider [phone] [facility], [facility] Primary Care Provider Unavailabl e Encounter Details Date Type Department Care Team Description 05/19/2018 Pinball Machine Repairer Report Medical Records [address] [place] [address] Sugar Joshi PA-C [address] [place] [address] [place] [address] Social History Tobacco Use Types Packs/Day Years [...] on filedocumented in this encounter Care Teams Lumber Tripper Relationship Specialty Start Date End Date Kirit Amado MD [address] [place] [address] PCP - General 07/15/09 07/07/21 [facility], Pcp [address] [place] [address] PCP - General Internal Medicine 07/08/21 documented as of this encounter
--- OUTSIDE RECORDS SUMMARY | 2024-08-06 11:32 | XMS_ITS | Encounter Summary ---
Author Organization [facility] Address [address] [place] [address] Care Team Providers Care Director Of Pediatric Rehabilitation Name Role Phone Kirit Amado MD Primary Care Provider [phone] [facility], [facility] Primary Care Provider Unavailabl e Reason for Referral * EXTERNAL (Routine) - Closed Specialty Diagnoses / Procedures Referred By Contac t Referred To Contact Neurosurgery Procedures REFERRAL TO NEUROSURGERY (OUT OF NETWORK) Tigist Duncan PA [address] [place] [address] External Neuro Surg Referral ID Status Reason Start Date Expiration Date Visits Re quested Visits Authorized [id number] Closed 10/21/2020 1 1 Encounter Details Date Type Department Care Team Description 10/21/2020 Orders Only Adult Medicine [address] [address] Tigist Duncan PA Cervical radiculopathy (Primary Dx) Social History Tobacco Use Types [...] as of this encounter Visit Diagnoses Diagnosis Cervical radiculopathy- Primary Brachial neuritis or radiculitis nos documented in this encounter Care Teams Director Of Pediatric Rehabilitation Relationship Specialty Start Date End Date Kirit Amado MD [address] [place] [address] PCP - General 07/15/09 07/07/21 [facility], [address] [address] PCP - General Internal Medicine 07/08/21 documented as of this encounter
--- OUTSIDE RECORDS SUMMARY | 2024-08-06 11:32 | XMS_ITS | Clinical Summary ---
Author Organization [facility] Address [address] [place] [address] Care Team Providers Care Merchandise Distributor Name Role Phone Community, Pcp Primary Care Provider Unavailabl e Allergies Active Allergy Reactions Severity Noted Date Comments Iv Contrast Dye 06/26/2010 Medications Medication Sig Dispensed Refills Start Date End Date Status Fexofenadine HCl (BIRDIE OR) Take by mouth. daily 0 Active topiramate (TOPAMAX) 25 MG tablet 0 04/06/2019 Active omeprazole (PRILOSEC) 20 MG capsule Take 1 Cap by mouth daily. 90 Cap 1 07/18/2020 Active metoprolol (TOPROL-XL) 25 MG 24 hr tablet Take 1 Tab by mouth daily. 90 Tab 1 07/18/2020 Active estradiol (ESTRACE) 0.1 MG/GM vaginal cream Apply 0.5 g nightly for two weeks, then MWF 42.5 g 1 08/14/2020 Active triamcinolone (KENALOG) 0.1 % ointment Apply nightly 30 g 0 08/14/2020 Active Cholecalciferol (Vitamin D) 50 MCG (1999) Tab Take by mouth. 0 Active meloxicam (MOBIC) 7.5 MG tablet Take 1 tablet by mouth daily as needed for Pain (with FULL meal). 30 tablet 0 12/17/2020 Active levothyroxine (SYNTHROID, LEVOTHROID) 50 MCG tablet Take 50 mcg by mouth every morning (before breakfast). 0 10/16/2020 Active sertraline (ZOLOFT) 100 MG tablet TAKE 1 TABLET BY MOUTH EVERY DAY 30 tablet 0 06/11/2021 Active hydrOXYzine (ATARAX) 25 MG tablet TAKE 1 TABLET BY MOUTH THREE TIMES A DAY NEEDED FOR ANXIETY 90 tablet 0 06/11/2021 Active Active Problems Problem Noted Date Degenerative cervical spinal stenosis Overview: Has been evaluated by neurosurgery and she is not a surgical candidate. Follows with [facility] spine and sport on a as needed basis. Has had good relief with cortisone injections. Lumbar degenerative disc disease 021 Overview: Has been evaluated by neurosurgery and is not a surgical candidate Perimenopausal vasomotor symptoms 2019 Last Assessment & Plan: Will check FSH, TSH, estradiol. Vaginal atrophy 09/07/2019 Last Assessment & Plan: Continue Estrace cream. Use oil based lubricant and superior position to see if more comfortable. TRINITY (obstructive sleep apnea) 07/12/2019 Overview: Mild. Currently on CPAP. Cerebellar tonsillar ectopia 04/30/2018 Lichenoid dermatitis 04/21/2018 Last Assessment & Plan: Well controlled. Continue nightly Mycolog Anxiety 04/13/2018 Vitamin D deficiency 04/04/2016 Thyroid nodule 01/20/2016 Overview: Left thyroid lobectomy 04/20/2016, nodular follicular hyperplasia Sinus tachycardia by electrocardiogram 1 Premature atrial contraction 02/25/2015 GERD (gastroesophageal reflux disease) 1 05/08/2012 Neck pain 08/21/2012 Obese 08/21/2012 Dysplastic nevi 11/18/2009 Overview: Dysplastic nevi 11/12 right arm (moderate atypia) 11/08 left upper back, superior & inferior (mild atypia) Resolved Problems Problem Noted Date Resolved Date Excessive or frequent menstruation 07/27/2012 11/28/2012 Overview: Vaginal hysterectomy performed on October 25, [address] Wesley. Cholelithiasis 10/16/2010 08/21/2012 NO ACTIVE MEDICAL PROBLEMS 08/21 Immunizations Name Administration Dates Next Due Flu Vaccine 3 Yrs> Im 02/10/2011,02/09/2010 Hepatitis B > 19yrs 06/07/2011,06/13/2004,2003,12/11/2003 Influenza (> 6 Months) 03/04/2017 Influenza Flu (PT Reported) 02/27/2019, 6 MMR (Gyhepxv-Blubp-Pwhctiz) 10/07/2009 Tdap 06/07/2011 Family History Medical History Relation Name Comments cerebal palsy Brother 2 Cholesterol Level Father brain tumor Maternal Grandfather No Known Problems Maternal Grandmother Hypertension Mother cardiac disease Paternal Grandfather No Known Problems Paternal Grandmother CA Breast Negative Hx CA Colon Negative Hx CA Ovarian Negative Hx Cancer of the Pancreas Negative Hx Cancer of the Prostate Negative Hx Uterine Cancer Negative Hx Relation Name Status Comments Brother 1 Alive Brother 2 Alive Daughter Alive Father Alive Maternal Grandfather Maternal Grandmother Mother Alive Paternal Grandfather Paternal Grandmother Son Alive Social History Tobacco Use Types Packs/Day Years Used Date Smoking Tobacco: Former Cigarettes 0.5 10 Q uit: 05/02/1996 Smokeless Tobacco: Never Tobacco Cessation:Counseling Given: Yes Alcohol Use Standard Drinks/Week Comments Not Currently [...] Date Recorded Female 09/03/2020 11:19 AM EDT Last Filed Vital Signs Vital Sign Reading Time Taken Comments Blood Pressure 108/72 10/01/2020 9:39 AM EDT C Pulse 84 10/01/2020 9:39 AM EDT Temperature 36.7 ??C (98 ??F) 10/01/2020 9:39 AM EDT Respiratory Rate 12 07/07/2020 8:43 AM EST Oxygen Saturation 99% 07/08/2017 8:56 AM EST Inhaled Oxygen Concentration - - Weight 85.3 kg (188 lb) 10/01/2020 9:39 AM EDT Height 154.9 cm (5' 1 ) 10/01/2020 9:39 AM EDT Body Mass Index 35.52 10/01/2020 9:39 AM EDT Plan of Treatment Health Maintenance Due Date Last Done Comments Covid-19 Vaccine (#1) 1975 BASELINE HEALTH EXAM 40-64 01/11/202101/11, 12/14/2018, 09/24/2016, Additional history exists MAMMOGRAM 04/03/2021 04/03/2020, 03/03, 03/16/2018, Additional history exists DTAP/TDAP/TD (2 - Td or Tdap) 06/07/2021 06/07/2011 BMI CHECK/ADVISE 05/02/2024 08/28/2020, 11/2020, 07/12/2019, Additional history exists INFLUENZA (Season Ended) 2024 019, 03/13/2018 (Completed), 03/04/2017, Additional history exists CHOLESTEROL SCREENING 07/07/2025 07/07/2020 , 09/06/2019, 01/11/2019, Additional history exists PNEUMOCOCCAL VACCINE FOR HIG H RISK PATIENTS (#1) 01/09/2041 Insurance Payer Benefit Plan / Group Subscriber ID Effective Dates Phone Address Type BLADIMIR GARCIA/BLADIMIR/$40/30V/ F/PPO [id number] 2009-Beryl saucedo [address] [place] [address] PPO Fee-for- Service [facility]UE [facility] PPO $20 BEVERLY SHORES [id number] 2019-Beryl saucedo [address] [address] [place] [address] PPO Fee-for- Service [employer] CLIENT PPO $0 LAYLA [id number] 2010-Beryl saucedo [address] [place] [id number] PPO Fee-for- Service Care Teams Merchandise Distributor Relationship Specialty Start Date End Date [facility], Pcp PCP - General Internal Medicine 07/08/21
--- OUTSIDE RECORDS SUMMARY | 2024-08-06 11:32 | XMS_ITS | Encounter Summary ---
Author Organization [facility] Address [address] [place] [address] Care Team Providers Care Digital Camera Technician Name Role Phone Pcp, No Primary Care Provider Ashley Tyson PA-C Primary Care Provi mario Encounter Details Date Type Department Care Team (Late st Contact Info) Description 03/04/2022 Scanned Document [facility] INTERNAL MED SCAN Provider, Generic External Data [...] Description 12/07/2024 10:00 AM EDT Office Visit [address] [place] [address] Ashley Beal PA-C [address] [place] [address] documented as of this encounter Visit Diagnoses Not on filedocumented in this encounter Care Teams Digital Camera Technician Relationship Specialty Start Date End Date Pcp, No PCP - General General Medicine 10/03/23 10/10/23 Ashley Beal PA-C [address] [place], [place] [phone] PCP - General Internal Medicine 10/11/23 Solange Kaur Physician Gastroenterology 09/26/23 Gab Campos Physician Ophthalmology 09/26/23 documented as of this encounter
--- OUTSIDE RECORDS SUMMARY | 2024-08-06 11:32 | XMS_ITS | Patient Health Record ---
Author Organization [facility] [employer] Address [address] [place] [phone] Care Team Providers Care Pocket Setter Lockstitch Name Role Phone MARLENE MCLAIN Primary Care Provider [phone] ALLERGIES Allergen (clinical drug ingredient) Drug/Non Drug [...] 1daily @ night magnenesium Glyci *Reorder from Be my eyes for eRx and Interaction Alerts* 02/05/2022 Active [...] Assigned At Female Section Notes: Lives in [place], [place] with [place] usband & daughter [place], [place] usband & daughter [place] usband & daughter [place] usband & daughter [place] usband & daughter [place] usband & daughter [place] usband & daughter [place] usband & daughter [place] usband & daughter [place] usband [place] daughter [place] usband & daughter [place] usband & daughter [place] usband & daughter PROBLEMS Problem Type ICD Code Onset Dates Problem Status W/U Status Risk SNOMED Code Notes Problem Major depressive disorder, recurrent, in partial remission (F33.41) Active confirmed Recurrent major depression in remission (02199858) Problem Sacroiliitis, not elsewhere classified (M46.1) Active confirmed Solitary sacroiliitis (369702780) Problem Other intervertebral disc degeneration, lumbosacral region (M51.37) Active confirmed Degeneration of lumbosacral intervertebral disc (89566776) Problem 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 PLAN OF TREATMENT Pending Test Test Name Order Date MRI : Lumbosacral Spines 08/16/2022 X ray : Spines, lumbosacral 06/11/2022 Ultrasound : Abdomen and Pelvis 06/04/19 Ultrasound : (OB) Transavaginal 06/04/19 THYROID PANEL WITH TSH (7444) 07/08/2023 ALBUMIN, RANDOM URINE W/CREATININE (6517 ) 07/08/2023 COMPREHENSIVE METABOLIC PANEL (62406) CBC (INCLUDES DIFF/PLT) (6399) URINALYSIS, COMPLETE (5463) 07/08/2023 HEMOGLOBIN A1c (496) 07/08/2023 LIPASE (606) 07/08/2023 APOLIPOPROTEIN A1 (5223) 07/08/2023 APOLIPOPROTEIN B (5224) 07/08/2023 FERRITIN (457) 07/08/2023 VITAMIN D,25-OH,TOTAL,IA (73346) 024 T3 REVERSE, LC/MS/MS (75371) 07/08/2023 Insurance Providers Payer Name Payer Address Payer Phone Subscriber Number Group Number Insured Name Patient Relationship to Insured Coverage Start Date Coverage End Date [employer] [place] [address] [address] [place] [address] [id number] JESSA CABRERA Self - patient is the insured MEDICAL (GENERAL) HISTORY Medical History History ICD Code Depression GERD Severe headache/migraines Hypothyroidism Moles Psoriasis Sinus infections Hemorrhoids Lichen Planus Surgical History Surgery Date(Month/Year) Cholecystectomy 2010 Hysterectomy 2013 Colonoscopy - normal per patient 2021 Endoscopy - Polyp on her stomach 2021 Thyroidectomy (partial) 2016
--- OUTSIDE RECORDS SUMMARY | 2024-08-06 11:32 | XMS_ITS | Encounter Summary ---
Author Organization [facility] Address [address] [place] [address] Care Team Providers Care Buggy Operator Name Role Phone Kirit Amado MD Primary Care Provider [phone] [facility], Pcp Primary Care Provider Unavailabl e Encounter Details Date Type Department Care Team Description 11/15/2012 Release of Information Medical Records [address] [place] [id number] Abstract, Provider Social History Tobacco Use Types Packs/Day Years [...] on filedocumented in this encounter Care Teams Buggy Operator Relationship Specialty Start Date End Date Kirit Amado MD [address] [place], [place] [phone] PCP - General 07/15/09 07/07/21 [facility], Pcp [address] [place] [address] PCP - General Internal Medicine 07/08/21 documented as of this encounter
--- OUTSIDE RECORDS SUMMARY | 2024-08-06 11:32 | XMS_ITS ---
Author Organization [facility] Address [address] [place] [phone] Care Team Providers Care Tennis Professional Name Role Phone MARLENE MCLAIN Primary Care Provider REASON FOR VISIT PFMLA SOCIAL HISTORY Sex Assigned At : Social History Observation Description Sex Assigned At Female Encounters Encounter Location Date Provider Diagnosis [facility], [address] [id number] 09/13/2023 MARLENE MCLAIN PLAN OF TREATMENT No Information Progress Notes * JESSA CABRERA MDOB:1974 (48 yo F)Acc No.[id number]:09/13/2023 Patient:??JESSA CABRERA :1975?Age:48 Y?Sex:Fe male Phone: Address:[facility] [place] [address] * true * Date:??
--- OUTSIDE RECORDS SUMMARY | 2024-08-06 11:32 | XMS_ITS | Encounter Summary ---
Author Organization [facility] Address [address] [place] [address] Care Team Providers Care Road Freight Brake Coupler Name Role Phone Kirit Amado MD Primary Care Provider [phone] [facility], [facility] Primary Care Provider Unavailabl e Reason for Visit * Reason Onset Date Comments Actuary Feedback 11/11/2020 Ortho Encounter Details Date Type Department Care Team Description 11/11/2020 [facility] [address] [place] [address] Md Noelle Social History Tobacco Use Types Packs/Day Years [...] on filedocumented in this encounter Care Teams Road Freight Brake Coupler Relationship Specialty Start Date End Date Kirit Amado MD [address] [place] [address] PCP - General 07/15/09 07/07/21 [facility], Pcp [address] [place] [address] PCP - General Internal Medicine 07/08/21 documented as of this encounter
--- OUTSIDE RECORDS SUMMARY | 2024-08-06 11:32 | XMS_ITS | Encounter Summary ---
Author Organization [facility] Address [address] [place] [address] Care Team Providers Care Funeral Car Driver Name Role Phone Kirit Amado MD Primary Care Provider [phone] [facility], [facility] Primary Care Provider [facility] e Encounter Details Date Type Department Care Team Description 10/14/2020 [facility] [address] [place] [address] Md Noelle Social History Tobacco Use Types [...] on filedocumented in this encounter Care Teams Funeral Car Driver Relationship Specialty Start Date End Date Kirit Amado MD [address] [place] [address] PCP - General 07/15/09 07/07/21 [facility], Pcp [address] [place] [address] PCP - General Internal Medicine 07/08/21 documented as of this encounter
--- OUTSIDE RECORDS SUMMARY | 2024-08-06 11:32 | XMS_ITS | Encounter Summary ---
Author Organization [facility] Address [address] [place] [address] Care Team Providers Care Coremaker Name Role Phone Kirit Amado MD Primary Care Provider [phone] [facility], Pcp Primary Care Provider Unavailabl e Encounter Details Date Type Department Care Team Description 11/11/2020 Gem Carver Report Medical Records [address] [place] [address] Devin Wallace Np Social History Tobacco Use Types Packs/Day Years [...] on filedocumented in this encounter Care Teams Coremaker Relationship Specialty Start Date End Date Kirit Amado MD [address] [place], [place] [phone] PCP - General 07/15/09 07/07/21 [facility], Pcp [address] [place] [address] [place] [address] PCP - General Internal Medicine 07/08/21 documented as of this encounter
--- OUTSIDE RECORDS SUMMARY | 2024-08-06 11:32 | XMS_ITS | Encounter Summary ---
Author Organization [facility] Address [address] [place] [address] Care Team Providers Care Storeroom Attendant Name Role Phone Kirit Amado MD Primary Care Provider [phone] [facility], [facility] Primary Care Provider [facility] Encounter Details Date Type Department Care Team Description 10/13/2020 Pt. Non Urgent Medic al Question Adult Medicine [address] [address] Tigist Duncan PA Social History Tobacco Use [...] as of this encounter Progress Notes * Lakisha Juárez M.A. - 10/13/2020 2:55 PM EDT Please see Noelle olmos and ria MUNIZ 10/01/2020 documented in this encounter Miscellaneous Notes * Telephone Encounter - Lakisha Juárez M.A. - 10/13/2020 2:54 PM EDTFrom: Lyla Castaneda To: Ernesto Whittaker Sent: 10/13/2020 12:42 PM EDT Subject: referral Tigist, I was wondering if you could please put in a referral for a surgical consultation with [facility] [address] in [place]. I just want to see what their thoughts are on my neck especially because of the pinched nerve. Let me know what you think. Lyla documented in this encounter Plan of Treatment Not on file documented as of this encounter Visit Diagnoses Not on filedocumented in this encounter Care Teams Storeroom Attendant Relationship Specialty Start Date End Date Kirit Amado MD [address] [place] [address] PCP - General 07/15/09 07/07/21 [facility], [address] [address] PCP - General Internal Medicine 07/08/21 documented as of this encounter
--- OUTSIDE RECORDS SUMMARY | 2024-08-06 11:32 | XMS_ITS | Encounter Summary ---
Author Organization [facility] Address [address] [place] [address] Care Team Providers Care Human Resources Benefits Assistant Name Role Phone Kirit Amado MD Primary Care Provider [phone] [facility], [facility] Primary Care Provider Unavailmulticare health e Encounter Details Date Type Department Care Team Description 12/20/2012 Pt. Non Urgent Medic al Question Adult Medicine [address] [address] Hoang Mueller PA-C Social History Tobacco Use Types Packs/Day [...] Progress Notes * Zina Tolbert M.A. - 12/20/2012 11:26 AM EDTFrom: RUTHLYLA Orozco To: Hoang Mueller PA-C Sent: TueDec 20, 2012 10:37 AM Subject: Allergy testing I was wondering if you could put a referal in for allergy testing for me. Thank you. documented in this encounter Plan of Treatment Not on file documented as of this encounter Visit Diagnoses Not on filedocumented in this encounter Care Teams Human Resources Benefits Assistant Relationship Specialty Start Date End Date Kirit Amado MD [address] [place] [address] PCP - General 07/15/09 07/07/21 [facility], Pcp [address] [place] [address] PCP - General Internal Medicine 07/08/21 documented as of this encounter
--- OUTSIDE RECORDS SUMMARY | 2024-08-06 11:32 | XMS_ITS | Encounter Summary ---
Author Organization [facility] Address [address] [place] [address] Care Team Providers Care Global Chief Experience Officer Name Role Phone Ashley Beal PA-C Primary Care [facility] Encounter Details Date Type Department Care Team (Late Contact Info) Description 04/26/2024 Scanned Document [address] [phone] Primary Care, Scan Social History Tobacco Use [...] Description 12/07/2024 10:00 AM EDT Office Visit [address] [phone] Ashley Beal PA-C [address] [place] [address] documented as of this encounter Visit Diagnoses Not on filedocumented in this encounter Care Teams Global Chief Experience Officer Relationship Specialty Start Date End Date Ashley Beal PA-C [address] [place] [address] PCP - General Internal Medicine 10/11/23 Solange Kaur Physician Gastroenterology 09/26/23 Gab Campos Physician Ophthalmology 09/26/23 documented as of this encounter
--- OUTSIDE RECORDS SUMMARY | 2024-08-06 11:32 | XMS_ITS | Encounter Summary ---
Author Organization [facility] Address [address] [place] [address] Care Team Providers Care Puddler Pile Driving Name Role Phone Ashley Beal PA-C Primary Care [facility] Encounter Details Date Type Department Care Team (Late st Contact Info) Description 07/27/2024 Scanned Document [facility] [address] [facility] [address] [place] [phone] Ashley Beal PA-C [address] [place] [address] Social History Tobacco Use Types Packs/Day Years Used Date Smoking Tobacco: Former Cigarettes Smokeless Tobacco: Former Alcohol Use Standard Drinks/Week Comments Yes 0 (1 standard drink = 0.6 oz pur e alcohol) [facility] Utilities Answer Date Recorded In the past 12 months has [facility] [employer] gas, oil, or water [employer] threatened to shut off services in your home? No 05/13/2024 Social Connection and Isolation Panel [NHANES] A nswer Date Recorded In a typical week, how many times do you talk on the phone with family, friends, or neighbors? Once a week 05/13/2024 Frequency of Social Gatherings with Friends and Family Not on file 05/13/2024 Attends Latter Day Services Not on file 05/13 Active Member [...] any time in the past 12 m [facility], were you homeless or living in [...] 12/07/2024 10:00 AM EDT Office Visit [address] [phone] Ashley Beal PA-C [address] [place] [address] documented as of this encounter Visit Diagnoses Not on filedocumented in this encounter Care Teams Puddler Pile Driving Relationship Specialty Start Date End Date Ashley Beal PA-C [address] [place] [address] PCP - General Internal Medicine 10/11/23 Solange Kaur Physician Gastroenterology 09/26/23 Gab Campos Physician Ophthalmology 09/26/23 documented as of this encounter
--- OUTSIDE RECORDS SUMMARY | 2024-08-06 11:32 | XMS_ITS | Clinical Summary ---
Author Organization [facility] Address [address] [place] [address] Care Team Providers Care Gear Design Engineer Name Role Phone Ashley Beal PA-C Primary [...] EVERY DAY 90 capsule 2 04/30/2024 Active topiramate (TOPAMAX) 50 MG tabletIndications [...] For Migraine. 10 tablet 1 06/04/2024 Active levothyroxine (SYNTHROID, LEVOTHROID) 100 MCG tabletIndications :Hypothyroidism, unspecified type Take 1 tablet (100 mcg total) by mouth daily. 30 tablet 5 06/19/2024 Active ALPRAZolam (XANAX) 0.5 MG tabletIndications :Anxiety TAKE 1 TABLET (0.5 MG TOTAL) BY MOUTH 3 TIMES DAILY (EVERY 8 HOURS) NEEDED FOR ANXIETY. 30 tablet 07/30/2024 Active fenofibrate micronized (LOFIBRA) 134 MG capsuleIndication s:Hypertriglyceri demia TAKE ONE (1) CAPSULE BY MOUTH EVERY DAY WITH FOOD 90 capsule 1 07/30/2024 Active fenofibrate micronized (LOFIBRA) 134 MG capsuleIndication s:Hypertriglyceri demia TAKE ONE (1) CAPSULE BY MOUTH EVERY DAY WITH FOOD 90 capsule 1 04/30/2024 Discontinued ALPRAZolam (XANAX) 0.5 MG tabletIndications :Anxiety Take 1 tablet (0.5 mg total) by mouth 3 times daily (every 8 hours) as needed for anxiety. 30 tablet 06/04/2024 Discontinued Active Problems Problem Noted Date Diagnosed Date [...] is not a surgical candidate. Follows with [facility] spine and sport on a [...] Diagnosed Date Resolved Date Bilateral ovarian cysts 10/11/202312/2023 Perimenopausal vasomotor symptoms 09/07/2019 01/08/2024 Overview (01/08/2024): Last Assessment & Plan: Will check FSH, TSH, estradiol. Cerebellar tonsillar ectopia 04/30/2018 01/08/2024 Sinus tachycardia by electrocardiogram 02/25/2015 01/08/2024 Obese 08/21/2012 01/08/2024 Neck pain 08/21/2012 01/08/2024 Dysplastic nevi 11/18/2009 01/08/2024 Overview (01/08/2024): Dysplastic nevi 11/12 right arm (moderate atypia) 11/08 left upper back, superior & inferior (mild atypia) Encounters Date Type Department Care Team Description 07/30/[address] [place] [phone] Ashley Beal PA-C Anxiety; Hypertriglyceridemia 07/27/2024 Scanned Document [address] [place] [phone] Ashley Beal PA-C 07/27/[address] [place] [phone] Ashley Beal PA-C 07/18/2024 Orders Only [facility] [place] [address] Radiology, Scan 06/18/[address] [place] [phone] Ashley Beal PA-C Hypothyroidism, unspecified type (Primary Dx) 06/12/2024 Scanned Document [facility] [address] [place] [address] Neurology, Scan 06/11/2024 Orders Only [facility] [address] [place] [address] Neurology, Scan 06/04/[address] [place] [address] Ashley Beal PA-C Migraine without aura and without status migrainosus, not intractable; Anxiety 06/04/[address] [place] [address] Ashley Beal PA-C Migraine without aura and without status migrainosus, not intractable 05/14/2024 3:45 PM EST Office Visit [address] [place] [address] Ashley Beal PA-C Migraine without aura and without status migrainosus, not intractable (Primary Dx); Elevated LFTs; Palpitations; Tremor 05/14/2024 Travel from Last 3 Months Immunizations Name Administration [...] drink = 0.6 oz pur e alcohol) [facility] Utilities Answer Date Recorded In the [...] and Family Not on file 05/13/2024 Attends Taoist Services Not on file 05/13 Active Member [...] in the past 12 m [facility], were you homeless or living in a group home (including now)? No 05/13/2024 Education Answer Date [...] Description 12/07/2024 10:00 AM EDT Office Visit [facility] 100 [facility] [address] [place] [address] Ashley Beal PA-C [address] [place] [address] Health Maintenance Due Date Last Done Comments [...] Procedure Name Priority Date/Time Associated Diagnosis Comments ULTRASOUND EXTERNAL RESULT Routine 07/10/2024 MRI EXTERNAL RESULT Routine 06/09/2024 1 :33 PM EST HEPATITIS C VIRUS (HCV) ANTIBODY Routine 04/04/2024 Elevated LFTs from Last 3 Months or Most Recently Relevant to Health Maintenance Results * Ultrasound External Result (07/10/2024) Anatomical Region Laterality Modality Ultrasound Scan Radiology IMG US ORDERABLES * MRI External Result (06/09/2024 1:33 PM EST) Anatomical Region Laterality Modality Magnetic Resonan ce Scan Neurology IMG MRI ORDERABLES * HEPATITIS C VIRUS (HCV) ANTIBODY (04/04/2024) Blood Blood specimen / Unknown 04/04/2024 Ashley Beal PA-C LAB BLOOD O RDERABLES Performing Organization Address City/State/[facility] Co de Phone Number [facility] from Last 3 Months or Most Recently Relevant to Health Maintenance Care Teams Gear Design Engineer Relationship Specialty Start Date End Date Ashley Beal PA-C [address] [place] [address] PCP - General Internal Medicine 10/11/23 Solange Kaur Physician Gastroenterology 09/26/23 Gab Campos Physician Ophthalmology 09/26/23
--- OUTSIDE RECORDS SUMMARY | 2024-08-06 11:32 | XMS_ITS | Encounter Summary ---
Author Organization [facility] Address [address] [place] [address] Care Team Providers Care Cad Administrator Name Role Phone Kirit Amado MD Primary Care Provider [phone] [facility], [facility] Primary Care Provider Unavailabl e Encounter Details Date Type Department Care Team Description 01/05/2013 Orders Only OBGYN - [place] [address] [place] [address] Helena Diaz CNM Hematuria (Primary Dx) Social History Tobacco Use Types [...] on file documented as of this encounter Results * URINE, CULTURE (01/05/2013 3:37 PM EDT) Urine (Urine) 01/05/2013 3:3 7 PM EDT 01/05/2013 3:37 PM EDT Narrative [facility] - 01/06/2013 2:11 PM EDT No growth Helena Diaz CNM LAB ALVIN CARBAJAL documented in this encounter Visit Diagnoses Diagnosis Hematuria- Primary Hematuria, unspecified documented in this encounter Care Teams Cad Administrator Relationship Specialty Start Date End Date Kirit Amado MD [address] [place] [address] PCP - General 07/15/09 07/07/21 [facility], Pcp [address] [place] [address] PCP - General Internal Medicine 07/08/21 documented as of this encounter
--- OUTSIDE RECORDS SUMMARY | 2024-08-06 11:32 | XMS_ITS ---
Author Organization [facility] Address [address] [place] [id number] Care Team Providers Care Rail Car Loader Name Role Phone MARLENE MCLAIN Primary Care Provider REASON FOR VISIT RTW note SOCIAL HISTORY Sex Assigned At : Social History Observation Description Sex Assigned At Female Encounters Encounter Location Date Provider Diagnosis [facility], [address] [phone] 10/20/2023 MARLENE MCLAIN PLAN OF TREATMENT No Information Progress Notes * JESSA CABRERA MDOB:1974 (48 yo F)Acc No.[id number]:10/20/2023 Patient:??JESSA CABRERA :1975?Age:48 Y?Sex:Fe male Phone: Address:[facility] [address] * true * Date:??
--- OUTSIDE RECORDS SUMMARY | 2024-08-06 11:32 | XMS_ITS | Encounter Summary ---
Author Organization [facility] Address [address] [place] [address] Care Team Providers Care Top Cager Name Role Phone Kirit Amado MD Primary Care Provider [phone] [facility], Pcp Primary Care Provider Unavailabl e Encounter Details Date Type Department Care Team Description 04/06/2021 Intake Rn Report Medical Records [address] [place] [address] Tayo Hook Social History Tobacco Use Types Packs/Day Years [...] on filedocumented in this encounter Care Teams Top Cager Relationship Specialty Start Date End Date Kirit Amado MD [address] [place], [place] [phone] PCP - General 07/15/09 07/07/21 [facility], Pcp [address] [place] [address] PCP - General Internal Medicine 07/08/21 documented as of this encounter
--- OUTSIDE RECORDS SUMMARY | 2024-08-06 11:32 | XMS_ITS | Encounter Summary ---
Author Organization [facility] Address [address] [place] [address] Care Team Providers Care Van Driver Name Role Phone Kirit Amado MD Primary Care Provider [phone] [facility], [facility] Primary Care Provider [facility] Encounter Details Date Type Department Care Team Description 03/02/2019 Pt. Non Urgent Medic al Question Adult Medicine [address] [address] Tigist Duncan PA Social History Tobacco Use [...] Telephone Encounter - Jessika Lynch M.A. - 03/02/2019 9:32 AM EDTFrom: Lyla Castaneda To: Tigist Whittaker PA-C Sent: 03/02/2019 9:29 AM EDT Subject: headache You mentioned yesterday to try not to take the naproxen or ibuprofen while on the prednisone but I woke up with a really bad headache again. Just wondering if there was something else I could take. Also I forgot to talk with you about some other concerns. I have been asked by numerous people if its possib le that I could have fibromyalgia. In years past (about 12 yrs ago) I had a chiropractor mention that it was possible I had it. When I research the symptoms I do experience most of them. I wanted your take on it and to see if there is a way to test for it or at the very least rule it out. I know it has only been a day since starting the prednisone but I am just feeling miserable. Please let me your thoughts. Thank you documented in this encounter Plan of Treatment Not on file documented as of this encounter Visit Diagnoses Not on filedocumented in this encounter Care Teams Van Driver Relationship Specialty Start Date End Date Kirit Amado MD [address] [place] [address] PCP - General 07/15/09 07/07/21 [facility], Pcp [address] [place] [address] PCP - General Internal Medicine 07/08/21 documented as of this encounter
--- OUTSIDE RECORDS SUMMARY | 2024-08-06 11:32 | XMS_ITS | Encounter Summary ---
Author Organization [facility] Address [address] [place] [address] Care Team Providers Care Pigs Feet Finisher Name Role Phone Pcp, No Primary Care Provider Ashley Tyson PA-C Primary Care Provi mario Encounter Details Date Type Department Care Team (Late st Contact Info) Description 02/05/2022 Scanned Document [facility] INTERNAL MED SCAN Provider, Generic External [...] Description 12/07/2024 10:00 AM EDT Office Visit [address] [place] [address] Ashley Beal PA-C [address] [place] [address] documented as of this encounter Visit Diagnoses Not on filedocumented in this encounter Care Teams Pigs Feet Finisher Relationship Specialty Start Date End Date Pcp, No PCP - General General Medicine 10/03/23 10/10/23 Ashley Beal PA-C [address] [place], [place] [id number] PCP - General Internal Medicine 10/11/23 Solange Kaur Physician Gastroenterology 09/26/23 Gab Campos Physician Ophthalmology 09/26/23 documented as of this encounter
--- OUTSIDE RECORDS SUMMARY | 2024-08-06 11:32 | XMS_ITS | Encounter Summary ---
Author Organization [facility] Address [address] [place] [address] Care Team Providers Care Cancer Registry Coordinator Name Role Phone Kirit Amado MD Primary Care Provider [phone] [facility], Pcp Primary Care Provider Unavailabl e Encounter Details Date Type Department Care Team Description 10/18/2013 Finger Buffs Assembler Report Medical Records [address] [place] [address] Eder Lee PA-C Social History Tobacco Use Types Packs/Day [...] on filedocumented in this encounter Care Teams Cancer Registry Coordinator Relationship Specialty Start Date End Date Kirit Amado MD [address] [place], [place] [phone] PCP - General 07/15/09 07/07/21 [facility], Pcp [address] [place], [place] [address]XIOM[place] hagen [address] PCP - General Internal Medicine 07/08/21 documented as of this encounter
--- OUTSIDE RECORDS SUMMARY | 2024-08-06 11:32 | XMS_ITS | Encounter Summary ---
Author Organization [facility] Address [address] [place] [address] Care Team Providers Care Production Control Planner Name Role Phone Kirit Amado MD Primary Care Provider [phone] [facility] Encounter Details Date Type Department Care Team Description 06/13/2015 Pt. Non Urgent Medic al Question Adult Medicine [address] [address] Hoang Mueller PA-C Social History Tobacco Use [...] as of this encounter Progress Notes * Patricia Covington M.A. - 06/13/2015 4:06 PM ESTFrom: Lyla Dineronilaysalazar To: Hoang Mueller PA-C Sent: 06/13/2015 3:38 PM EST Subject: Holter Monitor I was just wondering if the results from the holter monitor came in. I called [facility] Cardiology and they said that it was faxed this afternoon. documented in this encounter Plan of Treatment Not on file documented as of this encounter Visit Diagnoses Not on filedocumented in this encounter Care Teams Production Control Planner Relationship Specialty Start Date End Date Kirit Amado MD [address] [place] [address] PCP - General 07/15/09 07/07/21 [facility], Pcp [address] [place] [address] PCP - General Internal Medicine 07/08/21 documented as of this encounter
--- OUTSIDE RECORDS SUMMARY | 2024-08-06 11:32 | XMS_ITS | Encounter Summary ---
Author Organization [facility] Address [address] [place] [address] Care Team Providers Care Streetcar Conductor Name Role Phone Kirit Amado MD Primary Care Provider [phone] [facility], [facility] Primary Care Provider Unavailabl e Encounter Details Date Type Department Care Team Description 04/24/2018 Orders Only Medical Records [address] [place] [address] Tigist Duncan PA Social History Tobacco Use [...] on file documented as of this encounter Procedures Procedure Name Priority Date/Time Associated Diagnosis Comments OUTSIDE HOLTER MONITOR Routine 04/19/2018 documented in this encounter Results * OUTSIDE HOLTER MONITOR (04/19/2018) Tigist [facility] documented in this encounter Visit Diagnoses Not on filedocumented in this encounter Care Teams Streetcar Conductor Relationship Specialty Start Date End Date Kirit Amado MD [address] [place] [address] PCP - General 07/15/09 07/07/21 [facility], Pcp [address] [place] [address] PCP - General Internal Medicine 07/08/21 documented as of this encounter
--- OUTSIDE RECORDS SUMMARY | 2024-08-06 11:33 | XMS_ITS | Encounter Summary ---
Author Organization [facility] Address [address] [place] [address] Care Team Providers Care Armor Senior Sergeant Name Role Phone Kirit Amado MD Primary Care Provider [phone] [facility] Encounter Details Date Type Department Care Team Description 10/08/2020 Pt. Non Urgent Medic al Question Adult Medicine [address] [address] Tigist Duncan PA Social History Tobacco Use [...] encounter Miscellaneous Notes * Telephone Encounter - Megan Rico C.M.A - 10/08/2020 11:51 AM EDTFrom: Lyla Dineronilaysalazar To: Salazar Whittaker Sent: 10/08/2020 11:21 AM EDT Subject: MRI Tigist, I was wondering if you received my MRI's yet ? I had them done last at [place]. The past several days I have been in a lot of pain. I have been taking the muscle relaxer at night but I don'tfeel like it is helping at all. I have increased pain in my neck and between my shoulders and through my left shoulder to my elbow and wrist. Also my lower back and left hip, knee and ankle. This morning my had to help me out of bed because I could not lift myself up. I also have noticed that when I lie on my back at night (sometimes even on my side)both of my arms and hands will go numb.Let me know what you think. Lyla documented in this encounter Plan of Treatment Not on file documented as of this encounter Visit Diagnoses Not on filedocumented in this encounter Care Teams Armor Senior Sergeant Relationship Specialty Start Date End Date Kirit Amado MD [address] [place] [address] PCP - General 07/15/09 07/07/21 [facility], [address] [address] PCP - General Internal Medicine 07/08/21 documented as of this encounter
--- OUTSIDE RECORDS SUMMARY | 2024-08-06 11:33 | XMS_ITS | Encounter Summary ---
Author Organization [facility] Address [address] [place] [address] Care Team Providers Care Swimming Instructor Name Role Phone Kirit Amado MD Primary Care Provider [phone] [facility] Primary Care Provider Unavailabl e Reason for Visit * Reason Onset Date Comments medication problems 07/08/2017 Encounter Details Date Type Department Care Team Description 07/08/2017 Telephone Adult Medicine [address] [address] Tigist Duncan PA medication problems Social History Tobacco Use Types Packs/Day Years [...] encounter Miscellaneous Notes * Telephone Encounter - Karina Castañeda C.M.A. - 07/11/2017 11:18 AM EDT Can you resend to pharamacy * Telephone Encounter - Bianca Jolie - 07/08/2017 3:41 PM EST Who is calling? The patient Name of the medication Fluoxetine 20 mg What is the specific problem or interaction? Please re-fax pharmacy has not received If the patient is having a problem with taking the med - how long has the problem been going on? N/A documented in this encounter Plan of Treatment Not on file documented as of this encounter Visit Diagnoses Not on filedocumented in this encounter Care Teams Swimming Instructor Relationship Specialty Start Date End Date Kirit Amado MD [address] [place] [address] PCP - General 07/15/09 07/07/21 [facility], [address] [address] PCP - General Internal Medicine 07/08/21 documented as of this encounter
--- OUTSIDE RECORDS SUMMARY | 2024-08-06 11:33 | XMS_ITS | Encounter Summary ---
Author Organization [facility] Address [address] [place] [address] Care Team Providers Care Cement Loader Name Role Phone Pcp, No Primary Care Provider Ashley Tyson PA-C Primary Care Provi mario Encounter Details Date Type Department Care Team (Late st Contact Info) Description 08/01/2023 Scanned Document [facility] INTERNAL MED SCAN Provider, Generic [...] 12/07/2024 10:00 AM EDT Office Visit [address] [place] [address] Ashley Beal PA-C [address] [place], [place] [address] documented as of this encounter Visit Diagnoses Not on filedocumented in this encounter Care Teams Cement Loader Relationship Specialty Start Date End Date Pcp, No PCP - General General Medicine 10/03/23 10/10/23 Ashley Beal PA-C [address] [place], [place] [phone] PCP - General Internal Medicine 10/11/23 Solange Kaur Physician Gastroenterology 09/26/23 Gab Campos Physician Ophthalmology 09/26/23 documented as of this encounter
--- OUTSIDE RECORDS SUMMARY | 2024-08-06 11:33 | XMS_ITS | Encounter Summary ---
Author Organization [facility] Address [address] [place] [address] Care Team Providers Care Windows Systems Architect Name Role Phone Pcp, No Primary Care Provider Ashley Tyson PA-C Primary Care Provi mario Encounter Details Date Type Department Care Team (Late st Contact Info) Description 04/19/2022 Scanned Document [facility] INTERNAL MED SCAN Provider, Generic [...] Description 12/07/2024 10:00 AM EDT Office Visit [address] [place] [address] Ashley Beal PA-C [address] [place] [address] documented as of this encounter Visit Diagnoses Not on filedocumented in this encounter Care Teams Windows Systems Architect Relationship Specialty Start Date End Date Pcp, No PCP - General General Medicine 10/03/23 10/10/23 Ashley Beal PA-C [address] [place], [place] [id number] PCP - General Internal Medicine 10/11/23 Solange Kaur Physician Gastroenterology 09/26/23 Gab Campos Physician Ophthalmology 09/26/23 documented as of this encounter
--- OUTSIDE RECORDS SUMMARY | 2024-08-06 11:33 | XMS_ITS | Encounter Summary ---
Author Organization [facility] Address [address] [place] [address] Care Team Providers Care Drafter Landscape Name Role Phone Kirit Amado MD Primary Care Provider [phone] [facility], [facility] Primary Care [facility] Encounter Details Date Type Department Care Team Description 07/11/2020 Pt. Non Urgent Medic al Question Adult Medicine [address] [address] Tigist Duncan PA Social History Tobacco Use [...] have Coronavirus / COVID-19? No / Unsure 07/07/2020 8:38 AM EST documented as of this encounter Miscellaneous Notes * Telephone Encounter - Juana Garcia M.A. - 07/11/2020 2:10 PM ESTFrom: Lyla Castaneda To: Tigist Whittaker PA-C Sent: 07/11/2020 10:55 AM EST Subject: Med follow up Tigist, I am following up with you as requested. I have been taking the Zoloft since Tuesday. I had some mild nausea the first day but nothing bad. Over all I do not feel any different than I did on the Prozac. Is it going to take time to feel a difference? The depression, anxiety and stress is all sti ll the same as well as the constant pressure in my chest. I did notice that I was having some palpitations yesterday. But the question always is was it my anxiety? I would love to hear your thoughts. Lyla documented in this encounter Plan of Treatment Not on file documented as of this encounter Visit Diagnoses Not on filedocumented in this encounter Care Teams Drafter Landscape Relationship Specialty Start Date End Date Kirit Amado MD [address] [place] [address] PCP - General 07/15/09 07/07/21 [facility], Pcp [address] [place] [address] PCP - General Internal Medicine 07/08/21 documented as of this encounter
--- OUTSIDE RECORDS SUMMARY | 2024-08-06 11:33 | XMS_ITS | Continuity of Care Document ---
Author Organization [facility] Address [address] [place] [address] Phone [phone] Social History Type Date Description Comments Sex Unknown Medications Active Medications SIG Qnty Indications Ordering Provider Date Hydroxyzine VVQ96gp Tablets take 2 tablets at bedtime, can add 1 extra tab as needed Misty Sharma M.D. 11/11/2021 Sertraline [id number] Tablets 1 by mouth every day Misty Sharma M.D. 11/11/2021 Metoprolol Succinate ER25mg Tablets ER 24HR 1 by mouth every day Misty Sahrma M.D. 11/11/[address] 1 tab by mouth as needed 90caps Misty Sharma M.D. 11/11/2021 Xqzklms95oe Tablets take 1 tablet twice daily Misty Sharma M.D. 11/11/2021 Levothyroxine Huftep46wjj Capsules 1 cap by mouth every day [...]
--- OUTSIDE RECORDS SUMMARY | 2024-08-06 11:33 | XMS_ITS | Encounter Summary ---
Author Organization [facility] Address [address] [place] [address] Care Team Providers Care Pilot Boat Captain Name Role Phone Pcp, No Primary Care Provider Ashley Tyson PA-C Primary Care Provi mario Encounter Details Date Type Department Care Team (Late st Contact Info) Description 02/16/2023 Scanned Document [facility] INTERNAL MED SCAN Provider, Generic External Data [...] Description 12/07/2024 10:00 AM EDT Office Visit [address] [place] [address] Ashley Beal PA-C [address] [place], [place] [address] documented as of this encounter Visit Diagnoses Not on filedocumented in this encounter Care Teams Pilot Boat Captain Relationship Specialty Start Date End Date Pcp, No PCP - General General Medicine 10/03/23 10/10/23 Ashley Beal PA-C [address] [place], [place] [phone] PCP - General Internal Medicine 10/11/23 Solange Kaur Physician Gastroenterology 09/26/23 Gab Campos Physician Ophthalmology 09/26/23 documented as of this encounter
--- OUTSIDE RECORDS SUMMARY | 2024-08-06 11:33 | XMS_ITS | Encounter Summary ---
Author Organization [facility] Address [address] [place] [address] Care Team Providers Care Medicinal Plant Picker Name Role Phone Kirit Amado MD Primary Care Provider [phone] [facility], Pcp Primary Care Provider Unavailabl e Encounter Details Date Type Department Care Team Description 10/22/2011 Environmental Restoration Planner Report Medical Records [address] [place] [address] Jim Singh PA-C Social History Tobacco Use Types Packs/Day Years Used Date Smoking Tobacco: Former Cigarettes 0.5 10 Q uit: 05/02/1996 Smokeless Tobacco: Former Alcohol Use Standard Drinks/Week [...] on filedocumented in this encounter Care Teams Medicinal Plant Picker Relationship Specialty Start Date End Date Kirit Amado MD [address] [place], [place] [phone] PCP - General 07/15/09 07/07/21 [facility], Pcp [address] [place] [address] [place] [address] PCP - General Internal Medicine 07/08/21 documented as of this encounter
--- OUTSIDE RECORDS SUMMARY | 2024-08-06 11:33 | XMS_ITS | Encounter Summary ---
Author Organization [facility] Address [address] [place] [address] Care Team Providers Care Online Content Developer Name Role Phone Kirit Amado MD Primary Care Provider [phone] [facility], [facility] Primary Care [facility] Encounter Details Date Type Department Care Team Description 10/01/2020 Pt. Non Urgent Medic al Question Adult Medicine [address] [address] Tigist Duncan PA Social History Tobacco Use [...] Telephone Encounter - Juana Garcia M.A. - 10/01/2020 4:06 PM EDTFrom: Lyla Castaneda To: Ernesto Whittaker Sent: 10/01/2020 3:38 PM EDT Subject: MRI I received a letter about the MRI being sent to [facility]. I need it to be done at [facility] because of my insurance. If you could please fax the order and any additional paperwork to [phone]. The paperwork at that I was given this morning was not an actual order according to [facility] MRI department. Thank you. documented in this encounter Plan of Treatment Not on file documented as of this encounter Visit Diagnoses Not on filedocumented in this encounter Care Teams Online Content Developer Relationship Specialty Start Date End Date Kirit Amado MD [address] [place] [address] PCP - General 07/15/09 07/07/21 [facility], Pcp [address] [place] [address] PCP - General Internal Medicine 07/08/21 documented as of this encounter
--- OUTSIDE RECORDS SUMMARY | 2024-08-06 11:33 | XMS_ITS | Encounter Summary ---
Author Organization [facility] Address [address] [place] [address] Care Team Providers Care Brand Advisor Name Role Phone Kirit Amado MD Primary Care Provider [phone] [facility], [facility] Primary Care Provider Unavailabl e Encounter Details Date Type Department Care Team Description 10/14/2020 Orders Only Adult Medicine [address] [address] Tigist Duncan PA Lumbar disc disease Social History Tobacco Use Types Packs/Day Years [...] Name Priority Date/Time Associated Diagnosis Comments MRI OF LUMBAR SPINE NO CONTRAST Routine Lumbar disc disease documented in this encounter Results * MRI OF LUMBAR SPINE NO CONTRAST (10/02/2020) Tigist [facility] MRI Performing Organization Address City/State/[facility] Co ar Phone Number [address] documented in this encounter Visit Diagnoses Diagnosis Lumbar disc disease Other and unspecified disc disorder of lumbar region documented in this encounter Care Teams Brand Advisor Relationship Specialty Start Date End Date Kirit Amado MD [address] [place] [address] PCP - General 07/15/09 07/07/21 [facility], Pcp [address] [place] [address] PCP - General Internal Medicine 07/08/21 documented as of this encounter
--- OUTSIDE RECORDS SUMMARY | 2024-08-06 11:33 | XMS_ITS | Encounter Summary ---
Author Organization [facility] Address [address] [place] [address] Care Team Providers Care Slunk Skinner Name Role Phone Pcp, No Primary Care Provider Ashley Tyson PA-C Primary Care Provi mario Encounter Details Date Type Department Care Team (Late st Contact Info) Description 03/16/2023 Scanned Document [facility] INTERNAL MED SCAN Provider, Generic [...] 12/07/2024 10:00 AM EDT Office Visit [address] [place] [address] Ashley Beal PA-C [address] [place], [place] [address] documented as of this encounter Visit Diagnoses Not on filedocumented in this encounter Care Teams Slunk Skinner Relationship Specialty Start Date End Date Pcp, No PCP - General General Medicine 10/03/23 10/10/23 Ashley Beal PA-C [address] [place], [place] [id number] PCP - General Internal Medicine 10/11/23 Solange Kaur Physician Gastroenterology 09/26/23 Gab Campos Physician Ophthalmology 09/26/23 documented as of this encounter
--- OUTSIDE RECORDS SUMMARY | 2024-08-06 11:33 | XMS_ITS | Encounter Summary ---
Author Organization [facility] Address [address] [place] [address] Care Team Providers Care Beef Cattle Grazier Name Role Phone Kirit Amado MD Primary Care Provider [phone] [facility], [facility] Primary Care Provider Unavailabl e Reason for Visit * Reason Onset Date Comments APPOINTMENT 09/25/2020 Encounter Details Date Type Department Care Team Description 09/25/2020 Telephone Pulmonology - [place] [address] [facility] [address] [place] [address] Sara Rey APRN [address] [facility] [address] [place] [phone] APPOINTMENT Social History Tobacco Use Types Packs/Day Years [...] have Coronavirus / COVID-19? No / Unsure 09/18/2020 10:09 AM EDT documented as of this encounter Miscellaneous Notes * Telephone Encounter - Shelbie Pascal - 09/25/2020 11:51 AM EDT I lori patient to book appointment for a follow up with Sara for barbie left a voice mail message. documented in this encounter Plan of Treatment Not on file documented as of this encounter Visit Diagnoses Not on filedocumented in this encounter Care Teams Beef Cattle Grazier Relationship Specialty Start Date End Date Kirit Amado MD [address] [place] [id number] PCP - General 07/15/09 07/07/21 [facility], Pcp [address] [place] [address] PCP - General Internal Medicine 07/08/21 documented as of this encounter
--- OUTSIDE RECORDS SUMMARY | 2024-08-06 11:33 | XMS_ITS | Encounter Summary ---
Author Organization [facility] Address [address] [place] [address] Care Team Providers Care Tnt Powder Worker Name Role Phone Pcp, No Primary Care Provider Ashley Tyson PA-C Primary Care Provi mario Encounter Details Date Type Department Care Team (Late st Contact Info) Description 08/16/2022 Scanned Document [facility] INTERNAL MED SCAN Provider, Generic External [...] Description 12/07/2024 10:00 AM EDT Office Visit [address] [place] [address] Ashley Beal PA-C [address] [place], [place] [address] documented as of this encounter Visit Diagnoses Not on filedocumented in this encounter Care Teams Tnt Powder Worker Relationship Specialty Start Date End Date Pcp, No PCP - General General Medicine 10/03/23 10/10/23 Ashley Beal PA-C [address] [place], [place] [phone] PCP - General Internal Medicine 10/11/23 Solange Kaur Physician Gastroenterology 09/26/23 Gab Campos Physician Ophthalmology 09/26/23 documented as of this encounter
--- OUTSIDE RECORDS SUMMARY | 2024-08-06 11:33 | XMS_ITS | Encounter Summary ---
Author Organization [facility] Address [address] [place] [address] Care Team Providers Care Wealth Management Manager Name Role Phone Kirit Amado MD Primary Care Provider [phone] Formerly [facility], Pcp Primary Care Provider Unavailabl e Encounter Details Date Type Department Care Team Description 02/25/2011 Hospital Medical Records [address] [place] [address] Karina Flores MD Social History Tobacco Use Types Packs/Day [...] on filedocumented in this encounter Care Teams Wealth Management Manager Relationship Specialty Start Date End Date Kirit Amado MD [address] [place], [place] [id number] PCP - General 07/15/09 07/07/21 Formerly [facility], Pcp [address] [place], [place] [address]XI[place] hagen [id number] PCP - General Internal Medicine 07/08/21 documented as of this encounter
--- OUTSIDE RECORDS SUMMARY | 2024-08-06 11:33 | XMS_ITS | Encounter Summary ---
Author Organization [facility] Address [address] [place] [address] Care Team Providers Care Grain Sacker Name Role Phone Pcp, No Primary Care Provider Ashley Tyson PA-C Primary Care Provi mario Encounter Details Date Type Department Care Team (Late st Contact Info) Description 07/08/2023 Scanned Document [facility] INTERNAL MED SCAN Provider, Generic External [...] Description 12/07/2024 10:00 AM EDT Office Visit [address] [place] [phone] Ashley Beal PA-C [address] [place], [place] [phone] documented as of this encounter Visit Diagnoses Not on filedocumented in this encounter Care Teams Grain Sacker Relationship Specialty Start Date End Date Pcp, No PCP - General General Medicine 10/03/23 10/10/23 Ashley Beal PA-C [address] [place], [place] [id number] PCP - General Internal Medicine 10/11/23 Solange Kaur Physician Gastroenterology 09/26/23 Gab Campos Physician Ophthalmology 09/26/23 documented as of this encounter
--- OUTSIDE RECORDS SUMMARY | 2024-08-06 11:33 | XMS_ITS | Encounter Summary ---
Author Organization [facility]ly [facility] Address [address] [place] [address] Care Team Providers Care Slip Filler Name Role Phone Pcp, No Primary Care Provider Ashley Tyson PA-C Primary Care Provi mario Encounter Details Date Type Department Care Team (Late st Contact Info) Description 06/23/2022 Scanned Document [facility] INTERNAL MED SCAN Provider, Generic [...] Description 12/07/2024 10:00 AM EDT Office Visit [address] [place] [phone] Ashley Beal PA-C [address] [place], [place] [address] documented as of this encounter Visit Diagnoses Not on filedocumented in this encounter Care Teams Slip Filler Relationship Specialty Start Date End Date Pcp, No PCP - General General Medicine 10/03/23 10/10/23 Ashley Beal PA-C [address] [place], [place] [phone] PCP - General Internal Medicine 10/11/23 Solange Kaur Physician Gastroenterology 09/26/23 Gab Campos Physician Ophthalmology 09/26/23 documented as of this encounter
--- OUTSIDE RECORDS SUMMARY | 2024-08-06 11:33 | XMS_ITS | Encounter Summary ---
Author Organization [facility] Address [address] [place] [address] Care Team Providers Care Burglar Alarm Assembler Name Role Phone Pcp, No Primary Care Provider Ashley Tyson PA-C Primary Care Provi mario Encounter Details Date Type Department Care Team (Late st Contact Info) Description 09/15/2022 Scanned Document [facility] INTERNAL MED SCAN Provider, Generic External [...] Description 12/07/2024 10:00 AM EDT Office Visit [address] [place] [phone] Ashley Beal PA-C [address] [place], [place] [address] documented as of this encounter Visit Diagnoses Not on filedocumented in this encounter Care Teams Burglar Alarm Assembler Relationship Specialty Start Date End Date Pcp, No PCP - General General Medicine 10/03/23 10/10/23 Ashley Beal PA-C [address] [place], [place] [phone] PCP - General Internal Medicine 10/11/23 Solange Kaur Physician Gastroenterology 09/26/23 Gab Campos Physician Ophthalmology 09/26/23 documented as of this encounter
== END ==
LOC: HO.SL 09:52
PROVIDERS: PCP Physician Assistant Medical; Visit Provider Psychiatry & Neurology Neurology
DX: G47.10 Hypersomnia, unspecified (principal); R06.83 Snoring
CPT/HCPCS: 95806

== ENCOUNTER → 2024-08-06 10:03 | Outpatient (BNV) | payer OTHER, SELFPAY | PROVIDERS: PCP Physician Assistant Medical; Visit Provider Psychiatry & Neurology Neurology | DX: R06.83 Snoring (principal); G47.10 Hypersomnia, unspecified | CPT/HCPCS: 95806 ==

== ENCOUNTER 2024-10-05 13:28 | Outpatient (REF) | payer OTHER, SELFPAY ==
--- OUTSIDE RECORDS SUMMARY | 2024-10-05 13:31 | XMS_ITS | Encounter Summary ---
Author Organization Formerly [facility] Address [address] [place] [address] Care Team Providers Care Mid Level Clinician Name Role Phone Pcp, No Primary Care Provider Ashley Tyson PA-C Primary Care Provi mario Encounter Details Date Type Department Care Team (Late st Contact Info) Description 03/16/2023 Scanned Document [facility] INTERNAL MED SCAN Provider, Generic External Data Social History Tobacco Use Types Packs/Day Years Used Date Smoking Tobacco: Never Assessed Comments Unknown Sex and Gender Information Value Date Recorded Sex Assigned at Female 10/03/2023 1:43 PM EDT Legal Sex Female 1:07 PM EDT Gender Identity Female 10/03/2023 1:43 PM EDT Sexual Orientation Heterosexual (straight) 10/02 1:43 PM EDT documented as of this encounter Plan of Treatment Upcoming Encounters Date Type Department Care Team (Late st Contact Info) Description 12/07/2024 10:00 AM EDT Office Visit [address] [place] [address] Ashley Beal PA-C [address] [place] [address] documented as of this encounter Visit Diagnoses Not on filedocumented in this encounter Care Teams Mid Level Clinician Relationship Specialty Start Date End Date Pcp, No PCP - General General Medicine 10/03/23 10/10/23 Ashley Beal PA-C [address] [place] [address] PCP - General Internal Medicine 10/11/23 Solange Kaur Physician Gastroenterology 09/26/23 Gab Campos Physician Ophthalmology 09/26/23 documented as of this encounter
== END 2024-10-05 13:29 | disposition home or self-care (01) ==
LOC: HO.MAMMO 13:28
PROVIDERS: PCP Physician Assistant Medical; Visit Provider Physician Assistant Medical
DX: Z12.31 Encounter for screening mammogram for malignant neoplasm of breast (principal)
CPT/HCPCS: 77063; 77067

== ENCOUNTER → 2024-10-05 13:30 | Outpatient (BNV) | payer OTHER, SELFPAY | PROVIDERS: PCP Physician Assistant Medical; Visit Provider Internal Medicine | DX: Z12.31 Encounter for screening mammogram for malignant neoplasm of breast (principal) | CPT/HCPCS: 77063; 77067 ==

== ENCOUNTER 2024-10-15 13:58 | Outpatient (REF) | payer OTHER, SELFPAY ==
--- NOTE | ~2024-10-15 | US_ITS ---
EXAMINATION: US RETROPERITONEAL COMPLETE (RENAL) CLINICAL INFORMATION: Disorders of the kidney and ureter.. COMPARISON: December 19, 2023 TECHNIQUE: Real-time imaging of the kidneys and bladder. FINDINGS: RIGHT KIDNEY: 12 x 5 x 5 cm (SAG x AP x TRV). Volume: 155 cc. Normal echotexture. Normal renal cortical thickness. No hydronephrosis. No gross solid or cystic lesion detected by the technologist. LEFT KIDNEY: 13 x 4 x 5 cm (SAG x AP x TRV). Volume: 140 cc. Normal echotexture. Normal renal cortical thickness. No hydronephrosis. No solid or cystic lesion. BLADDER: Fluid-filled. Bilateral ureteral jets are demonstrated. Prevoid bladder volume is 307 mL. Postvoid bladder volume is 72 mL. US/US retroperitoneal comp IMPRESSION: No hydronephrosis. 72 cc retained urine in a post void image.. Electronically signed by: Mj Portillo MD 10/15/2024 02:49 PM EDT
--- OUTSIDE RECORDS SUMMARY | 2024-10-15 15:38 | XMS_ITS | Encounter Summary ---
Author Organization [facility] Address [address] [place] [address] Care Team Providers Care Business Coordinator Name Role Phone Ashley Beal PA-C Primary Care [facility] Encounter Details Date Type Department Care Team (Late st Contact Info) Description 10/15/2024 Orders Only [facility] [address] [place] [address] Obstetrics And Gynecology, Scan Social History Tobacco Use Types Packs/Day Years Used Date Smoking Tobacco: Former Cigarettes Smokeless Tobacco: Former Alcohol Use Standard Drinks/Week Comments Yes 0 (1 standard drink = 0.6 oz pur e alcohol) [facility] Utilities Answer Date Recorded In the [...] and Family Not on file 05/13/2024 Attends [employer] Not on file 05/13 Active Member [...] any time in the past 12 m [facility], were you homeless or living in a care home (including now)? No 05/13/2024 Education Answer Date Recorded What is the highest level of school you have completed or the highest degree you have received? Associate degree: occupational, technical, or vocational program 05/13/2024 Comments No Sex and Gender Information Value Date Recorded Sex Assigned at Female 10/03/2023 1:43 PM EDT Legal Sex Female 1:07 PM EDT Gender Identity Female 10/03/2023 1:43 PM EDT Sexual Orientation Heterosexual (straight) 10/02 1:43 PM EDT documented as of this encounter Plan of Treatment Upcoming Encounters Date Type Department Care Team (Late st Contact Info) Description 12/07/2024 10:00 AM EDT Office Visit [address] [place] [phone] Ashley Beal PA-C [address] [place] [address] documented as of this encounter Procedures Procedure Name Priority Date/Time Associated Diagnosis Comments IMAGING BREAST/BX/MAMMO Routine 10/05/2024 10:06 AM EDT documented in this encounter Results * Imaging Breast/Bx/Mammo Result (10/05/2024 10:06 AM EDT) Anatomical Region Laterality Modality Other us Scan Obstetrics And Gynecology IMG LEGACY PROCED URES Edited Result - Final documented in this encounter Visit Diagnoses Not on filedocumented in this encounter Care Teams Business Coordinator Relationship Specialty Start Date End Date Ashley Beal PA-C [address] [place] [address] PCP - General Internal Medicine 10/11/23 Solange Kaur Physician Gastroenterology 09/26/23 Gab Campos Physician Ophthalmology 09/26/23 documented as of this encounter
== END 2024-10-15 13:59 | disposition home or self-care (01) ==
LOC: HO.US 13:58
PROVIDERS: PCP Physician Assistant Medical; Visit Provider Nurse Practitioner Family
DX: N28.89 Other specified disorders of kidney and ureter (principal)
CPT/HCPCS: 76770

== ENCOUNTER → 2024-10-15 14:00 | Outpatient (BNV) | payer OTHER, SELFPAY | PROVIDERS: PCP Physician Assistant Medical; Visit Provider Radiology Diagnostic Radiology | DX: R33.9 Retention of urine, unspecified (principal) | CPT/HCPCS: 76770 ==

== ENCOUNTER 2024-10-15 15:04 | Outpatient (AMB) | payer OTHER, SELFPAY ==
[2024-10-15 15:17] VITALS: BP 112/82; BMI 35.1
--- NOTE | 2024-10-15 15:17 | A.OFFVIS_ITS ---
Vital Signs 10/15/24 15:17 Height 5 ft 1 in Weight 186 lb BMI 35.1 BP 112/82 Blood Pressure Location Rt brachial Position Sitting Intake Visit Reasons: follow up Tremor Intake Note: Patient presents for follow up MRI 06/09/24 sleep study 08/21/24 Allergies Iodinated Contrast Media Adverse Reaction (Severe, Verified 10/15/24 15:18) Hives Medication List - Last Reconciled 10/15/24 by Silva Melendez MD bupropion HCl XL 150 mg PO DAILY cholecalciferol (vitamin D3) 10 mcg PO DAILY clonazepam 0.5 mg PO DAILY colestipol 1 g PO BID fenofibrate 40 mg PO DAILY fexofenadine (Minoo Allergy) 180 mg PO DAILY hydroxyzine HCl 25 mg PO BEDTIME levothyroxine 100 mcg PO DAILY magnesium gluconate 500 mg PO TID magnesium glycinate takes 400mg metoprolol succinate ER 25 mg PO DAILY niacin ER 500 mg PO DAILY omeprazole 20 mg PO DAILY ondansetron HCl 4 mg PO Q4H PRN 30 days sertraline 150 mg PO DAILY tizanidine 0 mg PO topiramate 50 mg PO BID ubrogepant (Ubrelvy) 0 mg PO HPI Comments Details: 49y/o Right handed female comes for follow up of tremors.No change since last visit. MRI brain and home sleep test were normal. History from initial visit-The tremors are both in her hands and legs. They are intermittent and can be at rest or action. she started noticing tremors about 2-3 years and it increased and became more noticeable in the past 1 year. No voice or head tremors. when she relaxes she is able to suppress. She has trouble holding things, trouble with fine motor coordination. she remembers her grand mother with tremors. No weakness, no change in voic e, no gait issues. etc. No known head injury. SHe has h/o migraines fairly controlled.- 2-3 /month Her sleep is poor- she takes hydroxyzine 50mg, magnesium for sleep. she has h/o anxiety depression managed by a therapist and her PCP.she has been on sertraline 150mg and wellbutrin for few years . she has rare panic attacks. she works as a MA at [employer] and is worried that it could affect her performance. she has snoring and hypersomnia.she was diagnosed with TRINITY and was given CPAP but she could not tolerate it. [facility] Medical History (Updated 10/15/24 @ 15:44 by Silva Melendez MD) Hypersomnia Snoring Coarse tremors Breast pain, right Rapid palpitations Intermittent palpitations GERD (gastroesophageal reflux disease) Anxiety Low vitamin D level Hypothyroid Migraine Lichen planus Surgical History History of esophagogastroduodenoscopy (EGD) Hx of colonoscopy H/O partial thyroidectomy H/O wisdom tooth extraction Hx of cholecystectomy H/O: hysterectomy Social History Alcohol intake: never Patient Tobacco Use Status: Never used Tobacco Physical Exam Vital Signs: Last Vital Signs BP 112/82 10/15/24 15:17 BMI result Body Mass Index 35.1 Const General: cooperative, healthy appearing and comfortable Nutritional Appearance: obese Orientation/consciousness: patient oriented x3 Eyes Pupils: Equal, round and reactive pupils present Neuro Other: mild postural tremors frankie UE Mallampatti grade 4 Good facial expression and blink General: patient oriented x3, gait normal, tone normal, moves all extremities and no focal motor deficits Cranial nerves: Yes Facial sensation intact/muscles of mastication intact, Yes Equal, round and reactive pupils present, Yes Bilaterally intact EOM present, Yes Nystagmus not present, Yes Normal facial strength present, Yes Midline tongue present, Yes Symmetric palate elevation present, Yes Ability to bilate rally rotate head present and Yes Ability to bilaterally elevate shoulders present Cognition (Neuro): normal cognition Gait exam (Neuro): Normal gait present Motor exam (neuro): 5/5 motor strength present throughout and Normal motor muscle tone present throughout Coordination: [id number] test normal Assessment & Plan Assessment & Plan (1) Coarse tremors: Comment: exaggerated physiological tremors vs poorly controlled anxiety Code(s): G25.2 - Other specified forms of tremor Category: Medical (2) Snoring: Code(s): R06.83 - Snoring Category: Medical (3) Hypersomnia: Code(s): G47.10 - Hypersomnia, unspecified Category: Medical (4) Migraine: Code(s): G43.909 - Migraine, unspecified, not intractable, without status migrainosus Category: Medical Qualifiers: Migraine type: migraine (< 15 days per month) without aura Status migrainosus presence: without status migrainosus Intractability: not intractable Qualified Code(s): G43.009 - Migraine without aura, not intractable, without status migrainosus Plan MRI brain was normal will monitor her tremors clinically. no evidence of parkinsons Home sleep test was inconclusive In lab sleep study to r/o sleep apnea Discuss with therapist about anxiety continue ubrelvy 50 mg as needed and topiramate 50mg bid Orders: Orders RT PSG in-lab sleep study Today G47.10 - Hypersomnia, unspecified, R06.83 - Snoring Coding Level of Care Code Est Pt Level 4 (38083) Complex EM visit Add On G2211 Diagnoses Coarse tremors G25.2 Snoring R06.83 Hypersomnia G47.10 Migraine without aura and without status migrainosus, not intractable G43.009 Migraine type: migraine (< 15 days per month) without aura Status migrainosus presence: without status migrainosus Intractability: not intractable
== END 2024-10-15 15:48 | disposition home or self-care (01) ==
LOC: HO.HSMS 15:05
PROVIDERS: PCP Physician Assistant Medical; Visit Provider Psychiatry & Neurology Neurology
DX: G25.2 Other specified forms of tremor (principal); R06.83 Snoring; G47.10 Hypersomnia, unspecified; G43.009 Migraine without aura, not intractable, without status migrainosus
CPT/HCPCS: 99214

== ENCOUNTER 2024-10-22 11:50 | Outpatient (AMB) | payer OTHER, SELFPAY ==
--- NOTE | 2024-10-22 12:00 | MHC.OFFVIS ---
Vital Signs 10/22/24 12:01 Height 5 ft 1 in Weight 180 lb 12.465 oz BMI 34.2 BP 119/86 Blood Pressure Location Lt brachial Position Sitting Pulse 73 Intake Visit Reasons: f/u reschedule from Jun Intake Note: Lyla presents in the office as a follow up. CC: She states that she is just having a follow up - no concerns just fatty liver. 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 Allergies Iodinated Contrast Media Adverse Reaction (Severe, Verified 10/22/24 12:02) Hives HPI HPI f/u reschedule from Jun: Details: 49 yr old f here for f/u RECAP main issue is diarrhea -complete watery, up to 6/day, wakes her up at night she has noted oil and greasiness in stool sometimes, easy to flush she had her GB 10 yrs ago and since then on and off, but being getting worse with time one incident of a hemorrhoidal bleed per her she can't tell if sometimes if it is black or not she has diffuse abdominal pain no obivous triggers, no food triggers she is sarita menopausal has sweats at night appetite is fair nausea on top of current she took rifaximin and it made no difference EGD/colonoscopy: 05/2021 fundic gland polyps random bx of colon and TI were nml Stool: neg calprotectin, fecal fat nml, neg giardia, neg pancreatic elastase, neg celiac serology INTERIM: she is still taking colestipol and it works well she has been found to have fatty liver she has mild elevation in AST/ALT very rarely drinks alcohol takes red meat and beef several times a week not much physical activity minimal fruit and veg in diet not taking fiber supplement EXAM: GENERAL: The patient is well developed and nontoxic. VITAL SIGNS:see workflow HEENT: Nonicteric sclerae, PERRLA, EOMI. Oropharynx clear. Moist mucous membranes. Conjunctivae appear well perfused. No thyroid mass. CHEST: Chest wall is nontender. HEART: Regular rate and rhythm without murmurs. LUNGS: Clear to auscultation bilaterally. ABDOMEN: Soft, positive bowel sounds, nontender, no organomegaly.no flank tenderness SKIN: No rash, no excessive bruising, petechiae, or purpura. NEUROLOGIC: Cranial nerves II-XII intact without motor/sensory deficit. 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)--responded well to colestipol 2/ fatty liver, and MASH PLAN: 1/ cont with colestipol,, 2/ recheck labs today, a1at, etc 3/ US liver 4/ can start vit E 400 units bid 5/ might conside rrezdiffra or she can see pcp for ozempic PFSH Medical History Hypersomnia Snoring Coarse tremors Breast pain, right Rapid palpitations Intermittent palpitations GERD (gastroesophageal reflux disease) Anxiety Low vitamin D level Hypothyroid Migraine Lichen planus Surgical History History of esophagogastroduodenoscopy (EGD) Hx of colonoscopy H/O partial thyroidectomy H/O wisdom tooth extraction Hx of cholecystectomy H/O: hysterectomy Social History Alcohol intake: never Patient Tobacco Use Status: Never used Tobacco Physical Exam Vital Signs: Last Vital Signs Pulse 73 10/22/24 12:01 BP 119/86 10/22/24 12:01 BMI result Body Mass Index 34.2 Assessment & Plan Assessment & Plan (1) Metabolic dysfunction-associated steatohepatitis (MASH): Code(s): K75.81 - Nonalcoholic steatohepatitis (ANGELES) Category: Medical Plan: as above Coding Level of Care Code Est Pt Level 4 (81596) Diagnoses Metabolic dysfunction-associated steatohepatitis (MASH) K75.81
[2024-10-22 12:01] VITALS: BP 119/86; PULSE 73; BMI 34.2
--- OUTSIDE RECORDS SUMMARY | 2024-10-22 13:27 | XMS_ITS | Encounter Summary ---
Author Organization [facility] Address [address] [place] [address] Care Team Providers Care Pantograph Transferrer Name Role Phone Ashley Beal PA-C Primary Care [facility] Encounter Details Date Type Department Care Team (Late st Contact Info) Description 10/15/2024 Orders Only [facility] [address] [place] [address] Obstetrics And Gynecology, Scan Social History Tobacco Use Types Packs/Day Years Used Date Smoking Tobacco: Former Cigarettes Smokeless Tobacco: Former Alcohol Use Standard Drinks/Week Comments Yes 0 (1 standard drink = 0.6 oz pur e alcohol) [facility] Utilities Answer Date Recorded In the [...] and Family Not on file 05/13/2024 Attends [employer] Not on file 05/13 Active Member [...] any time in the past 12 m [facility], were you homeless or living in a custodial (including now)? No 05/13/2024 Education Answer Date [...] Description 12/07/2024 10:00 AM EDT Office Visit [address] [place] [phone] Ashley Beal PA-C [address] [place] [address] documented as of this encounter Procedures Procedure [...] on filedocumented in this encounter Care Teams Pantograph Transferrer Relationship Specialty Start Date End Date Ashley Beal PA-C [address] [place] [address] PCP - General Internal Medicine 10/11/23 Solange Kaur Physician Gastroenterology 09/26/23 Gab Campos Physician Ophthalmology 09/26/23 documented as of this encounter
== END 2024-10-22 12:26 | disposition home or self-care (01) ==
LOC: HO.HGI 11:51
PROVIDERS: PCP Physician Assistant Medical; Visit Provider Internal Medicine Gastroenterology
DX: K75.81 Nonalcoholic steatohepatitis (NASH) (principal)
CPT/HCPCS: 99214

== ENCOUNTER 2024-11-05 13:05 | Outpatient (REF) | payer OTHER, SELFPAY ==
--- NOTE | ~2024-11-05 | XR_ITS ---
EXAMINATION: XR FOOT 3 OR MORE VIEWS LEFT HISTORY: M79.673 - Pain in unspecified foot COMPARISON: There are no prior studies available for comparison. FINDINGS: Three views of the left foot are submitted. Osseous mineralization is normal. There is no fracture or dislocation. The joint spaces are preserved. The soft tissues are unremarkable. XR/XR foot LT min 3V IMPRESSION: Unremarkable examination of the left foot. Electronically signed by: Dc Cool MD 11/05/2024 01:20 PM EDT
== END 2024-11-05 13:06 | disposition home or self-care (01) ==
LOC: HO.HOSX 13:05
PROVIDERS: PCP Physician Assistant Medical; Visit Provider Physician Assistant
DX: S90.212A Contusion of left great toe with damage to nail, initial encounter (principal); M79.675 Pain in left toe(s)
CPT/HCPCS: 73630

== ENCOUNTER 2024-11-05 13:05 | Outpatient (AMB) | payer OTHER, SELFPAY ==
--- NOTE | 2024-11-05 13:19 | MHC.OFFVIS ---
Vital Signs 11/05/24 13:23 Height 5 ft 1 in Weight 180 lb BMI 34.0 Handedness Right Intake Visit Reasons: FC, Left great toe injury Intake Note: phillip is a 49 year old female who presents today for a evaluation of her left great toe injury, DOI 11/03/24. Patient reports she stubbed her toe when she was tubing. She mentions that they tried draining at the urgent care yesterday. Patient informed me that her pain is sharp/throbbing. She states it is very tender to touch. Denies numbness and tingling. Allergies Iodinated Contrast Media Adverse Reaction (Severe, Verified 11/05/24 13:23) Hives HPI HPI FC, Left great toe injury: Details: Ms. Castaneda this is a 49-year-old female who presents to the office today for evaluation of a left great toe injury that she sustained on 11/03/2024. She reports that she was tubing and they were approaching the area in which they stop. Therefore, she attempted to exit the tube and walk toward rock to walk toward shore. While attempting to walk towards shore, she hit her toe on a rock and felt immediate pain. The following day she went to an urgent care where x-rays were obtained and she was diagnosed with a nondisplaced tuft fracture of the left great toe. Additionally, she had a subungual hematoma in which the urgent care performed a trephination. She was given a postoperative shoe but reports that this actually made ambulation more painful to her. She reports that she did not receive any antibiotics at that time. 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 [facility] Medical History Hypersomnia Snoring Coarse tremors Breast pain, right Rapid palpitations Intermittent palpitations GERD (gastroesophageal reflux disease) Anxiety Low vitamin D level Hypothyroid Migraine Lichen planus Surgical History History of esophagogastroduodenoscopy (EGD) Hx of colonoscopy H/O partial thyroidectomy H/O wisdom tooth extraction Hx of cholecystectomy H/O: hysterectomy Social History (Updated 11/05/24 @ 13:23 by Giancarlo Pascal) Alcohol intake: never Patient Tobacco Use Status: Never used Tobacco Current occupational status: employed Current occupation: MA at [employer] Review of Systems Const All systems reviewed & are unremarkable except as noted in HPI and below Physical Exam Vital Signs: BMI result Body Mass Index 34.0 Const General: cooperative, healthy appearing and no acute distress Resp Effort & Inspection: normal respiratory effort and able to speak in complete sentences Extrem Other: Left great toe evidence of prior subungual hematoma with evidence of trephination. Sensation reportedly intact. Able to ambulate with an antalgic gait. No surrounding erythema or active drainage. No current signs of infection. Assessment & Plan Assessment & Plan (1) Subungual hematoma of great toe of left foot: Code(s): S90.212A - Contusion of left great toe with damage to nail, initial encounter Category: Medical Plan Ms. Castaneda this is a 49-year-old female who presents to the office today for evaluation of a left great toe injury that she sustained on 11/03/2024. She reports that she was tubing and they were approaching the area in which they stop. Therefore, she attempted to exit the tube and walk toward rock to walk toward shore. While attempting to walk towards shore, she hit her toe on a rock and felt immediate pain. The following day she went to an urgent care where x-rays were obtained and she was diagnosed with a nondisplaced tuft fracture of the left great toe. Additionally, she had a subungual hematoma in which the urgent care performed a trephination. She was given a postoperative shoe but reports that this actually made ambulation more painful to her. She reports that she did not receive any antibiotics at that time. 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 While in the office today x-rays were obtained and reviewed by me, Tiny England PA-C, and I did not appreciate any acute fracture or dislocation. Additionally, the radiologist's interpretation is in agreement with no acute fracture or dislocation. I discussed with the patient the use of the postoperative shoe but in this case she reports this is causing more pain with ambulation. I suggested a supportive walking sneaker with a wide toe box. Due to the disruption of the nail bed with a subungual hematoma and trephination I have sent a prescription for Augmentin to the pharmacy prophylactically. She is unable to ambulate for any length of time without significant pain. Therefore, I have provided her with an out-of-work note until her follow up appointment. She was educated on signs of infection, which are as follows but not limited to erythema, edema, drainage, or warmth. If she is to experience any of these symptoms, she must contact the office immediately or present to the ED for evaluation. Patient understands and accepts. She will follow up in 3 weeks with repeat x-rays, sooner if needed. Orders: Orders XR foot LT min 3V Today M79.673 - Pain in unspecified foot Coding Level of Care Code New Pt Level 3 (47566) Diagnoses Subungual hematoma of great toe of left foot S90.212A
[2024-11-05 13:23] VITALS: BMI 34.0
--- OUTSIDE RECORDS SUMMARY | 2024-11-05 13:33 | XMS_ITS | Encounter Summary ---
Author Organization [facility] Address [address] [place] [address] Care Team Providers Care Authorization Representative Name Role Phone Kirit Amado MD Primary Care Provider [phone] [facility], Pcp Primary Care Provider Unavailabl e Encounter Details Date Type Department Care Team Description 02/20/2016 Foster Parent Report Medical Records [address] [place] [address] Precious Pressley MD Social History Tobacco Use [...] on filedocumented in this encounter Care Teams Authorization Representative Relationship Specialty Start Date End Date Kirit Amado MD [address] [place], [place] [id number] PCP - General 07/15/09 07/07/21 [facility], Pcp [address] [place] [address] PCP - General Internal Medicine 07/08/21 documented as of this encounter
--- OUTSIDE RECORDS SUMMARY | 2024-11-05 13:33 | XMS_ITS | Continuity of Care Document ---
Author Organization [facility] Address [address] [place] [address] Phone [phone] Social History Type Date Description Comments Sex Female Sex Unknown Medications Active Medications SIG Qnty Indications Ordering Provider Date Hydroxyzine [id number] Tablets take 2 tablets at bedtime, can add 1 extra tab as needed Misty Sharma M.D. 11/11/2021 Sertraline [id number] Tablets 1 by mouth every day Misty Sharma M.D. 11/11/2021 Metoprolol Succinate ER25mg Tablets ER 24HR 1 by mouth every day Misty Sharma M.D. 11/11/[address] 1 tab by mouth as needed 90caps Misty Sharma M.D. 11/11/2021 Eznsajw74kd Tablets take 1 tablet twice daily Misty Sharma M.D. 11/11/2021 Levothyroxine Bpjppd76kid Capsules 1 cap by mouth every day [...]
--- OUTSIDE RECORDS SUMMARY | 2024-11-05 13:33 | XMS_ITS ---
Author Name [facility] Organization Unknown Encounters Encounter Type Encounter Reason Primary Diagnosis Location Date Ambulatory Follow-up Follow-up [facility] 05/14/2024 Ambulatory Other specified abnormal findings of blood chemistry Other specified abnormal findings of blood chemistry [facility] 12/01/2023 Care Team Organization Name Specialty Phone Email Start Date End Da te [facility] 05/01/2024 [facility] ANTHONY Primary Care 12/01/2023 [facility] SADIE CRUZ Primary Care 10/13/2023 [facility] NO PCP Primary Care 10/03/2023
--- OUTSIDE RECORDS SUMMARY | 2024-11-05 13:33 | XMS_ITS | Encounter Summary ---
Author Organization [facility] Address [address] [place] [address] Care Team Providers Care Prepress Specialist Name Role Phone Ashley Beal PA-C Primary Care [facility] Encounter Details Date Type Department Care Team (Late st Contact Info) Description 10/25/2024 Scanned Document [facility] [address] [place] [address] Gastroenterology, Scan Social History Tobacco Use Types Packs/Day Years Used Date Smoking Tobacco: Former Cigarettes Smokeless Tobacco: Former Alcohol Use Standard Drinks/Week Comments Yes 0 (1 standard drink = 0.6 oz pur e alcohol) [facility] Utilities Answer Date Recorded In the past [...] and Family Not on file 05/13/2024 Attends [employer] Not on file 05/13 Active Member [...] any time in the past 12 m [facility], were you homeless or living in a longterm (including now)? No 05/13/2024 Education Answer Date [...] Description 12/07/2024 10:00 AM EDT Office Visit [address] [place] [address] Ashley Beal PA-C [address] [place] [address] documented as of this encounter Visit Diagnoses Not on filedocumented in this encounter Care Teams Prepress Specialist Relationship Specialty Start Date End Date Ashley Beal PA-C [address] [place] [address] PCP - General Internal Medicine 10/11/23 Solange Kaur Physician Gastroenterology 09/26/23 Gab Campos Physician Ophthalmology 09/26/23 documented as of this encounter
== END 2024-11-05 13:44 | disposition home or self-care (01) ==
LOC: HO.HOS 13:06
PROVIDERS: PCP Physician Assistant Medical; Visit Provider Physician Assistant
DX: S90.212A Contusion of left great toe with damage to nail, initial encounter (principal)
CPT/HCPCS: 99203

== ENCOUNTER → 2024-11-05 13:11 | Outpatient (BNV) | payer OTHER, SELFPAY | PROVIDERS: PCP Physician Assistant Medical; Visit Provider Radiology Diagnostic Radiology | DX: M79.672 Pain in left foot (principal) | CPT/HCPCS: 73630 ==

== ENCOUNTER 2024-11-26 09:01 | Outpatient (REF) | payer OTHER, SELFPAY ==
--- NOTE | ~2024-11-26 | XR_ITS ---
EXAMINATION: XR FOOT, LEFT CLINICAL INFORMATION: M79.673 - Pain in unspecified foot COMPARISON: 11/23/2024. TECHNIQUE: AP, lateral, and oblique views of the left foot. FINDINGS: No fracture, dislocation, or suspicious bone lesion. Normal bone mineralization. Normal alignment. Joint spaces are preserved. No significant arthropathy. Normal plantar arch. Soft tissues appear normal. XR/XR foot LT min 3V IMPRESSION: Normal left foot. Electronically signed by: Holland Giles MD 11/26/2024 02:06 PM EDT
--- OUTSIDE RECORDS SUMMARY | 2024-11-27 09:22 | XMS_ITS | Encounter Summary ---
Author Organization [facility] Address [address] [place] [address] Care Team Providers Care Swimming Pool Installer And Servicer Name Role Phone Pcp, No Primary Care Provider Ashley Tyson PA-C Primary Care [facility] Encounter Details Date Type Department Care Team (Late st Contact Info) Description 03/16/2023 Scanned Document [facility] INTERNAL MED SCAN Provider, Generic External [...] Description 12/07/2024 10:00 AM EDT Office Visit [address] [place] [address] Ashley Beal PA-C [address] [place] [address] documented as of this encounter Visit Diagnoses Not on filedocumented in this encounter Care Teams Swimming Pool Installer And Servicer Relationship Specialty Start Date End Date Pcp, No PCP - General General Medicine 10/03/23 10/10/23 Ashley Beal PA-C [address] [place] [address] PCP - General Internal Medicine 10/11/23 Solange Kaur Physician Gastroenterology 09/26/23 Gab Campos Physician Ophthalmology 09/26/23 documented as of this encounter
== END 2024-11-26 09:02 | disposition home or self-care (01) ==
LOC: HO.HOSX 09:01
PROVIDERS: Visit Provider Physician Assistant
DX: S90.212A Contusion of left great toe with damage to nail, initial encounter (principal); S92.402A Displaced unspecified fracture of left great toe, initial encounter for closed fracture; M79.673 Pain in unspecified foot; X58.XXXA Exposure to other specified factors, initial encounter
CPT/HCPCS: 73630

== ENCOUNTER 2024-11-26 13:02 | Outpatient (AMB) | payer OTHER, SELFPAY ==
--- NOTE | 2024-11-26 13:34 | MHC.OFFVIS ---
Vital Signs 11/26/24 13:37 Height 5 ft 1 in Weight 180 lb BMI 34.0 Intake Visit Reasons: OV - left great toe fx, DOI 11/03/24 Intake Note: Lyla is a 49 year old female who presents today for a follow up of her left great toe subungual hematoma, DOI 11/03/24. At her last visit she was advised to wear a supported shoe with a wide enough snuff box. She states that she was able to wear a supported shoe, however she can have the shoe on for a short period of time. Patient reports her toe still hurts. She feels that the bottom of her toe is numb. Allergies Iodinated Contrast Media Adverse Reaction (Severe, Verified 11/26/24 13:37) Hives HPI HPI OV - left great toe fx, DOI 11/03/24: Details: Ms. Castaneda this is a 49-year-old female who presents to the office today for routine follow-up status post left great toe fracture that she sustained on 11/03/2024. Patient states that she is only able to wear footwear that does not cover the top of her foot. She has hypersensitivity over the top of the great toe. Additionally, she reports that she has numbness along the bottom of the toe. She also reports that she has difficulty with performing range of motion at the IP joint. 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 No current signs of infection. Patient has difficulty with flexing and extending at the IP joint. Patient is however able to perform this indicating EHL is intact. Reports numbing sensation on the plantar aspect of the great toe. Pedal pulse intact Assessment & Plan Assessment & Plan (1) Subungual hematoma of great toe of left foot: Code(s): S90.212A - Contusion of left great toe with damage to nail, initial encounter Category: Medical (2) Fracture of left great toe: Code(s): S92.402A - Displaced unspecified fracture of left great toe, initial encounter for closed fracture Category: Medical Plan Ms. Castaneda this is a 49-year-old female who presents to the office today for routine follow-up status post left great toe fracture that she sustained on 11/03/2024. Patient states that she is only able to wear footwear that does not cover the top of her foot. She has hypersensitivity over the top of the great toe. Additionally, she reports that she has numbness along the bottom of the toe. She also reports that she has difficulty with performing range of motion at the IP joint. While the office today repeat x-rays were obtained and show routine healing of the distal phalanx of the great toe. At this time the fracture appears to be healed. The next recommendation would be a referral to podiatry for further evaluation and treatment with the patient's continued hypersensitivity and numbness on the plantar aspect of the great toe. She will follow up with Orthopedics PRN. Podiatry referral has been placed. Orders: Referrals Podiatry Referral S90.212A - Contusion of left great toe with damage to nail, initial encounter, S92.402A - Displaced unspecified fracture of left great toe, initial encounter for closed fracture Coding Level of Care Code Est Pt Level 3 (32838) Diagnoses Subungual hematoma of great toe of left foot S90.212A Fracture of left great toe S92.402A
[2024-11-26 13:37] VITALS: BMI 34.0
--- OUTSIDE RECORDS SUMMARY | 2024-11-26 13:42 | XMS_ITS | Encounter Summary ---
Author Organization [facility] Address [address] [place] [address] Care Team Providers Care Patient Account Liaison Name Role Phone Kirit Amado MD Primary Care Provider [phone] [facility], Pcp Primary Care Provider Unavailabl e Encounter Details Date Type Department Care Team Description 02/20/2016 Mechanical Engineering Technologist Report Medical Records [address] [place] [address] Precious Pressley MD Social History Tobacco Use [...] on filedocumented in this encounter Care Teams Patient Account Liaison Relationship Specialty Start Date End Date Kirit Amado MD [address] [place], [place] [id number] PCP - General 07/15/09 07/07/21 [facility], Pcp [address] [place] [address] PCP - General Internal Medicine 07/08/21 documented as of this encounter
--- OUTSIDE RECORDS SUMMARY | 2024-11-26 13:42 | XMS_ITS | Continuity of Care Document ---
Author Organization [facility] Address [address] [facility] [address] [place] [address] Phone [phone] Social History Type Date Description Comments Sex Female Sex Unknown Medications Active Medications SIG Qnty Indications Ordering Provider Date Hydroxyzine HLV87fw Tablets take 2 tablets at bedtime, can add 1 extra tab as needed Misty Sharma M.D. 11/11/2021 Sertraline [id number] Tablets 1 by mouth every day Misty Sharma M.D. 11/11/2021 Metoprolol Succinate ER25mg Tablets ER 24HR 1 by mouth every day Misty Sharma M.D. 11/11/[address] 1 tab by mouth as needed 90caps Misty Sharma M.D. 11/11/2021 Rufismq45wy Tablets take 1 tablet twice daily Misty Sharma M.D. 11/11/2021 Levothyroxine Srbuai71swy Capsules 1 cap by mouth every day [...]
--- OUTSIDE RECORDS SUMMARY | 2024-11-26 13:42 | XMS_ITS | Encounter Summary ---
Author Organization [facility] Address [address] [place] [address] Care Team Providers Care Research Chef Name Role Phone Ashley Beal PA-C Primary Care [facility] Encounter Details Date Type Department Care Team (Late st Contact Info) Description 10/25/2024 Scanned Document [facility] [address] [place] [address] Gastroenterology, Scan Social History Tobacco Use Types Packs/Day Years Used Date Smoking Tobacco: Former Cigarettes Smokeless Tobacco: Former Alcohol Use Standard Drinks/Week Comments Yes 0 (1 standard drink = 0.6 oz pur e alcohol) [facility] Utilities Answer Date Recorded In the past [...] and Family Not on file 05/13/2024 Attends [employer] Services Not on file 05/13 Active Member [...] any time in the past 12 m [facility], were you homeless or living in a halfway (including now)? No 05/13/2024 Education Answer Date [...] 12/07/2024 10:00 AM EDT Office Visit [address] [place] [address] Ashley Beal PA-C [address] [place] [address] documented as of this encounter Visit Diagnoses Not on filedocumented in this encounter Care Teams Research Chef Relationship Specialty Start Date End Date Ashley Beal PA-C [address] [place] [address] PCP - General Internal Medicine 10/11/23 Solange Kaur Physician Gastroenterology 09/26/23 Gab Campos Physician Ophthalmology 09/26/23 documented as of this encounter
== END 2024-11-26 13:58 | disposition home or self-care (01) ==
LOC: HO.HOS 13:03
PROVIDERS: PCP Physician Assistant Medical; Visit Provider Physician Assistant
DX: S90.212A Contusion of left great toe with damage to nail, initial encounter (principal); S92.402A Displaced unspecified fracture of left great toe, initial encounter for closed fracture
CPT/HCPCS: 99213

== ENCOUNTER → 2024-11-26 13:14 | Outpatient (BNV) | payer OTHER, SELFPAY | PROVIDERS: Visit Provider Radiology Diagnostic Radiology | DX: M79.672 Pain in left foot (principal) | CPT/HCPCS: 73630 ==

== ENCOUNTER 2024-11-26 14:01 | Outpatient (REF) | payer OTHER, SELFPAY ==
[2024-11-26 14:18] LABS: MANUAL DIFF FLAG NO
[2024-11-26 14:48] LABS: Hematocrit 39.3 % (37.0-47.0); Hemoglobin 13.2 g/dl (12.0-16.0); Imm Gran Abs Auto 0.07 X10*3/uL (0.00-0.03); Imm Gran Pct Auto 0.7 % (0.0-0.4); Lymphocytes Absolute Auto 2.3 X10*3/uL (1.2-4.9); Mean Corpuscular HGB Conc 33.6 g/dl (31.0-35.0); Mean Corpuscular Hemoglobin 28.1 pg (27.0-33.0); Mean Corpuscular Volume 83.8 fL (80.0-98.0); NRBC Abs Auto 0.000 X10*3/uL (0.0-0.012); NRBC Pct Auto 0.0 /100WBC (0.0-0.2); Platelet Count 309 X10*3/uL (160-400); Red Blood Count 4.69 X10*6/uL (4.20-5.50); White Blood Count 10.2 X10*3/uL (4.8-10.8)
[2024-11-26 14:57] LABS: INTERNATIONAL NORM RATIO 0.9 (0.9-1.1); Prothrombin Time 10.5 SEC (10.9-12.4)
[2024-11-26 15:42] LABS: Alanine Aminotransferase 60 U/L (0-31); Albumin Level 4.8 g/dL (3.5-5.0); Alkaline Phosphatase 44 U/L (39-117); Anion Gap 14 (12-20); Aspartate Amino Transferase 56 U/L (5-31); Blood Urea Nitrogen 21 mg/dL (9-16); Calcium 9.4 mg/dL (8.4-10.2); Carbon Dioxide 22 mmol/L (22-29); Chloride 110 mmol/L (96-108); Estimated Glomerular Filt Rate > 60; Potassium 3.6 mmol/L (3.3-5.1); Sodium 142 mmol/L (135-145); Total Protein 7.0 g/dL (6.5-8.0)
[2024-11-26 15:43] LABS: Ferritin 99 ng/mL (10-250)
[2024-11-27 03:23] LABS: Immunoglobulin G 573 mg/dL (600-1640)
[2024-11-27 03:50] LABS: HBS Num1 23.76 mIU/mL (0-7.99); HBc Num1 0.07 S/CO (0.00-0.79); HBsAGNum1 0.32 S/CO (0.00-0.99); Hepatitis A Antibody IgM 0.12 Index (0-0.79); Hepatitis B Surface Antigen Negative (Negative); ~HepC Num1 0.07 S/CO (0.00-0.79); ~Hepatitis A Antibody IgM Nonreactive (Nonreactive); ~Hepatitis B Surface Antibody REACTIVE (Nonreactive); ~Hepatitis C Antibody Nonreactive (Nonreactive)
[2024-11-27 21:23] LABS: Transglutaminase Ab IgG <1.0 U/mL
[2024-11-28 11:54] LABS: Anti Nuclear Antibody Screen NEGATIVE (NEGATIVE)
[2024-11-29 13:13] LABS: Liver Kidney Microsomal Ab <=20.0 U (<=20.0)
== END 2024-11-26 14:02 | disposition home or self-care (01) ==
LOC: HO.LAB 14:01
PROVIDERS: Absent Provider Nurse Practitioner Family; PCP Physician Assistant Medical; Visit Provider Internal Medicine Gastroenterology
DX: K75.81 Nonalcoholic steatohepatitis (NASH) (principal); K52.839 Microscopic colitis, unspecified; R10.33 Periumbilical pain; G89.29 Other chronic pain; R79.82 Elevated C-reactive protein (CRP)
CPT/HCPCS: 36415; 80053; 81596; 82103; 82390; 82550; 82728; 82784; 83520; 85025; 85610; 86015; 86038; 86140; 86364; 86376; 86704; 86706; 86709; 86803; 87340

== ENCOUNTER 2024-11-29 08:13 | Outpatient (REF) | payer OTHER, SELFPAY ==
--- OUTSIDE RECORDS SUMMARY | 2024-11-30 08:19 | XMS_ITS | Continuity of Care Document ---
Author Organization [facility] Address [address] [place] [address] Phone [phone] Social History Type Date Description Comments Sex Female Sex Unknown Medications Active Medications SIG Qnty Indications Ordering Provider Date Hydroxyzine SBI19yo Tablets take 2 tablets at bedtime, can add 1 extra tab as needed Misty Sharma M.D. 11/11/2021 Sertraline [id number] Tablets 1 by mouth every day Misty Sharma M.D. 11/11/2021 Metoprolol Succinate ER25mg Tablets ER 24HR 1 by mouth every day Misty Sharma M.D. 11/11/[address] 1 tab by mouth as needed 90caps Misty Sharma M.D. 11/11/2021 Tlfdzuh46la Tablets take 1 tablet twice daily Misty Sharma M.D. 11/11/2021 Levothyroxine Idjgyj63ycb Capsules 1 cap by mouth every day Misty hSarma M.D. 10/09/2021 Procedures Date Code Description Status 11/12/2021 NSHOWOFF No Show Office Visit Complet ed Medical Devices Description No Information Available Encounters Description No Information Available Assessments Description No Information Available Plan of Treatment No Information Available Functional Status Description No Information Available Mental Status Description No Information Available Referrals Description No Information Available
--- OUTSIDE RECORDS SUMMARY | 2024-11-30 08:19 | XMS_ITS | Encounter Summary ---
Author Organization [facility] Address [address] [place] [address] Care Team Providers Care Longwall Foreman Name Role Phone Ashley Beal PA-C Primary Care [facility] Encounter Details Date Type Department Care Team (Late st Contact Info) Description 11/27/2024 Orders Only [facility] [address] [place] [address] Primary Care, Scan Social History Tobacco Use Types Packs/Day Years Used Date Smoking Tobacco: Former Cigarettes Smokeless Tobacco: Former Alcohol Use Standard Drinks/Week Comments Yes 0 (1 standard drink = 0.6 oz pur e alcohol) [facility] Utilities Answer Date Recorded In the [...] and Family Not on file 05/13/2024 Attends [employer] Not on file 05/13 Active Member [...] any time in the past 12 m [facility], were you homeless or living in a alf (including now)? No 05/13/2024 Education Answer Date [...] 12/07/2024 10:00 AM EDT Office Visit [address] [place] [address] Ashley Beal PA-C [address] [place] [address] documented as of this encounter Procedures Procedure Name Priority Date/Time Associated Diagnosis Comments LAB RESULT Routine 11/26/2024 1:56 PM EDT documented in this encounter Results * LAB RESULT (11/26/2024 1:56 PM EDT) us Scan Primary Care HX AMB PROCEDURES Edited Resul t - Final documented in this encounter Visit Diagnoses Not on filedocumented in this encounter Care Teams Longwall Foreman Relationship Specialty Start Date End Date Ashley Beal PA-C [address] [place] [address] PCP - General Internal Medicine 10/11/23 Solange Kaur Physician Gastroenterology 09/26/23 Gab Campos Physician Ophthalmology 09/26/23 documented as of this encounter
== END 2024-11-29 08:14 | disposition home or self-care (01) ==
LOC: HO.HOSX 08:13
PROVIDERS: Visit Provider Physician Assistant
DX: Z13.89 Encounter for screening for other disorder (principal)

== ENCOUNTER 2024-12-03 13:53 | Outpatient (AMB) | payer OTHER, SELFPAY ==
--- NOTE | 2024-12-03 13:58 | A.OFFVIS_ITS ---
Intake Visit Reasons: labs/US Intake Note: Patient is present for LABS/US Urology Medication:NONE Antibiotic Allergy:NONE Blood Thinner:NONE Metal Sprayer Protective Coating Required: No Allergies Iodinated Contrast Media Adverse Reaction (Severe, Verified 12/03/24 14:00) Hives HPI Comments Details: Lyla is a pleasant 49-year-old female patient of . She has a past medical history of palpitations, GERD, anxiety, hypothyroidism, migraines, and lichen planus. She presents to the office today for follow-up. Of note, patient was seen approximately 8 months ago as a new patient for LUTS and history of urinary retention at which time a retroperitoneal ultrasound was ordered for further assessment evaluation. These results were reviewed and communicated with the patient today. 10/24 bilateral kidneys are normal in echotexture and thickness. No hydronephrosis noted bilaterally. The bladder is fluid-filled. In discussion with the patient today she does continue to report episodes of stress incontinence. She reports having had stress incontinence over the last 11 years however feels over the last 8-10 months symptoms have been more persistent and bothersome. She does have a history of a hysterectomy in her late 30s. In office urinalysis results reviewed with the patient today. She denies urinary urgency, urinary frequency, incontinence, nocturia, hematuria, dysuria, foul smelling urine, changes to urinary stream, flank pain, fever, and or chills. We did discussed further treatment options of stress incontinence and risks and benefits of these treatment options. All questions were answered. She otherwise offers no other issues or concerns at this time. BUN: 03/22 17, 02/20 15, 07/23 18, 11/23 21 Creatinine: 03/22 0.88, 02/20 0.79, 07/23 0.97, 11/23 0.88 PFSH Medical History Hypersomnia Snoring Coarse tremors Breast pain, right Rapid palpitations Intermittent palpitations GERD (gastroesophageal reflux disease) Anxiety Low vitamin D level Hypothyroid Migraine Lichen planus Surgical History History of esophagogastroduodenoscopy (EGD) Hx of colonoscopy H/O partial thyroidectomy H/O wisdom tooth extraction Hx of cholecystectomy H/O: hysterectomy Social History (Updated 11/05/24 @ 13:23 by Giancarlo Pascal) Alcohol intake: never Patient Tobacco Use Status: Never used Tobacco Current occupational status: employed Current occupation: MA at [employer] Review of Systems Const All systems reviewed & are unremarkable except as noted in HPI and below Physical Exam Const General: cooperative, healthy appearing, comfortable, no acute distress, well developed, alert and awake Orientation/consciousness: patient oriented x3 Limitations: no limitations HEENT Head: Yes normal to inspection, Yes normocephalic and Yes atraumatic Ears: hearing grossly normal bilaterally Eyes General: appearance normal, both eyes and all related structures Neck Neck: Yes normal visual inspection and Yes trachea midline Chest Chest palpation & inspection: normal inspection of the chest Resp Effort & Inspection: normal respiratory effort and able to speak in complete sentences Cardio Rate: regular rate GI Inspection: Yes normal to inspection General: Yes no CVA tenderness Back/Spine/Pelvis Back: no CVA tenderness Skin General skin exam: no rashes or lesions noted Neuro General: patient oriented x3 Extrem General: Yes normal to inspection Psych Appearance: grossly normal and well kempt Mental Status: mental status grossly normal Speech and movement: Normal speech and movement present and Clear speech present Affect: normal affect Attitude: cooperative Thought process: Normal thought process present Thought content: Normal thought content present Insight: Fair insight present (Psych) Judgement: Fair judgement present (Psych) Results AMB Urinalysis, Automated UA Leukoctes 0 Roma/uL Last Edit by ANGEL LUIS Stone on 12/03/24 14:12 UA Nitrite Negative Last Edit by ANGEL LUIS Stone on 12/03/24 14:12 UA Urobilinogen 0.2 mg/dL Last Edit by ANGEL LUIS Stone on 12/03/24 14:1 2 UA Protein 15 mg/dL Last Edit by ANGEL LUIS Stone on 12/03/24 14:12 UA pH 6.0 Last Edit by ANGEL LUIS Stone on 12/03/24 14:12 UA Blood 0 Aston/uL Last Edit by ANGEL LUIS Stone on 12/03/24 14:12 UA Specific [place] 1.015 Last Edit by ANGEL LUIS Stone on 12/03/24 14: 12 UA Ketone Negative Last Edit by ANGEL LUIS Stone on 12/03/24 14:12 UA Bilirubin 0 mg/dL Last Edit by ANGEL LUIS Stone on 12/03/24 14:12 UA Glucose 0 mg/dL Last Edit by ANGEL LUIS Stone on 12/03/24 14:12 Results Reviewed Results Reviewed: Laboratory Last Values Urine pH (Auto) 6.0 12/03/24 14:11 Specific [place] (Auto) 1.015 12/03/24 14:11 Urine Protein (Auto) 15 mg/dL 12/03/24 14:11 Glucose (UA)(Auto) 0 mg/dL 12/03/24 14:11 Urine Ketones (Auto) Negative 12/03/24 14:11 Urine Blood (Auto) 0 Aston/uL 12/03/24 14:11 Urine Nitrite (Auto) Negative 12/03/24 14:11 Urine Bilirubin (Auto) 0 mg/dL 12/03/24 14:11 Urine Urobilinogen (Auto) 0.2 mg/dL 12/03/24 14:11 Leukocyte Esterase (Auto) 0 Roma/uL 12/03/24 14:11 Date of Service: 10/15/24 Procedure(s): US retroperitoneal comp FINDINGS: RIGHT KIDNEY: 12 x 5 x 5 cm (SAG x AP x TRV). Volume: 155 cc. Normal echotexture. Normal renal cortical thickness. No hydronephrosis. No gross solid or cystic lesion detected by the technologist. LEFT KIDNEY: 13 x 4 x 5 cm (SAG x AP x TRV). Volume: 140 cc. Normal echotexture. Normal renal cortical thickness. No hydronephrosis. No solid or cystic lesion. BLADDER: Fluid-filled. Bilateral ureteral jets are demonstrated. Prevoid bladder volume is 307 mL. Postvoid bladder volume is 72 mL. IMPRESSION: No hydronephrosis. 72 cc retained urine in a post void image. Assessment & Plan Assessment & Plan (1) Pelviectasis: Code(s): N28.89 - Other specified disorders of kidney and ureter Category: Medical (2) Stress incontinence: Code(s): N39.3 - Stress incontinence (female) (male) Category: Medical Plan In office urinalysis results reviewed with the patient today; as noted above. Recent retroperitoneal ultrasound results reviewed with the patient today; as noted above. BUN and creatinine results were reviewed; as noted above. We did discussed further treatment options of stress incontinence and risks and benefits of these treatment options. Will schedule for in office urodynamics for further assessment evaluation. All questions were answered. Follow-up per doctor's orders; or sooner with any issues, concerns, and or questions. Orders: Orders AMB Urinalysis Automated Today Z13.9 - Encounter for screening, unspecified Patient Instructions: The patient had an opportunity to ask questions regarding the treatment plan. All questions were answered. Physical exam, labs, and imaging were discussed and reviewed in detail. As well as risks, benefits, and discussion of treatment choices. No major barriers to understanding were identified. The patient expressed understanding and agreement with the above treatment plan. The patient was made aware they should contact our office by phone for worsening of their current condition, the appearance of new symptoms, or with any questions or concerns. Compliance is encouraged with any medications and follow up testing that is ordered. It is a privilege to be allowed the opportunity to participate in? your urological care.? Again, if you have any questions or concerns If you have any questions or concerns please do not hesitate to contact me. The office is [phone]. This note is constructed using voice recognition software. While every effort has been made to ensure accuracy patient office rep errors may have been included. Yours sincerely, BEATRICE Becerril Coding Level of Care Code Est Pt Level 3 (99867) Diagnoses Pelviectasis N28.89 Stress incontinence N39.3
--- OUTSIDE RECORDS SUMMARY | 2024-12-03 14:06 | XMS_ITS | Encounter Summary ---
Author Organization [facility] Address [address] [place] [address] Care Team Providers Care Foundry Engineer Name Role Phone Ashley Beal PA-C Primary Care [facility] Encounter Details Date Type Department Care Team (Late st Contact Info) Description 11/27/2024 Orders Only [facility] [address] [place] [address] Primary Care, Scan Social History Tobacco Use Types Packs/Day Years Used Date Smoking Tobacco: Former Cigarettes Smokeless Tobacco: Former Alcohol Use Standard Drinks/Week Comments Yes 0 (1 standard drink = 0.6 oz pur e alcohol) [facility] Utilities Answer Date Recorded In [...] any time in the past 12 m [facility], were you homeless or living in a long-term (including now)? No 05/13/2024 Education Answer Date [...] Care Team (Late st Contact Info) Description 03/18/2025 1:30 PM EST Office Visit [address] [place] [address] Ashley Beal PA-C [address] [place] [address] documented as of this encounter Procedures Procedure Name Priority Date/Time Associated Diagnosis Comments LAB RESULT Routine 11/26/2024 1:56 PM EDT documented in this encounter Results * LAB RESULT (11/26/2024 1:56 PM EDT) us Scan Primary Care HX AMB PROCEDURES Edited Resul t - Final documented in this encounter Visit Diagnoses Not on filedocumented in this encounter Care Teams Foundry Engineer Relationship Specialty Start Date End Date Ashley Beal PA-C [address] [place] [address] PCP - General Internal Medicine 10/11/23 Solange Kaur Physician Gastroenterology 09/26/23 aGb Campos Physician Ophthalmology 09/26/23 documented as of this encounter
--- OUTSIDE RECORDS SUMMARY | 2024-12-03 14:06 | XMS_ITS | Continuity of Care Document ---
Author Organization [facility] Address [address] [place] [address] Phone [phone] Social History Type Date Description Comments Sex Female Sex Unknown Medications Active Medications SIG Qnty Indications Ordering Provider Date Hydroxyzine [id number] Tablets take 2 tablets at bedtime, can add 1 extra tab as needed Misty Sharma M.D. 11/11/2021 Sertraline [id number] Tablets 1 by mouth every day Misty Sharma M.D. 11/11/2021 Metoprolol Succinate ER25mg Tablets ER 24HR 1 by mouth every day Misty Sharma M.D. 11/11/[id number] 1 tab by mouth as needed 90caps Misty Sharma M.D. 11/11/2021 [id number] Tablets take 1 tablet twice daily Misty Sharma M.D. 11/11/2021 Levothyroxine [id number] Capsules 1 cap by mouth every day [...]
== END 2024-12-03 14:49 | disposition home or self-care (01) ==
LOC: HO.HUSH 13:54
PROVIDERS: PCP Physician Assistant Medical; Visit Provider Nurse Practitioner Family
DX: N28.89 Other specified disorders of kidney and ureter (principal); N39.3 Stress incontinence (female) (male); Z13.9 Encounter for screening, unspecified
CPT/HCPCS: 99213

== ENCOUNTER → 2024-12-03 13:53 | Outpatient (BNVA) | payer OTHER, SELFPAY | PROVIDERS: PCP Physician Assistant Medical; Visit Provider Nurse Practitioner Family | DX: N39.3 Stress incontinence (female) (male) (principal) | CPT/HCPCS: 81003 ==

== ENCOUNTER 2025-01-03 08:56 | Outpatient (AMB) | payer OTHER, SELFPAY ==
--- NOTE | 2025-01-03 09:00 | MHC.OFFVIS ---
Vital Signs 01/03/25 09:07 Height 5 ft 1 in Weight 188 lb BMI 35.5 Intake Visit Reasons: New Pt - left great toe pain Intake Note: Lyla is a 49 year old female who presents today as a new patient for a evaluation of her left great toe hypersensitivity and numbness of the plantar aspect of the great toe. History of injury from tubing on 11/03/24. Patient states that she has difficulty with her range of motion at the IP joint and is unable to ambulate for a long period of time. She has tried wearing a supported shoe but found that she was not able to wear for a long period of time due to pain. Patient mentions she experienced immense pain yesterday while clipping the great toe nail. She has tried ibuprofen and Tylenol witch provided moderate relief for her pain FINDINGS: No fracture, dislocation, or suspicious bone lesion. Normal bone mineralization. Normal alignment. Joint spaces are preserved. No significant arthropathy. Normal plantar arch. Soft tissues appear normal. IMPRESSION: Normal left foot. Allergies Iodinated Contrast Media Adverse Reaction (Severe, Verified 12/03/24 14:00) [facility] Medication List - Last Reconciled 01/03/25 by Sofi Collier DPM bupropion HCl XL 150 mg PO DAILY cholecalciferol (vitamin D3) 10 mcg PO DAILY clonazepam 0.5 mg PO DAILY colestipol 1 g PO BID fenofibrate micronized 134 mg PO DAILY fexofenadine (Minoo Allergy) 180 mg PO DAILY hydroxyzine HCl 25 mg PO BEDTIME levothyroxine 100 mcg PO DAILY magnesium glycinate takes 400mg metoprolol succinate ER 25 mg PO DAILY niacin ER 500 mg PO DAILY omeprazole 20 mg PO DAILY ondansetron HCl 4 mg PO Q4H PRN 30 days sertraline 150 mg PO DAILY tizanidine 0 mg PO topiramate 50 mg PO BID ubrogepant (Ubrelvy) 0 mg PO HPI Comments Details: This patient is a 49-year-old female with a past medical history as seen below. Patient sustained a left hallux injury on 11/03/2024 and had previous treatment of a trephination to the left hallucal nail due to trauma. Patient was seen by ortho in which left foot x-rays were unremarkable. Patient now presents with intermittent significant pain noted to the left hallucal nail area as well as the left 1st MPJ. Patient states excessive ambulation and activity as well as ill-fitting shoes and socks increase his pain level. Patient states pain is alleviated with rest and open toe shoes. She denies any purulence from the toenail. She states she has intermittent numbness and tingling to the distal aspect of the left hallux noticed when wearing tight fitting shoes. She denies any other pedal concerns. Denies any nausea vomiting fever or chills. 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 Toe pain, left Hypersomnia Snoring Coarse tremors Breast pain, right Rapid palpitations Intermittent palpitations GERD (gastroesophageal reflux disease) Anxiety Low vitamin D level Hypothyroid Migraine Lichen planus Surgical History History of esophagogastroduodenoscopy (EGD) Hx of colonoscopy H/O partial thyroidectomy H/O wisdom tooth extraction Hx of cholecystectomy H/O: hysterectomy Social History Alcohol intake: never Patient Tobacco Use Status: Never used Tobacco Current occupational status: employed Current occupation: MA at [employer] Review of Systems Const All systems reviewed & are unremarkable except as noted in HPI and below Physical Exam Extrem Other: Physical exam: Skin exam: No open wounds. Left hallucal nail noted to be loosely intact. Bruising and dried blood noted to the left hallucal nail. No purulence noted. No erythema noted. No edema noted. Skin turgor within normal limits. Vascular exam: DP/PT pulses intact. Capillary refill time less than 3 seconds. No varicosities noted. Neuro exam: Neuro exam within normal limits. Musculoskeletal exam: Limited range of motion noted to the left hallux at the level of the MPJ, guarding due to pain. Range of motion of remaining toes within normal limits. Pain on palpation to the left hallux at the area of the proximal phalanx as well as the 1st MPJ. Right lower extremity: normal to inspection Ankle/foot/toe images:  1. left proximal phalanx of hallux and left 1st MPJ 2. Office Procedures AMB Debridement/Avulsion Podia Details: Procedure performed: Left hallux total nail avulsion Left hallux was cleansed with an alcohol swab and was anesthetized utilizing 6 mL of 1% lidocaine plain in a hallux block fashion. Next utilizing a [place] elevator, the medial and lateral borders of the left hallucal nail were loosened and the entirety of the left hallucal nail was removed with no incidents. Upon removal of nail, no purulence was noted. Granular nail bed noted. No nail bed laceration noted. Next once hemostasis was achieved, triple antibiotic ointment a Band-Aid and Coban was applied to the left hallux. Provided patient with aftercare instructions including soaking the foot in warm water and Epson salts once a day. Patient is to leave current dressing on for 24 hours and may start aftercare instructions tomorrow. Patient is to continue applying triple antibiotic ointment and a Band-Aid to the left hallux. Patient may take ibuprofen as needed for pain. 22746 Partial/Total nail avulsion (1 nail) Procedure code (CPT) selection complete Office Meds lidocaine HCl 10 mg/mL (1 %) injection solution Performing Provider: Sofi Collier DPM Performing Location: [facility] Administered by: Sofi Collier DPM on 01/03/25 09:55 Dose Route Admin Location Dispensed Lot Number Expiration Date [facility][NOTE 3] Parts Picker 6 mL subcut 6 mL [id number] Total Dispensed Waste 6 mL 0 % Triple Antibiotic 3.5 mg-400 unit-5,000 unit topical ointment packet Performing Provider: Sofi Collier DPM Performing Location: [facility] Administered by: Sofi Collier DPM on 01/03/25 09:55 Dose Route Admin Location Dispensed Lot Number Expiration Date [facility][NOTE 3] Parts Picker 1 appl topical 1 ea ethyl chloride 100 % topical spray Performing Provider: Sofi Collier DPM Performing Location: [facility] Administered by: Sofi Collier DPM on 01/03/25 09:55 Dose Route Admin Location Dispensed Lot Number Expiration Date [facility][NOTE 3] Parts Picker 3 spray topical 3 mL Comments: Results Reviewed Results Reviewed: Imaging: Left foot x-ray three views (11/05/2024): Unremarkable exam of the left foot. Left foot x-ray three views (11/26/2024): Unremarkable exam of the left foot. 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 Provided patient with aftercare instructions: Patient is to keep bandage on for 24 hours. Patient is to then soak left foot in Epsom salt and warm water and once dried apply triple antibiotic ointment and a Band-Aid to the left hallux. Patient is to perform this every day until next follow-up. Patient is to avoid ill-fitting shoes. The patient is to keep the area clean dry and intact. Patient may shower, but is expected to keep area dry. Discussed with the patient treatment options both conservative and surgical for arthritic pain to the left hallux. Discussed with patient choice of conservative treatment at this time. Discussed with patient to continue using ibuprofen for pain p.r.n.. Discussed with patient if pain persists, at next appointment we will consider Thompson's extension. Discussed with patient to wear supportive shoe gear. Patient is to avoid barefoot walking. Discussed with patient if infection occurs we will consider antibiotics. Patient is to call the office or present to the ED if worsening adverse events occur. Patient is to return to office in 2 weeks. 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
[2025-01-03 09:07] VITALS: BMI 35.5
--- OUTSIDE RECORDS SUMMARY | 2025-01-03 09:28 | XMS_ITS | Encounter Summary ---
Author Organization [facility] Address [address] [place] [address] Care Team Providers Care Bindery Library Technical Assistant Name Role Phone Pcp, No Primary Care Provider Ashley Tyson PA-C Primary Care [facility] Encounter Details Date Type Department Care Team (Late st Contact Info) Description 06/23/2022 Scanned Document [facility] INTERNAL MED SCAN Provider, Generic External [...] Description 03/18/2025 1:30 PM EST Office Visit [address] [phone] Ashley Beal PA-C [address] [place] [address] documented as of this encounter Visit Diagnoses Not on filedocumented in this encounter Care Teams Bindery Library Technical Assistant Relationship Specialty Start Date End Date Pcp, No PCP - General General Medicine 10/03/23 10/10/23 Ashley Beal PA-C [address] [place] [address] PCP - General Internal Medicine 10/11/23 Solange Kaur Physician Gastroenterology 09/26/23 Gab Campos Physician Ophthalmology 09/26/23 documented as of this encounter
--- OUTSIDE RECORDS SUMMARY | 2025-01-03 09:28 | XMS_ITS | Encounter Summary ---
Author Organization [facility] Address [address] [place] [address] Care Team Providers Care Construction Specialist Name Role Phone Pcp, No Primary Care Provider Ashley Tyson PA-C Primary Care Provi mario Encounter Details Date Type Department Care Team (Late st Contact Info) Description 03/04/2022 Scanned Document [facility] INTERNAL MED SCAN Provider, Generic External Data [...] Description 03/18/2025 1:30 PM EST Office Visit [address] [phone] Ashley Beal PA-C [address] [place] [address] documented as of this encounter Visit Diagnoses Not on filedocumented in this encounter Care Teams Construction Specialist Relationship Specialty Start Date End Date Pcp, No PCP - General General Medicine 10/03/23 10/10/23 Ashley Beal PA-C [address] [place] [address] PCP - General Internal Medicine 10/11/23 Solange Kaur Physician Gastroenterology 09/26/23 Gab Campos Physician Ophthalmology 09/26/23 documented as of this encounter
--- OUTSIDE RECORDS SUMMARY | 2025-01-03 09:28 | XMS_ITS | Encounter Summary ---
Author Organization [facility] Address [address] [place] [address] Care Team Providers Care Sales Support Technician Name Role Phone Pcp, No Primary Care Provider Ashley Tyson PA-C Primary Care Provi mario Encounter Details Date Type Department Care Team (Late st Contact Info) Description 07/08/2023 Scanned Document [facility] INTERNAL MED SCAN Provider, Generic External Data [...] 03/18/2025 1:30 PM EST Office Visit [address] [phone] Ashley Beal PA-C [address] [place] [address] documented as of this encounter Visit Diagnoses Not on filedocumented in this encounter Care Teams Sales Support Technician Relationship Specialty Start Date End Date Pcp, No PCP - General General Medicine 10/03/23 10/10/23 Ashley Beal PA-C [address] [place] [address] PCP - General Internal Medicine 10/11/23 Solange Kaur Physician Gastroenterology 09/26/23 Gab Campos Physician Ophthalmology 09/26/23 documented as of this encounter
--- OUTSIDE RECORDS SUMMARY | 2025-01-03 09:28 | XMS_ITS | Encounter Summary ---
Author Organization [facility] Address [address] [place] [address] Care Team Providers Care Obstetrics Teacher Name Role Phone Ashley Beal PA-C Primary Care [facility] Encounter Details Date Type Department Care Team (Late st Contact Info) Description 10/18/2024 Scanned Document [facility] [address] [place] [address] Neurology, Scan Social History Tobacco Use Types Packs/Day Years Used Date Smoking Tobacco: Former Cigarettes Smokeless Tobacco: Former Alcohol Use Standard Drinks/Week Comments Yes 0 (1 standard drink = 0.6 oz pur e alcohol) [facility] Utilities Answer Date Recorded In [...] and Family Not on file 05/13/2024 Attends [employer] Not on file 05/13 Active Member [...] any time in the past 12 m [facility], were you homeless or living [...] Description 03/18/2025 1:30 PM EST Office Visit [address] [place] [phone] Ashley Beal PA-C [address] [place] [address] documented as of this encounter Visit Diagnoses Not on filedocumented in this encounter Care Teams Obstetrics Teacher Relationship Specialty Start Date End Date Ashley Beal PA-C [address] [place] [address] PCP - General Internal Medicine 10/11/23 Solange Kaur Physician Gastroenterology 09/26/23 Gab Campos Physician Ophthalmology 09/26/23 documented as of this encounter
--- OUTSIDE RECORDS SUMMARY | 2025-01-03 09:28 | XMS_ITS | Encounter Summary ---
Author Organization [facility] Address [address] [place] [address] Care Team Providers Care Healthcare Manager Name Role Phone Pcp, No Primary Care Provider Ashley Tyson PA-C Primary Care Provi mario Encounter Details Date Type Department Care Team (Late st Contact Info) Description 04/12/2023 Scanned Document [facility] INTERNAL MED SCAN Provider, Generic [...] 03/18/2025 1:30 PM EST Office Visit [address] [place] [phone] Ashley Beal PA-C [address] [place] [address] documented as of this encounter Visit Diagnoses Not on filedocumented in this encounter Care Teams Healthcare Manager Relationship Specialty Start Date End Date Pcp, No PCP - General General Medicine 10/03/23 10/10/23 Ashley Beal PA-C [address] [place] [address] PCP - General Internal Medicine 10/11/23 Solange Kaur Physician Gastroenterology 09/26/23 Gab Campos Physician Ophthalmology 09/26/23 documented as of this encounter
--- OUTSIDE RECORDS SUMMARY | 2025-01-03 09:28 | XMS_ITS | Encounter Summary ---
Author Organization [facility] Address [address] [place] [address] Care Team Providers Care Front Desk Officer Name Role Phone Ashley Beal PA-C Primary Care [facility] Encounter Details Date Type Department Care Team (Late st Contact Info) Description 10/25/2024 Scanned Document [facility] [address] [place] [address] Gastroenterology, Scan Social History Tobacco Use Types Packs/Day Years Used Date Smoking Tobacco: Former Cigarettes Smokeless Tobacco: Former Alcohol Use Standard Drinks/Week Comments Yes 0 (1 standard drink = 0.6 oz pur e alcohol) [facility] Utilities Answer Date Recorded In [...] any time in the past 12 m [facility], were you homeless or living in [...] Description 03/18/2025 1:30 PM EST Office Visit [address] [place] [address] Ashley Beal PA-C [address] [place] [address] documented as of this encounter Visit Diagnoses Not on filedocumented in this encounter Care Teams Front Desk Officer Relationship Specialty Start Date End Date Ashley Beal PA-C [address] [place] [address] PCP - General Internal Medicine 10/11/23 Solange Kaur Physician Gastroenterology 09/26/23 Gab Campos Physician Ophthalmology 09/26/23 documented as of this encounter
--- OUTSIDE RECORDS SUMMARY | 2025-01-03 09:28 | XMS_ITS | Encounter Summary ---
Author Organization [facility] Address [address] [place] [address] Care Team Providers Care Lacquer Shader Name Role Phone Pcp, No Primary Care Provider Ashley Tyson PA-C Primary Care Provi mario Encounter Details Date Type Department Care Team (Late st Contact Info) Description 02/05/2022 Scanned Document [facility] INTERNAL MED SCAN Provider, Generic External [...] Description 03/18/2025 1:30 PM EST Office Visit [address] [phone] Ashley Beal PA-C [address] [place] [address] documented as of this encounter Visit Diagnoses Not on filedocumented in this encounter Care Teams Lacquer Shader Relationship Specialty Start Date End Date Pcp, No PCP - General General Medicine 10/03/23 10/10/23 Ashley Beal PA-C [address] [place] [address] PCP - General Internal Medicine 10/11/23 Solange Kaur Physician Gastroenterology 09/26/23 Gab Campos Physician Ophthalmology 09/26/23 documented as of this encounter
--- OUTSIDE RECORDS SUMMARY | 2025-01-03 09:28 | XMS_ITS | Encounter Summary ---
Author Organization [facility] Address [address] [place] [address] Care Team Providers Care Dot Compliance Coordinator Name Role Phone Pcp, No Primary Care Provider Ashley Tyson PA-C Primary Care Provi mario Encounter Details Date Type Department Care Team (Late st Contact Info) Description 03/12/2022 Scanned Document [facility] INTERNAL MED SCAN Provider, Generic [...] 03/18/2025 1:30 PM EST Office Visit [address] [phone] Ashley Beal PA-C [address] [place] [address] documented as of this encounter Visit Diagnoses Not on filedocumented in this encounter Care Teams Dot Compliance Coordinator Relationship Specialty Start Date End Date Pcp, No PCP - General General Medicine 10/03/23 10/10/23 Ashley Beal PA-C [address] [place] [address] PCP - General Internal Medicine 10/11/23 Solange Kaur Physician Gastroenterology 09/26/23 Gab Campos Physician Ophthalmology 09/26/23 documented as of this encounter
--- OUTSIDE RECORDS SUMMARY | 2025-01-03 09:28 | XMS_ITS | Encounter Summary ---
Author Organization [facility] Address [address] [place] [address] Care Team Providers Care Kinesiology Professor Name Role Phone Pcp, No Primary Care Provider Ashley Tyson PA-C Primary Care Provi mario Encounter Details Date Type Department Care Team (Late st Contact Info) Description 09/15/2022 Scanned Document [facility] INTERNAL MED SCAN Provider, Generic External [...] 03/18/2025 1:30 PM EST Office Visit [address] [phone] Ashley Beal PA-C [address] [place] [address] documented as of this encounter Visit Diagnoses Not on filedocumented in this encounter Care Teams Kinesiology Professor Relationship Specialty Start Date End Date Pcp, No PCP - General General Medicine 10/03/23 10/10/23 Ashley Beal PA-C [address] [place] [address] PCP - General Internal Medicine 10/11/23 Solange Kaur Physician Gastroenterology 09/26/23 Gab Campos Physician Ophthalmology 09/26/23 documented as of this encounter
--- OUTSIDE RECORDS SUMMARY | 2025-01-03 09:28 | XMS_ITS | Encounter Summary ---
Author Organization [facility] Address [address] [place] [address] Care Team Providers Care Saddle Tree Stitcher Name Role Phone Pcp, No Primary Care Provider Ashley Tyson PA-C Primary Care Provi mario Encounter Details Date Type Department Care Team (Late st Contact Info) Description 08/01/2023 Scanned Document [facility] INTERNAL MED SCAN Provider, Generic External [...] 03/18/2025 1:30 PM EST Office Visit [address] [phone] Ashley Beal PA-C [address] [place] [address] documented as of this encounter Visit Diagnoses Not on filedocumented in this encounter Care Teams Saddle Tree Stitcher Relationship Specialty Start Date End Date Pcp, No PCP - General General Medicine 10/03/23 10/10/23 Ashley Beal PA-C [address] [place] [address] PCP - General Internal Medicine 10/11/23 Solange Kaur Physician Gastroenterology 09/26/23 Gab Campos Physician Ophthalmology 09/26/23 documented as of this encounter
--- OUTSIDE RECORDS SUMMARY | 2025-01-03 09:28 | XMS_ITS | Clinical Summary ---
Author Organization [facility] Address [address] [place] [address] Care Team Providers Care Technology Intern Name Role Phone Ashley Beal PA-C Primary Care Provi mario Allergies Active Allergy Reactions Criticality Noted Date Comments Oxymetazoline Unknown/Patient and Family Unable to Define Medium 10/12/2023 Iodinated Contrast Media Hives,Shortness Of Breath High 10/12/2023 Medications colestipol (COLESTID) 1 g tablet Take 1 tablet (1 g total) by mouth 2 (two) times a day. Active estradiol (VIVELLE-DOT) 0.0375 MG/24HR external patch Apply twice weekly Active niacin 250 MG tablet Take 2 tablets (500 mg total) by mouth daily. Active progesterone (PROMETRIUM) 100 MG capsule Take 1 capsule (100 mg total) by mouth nightly. Active fexofenadine (BIRDIE) 180 MG tablet Take 1 tablet (180 mg total) by mouth daily. Administer with water only; do not administer with fruit juices. Active Vitamin D3 (CHOLECALCIFEROL ) 50 MCG (2000 UT) tablet Take 2 [...] % ointment Apply topically as needed. Active Ubrelvy 50 MG tabletIndication s:Migraine without aura and without status migrainosus, not intractable Take 1 tablet (50 mg total) by mouth as needed for migraine. For Migraine. 10 tablet 1 5 Active fenofibrate micronized (LOFIBRA) 134 MG capsuleIndicatio ns:Hypertriglyce ridemia TAKE ONE (1) CAPSULE BY MOUTH EVERY DAY WITH FOOD 90 capsule 1 5 Active ALPRAZolam (XANAX) 0.5 MG tabletIndication s:Anxiety TAKE ONE (1) TABLET BY MOUTH EVERY EIGHT (8) HOURS NEEDED FOR ANXIETY 30 tablet 5 Active OMEprazole (PriLOSEC) 20 MG capsuleIndicatio ns:Gastroesophag eal reflux disease without esophagitis TAKE ONE (1) CAPSULE BY MOUTH EVERY DAY 90 capsule 2 5 Active metoPROLOL SUCCINATE (TOPROL-XL) 25 MG 24 hr tabletIndication s:Anxiety Take 1 tablet (25 mg total) by mouth daily. 90 tablet 1 5 Active sertraline (ZOLOFT) 50 MG tabletIndication s:Anxiety Take 3 tablets (150 mg total) by mouth daily. 90 tablet 3 5 Active topiramate (TOPAMAX) 50 MG tabletIndication s:Migraine without aura and without status migrainosus, not intractable TAKE 1 TABLET (50 MG TOTAL) BY MOUTH 2 TIMES A DAY. 60 tablet 5 5 Active buPROPion (WELLBUTRIN XL) 150 MG 24 hr tabletIndication s:Anxiety Take 1 tablet (150 mg total) by mouth every morning. Swallow whole; do not crush, chew, or divide. 90 tablet 1 5 Active levothyroxine (SYNTHROID, LEVOTHROID) 100 MCG tabletIndication s:Hypothyroidism , unspecified type TAKE 1 TABLET (100 MCG TOTAL) BY MOUTH DAILY. 30 tablet 5 5 Active Active Problems Problem Noted Date Diagnosed Date [...] is not a surgical candidate. Follows with [facility] spine and sport on a as needed [...] Encounters Date Type Department Care Team Description 12/04/2024 Scanned Document [facility] [address] [place] [address] Urology, Scan 11/30/2024 Orders Only [facility] [address] [place] [address] Primary Care, Scan 11/29/2024 Orders Only [facility] [address] [place] [address] Primary Care, Scan 11/27/2024 Orders Only [facility] [address] [place] [address] Primary Care, Scan 11/27/2024 Scanned Document [facility] [address] [place] [address] Orthopedic Surgery, Scan 11/14/2024 Scanned Document [facility] ORTHO SURGERY SCAN Orthopedic Surgery, Scan 11/12/2024 [facility] [address] [facility] [address] [place] [address] Ashlye Beal PA-C Hypothyroidism, unspecified type 11/06/2024 Orders Only [facility] [address] [place] [address] Primary Care, Scan 11/05/2024 [facility] [address] [facility] [address] [place] [phone] Ashley Beal PA-C 11/04/[address] [place] [phone] Ashley Beal PA-C Anxiety (Primary Dx) 10/29/[address] [place] [phone] Ashley Beal PA-C Migraine without aura and without status migrainosus, not intractable 10/25/2024 Scanned Document [facility] [address] [place] [address] Gastroenterolog y, Scan 10/22/[address] [place] [phone] Ashley Beal PA-C Anxiety 10/22/[address] [place] [phone] Ashley Beal PA-C Anxiety; Gastroesophageal reflux disease without esophagitis 10/18/2024 Scanned Document [facility] [address] [place] [address] Neurology, Scan 10/16/2024 Orders Only [facility] [address] [place] [address] Nephrology, Scan 10/15/2024 Orders Only [facility] [address] [place] [address] Obstetrics And Gynecology, Scan from Last 3 Months Immunizations Immunization Administration Dates Next Due Hepatitis B 06/07/2011, [...] Recorded In the past 12 months has th e electric, gas, oil, or water company [...] were you homeless or living in a [facility] (including now)? No 05/13/2024 Education Answer Date [...] 71 05/14/2024 3:37 PM EST Temperature 35.9 C (96.7 F) 05/14/2024 3:37 PM EST Respiratory Rate 17 05/14/2024 3:37 PM EST [...] Description 03/18/2025 1:30 PM EST Office Visit [address] [place] [address] Ashley Beal PA-C [address] [place] [address] Health Maintenance Due Date Last Done Comments HIV Screening 01/09/1989 Physical 01/09/1994 Pap Smear (Ages 21-65) 01/09/1997 DTaP/Tdap/Td Vaccines (2 - Td or Tdap) 06/07/2021 06/07/2011 COVID-19 Vaccine ( season) 2024 Influenza Vaccine 11/30/2024 03/04/2017, , 02/09/2010 Mammogram 10/05/2026 10/05/2024 Colonoscopy 05/02/2031 05/02/2021 (Prev iously Completed) Hepatitis B Vaccines Completed 06/07/2011, 06/13/2004, 01/08/2004, Additional history exists Hepatitis C Virus Screening Completed 04/04/2024 Pneumococcal Vaccine: Pediatric (0-5 Years) and At-Risk Patients (6 to 49 Years) Aged Out No longer eligible based on patient's age to complete this topic Procedures Procedure Name Priority Date/Time Associated Diagnosis Comments LAB RESULT Routine 11/26/2024 3:52 PM EDT LAB RESULT Routine 11/26/2024 1:56 PM EDT LAB RESULT Routine 11/26/2024 12:51 PM EDT LAB RESULT Routine 11/26/2024 7:47 AM EDT IMAGING-SCAN Routine 11/05/2024 6:52 AM EDT ULTRASOUND EXTERNAL RESULT Routine 10/15/2024 6:42 AM EDT IMAGING BREAST/BX/MAMMO Routine 10/05/2024 10:06 AM EDT HEPATITIS C VIRUS (HCV) ANTIBODY Routine 04/04/2024 Elevated LFTs from Last 3 Months or Most Recently Relevant to Health Maintenance Results * LAB RESULT (11/26/2024 3:52 PM EDT) Only the most recent of4 resultswithin the time period is included. us Scan Internal Medicine HX AMB PROCEDURES Edited Result - Final * IMAGING-SCAN (11/05/2024 6:52 AM EDT) Anatomical Region Laterality Modality Other us Scan Primary Care HX AMB PROCEDURES Edited Resul t - Final * Ultrasound External Result (10/15/2024 6:42 AM EDT) Anatomical Region Laterality Modality Ultrasound us Scan Nephrology IMG US ORDERABLES Edited Result - Final * Imaging Breast/Bx/Mammo Result (10/05/2024 10:06 AM EDT) Anatomical Region Laterality Modality Other us Scan Obstetrics And Gynecology IMG LEGACY PROCED URES Edited Result - Final * HEPATITIS C VIRUS (HCV) ANTIBODY (04/04/2024) Blood Blood specimen / Unknown 04/04/2024 us Ashley Beal PA-C LAB BLOOD ORDERABLE S Final Result [facility] from Last 3 Months or Most Recently Relevant to Health Maintenance Insurance [facility] - PPO Care Teams Technology Intern Relationship Specialty Start Date End Date Ashley Beal PA-C [address] [place] [address] PCP - General Internal Medicine 10/11/23 Solange Kaur Physician Gastroenterology 09/26/23 Gab Campos Physician Ophthalmology 09/26/23
--- OUTSIDE RECORDS SUMMARY | 2025-01-03 09:28 | XMS_ITS | Encounter Summary ---
Author Organization [facility] Address [address] [place] [address] Care Team Providers Care Monotype Mechanic Name Role Phone Pcp, No Primary Care Provider Ashley Tyson PA-C Primary Care Provi mario Encounter Details Date Type Department Care Team (Late st Contact Info) Description 08/16/2022 Scanned Document [facility] INTERNAL MED SCAN Provider, Generic [...] Description 03/18/2025 1:30 PM EST Office Visit [address] [phone] Ashley Beal PA-C [address] [place] [address] documented as of this encounter Visit Diagnoses Not on filedocumented in this encounter Care Teams Monotype Mechanic Relationship Specialty Start Date End Date Pcp, No PCP - General General Medicine 10/03/23 10/10/23 Ashley Beal PA-C [address] [place] [address] PCP - General Internal Medicine 10/11/23 Solange Kaur Physician Gastroenterology 09/26/23 Gab Campos Physician Ophthalmology 09/26/23 documented as of this encounter
--- OUTSIDE RECORDS SUMMARY | 2025-01-03 09:28 | XMS_ITS | Encounter Summary ---
Author Organization [facility] Address [address] [place] [address] Care Team Providers Care Hand Striper Name Role Phone Pcp, No Primary Care Provider Ashley Tyson PA-C Primary Care Provi mario Encounter Details Date Type Department Care Team (Late st Contact Info) Description 04/19/2022 Scanned Document [facility] INTERNAL MED SCAN Provider, Generic External Data [...] Description 03/18/2025 1:30 PM EST Office Visit [address] [place] [phone] Ashley Beal PA-C [address] [place] [address] documented as of this encounter Visit Diagnoses Not on filedocumented in this encounter Care Teams Hand Striper Relationship Specialty Start Date End Date Pcp, No PCP - General General Medicine 10/03/23 10/10/23 Ashley Beal PA-C [address] [place] [address] PCP - General Internal Medicine 10/11/23 Solange Kaur Physician Gastroenterology 09/26/23 Gab Campos Physician Ophthalmology 09/26/23 documented as of this encounter
--- OUTSIDE RECORDS SUMMARY | 2025-01-03 09:28 | XMS_ITS | Encounter Summary ---
Author Organization [facility] Address [address] [place] [address] Care Team Providers Care Sterilization Tech Name Role Phone Ashley Beal PA-C Primary Care [facility] Encounter Details Date Type Department Care Team (Late st Contact Info) Description 12/04/2024 Scanned Document [facility] [address] [place] [address] Urology, Scan Social History Tobacco Use Types Packs/Day Years Used Date Smoking Tobacco: Former Cigarettes Smokeless Tobacco: Former Alcohol Use Standard Drinks/Week Comments Yes 0 (1 standard drink = 0.6 oz pur e alcohol) [facility] Utilities Answer Date Recorded In the [...] any time in the past 12 m [facility], were you homeless or living in a [facility] (including now)? No 05/13/2024 Education Answer Date [...] Description 03/18/2025 1:30 PM EST Office Visit [address] [place] [address] Ashley Beal PA-C [address] [place] [address] documented as of this encounter Visit Diagnoses Not on filedocumented in this encounter Care Teams Sterilization Tech Relationship Specialty Start Date End Date Ashley Beal PA-C [address] [place] [address] PCP - General Internal Medicine 10/11/23 Solange Kaur Physician Gastroenterology 09/26/23 Gab Campos Physician Ophthalmology 09/26/23 documented as of this encounter
--- OUTSIDE RECORDS SUMMARY | 2025-01-03 09:28 | XMS_ITS ---
Continuity of Care Document (CCD) Created on: January 03, 2025 Lyla Castaneda External Reference #: [id number] : [id number] Sex: Female Author Organization [facility] Address [address] [facility] [address] [place] [address] Phone [phone] Social History Type Date Description Comments Sex Female Sex Unknown Medications Active Medications SIG Qnty Indications Ordering Provider Date Hydroxyzine MPI47dv Tablets take 2 tablets at bedtime, can add 1 extra tab as needed Misty Sharma M.D. 11/11/2021 Sertraline [id number] Tablets 1 by mouth every day Misty Sharma M.D. 11/11/2021 Metoprolol Succinate ER25mg Tablets ER 24HR 1 by mouth every day Misty Sharma M.D. 11/11/[id number] 1 tab by mouth as needed 90caps Misty Sharma M.D. 11/11/2021 Olafqqa40ex Tablets take 1 tablet twice daily Misty Sharma M.D. 11/11/2021 Levothyroxine [id number] Capsules 1 cap by mouth every day [...]
--- OUTSIDE RECORDS SUMMARY | 2025-01-03 09:28 | XMS_ITS | Encounter Summary ---
Author Organization [facility] Address [address] [place] [address] Care Team Providers Care Emt/Dispatcher Name Role Phone Ashley Beal PA-C Primary Care [facility] Encounter Details Date Type Department Care Team (Late st Contact Info) Description 11/27/2024 Scanned Document [facility] [address] [place] [address] Orthopedic Surgery, Scan Social History Tobacco Use Types Packs/Day Years Used Date Smoking Tobacco: Former Cigarettes Smokeless Tobacco: Former Alcohol Use Standard Drinks/Week Comments Yes 0 (1 standard drink = 0.6 oz pur e alcohol) [facility] Utilities Answer Date Recorded In the [...] and Family Not on file 05/13/2024 Attends [employer] Not on file 05/13 Active Member [...] any time in the past 12 m [facility], were you homeless or living in a [...] Description 03/18/2025 1:30 PM EST Office Visit [address] [place] [address] Ashley Beal PA-C [address] [place] [address] documented as of this encounter Visit Diagnoses Not on filedocumented in this encounter Care Teams Emt/Dispatcher Relationship Specialty Start Date End Date Ashley Beal PA-C [address] [place] [address] PCP - General Internal Medicine 10/11/23 Solange Kaur Physician Gastroenterology 09/26/23 Gab Campos Physician Ophthalmology 09/26/23 documented as of this encounter
--- OUTSIDE RECORDS SUMMARY | 2025-01-03 09:28 | XMS_ITS | Encounter Summary ---
Author Organization [facility] Address [address] [place] [address] Care Team Providers Care Adult Education Teacher Name Role Phone Pcp, No Primary Care Provider Ashley Tyson PA-C Primary Care Provi mario Encounter Details Date Type Department Care Team (Late st Contact Info) Description 06/11/2022 Scanned Document [facility] INTERNAL MED SCAN Provider, [...] Description 03/18/2025 1:30 PM EST Office Visit [address] [phone] Ashley Beal PA-C [address] [place] [address] documented as of this encounter Visit Diagnoses Not on filedocumented in this encounter Care Teams Adult Education Teacher Relationship Specialty Start Date End Date Pcp, No PCP - General General Medicine 10/03/23 10/10/23 Ashley Beal PA-C [address] [place] [address] PCP - General Internal Medicine 10/11/23 Solange Kaur Physician Gastroenterology 09/26/23 Gab Campos Physician Ophthalmology 09/26/23 documented as of this encounter
--- OUTSIDE RECORDS SUMMARY | 2025-01-03 09:28 | XMS_ITS | Encounter Summary ---
Author Organization [facility] Address [address] [place] [address] Care Team Providers Care Heat Seal Operator Name Role Phone Ashley Beal PA-C Primary Care [facility] Encounter Details Date Type Department Care Team (Late st Contact Info) Description 11/14/2024 Scanned Document [facility] ORTHO SURGERY SCAN Orthopedic Surgery, Scan Social History Tobacco Use Types Packs/Day Years Used Date Smoking Tobacco: Former Cigarettes Smokeless Tobacco: Former Alcohol Use Standard Drinks/Week Comments Yes 0 (1 standard drink = 0.6 oz pur e alcohol) [facility] Utilities Answer Date Recorded In the past 12 months has [employer] electric, gas, oil, or water company threatened [...] 03/18/2025 1:30 PM EST Office Visit [address] [phone] Ashley Beal PA-C [address] [place] [address] documented as of this encounter Visit Diagnoses Not on filedocumented in this encounter Care Teams Heat Seal Operator Relationship Specialty Start Date End Date Ashley Beal PA-C [address] [place] [address] PCP - General Internal Medicine 10/11/23 Solange Kaur Physician Gastroenterology 09/26/23 Gab Campos Physician Ophthalmology 09/26/23 documented as of this encounter
--- OUTSIDE RECORDS SUMMARY | 2025-01-03 09:28 | XMS_ITS | Encounter Summary ---
Author Organization [facility] Address [address] [place] [address] Care Team Providers Care Kitchen Stewardess Name Role Phone Pcp, No Primary Care Provider Ashley Tyson PA-C Primary Care [facility] Encounter Details Date Type Department Care Team (Late st Contact Info) Description 03/16/2023 Scanned Document [facility] INTERNAL MED SCAN Provider, Generic External Data [...] Description 03/18/2025 1:30 PM EST Office Visit [address] [place] [phone] Ashley Beal PA-C [address] [place] [address] documented as of this encounter Visit Diagnoses Not on filedocumented in this encounter Care Teams Kitchen Stewardess Relationship Specialty Start Date End Date Pcp, No PCP - General General Medicine 10/03/23 10/10/23 Ashley Beal PA-C [address] [place] [address] PCP - General Internal Medicine 10/11/23 Solange Kaur Physician Gastroenterology 09/26/23 Gab Campos Physician Ophthalmology 09/26/23 documented as of this encounter
--- OUTSIDE RECORDS SUMMARY | 2025-01-03 09:28 | XMS_ITS | Encounter Summary ---
Author Organization [facility] Address [address] [place] [address] Care Team Providers Care Product Safety Specialist Name Role Phone Ashley Beal PA-C Primary Care [facility] Encounter Details Date Type Department Care Team (Late st Contact Info) Description 07/27/2024 Scanned Document [address] [place] [phone] Ashley Beal PA-C [address] [place] [address] Social History Tobacco Use Types Packs/Day Years Used Date Smoking Tobacco: Former Cigarettes Smokeless Tobacco: Former Alcohol Use Standard Drinks/Week Comments Yes 0 (1 standard drink = 0.6 oz pur e alcohol) [facility] Utilities Answer Date Recorded In the past 12 months has [facility] [employer], gas, oil, or water [employer] threatened to shut off services in your [...] any time in the past 12 m [facility], were you homeless or living in a penitentiary (including now)? No 05/13/2024 Education Answer Date [...] Description 03/18/2025 1:30 [place] [address] Ashley Beal PA-C [address] [place] [address] documented as of this encounter Visit Diagnoses Not on filedocumented in this encounter Care Teams Product Safety Specialist Relationship Specialty Start Date End Date Ashley Beal PA-C [address] [place] [address] PCP - General Internal Medicine 10/11/23 Solange Kaur Physician Gastroenterology 09/26/23 Gab Campos Physician Ophthalmology 09/26/23 documented as of this encounter
--- OUTSIDE RECORDS SUMMARY | 2025-01-03 09:28 | XMS_ITS | Encounter Summary ---
Author Organization [facility] Address [address] [place] [address] Care Team Providers Care Ventilating Expert Name Role Phone Pcp, No Primary Care Provider Ashley Tyson PA-C Primary Care [facility] mar[facility] Encounter Details Date Type Department Care Team (Late st Contact Info) Description 02/16/2023 Scanned Document [facility] INTERNAL MED SCAN Provider, Generic External Data [...] Description 03/18/2025 1:30 PM EST Office Visit [address] [place] [phone] Ashley Beal PA-C [address] [place] [address] documented as of this encounter Visit Diagnoses Not on filedocumented in this encounter Care Teams Ventilating Expert Relationship Specialty Start Date End Date Pcp, No PCP - General General Medicine 10/03/23 10/10/23 Ashley Beal PA-C [address] [place] [address] PCP - General Internal Medicine 10/11/23 Solange Kaur Physician Gastroenterology 09/26/23 Gab Campos Physician Ophthalmology 09/26/23 documented as of this encounter
--- OUTSIDE RECORDS SUMMARY | 2025-01-03 09:28 | XMS_ITS | Encounter Summary ---
Author Organization [facility] Address [address] [place] [address] Care Team Providers Care Education General Manager Name Role Phone Pcp, No Primary Care Provider Ashley Tyson PA-C Primary Care Provi mario Encounter Details Date Type Department Care Team (Late st Contact Info) Description 06/04/2022 Scanned Document [facility] INTERNAL MED SCAN Provider, Generic External [...] Description 03/18/2025 1:30 PM EST Office Visit [address] [phone] Ashley Beal PA-C [address] [place] [address] documented as of this encounter Visit Diagnoses Not on filedocumented in this encounter Care Teams Education General Manager Relationship Specialty Start Date End Date Pcp, No PCP - General General Medicine 10/03/23 10/10/23 Ashley Beal PA-C [address] [place] [address] PCP - General Internal Medicine 10/11/23 Solange Kaur Physician Gastroenterology 09/26/23 Gab Campos Physician Ophthalmology 09/26/23 documented as of this encounter
--- OUTSIDE RECORDS SUMMARY | 2025-01-03 09:28 | XMS_ITS | Encounter Summary ---
Author Organization [facility] Address [address] [place] [address] Care Team Providers Care Aerial Survey Technician Name Role Phone Ashley Beal PA-C Primary Care [facility] Encounter Details Date Type Department Care Team (Late st Contact Info) Description 04/26/2024 Scanned Document [address] [phone] Primary Care, Scan Social History Tobacco Use Types Packs/Day Years Used Date Smoking Tobacco: Former Cigarettes Smokeless Tobacco: Former Alcohol Use Standard Drinks/Week Comments Yes 0 (1 standard drink = 0.6 oz pur e alcohol) PHQ-2 Answer Date Recorded PHQ-2 Total Score 2 12/01/2023 Comments Unknown Sex and Gender Information Value [...] 03/18/2025 1:30 PM EST Office Visit [address] [phone] Ashley Beal PA-C [address] [place] [address] [phone] documented as of this encounter Visit Diagnoses Not on filedocumented in this encounter Care Teams Aerial Survey Technician Relationship Specialty Start Date End Date Ashley Beal PA-C [address] [place] [address] PCP - General Internal Medicine 10/11/23 Solange Kaur Physician Gastroenterology 09/26/23 Gab Campos Physician Ophthalmology 09/26/23 documented as of this encounter
--- OUTSIDE RECORDS SUMMARY | 2025-01-03 09:28 | XMS_ITS | Encounter Summary ---
Author Organization [facility] Address [address] [place] [address] Care Team Providers Care Business Systems Developer Name Role Phone Ashley Beal PA-C Primary Care [facility] Encounter Details Date Type Department Care Team (Late st Contact Info) Description 06/12/2024 Scanned Document [facility] [address] [place] [address] Neurology, Scan Social History Tobacco Use Types Packs/Day Years Used Date Smoking Tobacco: Former Cigarettes Smokeless Tobacco: Former Alcohol Use Standard Drinks/Week Comments Yes 0 (1 standard drink = 0.6 oz pur e alcohol) [facility] Utilities Answer Date Recorded In the [...] and Family Not on file 05/13/2024 Attends [employer] Not on file 05/13 Active Member [...] any time in the past 12 m [facility], were you homeless or living in a senior living (including now)? No 05/13/2024 Education Answer Date [...] Description 03/18/2025 1:30 PM EST Office Visit [address] [place] [phone] Ashley Beal PA-C [address] [place] [address] documented as of this encounter Visit Diagnoses Not on filedocumented in this encounter Care Teams Business Systems Developer Relationship Specialty Start Date End Date Ashley Beal PA-C [address] [place] [address] PCP - General Internal Medicine 10/11/23 Solange Kaur Physician Gastroenterology 09/26/23 Gab Campos Physician Ophthalmology 09/26/23 documented as of this encounter
== END 2025-01-03 10:02 | disposition home or self-care (01) ==
LOC: HO.HPODS 08:57
PROVIDERS: PCP Physician Assistant Medical; Visit Provider Student in an Organized Health Care Education/Training Program
DX: S90.212A Contusion of left great toe with damage to nail, initial encounter (principal); M79.675 Pain in left toe(s); M19.079 Primary osteoarthritis, unspecified ankle and foot
CPT/HCPCS: 11730; 99204

== ENCOUNTER → 2025-01-03 08:56 | Outpatient (BNVA) | payer OTHER, SELFPAY | PROVIDERS: PCP Physician Assistant Medical; Visit Provider Student in an Organized Health Care Education/Training Program | DX: S90.212A Contusion of left great toe with damage to nail, initial encounter (principal); S91.212A Laceration without foreign body of left great toe with damage to nail, initial encounter; Y93.16 Activity, rowing, canoeing, kayaking, rafting and tubing; Y93.19 Activity, other involving water and watercraft; Y92.9 Unspecified place or not applicable; Y99.9 Unspecified external cause status; M79.675 Pain in left toe(s); M19.072 Primary osteoarthritis, left ankle and foot | CPT/HCPCS: 11730; J2003 ==

== ENCOUNTER 2025-01-15 07:50 | Outpatient (AMB) | payer OTHER, SELFPAY ==
--- OUTSIDE RECORDS SUMMARY | 2025-01-15 07:52 | XMS_ITS | Clinical Summary ---
Author Organization [facility] Address [address] [place] [address] Care Team Providers Care Order Entry Representative Name Role Phone Community, Pcp Primary Care [...] is not a surgical candidate. Follows with [facility] spine and sport on a as [...] Influenza Flu (PT Reported) 02/27/2019, 6 MMR ([id number]) 10/07/2009 Tdap 06/07/2011 Family History Medical History [...] 84 10/01/2020 9:39 AM EDT Temperature 36.7 C (98 F) 10/01/2020 9:39 AM EDT Respiratory Rate 12 [...] 08/28/2020, 11/2020, 07/12/2019, Additional history exists INFLUENZA (#1) 2024 02/27/2019, 03/02 (Completed), 03/04/2017, Additional history exists CHOLESTEROL SCREENING 07/07/2025 07/07/2020 , 09/06/2019, 01/11/2019, Additional history exists PNEUMOCOCCAL VACCINE FOR HIG H RISK PATIENTS (#1) 01/09/2041 Insurance Payer Benefit Plan / Group Subscriber ID Effective Dates Phone Address Type BLADIMIR /[id number]/$[id number]/30V/ F/PPO [id number] 2009-Preshieu saucedo [address] [place] [address] PPO Fee-for- Service [facility] PPO $[id number] 2019-Preshieu saucedo [address] [address] [place] [address] PPO Fee-for- Service [employer] CLIENT PPO $0 [id number] 2010-Preshieu nt [address] [place] [address] PPO Fee-for- Service Care Teams Order Entry Representative Relationship Specialty Start Date End Date [facility], Pcp PCP - General Internal Medicine 07/08/21
--- OUTSIDE RECORDS SUMMARY | 2025-01-15 07:52 | XMS_ITS | Encounter Summary ---
Author Organization [facility] Address [address] [place] [address] Care Team Providers Care Guitar Teacher Name Role Phone Kirit Amado MD Primary Care Provider [phone] [facility], [facility] Primary Care Provider [facility] Encounter Details Date Type Department Care Team Description 08/30/2019 Pt. Non Urgent Medical Question Dermatology - [address] [phone] Ania [place] PA-C Social History [...] [place]. - 08/30/2019 2:34 PM EDTFrom: Lyla Dineronilaysalazar To: Ania [place] PA-C Sent: 08/30/2019 11:16 AM EDT Subject: appointment I would like to change the appointment i have on September 12 to my follow up i was supposed to have . documented in this encounter Plan of Treatment Not on file documented as of this encounter Visit Diagnoses Not on filedocumented in this encounter Care Teams Guitar Teacher Relationship Specialty Start Date End Date Kirit Amado MD [address] [place] [address] PCP - General 07/15/09 07/07/21 [facility], Pcp [address] [place] [address] PCP - General Internal Medicine 07/08/21 documented as of this encounter
--- OUTSIDE RECORDS SUMMARY | 2025-01-15 07:52 | XMS_ITS | Encounter Summary ---
Author Organization [facility] Address [address] [place] [address] Care Team Providers Care Assistant Store Director Name Role Phone Ashley Beal PA-C Primary Care [facility] Encounter Details Date Type Department Care Team (Late st Contact Info) Description 10/25/2024 Scanned Document [facility] [address] [place] [address] Gastroenterology, Scan Social History Tobacco Use Types Packs/Day Years Used Date Smoking Tobacco: Former Cigarettes Smokeless Tobacco: Former Alcohol Use Standard Drinks/Week Comments Yes 0 (1 standard drink = 0.6 oz pur e alcohol) [facility] Utilities Answer Date Recorded In the [...] and Family Not on file 05/13/2024 Attends [employer] Not on file 05/13 Active Member [...] any time in the past 12 m [facility], were you homeless or living in a prison (including now)? No 05/13/2024 Education Answer Date [...] Team (Late st Contact Info) Description 03/18/2025 1:45 PM EST Office Visit [address] [place] [address] Ashley Beal PA-C [address] [place] [address] documented as of this encounter Visit Diagnoses Not on filedocumented in this encounter Care Teams Assistant Store Director Relationship Specialty Start Date End Date Ashley Beal PA-C [address] [place] [address] PCP - General Internal Medicine 10/11/23 Solange Kaur Physician Gastroenterology 09/26/23 Gab Cmapos Physician Ophthalmology 09/26/23 documented as of this encounter
--- OUTSIDE RECORDS SUMMARY | 2025-01-15 07:52 | XMS_ITS | Encounter Summary ---
Author Organization [facility] Address [address] [place] [address] Care Team Providers Care Phlebotomy Supervisor Name Role Phone Kirit Amado MD Primary Care Provider [phone] [facility] Primary Care Provider Unavailabl e Reason for Visit * Reason Onset Date Comments Faxed Refill 09/05/2019 Encounter Details Date Type Department Care Team Description 09/05/2019 Refill Adult Medicine [facility] [address] [place] [address] Kirit Amado MD [address] [place] [address] [phone] Faxed Refill Social History Tobacco Use Types [...] on filedocumented in this encounter Care Teams Phlebotomy Supervisor Relationship Specialty Start Date End Date Kirit Amado MD [address] [place] [address] PCP - General 07/15/09 07/07/21 [facility], [address] [address] PCP - General Internal Medicine 07/08/21 documented as of this encounter
--- OUTSIDE RECORDS SUMMARY | 2025-01-15 07:52 | XMS_ITS | Encounter Summary ---
Author Organization [facility] Address [address] [place] [address] Care Team Providers Care Golf Course Starter Name Role Phone Kirit Amado MD Primary Care Provider [phone] [facility], [facility] Primary Care Provider Unavailabl e Encounter Details Date Type Department Care Team Description 01/16/2016 Pt. Non Urgent Medical Question Adult Medicine [facility] [address] [place] [address] [phone] Kirit Amado MD [address] [place] [address] [phone] Social History Tobacco Use Types Packs/Day Years [...] PM EDT Subject: ultrasound I saw Tigist Whittaker yesterday 01/14. I was just wondering if she had a chance to review my ultrasound results. documented in this encounter Plan of Treatment Not on file documented as of this encounter Visit Diagnoses Not on filedocumented in this encounter Care Teams Golf Course Starter Relationship Specialty Start Date End Date Kirit Amado MD [address] [place] [address] PCP - General 07/15/09 07/07/21 [facility], Pcp [address] [place] [address] PCP - General Internal Medicine 07/08/21 documented as of this encounter
--- OUTSIDE RECORDS SUMMARY | 2025-01-15 07:52 | XMS_ITS | Encounter Summary ---
Author Organization [facility] Address [address] [place] [address] Care Team Providers Care Staff Electrical Engineer Name Role Phone Ashley Beal PA-C Primary Care [facility] Encounter Details Date Type Department Care Team (Late st Contact Info) Description 11/27/2024 Scanned Document [facility] [address] [place] [address] Orthopedic Surgery, Scan Social History Tobacco Use Types Packs/Day Years Used Date Smoking Tobacco: Former Cigarettes Smokeless Tobacco: Former Alcohol Use Standard Drinks/Week Comments Yes 0 (1 standard drink = 0.6 oz pur e alcohol) [facility] Utilities Answer Date Recorded In the [...] and Family Not on file 05/13/2024 Attends [employer] Not on file 05/13 Active Member [...] any time in the past 12 m [facility], were you homeless or living in a [...] Description 03/18/2025 1:45 PM EST Office Visit [address] [place] [address] Ashley Beal PA-C [address] [place] [address] documented as of this encounter Visit Diagnoses Not on filedocumented in this encounter Care Teams Staff Electrical Engineer Relationship Specialty Start Date End Date Ashley Beal PA-C [address] [place] [address] PCP - General Internal Medicine 10/11/23 Solange Kaur Physician Gastroenterology 09/26/23 Gab Campos Physician Ophthalmology 09/26/23 documented as of this encounter
--- OUTSIDE RECORDS SUMMARY | 2025-01-15 07:52 | XMS_ITS | Encounter Summary ---
Author Organization [facility] Address [address] [place] [address] Care Team Providers Care Business Analyst Sales Operations Name Role Phone Kirit Amado MD Primary Care Provider [phone] [facility], Pcp Primary Care Provider Unavailabl e Encounter Details Date Type Department Care Team Description 04/10/2019 Release of Information Medical Records [address] [place] [address] Abstract, Provider Social History Tobacco Use Types [...] filedocumented in this encounter Care Teams Business Analyst Sales Operations Relationship Specialty Start Date End Date Kirit Amado MD [address] [place], [place] [phone] PCP - General 07/15/09 07/07/21 [facility], Pcp [address] [place] [address] PCP - General Internal Medicine 07/08/21 documented as of this encounter
--- OUTSIDE RECORDS SUMMARY | 2025-01-15 07:52 | XMS_ITS | Encounter Summary ---
Author Organization [facility] Address [address] [place] [address] Care Team Providers Care Design Analyst Name Role Phone Ashley Beal PA-C Primary Care [facility] Encounter Details Date Type Department Care Team (Late st Contact Info) Description 12/04/2024 Scanned Document [facility] [address] [place] [address] Urology, Scan Social History Tobacco Use Types Packs/Day Years Used Date Smoking Tobacco: Former Cigarettes Smokeless Tobacco: Former Alcohol Use Standard Drinks/Week Comments Yes 0 (1 standard drink = 0.6 oz pur e alcohol) [facility] Utilities Answer Date Recorded In the past [...] and Family Not on file 05/13/2024 Attends [employer] Not on file 05/13 Active Member [...] any time in the past 12 m [facility], were you homeless or [...] Description 03/18/2025 1:45 PM EST Office Visit [address] [place] [address] Ashley Beal PA-C [address] [place] [address] documented as of this encounter Visit Diagnoses Not on filedocumented in this encounter Care Teams Design Analyst Relationship Specialty Start Date End Date Ashley Beal PA-C [address] [place] [address] PCP - General Internal Medicine 10/11/23 Solange Kaur Physician Gastroenterology 09/26/23 Gab Campos Physician Ophthalmology 09/26/23 documented as of this encounter
--- OUTSIDE RECORDS SUMMARY | 2025-01-15 07:53 | XMS_ITS | Encounter Summary ---
Author Organization [facility] Address [address] [place] [address] Care Team Providers Care Nurse Companion Name Role Phone Kirit Amado MD Primary Care Provider [phone] [facility], [facility] Primary Care Provider Unavailabl e Encounter Details Date Type Department Care Team Description 02/01/2012 Orders Only OBGYN - [place] [address] [place] [address] Helena Diaz CNM Migraine (Primary Dx) Social History Tobacco Use Types [...] as of this encounter Visit Diagnoses Diagnosis Migraine- Primary Migraine, unspecified, without mention of intractable migraine without mention of status migrainosus documented in this encounter Care Teams Nurse Companion Relationship Specialty Start Date End Date Kirit Amado MD [address] [place] [address] PCP - General 07/15/09 07/07/21 [facility], Pcp [address] [place] [address] PCP - General Internal Medicine 07/08/21 documented as of this encounter
--- OUTSIDE RECORDS SUMMARY | 2025-01-15 07:53 | XMS_ITS | Encounter Summary ---
Author Organization [facility] Address [address] [place] [address] Care Team Providers Care Supportability Engineer Name Role Phone Pcp, No Primary Care Provider Ashley Tyson PA-C Primary Care [facility] Encounter Details Date Type Department Care Team (Late st Contact Info) Description 02/16/2023 Scanned Document [facility] INTERNAL MED SCAN Provider, Generic [...] Description 03/18/2025 1:45 PM EST Office Visit [address] [place] [phone] Ashley Beal PA-C [address] [place] [address] documented as of this encounter Visit Diagnoses Not on filedocumented in this encounter Care Teams Supportability Engineer Relationship Specialty Start Date End Date Pcp, No PCP - General General Medicine 10/03/23 10/10/23 Ashley Beal PA-C [address] [place] [address] PCP - General Internal Medicine 10/11/23 Solange Kaur Physician Gastroenterology 09/26/23 Gab Campos Physician Ophthalmology 09/26/23 documented as of this encounter
--- OUTSIDE RECORDS SUMMARY | 2025-01-15 07:53 | XMS_ITS | Encounter Summary ---
Author Organization [facility] Address [address] [place] [address] Care Team Providers Care Customer Trainer Name Role Phone Pcp, No Primary Care Provider Ashley Tyson PA-C Primary Care [facility] mar[facility] Encounter Details Date Type Department Care Team (Late st Contact Info) Description 04/12/2023 Scanned Document [facility] INTERNAL MED SCAN Provider, Generic [...] Description 03/18/2025 1:45 PM EST Office Visit [address] [place] [phone] Ashley Beal PA-C [address] [place] [address] documented as of this encounter Visit Diagnoses Not on filedocumented in this encounter Care Teams Customer Trainer Relationship Specialty Start Date End Date Pcp, No PCP - General General Medicine 10/03/23 10/10/23 Ashley Beal PA-C [address] [place] [address] PCP - General Internal Medicine 10/11/23 Solange Kaur Physician Gastroenterology 09/26/23 Gab Campos Physician Ophthalmology 09/26/23 documented as of this encounter
--- OUTSIDE RECORDS SUMMARY | 2025-01-15 07:53 | XMS_ITS | Encounter Summary ---
Author Organization [facility] Address [address] [place] [address] Care Team Providers Care Forming Department Supervisor Name Role Phone Kirit Amado MD Primary Care Provider [phone] [facility], Pcp Primary Care Provider Unavailabl e Encounter Details Date Type Department Care Team Description 11/15/2012 Release of Information Medical Records [address] [place] [address] Abstract, Provider Social History Tobacco Use Types [...] on filedocumented in this encounter Care Teams Forming Department Supervisor Relationship Specialty Start Date End Date Kirit Amado MD [address] [place], [place] [phone] PCP - General 07/15/09 07/07/21 [facility], Pcp [address] [place] [address] PCP - General Internal Medicine 07/08/21 documented as of this encounter
--- OUTSIDE RECORDS SUMMARY | 2025-01-15 07:53 | XMS_ITS | Encounter Summary ---
Author Organization [facility] Address [address] [place] [address] Care Team Providers Care Acid Tender Name Role Phone Kirit Amado MD Primary Care Provider [phone] [facility], Pcp Primary Care Provider Unavailabl e Encounter Details Date Type Department Care Team Description 07/10/2020 Old Medical Records Medical Records [address] [place] [address] Abstract, Provider Social History Tobacco Use Types [...] AM EST documented as of this encounter Plan of Treatment Not on file documented as of this encounter Visit Diagnoses Not on filedocumented in this encounter Care Teams Acid Tender Relationship Specialty Start Date End Date Kirit Amado MD [address] [place] [address] PCP - General 07/15/09 07/07/21 [facility], Pcp [address] [place] [address] PCP - General Internal Medicine 07/08/21 documented as of this encounter
--- OUTSIDE RECORDS SUMMARY | 2025-01-15 07:53 | XMS_ITS | Encounter Summary ---
Author Organization [facility] Address [address] [place] [address] Care Team Providers Care Airport Planner Name Role Phone Kirit Amado MD Primary Care Provider [facility], Pcp Primary Care Provider Unavailabl e Encounter Details Date Type Department Care Team Description 11/11/2020 Beam House Inspector Report Medical Records [address] [place] [address] Devin Wallace Np Social History Tobacco Use [...] on filedocumented in this encounter Care Teams Airport Planner Relationship Specialty Start Date End Date Kirit Amado MD [address] [place], [place] [phone] PCP - General 07/15/09 07/07/21 [facility], Pcp [address] [place] [address] [place] [address] PCP - General Internal Medicine 07/08/21 documented as of this encounter
--- OUTSIDE RECORDS SUMMARY | 2025-01-15 07:53 | XMS_ITS | Encounter Summary ---
Author Organization [facility] Address [address] [place] [address] Care Team Providers Care Imaging Account Manager Name Role Phone Pcp, No Primary Care Provider Ashley Tyson PA-C Primary Care Provi mario Encounter Details Date Type Department Care Team (Late st Contact Info) Description 06/11/2022 Scanned Document [facility] INTERNAL MED SCAN Provider, Generic External [...] Description 03/18/2025 1:45 PM EST Office Visit [address] [place] [phone] Ashley Beal PA-C [address] [place] [address] documented as of this encounter Visit Diagnoses Not on filedocumented in this encounter Care Teams Imaging Account Manager Relationship Specialty Start Date End Date Pcp, No PCP - General General Medicine 10/03/23 10/10/23 Ashley Beal PA-C [address] [place] [address] PCP - General Internal Medicine 10/11/23 Solange Kaur Physician Gastroenterology 09/26/23 Gab Campos Physician Ophthalmology 09/26/23 documented as of this encounter
--- OUTSIDE RECORDS SUMMARY | 2025-01-15 07:53 | XMS_ITS | Encounter Summary ---
Author Organization [facility] Address [address] [place] [address] Care Team Providers Care Practice Consultant Name Role Phone Ashley Beal PA-C Primary Care [facility] Encounter Details Date Type Department Care Team (Late st Contact Info) Description 07/27/2024 Scanned Document [address] [place] [phone] Ashley Beal PA-C [address] [place] [address] Social History Tobacco Use Types Packs/Day Years Used Date Smoking Tobacco: Former Cigarettes Smokeless Tobacco: Former Alcohol Use Standard Drinks/Week Comments Yes 0 (1 standard drink = 0.6 oz pur e alcohol) [facility] Utilities Answer Date Recorded In the past 12 months has [facility] [employer], gas, oil, or water [employer]erd[employer] threatened to shut off services in your home? No 05/13/2024 Social Connection and Isolation Panel [NHANES] A nswer Date Recorded In a typical week, how many times do you talk on the phone with family, friends, or neighbors? Once a week 05/13/2024 Frequency of Social Gatherings with Friends and Family Not on file 05/13/2024 Attends Sikh Services Not on file 05/13 Active Member [...] any time in the past 12 m [facility], were you homeless or living in a half-way (including now)? No 05/13/2024 Education Answer Date [...] Description 03/18/2025 1:45 [place] [phone] Ashley Beal PA-C [address] [place] [address] documented as of this encounter Visit Diagnoses Not on filedocumented in this encounter Care Teams Practice Consultant Relationship Specialty Start Date End Date Ashley Beal PA-C [address] [place] [place] [address] PCP - General Internal Medicine 10/11/23 Solange Kaur Physician Gastroenterology 09/26/23 Gab Campos Physician Ophthalmology 09/26/23 documented as of this encounter
--- OUTSIDE RECORDS SUMMARY | 2025-01-15 07:53 | XMS_ITS | Encounter Summary ---
Author Organization [facility] Address [address] [place] [address] Care Team Providers Care Monotype Operator Name Role Phone Kirit Amado MD Primary Care Provider [phone] [facility], [facility] Primary Care Provider Unavailabl e Encounter Details Date Type Department Care Team Description 05/19/2018 Foot Doctor Report Medical Records [address] [place] [address] Sugar Joshi PA-C [address] [place] [address] [place] [address] Social History Tobacco Use Types Packs/Day Years [...] filedocumented in this encounter Care Teams Monotype Operator Relationship Specialty Start Date End Date Kirit Amado MD [address] [place] [address] PCP - General 07/15/09 07/07/21 [facility], Pcp [address] [place] [address] PCP - General Internal Medicine 07/08/21 documented as of this encounter
--- OUTSIDE RECORDS SUMMARY | 2025-01-15 07:53 | XMS_ITS | Encounter Summary ---
Author Organization [facility] Address [address] [place] [address] Care Team Providers Care Attorney Recruiter Name Role Phone Ashley Beal PA-C Primary Care [facility] Encounter Details Date Type Department Care Team (Late st Contact Info) Description 06/12/2024 Scanned Document [facility] [address] [place] [address] Neurology, Scan Social History Tobacco Use Types Packs/Day Years Used Date Smoking Tobacco: Former Cigarettes Smokeless Tobacco: Former Alcohol Use Standard Drinks/Week Comments Yes 0 (1 standard drink = 0.6 oz pur e alcohol) [facility] Utilities Answer Date Recorded In the [...] and Family Not on file 05/13/2024 Attends Pentecostalism Services Not on file 05/13 Active Member [...] time in the past 12 m [facility], were you homeless or living in a [...] Description 03/18/2025 1:45 PM EST Office Visit [address] [place] [phone] Ashley Beal PA-C [address] [place] [address] documented as of this encounter Visit Diagnoses Not on filedocumented in this encounter Care Teams Attorney Recruiter Relationship Specialty Start Date End Date Ashley Beal PA-C [address] [place] [address] PCP - General Internal Medicine 10/11/23 Solange Kaur Physician Gastroenterology 09/26/23 Gab Campos Physician Ophthalmology 09/26/23 documented as of this encounter
--- OUTSIDE RECORDS SUMMARY | 2025-01-15 07:53 | XMS_ITS | Encounter Summary ---
Author Organization [facility] Address [address] [place] [address] Care Team Providers Care Rn Neonatal Name Role Phone Kirit Amado MD Primary Care Provider [phone] [facility], [facility] Primary Care Provider Unavailabl e Reason for Visit * Reason Onset Date Comments Oracle Erp Developer Feedback 11/11/2020 Ortho Encounter Details Date Type Department Care Team Description 11/11/2020 [facility] [address] [place] [address] Md Noelle Social History Tobacco Use Types [...] on filedocumented in this encounter Care Teams Rn Neonatal Relationship Specialty Start Date End Date Kirit Amado MD [address] [place] [address] PCP - General 07/15/09 07/07/21 [facility], Pcp [address] [place] [address] PCP - General Internal Medicine 07/08/21 documented as of this encounter
--- OUTSIDE RECORDS SUMMARY | 2025-01-15 07:53 | XMS_ITS | Encounter Summary ---
Author Organization [facility] Address [address] [place] [address] Care Team Providers Care Bulk Driver Name Role Phone Ashley Beal PA-C Primary Care [facility] Encounter Details Date Type Department Care Team (Late st Contact Info) Description 04/26/2024 Scanned Document [address] [phone] Primary Care, Scan Social History Tobacco Use [...] Description 03/18/2025 1:45 PM EST Office Visit [address] [phone] Ashley Beal PA-C [address] [place] [address] documented as of this encounter Visit Diagnoses Not on filedocumented in this encounter Care Teams Bulk Driver Relationship Specialty Start Date End Date Ashley Beal PA-C [address] [place] [address] PCP - General Internal Medicine 10/11/23 Solange Kaur Physician Gastroenterology 09/26/23 Gab Campos Physician Ophthalmology 09/26/23 documented as of this encounter
--- OUTSIDE RECORDS SUMMARY | 2025-01-15 07:53 | XMS_ITS | Encounter Summary ---
Author Organization [facility] Address [address] [place] [address] Care Team Providers Care It Disaster Recovery Manager Name Role Phone Ashley Beal PA-C Primary Care [facility] Encounter Details Date Type Department Care Team (Late st Contact Info) Description 10/18/2024 Scanned Document [facility] [address] [place] [address] Neurology, Scan Social History Tobacco Use Types Packs/Day Years Used Date Smoking Tobacco: Former Cigarettes Smokeless Tobacco: Former Alcohol Use Standard Drinks/Week Comments Yes 0 (1 standard drink = 0.6 oz pur e alcohol) [facility] Utilities Answer Date Recorded In the [...] any time in the past 12 m [facility], were you homeless or living in a [...] 03/18/2025 1:45 PM EST Office Visit [address] [place] [phone] Ashley Beal PA-C [address] [place] [address] documented as of this encounter Visit Diagnoses Not on filedocumented in this encounter Care Teams It Disaster Recovery Manager Relationship Specialty Start Date End Date Ashley Beal PA-C [address] [place] [address] PCP - General Internal Medicine 10/11/23 Solange Kaur Physician Gastroenterology 09/26/23 Gab Campos Physician Ophthalmology 09/26/23 documented as of this encounter
--- OUTSIDE RECORDS SUMMARY | 2025-01-15 07:53 | XMS_ITS | Encounter Summary ---
Author Organization [facility] Address [address] [place] [address] Care Team Providers Care Merchandising Team Lead Name Role Phone Pcp, No Primary Care Provider Ashley Tyson PA-C Primary Care Provi mario Encounter Details Date Type Department Care Team (Late st Contact Info) Description 04/19/2022 Scanned Document [facility] INTERNAL MED SCAN Provider, Generic External Data [...] Description 03/18/2025 1:45 PM EST Office Visit [address] [place] [phone] Ashley Beal PA-C [address] [place] [address] documented as of this encounter Visit Diagnoses Not on filedocumented in this encounter Care Teams Merchandising Team Lead Relationship Specialty Start Date End Date Pcp, No PCP - General General Medicine 10/03/23 10/10/23 Ashley Beal PA-C [address] [place] [address] PCP - General Internal Medicine 10/11/23 oSlange Kaur Physician Gastroenterology 09/26/23 Gab Campos Physician Ophthalmology 09/26/23 documented as of this encounter
--- OUTSIDE RECORDS SUMMARY | 2025-01-15 07:53 | XMS_ITS | Encounter Summary ---
Author Organization [facility] Address [address] [place] [address] Care Team Providers Care Pantograph Machine Operator Name Role Phone Kirit Amado MD Primary Care Provider [facility], [facility] Primary Care [facility] Encounter Details Date Type Department Care Team Description 10/13/2020 Pt. Non Urgent Medic al Question Adult Medicine [address] [address] Tigist Duncan PA Social History Tobacco Use [...] a referral for a surgical consultation with [facility] [address] in [place]. I just want to see what their thoughts are on my neck especially because of the pinched nerve. Let me know what you think. Lyla documented in this encounter Plan of Treatment Not on file documented as of this encounter Visit Diagnoses Not on filedocumented in this encounter Care Teams Pantograph Machine Operator Relationship Specialty Start Date End Date Kirit Amado MD [address] [place] [address] PCP - General 07/15/09 07/07/21 [facility], [address] [address] PCP - General Internal Medicine 07/08/21 documented as of this encounter
--- OUTSIDE RECORDS SUMMARY | 2025-01-15 07:53 | XMS_ITS | Encounter Summary ---
Author Organization [facility] Address [address] [place] [address] Care Team Providers Care City Superintendent Name Role Phone Kirit Amado MD Primary Care Provider [phone] [facility] Primary Care Provider Unavailabl e Reason for Visit * Reason Onset Date Comments medication problems 07/08/2017 Encounter Details Date Type Department Care Team Description 07/08/2017 Telephone Adult Medicine [address] [address] Tigist Duncan PA medication problems Social History [...] on filedocumented in this encounter Care Teams City Superintendent Relationship Specialty Start Date End Date Kirit Amado MD [address] [place] [address] PCP - General 07/15/09 07/07/21 [facility], [address] [address] PCP - General Internal Medicine 07/08/21 documented as of this encounter
--- OUTSIDE RECORDS SUMMARY | 2025-01-15 07:53 | XMS_ITS | Encounter Summary ---
Author Organization [facility] Address [address] [place] [address] Care Team Providers Care Guest Relations Agent Name Role Phone Pcp, No Primary Care Provider Ashley Tyson PA-C Primary Care Provi mario Encounter Details Date Type Department Care Team (Late st Contact Info) Description 07/08/2023 Scanned Document [facility] INTERNAL MED SCAN Provider, Generic External [...] Description 03/18/2025 1:45 PM EST Office Visit [address] [place] [phone] Ashley Beal PA-C [address] [place] [address] documented as of this encounter Visit Diagnoses Not on filedocumented in this encounter Care Teams Guest Relations Agent Relationship Specialty Start Date End Date Pcp, No PCP - General General Medicine 10/03/23 10/10/23 Ashley Beal PA-C [address] [place] [address] PCP - General Internal Medicine 10/11/23 Solange Kaur Physician Gastroenterology 09/26/23 Gab Campos Physician Ophthalmology 09/26/23 documented as of this encounter
--- OUTSIDE RECORDS SUMMARY | 2025-01-15 07:53 | XMS_ITS | Encounter Summary ---
Author Organization [facility] Address [address] [place] [address] Care Team Providers Care Braided Rug Maker Name Role Phone Kirit Amado MD Primary Care Provider [phone] [facility], [facility] Primary Care Provider Unavailabl e Reason for Referral * EXTERNAL (Routine) - Closed Specialty Diagnoses / Procedures Referred By Contac t Referred To Contact Neurosurgery Procedures REFERRAL TO NEUROSURGERY (OUT OF NETWORK) Tigist Duncan PA [address] [place] [address] External Neuro Surg Referral ID Status Reason Start Date Expiration Date Visits Re quested Visits Authorized [id number] Closed 10/21/2020 1 1 Encounter Details Date Type Department Care Team Description 10/21/2020 Orders Only Adult Medicine [address] [address] Tigist Duncan PA Cervical radiculopathy (Primary Dx) [...] nos documented in this encounter Care Teams Braided Rug Maker Relationship Specialty Start Date End Date Kirit Amado MD [address] [place] [address] PCP - General 07/15/09 07/07/21 [facility], [address] [address] PCP - General Internal Medicine 07/08/21 documented as of this encounter
--- OUTSIDE RECORDS SUMMARY | 2025-01-15 07:53 | XMS_ITS | Encounter Summary ---
Author Organization [facility] Address [address] [place] [address] Care Team Providers Care Debt Collection Specialist Name Role Phone Kirit Amado MD Primary Care Provider [phone] [facility], [facility] Primary Care Provider [facility] e Encounter Details Date Type Department Care Team Description 07/11/2020 Pt. Non Urgent Medic al Question Adult Medicine [address] [address] Tigist Duncan PA Social History Tobacco Use [...] on filedocumented in this encounter Care Teams Debt Collection Specialist Relationship Specialty Start Date End Date Kirit Amado MD [address] [place] [address] PCP - General 07/15/09 07/07/21 [facility], Pcp [address] [place] [address] PCP - General Internal Medicine 07/08/21 documented as of this encounter
--- OUTSIDE RECORDS SUMMARY | 2025-01-15 07:53 | XMS_ITS | Encounter Summary ---
Author Organization [facility] Address [address] [place] [address] Care Team Providers Care Corporate Development Intern Name Role Phone Kirit Amado MD Primary Care Provider [phone] [facility], [facility] Primary Care Provider [facility] e Encounter Details Date Type Department Care Team Description 09/22/2020 Pt. Non Urgent Medic al Question Adult Medicine [address] [address] Tigist Duncan PA Social History Tobacco Use [...] Telephone Encounter - Juana Garcia M.A. - 09/23/2020 7:55 AM EDTFrom: Lyla Castaneda To: Ernesto Whittaker Sent: 09/22/2020 6:35 PM EDT Subject: Question regarding THYROID PROFILE I have a question about THYROID PROFILE resulted on 09/18/20 at 7:25 PM. My appointment is October [address] Ferguson documented in this encounter Plan of Treatment Not on file documented as of this encounter Visit Diagnoses Not on filedocumented in this encounter Care Teams Corporate Development Intern Relationship Specialty Start Date End Date Kirit Amado MD [address] [place] [address] PCP - General 07/15/09 07/07/21 [facility], [address] [address] PCP - General Internal Medicine 07/08/21 documented as of this encounter
--- OUTSIDE RECORDS SUMMARY | 2025-01-15 07:53 | XMS_ITS | Encounter Summary ---
Author Organization [facility] Address [address] [place] [address] Care Team Providers Care Recreation Therapist Name Role Phone Pcp, No Primary Care Provider Ashley Tyson PA-C Primary Care Provi mario Encounter Details Date Type Department Care Team (Late st Contact Info) Description 03/12/2022 Scanned Document [facility] INTERNAL MED SCAN Provider, Generic [...] Description 03/18/2025 1:45 PM EST Office Visit [address] [place] [phone] Ashley Beal PA-C [address] [place] [address] documented as of this encounter Visit Diagnoses Not on filedocumented in this encounter Care Teams Recreation Therapist Relationship Specialty Start Date End Date Pcp, No PCP - General General Medicine 10/03/23 10/10/23 Ashley Beal PA-C [address] [place] [address] PCP - General Internal Medicine 10/11/23 Solange Kaur Physician Gastroenterology 09/26/23 Gab Campos Physician Ophthalmology 09/26/23 documented as of this encounter
--- OUTSIDE RECORDS SUMMARY | 2025-01-15 07:53 | XMS_ITS | Encounter Summary ---
Author Organization [facility] Address [address] [place] [address] Care Team Providers Care Restaurant Crew Person Name Role Phone Kirit Amado MD Primary Care Provider [phone] [facility], [facility] Primary Care Provider Unavailabl e Encounter Details Date Type Department Care Team Description 10/12/2010 Refill Adult Medicine [address] [address] [place], [place] [address] [place] [address] Social History Tobacco Use Types Packs/Day Years Used Date Smoking Tobacco: Never Alcohol Use Standard Drinks/Week Comments Yes 0 (1 standard drink = 0.6 oz pur e alcohol) rare Alcohol Habits Answer Date Recorded How often [...] encounter Miscellaneous Notes * Telephone Encounter - Tabatha Madison L.P.N. - 10/13/2010 8:36 AM EDT Script for Ibuprofen faxed * Telephone Encounter - Tania Fried L.P.N. - 10/13/2010 8:25 AM EDT No CSC- Please advise- Pt seen by you last- 06/26/10 * Telephone Encounter - Tania Fried L.P.N. - 10/13/2010 8:22 AM EDTFrom: LYLA CASTANEDA To: [place] Sent: TueOct 12, 2010 5:05 PM Subject: Medication Renewal Request Original authorizing provider: LONG Becerra would like a refill of the following medications: carisoprodol (SOMA) 350 MG tablet [LONG Becerra] ibuprofen (MOTRIN) 800 MG tablet [LONG Becerra] Preferred pharmacy: [id number] Comment: Medication renewals requested in this message routed to other providers: documented in this encounter Plan of Treatment Not on file documented as of this encounter Visit Diagnoses Not on filedocumented in this encounter Care Teams Restaurant Crew Person Relationship Specialty Start Date End Date Kirit Amado MD [address] [place] [address] PCP - General 07/15/09 07/07/21 [facility], Pcp [address] [place] [address] PCP - General Internal Medicine 07/08/21 documented as of this encounter
--- OUTSIDE RECORDS SUMMARY | 2025-01-15 07:53 | XMS_ITS | Encounter Summary ---
Author Organization [facility] Address [address] [place] [address] Care Team Providers Care Entrepreneurial Finance Professor Name Role Phone Kirit Amado MD Primary Care Provider [phone] [facility], [facility] Primary Care Provider [facility]ocated [facility] e Encounter Details Date Type Department Care Team Description 10/08/2020 Pt. Non Urgent Medic al Question Adult Medicine [address] [address] Tigist Duncan PA Social History Tobacco Use [...] ? I had them done last at [facility]. The past several days I have been [...] on filedocumented in this encounter Care Teams Entrepreneurial Finance Professor Relationship Specialty Start Date End Date Kirit Amado MD [address] [place] [address] PCP - General 07/15/09 07/07/21 [facility], [address] [address] PCP - General Internal Medicine 07/08/21 documented as of this encounter
--- OUTSIDE RECORDS SUMMARY | 2025-01-15 07:53 | XMS_ITS | Encounter Summary ---
Author Organization [facility] Address [address] [place] [address] Care Team Providers Care Straightening Machine Feeder Name Role Phone Kirit Amado MD Primary Care Provider [phone] [facility] Primary Care Provider Unavailabl e Reason for Referral * EXTERNAL (Routine) - Authorized/Booked Specialty Diagnoses / Procedures Referred By Contac t Referred To Contact Neurosurgery Procedures REFERRAL TO NEUROSURGERY (OUT OF NETWORK) Kirit Amado MD [address] [place] [address] External Neuro Surg Referral ID Status Reason Start Date Expiration Date V isits Requested Visits Authorized [id number] Authorized/B ooked 10/20/2020 01/21/2021 1 1 Reason for Visit * Reason Onset Date Comments Structurer Feedback 10/15/2020 NEUROSUGERY [facility] Back Pain 10/15/2020 Encounter Details Date Type Department Care Team Description 10/15/2020 Telephone Adult Medicine [facility] [address] [place], [place] [phone] Kirit Amado MD [address], [place] [phone] Structurer Feedback (NEUROSUGERY [facility]); Back Pain Social History Tobacco Use Types Packs/Day Years [...] encounter Miscellaneous Notes * Telephone Encounter - Tigist Whittaker PA-C - 10/20/2020 7:22 AM EDT Referral has been updated. Thank you. * Telephone Encounter - Telma Quiroz - 10/16/2020 10:46 AM EDT Tigist Whittaker, Please review this patients new referral request. The referral has been pended. Please complete thefollowing: If approved> sign order If denied>please give instructions and route to your practice nursing pool. Practice nurse should inform referrals and the patient if denied. Thank you [facility] Referrals Dept. * Telephone Encounter - Yanelis Banerjee R.N. - 10/15/2020 3:17 PM EDT Pt is aware you are out of office until 10/20/20. Upon your return she would like you to place a referral to [facility] for second opinion. Please advise. * Telephone Encounter - Irma Yadav - 10/15/2020 2:53 PM EDT Pt returning your call * Telephone Encounter - Yanelis Banerjee R.N. - 10/15/2020 2:21 PM EDT Left vm for pt to return my call * Telephone Encounter - Irma Yadav - 10/15/2020 1:46 PM EDT Symptoms patient is presenting: Neck and back pain, pt stated that she been trying to communicate with someone through My Chart but, no one has called her. For ALL patients calling to schedule any appointment (routine, sick visit, follow up, consult, etc.) in the outpatient setting please ask the following questions: ?? Do you have fever of higher than 101, sore throat with difficulty swallowing or severe shortnessof breath? NO If YES to any of these above symptoms, send a message to triage and do not book. Red dot. If no, an audio or video visit should be booked. ?? Have you had close contact with someone with Coronavirus in the last 14 days? NO ?? Have you traveled abroad? NO ?? Have you traveled recently to another state outside of [place], [place], [place], [place], [place], [place], [place]? NO o If yes, did you quarantine for 14 days or have a negative covid test? NO If yes to any of the above, patient is not to be scheduled in office until after 14 day quarantine or negative covid test. If pain or injury related was it due to an accident at work or from a motor vehicle accident? NO If yes, gather 3rd green party insurance information Date of accident/Injury: How long has patient had these symptoms?: several weeks PCP: Kirit Amado Payor: BLADIMIR / Plan: JOSE/BLADIMIR/$40/30V/F/PPO / Product Type: PPO [id number] documented in this encounter Plan of Treatment Not on file documented as of this encounter Visit Diagnoses Not on filedocumented in this encounter Care Teams Straightening Machine Feeder Relationship Specialty Start Date End Date Kirit Amado MD [address] [place] [address] PCP - General 07/15/09 07/07/21 [facility], [address] [address] PCP - General Internal Medicine 07/08/21 documented as of this encounter
--- OUTSIDE RECORDS SUMMARY | 2025-01-15 07:53 | XMS_ITS | Encounter Summary ---
Author Organization [facility] Address [address] [place] [address] Care Team Providers Care Salesforce Trainer Name Role Phone Pcp, No Primary Care Provider Ashley Tyson PA-C Primary Care Provi mario Encounter Details Date Type Department Care Team (Late st Contact Info) Description 08/01/2023 Scanned Document [facility] INTERNAL MED SCAN Provider, Generic [...] Description 03/18/2025 1:45 PM EST Office Visit [address] [place] [phone] Ashley Beal PA-C [address] [place] [address] documented as of this encounter Visit Diagnoses Not on filedocumented in this encounter Care Teams Salesforce Trainer Relationship Specialty Start Date End Date Pcp, No PCP - General General Medicine 10/03/23 10/10/23 Ashley Beal PA-C [address] [place] [address] PCP - General Internal Medicine 10/11/23 Solange Kaur Physician Gastroenterology 09/26/23 Gab Campos Physician Ophthalmology 09/26/23 documented as of this encounter
--- OUTSIDE RECORDS SUMMARY | 2025-01-15 07:53 | XMS_ITS | Encounter Summary ---
Author Organization [facility] Address [address] [place] [address] Care Team Providers Care Math And Sciences Department Chair Name Role Phone Kirit Amado MD Primary Care Provider [phone] [facility], [facility] Primary Care Provider [facility] Encounter Details Date Type Department Care Team Description 10/14/2020 [facility] [address] [place] [address] Md Noelle Social History Tobacco Use Types [...] on filedocumented in this encounter Care Teams Math And Sciences Department Chair Relationship Specialty Start Date End Date Kirit Amado MD [address] [place] [address] PCP - General 07/15/09 07/07/21 [facility], Pcp [address] [place] [address] PCP - General Internal Medicine 07/08/21 documented as of this encounter
--- OUTSIDE RECORDS SUMMARY | 2025-01-15 07:53 | XMS_ITS | Encounter Summary ---
Author Organization [facility] Address [address] [place] [address] Care Team Providers Care Ed Educational Aide Name Role Phone Kirit Amado MD Primary Care Provider [phone] [facility], Pcp Primary Care Provider Unavailabl e Encounter Details Date Type Department Care Team Description 10/22/2011 House Player Report Medical Records [address] [place] [address] Jim Singh PA-C Social History Tobacco Use [...] on filedocumented in this encounter Care Teams Ed Educational Aide Relationship Specialty Start Date End Date Kirit Amado MD [address] [place], [place] [phone] PCP - General 07/15/09 07/07/21 [facility], Pcp [address] [place] [address] [place] [address] PCP - General Internal Medicine 07/08/21 documented as of this encounter
--- OUTSIDE RECORDS SUMMARY | 2025-01-15 07:53 | XMS_ITS | Clinical Summary ---
Author Organization [facility] Address [address] [place] [address] Care Team Providers Care Laundry Marker Supervisor Name Role Phone Ashley Beal PA-C Primary [...] capsule (100 mg total) by mouth nightly. 09/21/19 24 Active fexofenadine (BIRDIE) 180 MG tablet Take 1 tablet (180 mg total) by mouth daily. Administer with water only; do not administer with fruit juices. Active Vitamin D3 (CHOLECALCIFERO L) 50 MCG (2000 UT) tablet Take 2 [...] topically as needed. Active Ubrelvy 50 MG tabletIndicatio ns:Migraine without aura and without status migrainosus, not intractable Take 1 tablet (50 mg total) by mouth as needed for migraine. For Migraine. 10 tablet 1 06/04/19 25 Active ALPRAZolam (XANAX) 0.5 MG tabletIndicatio ns:Anxiety TAKE ONE (1) TABLET BY MOUTH EVERY EIGHT (8) HOURS NEEDED FOR ANXIETY 30 tablet 10/23/19 25 Active OMEprazole (PriLOSEC) 20 MG capsuleIndicati ons:Gastroesoph ageal reflux disease without esophagitis TAKE ONE (1) CAPSULE BY MOUTH EVERY DAY 90 capsule 2 10/23/19 25 Active metoPROLOL SUCCINATE (TOPROL-XL) 25 MG 24 hr tabletIndicatio ns:Anxiety Take 1 tablet (25 mg total) by mouth daily. 90 tablet 1 10/24/19 25 Active sertraline (ZOLOFT) 50 MG tabletIndicatio ns:Anxiety Take 3 tablets (150 mg total) by mouth daily. 90 tablet 3 10/24/19 25 Active topiramate (TOPAMAX) 50 MG tabletIndicatio ns:Migraine without aura and without status migrainosus, not intractable TAKE 1 TABLET (50 MG TOTAL) BY MOUTH 2 TIMES A DAY. 60 tablet 5 11/01/19 25 Active buPROPion (WELLBUTRIN XL) 150 MG 24 hr tabletIndicatio ns:Anxiety Take 1 tablet (150 mg total) by mouth every morning. Swallow whole; do not crush, chew, or divide. 90 tablet 1 11/06/19 25 Active levothyroxine (SYNTHROID, LEVOTHROID) 100 MCG tabletIndicatio ns:Hypothyroidi sm, unspecified type TAKE 1 TABLET (100 MCG TOTAL) BY MOUTH DAILY. 30 tablet 5 11/13/19 25 Active fenofibrate micronized (LOFIBRA) 134 MG capsuleIndicati ons:Hypertrigly ceridemia TAKE ONE (1) CAPSULE BY MOUTH EVERY DAY WITH FOOD 90 capsule 1 01/05/20 25 Active fenofibrate micronized (LOFIBRA) 134 MG capsuleIndicati ons:Hypertrigly ceridemia TAKE ONE (1) CAPSULE BY MOUTH EVERY DAY WITH FOOD 90 capsule 1 07/31/19 25 025 Discontinued Active Problems Problem Noted Date Diagnosed [...] is not a surgical candidate. Follows with [facility] spine and sport on a [...] Encounters Date Type Department Care Team Description 01/04/[address] [place] [phone] Ashley Beal PA-C Hypertriglyceridemia 12/04/2024 Scanned Document [facility] [address] [place] [address] Urology, Scan 11/30/2024 Orders Only [facility] [address] [place] [address] Primary Care, Scan 11/29/2024 Orders Only [facility] [address] [place] [address] Primary Care, Scan 11/27/2024 Orders Only [facility] [address] [place] [address] Primary Care, Scan 11/27/2024 Scanned Document [facility] [address] [place] [address] Orthopedic Surgery, Scan 11/14/2024 Scanned Document [facility] ORTHO SURGERY SCAN Orthopedic Surgery, Scan 11/12/[address] [place] [address] Ashley Beal PA-C Hypothyroidism, unspecified type 11/06/2024 Orders Only [facility] [address] [place] [address] Primary Care, Scan 11/05/[address] [place] [address] Ashley Beal PA-C 11/04/[address] [place] [phone] Ashley Beal PA-C Anxiety (Primary Dx) 10/29/[address] [place] [phone] Ashley Beal PA-C Migraine without aura and without status migrainosus, not intractable 10/25/2024 Scanned Document [facility] [address] [place] [address] Gastroentero logy, Scan 10/22/[address] [place] [address] Ashley Beal PA-C Anxiety 10/22/[address] [place] [phone] Ashley Beal PA-C Anxiety; Gastroesophageal reflux disease without esophagitis 10/18/2024 Scanned Document [facility] [address] [place] [address] Neurology, Scan 10/16/2024 Orders Only [facility] [address] [place] [address] Nephrology, Scan 10/15/2024 Orders Only [facility] [address] [place] [address] Obstetrics And Gynecology, Scan from Last 3 [...] 0.6 oz pur e alcohol) [facility] Utilities Answer Date Recorded In the [...] and Family Not on file 05/13/2024 Attends [employer] Not on file 05/13 Active Member [...] any time in the past 12 m [facility], were you homeless or living in a fci (including now)? No 05/13/2024 Education Answer Date [...] Description 03/18/2025 1:45 PM EST Office Visit [address] [place] [phone] Ashley Beal PA-C [address] [place] [address] Health Maintenance Due Date Last Done Comments HIV Screening 01/09/1989 Physical 01/09/1994 Pap Smear (Ages 21-65) 01/09/1997 DTaP/Tdap/Td Vaccines (2 - Td or Tdap) 06/07/2021 06/07/2011 Influenza Vaccine 11/30/2024 03/04/2017, , 02/09/2010 COVID-19 Vaccine ( - season) 2024 Mammogram 10/05/2026 10/05/2024 Colonoscopy 05/02/2031 05/02/2021 (Prev [...] Most Recently Relevant to Health Maintenance Insurance [facility] - O Care Teams Laundry Marker Supervisor Relationship Specialty Start Date End Date Ashley Beal PA-C [address] [place] [address] PCP - General Internal Medicine 10/11/23 Solange Kaur Physician Gastroenterology 09/26/23 Gab Nixoners Physician Ophthalmology 09/26/23
--- OUTSIDE RECORDS SUMMARY | 2025-01-15 07:53 | XMS_ITS | Encounter Summary ---
Author Organization [facility] Address [address] [place] [address] Care Team Providers Care Contact Center Representative Name Role Phone Ashley Beal PA-C Primary Care [facility] Encounter Details Date Type Department Care Team (Late st Contact Info) Description 11/14/2024 Scanned Document [facility] ORTHO SURGERY SCAN Orthopedic Surgery, Scan Social History Tobacco Use Types Packs/Day Years Used Date Smoking Tobacco: Former Cigarettes Smokeless Tobacco: Former Alcohol Use Standard Drinks/Week Comments Yes 0 (1 standard drink = 0.6 oz pur e alcohol) [facility] Utilities Answer Date Recorded In the past 12 months has [employer] electric, gas, oil, or water company threatened [...] time in the past 12 m [facility], were you homeless or living in a detention (including now)? No 05/13/2024 Education Answer Date [...] Description 03/18/2025 1:45 PM EST Office Visit [address] [phone] Ashley Beal PA-C [address] [place] [address] documented as of this encounter Visit Diagnoses Not on filedocumented in this encounter Care Teams Contact Center Representative Relationship Specialty Start Date End Date Ashley Beal PA-C [address] [place] [address] PCP - General Internal Medicine 10/11/23 Solange Kaur Physician Gastroenterology 09/26/23 Gab Campos Physician Ophthalmology 09/26/23 documented as of this encounter
--- OUTSIDE RECORDS SUMMARY | 2025-01-15 07:53 | XMS_ITS | Encounter Summary ---
Author Organization [facility] Address [address] [place] [address] Care Team Providers Care Engineering Intern Name Role Phone Pcp, No Primary Care Provider Ashley Tyson PA-C Primary Care Provi mario Encounter Details Date Type Department Care Team (Late st Contact Info) Description 06/23/2022 Scanned Document [facility] INTERNAL MED SCAN Provider, Generic External [...] Description 03/18/2025 1:45 PM EST Office Visit [address] [place] [phone] Ashley Beal PA-C [address] [place] [address] documented as of this encounter Visit Diagnoses Not on filedocumented in this encounter Care Teams Engineering Intern Relationship Specialty Start Date End Date Pcp, No PCP - General General Medicine 10/03/23 10/10/23 Ashley Beal PA-C [address] [place] [address] PCP - General Internal Medicine 10/11/23 Solange Kaur Physician Gastroenterology 09/26/23 Gab Campos Physician Ophthalmology 09/26/23 documented as of this encounter
--- OUTSIDE RECORDS SUMMARY | 2025-01-15 07:53 | XMS_ITS | Encounter Summary ---
Author Organization [facility] Address [address] [place] [address] Care Team Providers Care Safemaker Name Role Phone Kirit Amado MD Primary Care Provider [phone] [facility] Primary Care Provider Unavailabl e Reason for Visit * Reason Comments E-prescribe Rx Request Encounter Details Date Type Department Care Team Description 11/13/2020 Refill Adult Medicine [address] [address] Tigist Duncan PA E-prescribe Rx Request Social History Tobacco Use Types Packs/Day Years [...] encounter Miscellaneous Notes * Telephone Encounter - Davida Muse - 11/14/2020 3:00 PM EDT Patient would like script to be: E-PRESCRIBED/FAXED TO PHARMACY WHEN WAS THE PATIENT'S LAST APPOINTMENT IN ADULT MEDICINE? 10-01-20 WHEN WAS THE LAST TIME THE PATIENT SAW THEIR PCP? 06-16-15 Does patient have an upcoming appointment? No-unable to reach left voicemaill to call for appointment due to refill request. Appt due next available (THE MEDICATION REQUESTED IS ON THE MED LIST ABOVE) All of the medications requested were on the CURRENT MEDS list Did you check the Pharmacy information above?: YES Patient wants: 30 -day supply Is this a mail order prescription request ? NO If the refill is from a FAXED refill request what is the RX # listed on the fax? N/A Patients current insurance carrier is: Payor: ASHN / Plan: CH/ASHN/$40/30V/F/PPO / Product Type: PPO [id number] documented in this encounter Plan of Treatment Not on file documented as of this encounter Visit Diagnoses Not on filedocumented in this encounter Care Teams Safemaker Relationship Specialty Start Date End Date Kirit Amado MD [address] [place] [address] PCP - General 07/15/09 07/07/21 [facility] [address] [address] PCP - General Internal Medicine 07/08/21 documented as of this encounter
--- OUTSIDE RECORDS SUMMARY | 2025-01-15 07:53 | XMS_ITS | Encounter Summary ---
Author Organization [facility] Address [address] [place] [address] Care Team Providers Care Film Tests Checker Name Role Phone Kirit Amado MD Primary Care Provider [phone] [facility], [facility] Primary Care Provider Unavailabl e Encounter Details Date Type Department Care Team Description 10/03/2012 Pt. Non Urgent Medical Question Adult Medicine [address] [address] Hoang Mueller PA-C Antibody response examination; Screening for other and unspecified endocrine, nutritional, metabolic, and immunity disorders Social History Tobacco Use Types Packs/Day Years [...] Progress Notes * Tabatha Madison L.P.N. - 10/03/2012 8:35 AM EDTFrom: LYLA CASTANEDA To: Hoang Mueller PA-C Sent: TueOct 03, 2012 8:29 AM Subject: Hep B I need to have a Hep B titer done to confirm immunity after my second round of the vaccine. Thank you. documented in this encounter Plan of Treatment Not on file documented as of this encounter Results * HEPATITIS B SURFACE AB TEST (10/12/2012 10:50 AM EDT) Hepatitis B surface antibody POSITIVE 10/12/2012 12:27 PM EDT [facility] Comment: Individual is considered to be immune to infection with HBV. Individual is considered to be immune to infection with HBV. 10/12/2012 10:5 0 AM EDT 10/12/2012 10:51 AM EDT Kirit Amado MD LAB [address] documented in this encounter Visit Diagnoses Diagnosis Antibody response examination Screening for other and unspecified endocrine, nutritional, metabolic, and immunity disorders documented in this encounter Care Teams Film Tests Checker Relationship Specialty Start Date End Date Kirit Amado MD [address] [place] [address] PCP - General 07/15/09 07/07/21 [facility], [address] [address] PCP - General Internal Medicine 07/08/21 documented as of this encounter
--- OUTSIDE RECORDS SUMMARY | 2025-01-15 07:53 | XMS_ITS | Encounter Summary ---
Author Organization [facility] Address [address] [place] [address] Care Team Providers Care Classics Teacher Name Role Phone Kirit Amado MD Primary Care Provider [phone] [facility], Pcp Primary Care Provider Unavailabl e Encounter Details Date Type Department Care Team Description 10/18/2013 Psychiatric Technician Assistant Report Medical Records [address] [place] [address] Eder Lee PA-C Social History Tobacco Use [...] on filedocumented in this encounter Care Teams Classics Teacher Relationship Specialty Start Date End Date Kirit Amado MD [address] [place], [place] [phone] PCP - General 07/15/09 07/07/21 [facility], Pcp [address] [place], [place] [address]XIOM[place] hagen [address] PCP - General Internal Medicine 07/08/21 documented as of this encounter
--- OUTSIDE RECORDS SUMMARY | 2025-01-15 07:53 | XMS_ITS | Encounter Summary ---
Author Organization [facility] Address [address] [place] [address] Care Team Providers Care Podiatric Medicine Doctor Name Role Phone Kirit Amado MD Primary Care Provider [phone] [facility], [facility] Primary Care Provider Unavailabl e Encounter Details Date Type Department Care Team Description 10/14/2020 Orders Only Adult Medicine [address] [address] Tigist Duncan PA Lumbar disc disease Social [...] (10/02/2020) Tigist ALVES MRI Performing Organization Address City/State/[facility] Co me Phone Number [address] documented in this encounter Visit Diagnoses Diagnosis Lumbar disc disease Other and unspecified disc disorder of lumbar region documented in this encounter Care Teams Podiatric Medicine Doctor Relationship Specialty Start Date End Date Kirit Amado MD [address] [place] [address] PCP - General 07/15/09 07/07/21 [facility], Pcp [address] [place] [address] PCP - General Internal Medicine 07/08/21 documented as of this encounter
--- OUTSIDE RECORDS SUMMARY | 2025-01-15 07:53 | XMS_ITS | Encounter Summary ---
Author Organization [facility] Address [address] [place] [address] Care Team Providers Care Recreation Instructor Name Role Phone Kirit Amado MD Primary Care Provider [phone] [facility], [facility] Primary Care Provider [facility] Encounter Details Date Type Department Care Team Description 10/26/2020 Pt. Non Urgent Medic al Question Adult Medicine [address] [address] Tigist Duncan PA Social History Tobacco Use [...] filedocumented in this encounter Care Teams Recreation Instructor Relationship Specialty Start Date End Date Kirit Amado MD [address] [place] [address] PCP - General 07/15/09 07/07/21 [facility], [address] [address] PCP - General Internal Medicine 07/08/21 documented as of this encounter
--- OUTSIDE RECORDS SUMMARY | 2025-01-15 07:53 | XMS_ITS ---
Continuity of Care Document (CCD) Created on: January 15, 2025 Lyla Castaneda External Reference #: [id number] : [id number] Sex: Female Author Organization [facility] Address [address] [facility] [address] [place] [address] Phone [phone] Social History Type Date Description Comments Sex Female Sex Unknown Medications Active Medications SIG Qnty Indications Ordering Provider Date Hydroxyzine [id number] Tablets take 2 tablets at bedtime, can add 1 extra tab as needed Misty Sharma M.D. 11/11/2021 Sertraline [id number] Tablets 1 by mouth every day Misty Sharma M.D. 11/11/2021 Metoprolol Succinate ER25mg Tablets ER 24HR 1 by mouth every day Misty Sharma M.D. 11/11/[id number] 1 tab by mouth as needed 90caps Misty Sharma M.D. 11/11/2021 [id number] Tablets take 1 tablet twice daily Misty Sharma M.D. 11/11/2021 Levothyroxine [id number] Capsules 1 cap by mouth every day [...]
--- OUTSIDE RECORDS SUMMARY | 2025-01-15 07:53 | XMS_ITS | Encounter Summary ---
Author Organization [facility] Address [address] [place] [address] Care Team Providers Care Mechanic General Operational Test Name Role Phone Pcp, No Primary Care Provider Ashley Tyson PA-C Primary Care Provi mario Encounter Details Date Type Department Care Team (Late st Contact Info) Description 06/04/2022 Scanned Document [facility] INTERNAL MED SCAN Provider, Generic [...] Description 03/18/2025 1:45 PM EST Office Visit [address] [place] [phone] Ashley Beal PA-C [address] [place] [phone] documented as of this encounter Visit Diagnoses Not on filedocumented in this encounter Care Teams Mechanic General Operational Test Relationship Specialty Start Date End Date Pcp, No PCP - General General Medicine 10/03/23 10/10/23 Ashley Beal PA-C [address] [place] [address] PCP - General Internal Medicine 10/11/23 Solange Kaur Physician Gastroenterology 09/26/23 Gab Campos Physician Ophthalmology 09/26/23 documented as of this encounter
--- OUTSIDE RECORDS SUMMARY | 2025-01-15 07:53 | XMS_ITS | Encounter Summary ---
Author Organization [facility] Address [address] [place] [address] Care Team Providers Care Independent Driver Name Role Phone Kirit Amado MD Primary Care Provider [phone] [facility], [facility] Primary Care Provider Unavailabl e Reason for Visit * Reason Comments E-prescribe Rx Request Encounter Details Date Type Department Care Team Description 05/18/2014 Refill Adult Medicine [address] [address] Hoang Mueller PA-C E-prescribe Rx Request Social History Tobacco Use [...] * Telephone Encounter - Davida Muse - 05/20/2014 9:14 AM EST Patient would like script to be: E-PRESCRIBED/FAXED TO PHARMACY WHEN WAS THE PATIENT'S LAST APPOINTMENT IN ADULT MEDICINE? WHEN WAS THE LAST TIME THE PATIENT SAW THEIR PCP? 06-26-10 Does patient have an upcoming appointment? No-[facility] to refill request. Appt due next available (THE MEDICATION REQUESTED IS ON THE MED LIST ABOVE) One or some of the medications requested were on the HISTORICAL MED list Did you check the Pharmacy information above?: YES Patient wants: 30 -day supply Is this a mail order prescription request ? NO Patients current insurance carrier is: Payor: RAND[employer] / Plan: POS $0 ISACCZady [id number] / Product Type: POS [id number] documented in this encounter Plan of Treatment Not on file documented as of this encounter Visit Diagnoses Not on filedocumented in this encounter Care Teams Independent Driver Relationship Specialty Start Date End Date Kirit Amado MD [address] [place] [address] PCP - General 07/15/09 07/07/21 [place] [address] PCP - General Internal Medicine 07/08/21 documented as of this encounter
--- OUTSIDE RECORDS SUMMARY | 2025-01-15 07:53 | XMS_ITS | Encounter Summary ---
Author Organization [facility] Address [address] [place] [address] Care Team Providers Care Segmental Paving Supervisor Name Role Phone Kirit Amado MD Primary Care Provider [phone] [facility] Primary Care Provider Unavailabl e Encounter Details Date Type Department Care Team Description 04/06/2021 Advertising Executive Report Medical Records [address] [place] [address] Tayo Hook Social History Tobacco Use Types [...] on filedocumented in this encounter Care Teams Segmental Paving Supervisor Relationship Specialty Start Date End Date Kirit Amado MD [address] [place], [place] [phone] PCP - General 07/15/09 07/07/21 [facility]cp [address] [place] [address] PCP - General Internal Medicine 07/08/21 documented as of this encounter
--- OUTSIDE RECORDS SUMMARY | 2025-01-15 07:53 | XMS_ITS | Encounter Summary ---
Author Organization [facility] Address [address] [place] [address] Care Team Providers Care Hand Singer Name Role Phone Kirit Amado MD Primary Care Provider [phone] [facility], [facility] Primary Care [facility] Encounter Details Date Type Department Care Team Description 06/13/2015 Pt. Non Urgent Medic al Question Adult Medicine [address] [address] Hoang Mueller PA-C Social History Tobacco Use [...] the holter monitor came in. I called [facility] Cardiology and they said that it was faxed this afternoon. documented in this encounter Plan of Treatment Not on file documented as of this encounter Visit Diagnoses Not on filedocumented in this encounter Care Teams Hand Singer Relationship Specialty Start Date End Date Kirit Amado MD [address] [place] [address] PCP - General 07/15/09 07/07/21 [facility], Pcp [address] [place] [address] PCP - General Internal Medicine 07/08/21 documented as of this encounter
--- OUTSIDE RECORDS SUMMARY | 2025-01-15 07:53 | XMS_ITS | Encounter Summary ---
Author Organization [facility] Address [address] [place] [address] Care Team Providers Care Ship Loader Name Role Phone Kirit Amado MD Primary Care Provider [phone] [facility], [facility] Primary Care Provider [facility] [place] [facility] Encounter Details Date Type Department Care Team Description 12/20/2012 Pt. Non Urgent Medic al Question Adult Medicine [address] [address] Hoang Mueller PA-C Social History Tobacco Use [...] Tolbert M.A. - 12/20/2012 11:26 AM EDTFrom: CARTERVICKIELYLA Orozco To: oHang Mueller PA-C Sent: TueDec 20, 2012 10:37 AM Subject: Allergy testing I was wondering if you could put a referal in for allergy testing for me. Thank you. documented in this encounter Plan of Treatment Not on file documented as of this encounter Visit Diagnoses Not on filedocumented in this encounter Care Teams Ship Loader Relationship Specialty Start Date End Date Kirit Amado MD [address] [place] [phone] PCP - General 07/15/09 07/07/21 [facility], Pcp [address] [place] [address] PCP - General Internal Medicine 07/08/21 documented as of this encounter
--- OUTSIDE RECORDS SUMMARY | 2025-01-15 07:53 | XMS_ITS | Encounter Summary ---
Author Organization [facility] Address [address] [place] [address] Care Team Providers Care Van Loader Name Role Phone Pcp, No Primary Care Provider Ashley Tyson PA-C Primary Care Provi mario Encounter Details Date Type Department Care Team (Late st Contact Info) Description 03/04/2022 Scanned Document [facility] INTERNAL MED SCAN Provider, [...] Description 03/18/2025 1:45 PM EST Office Visit [address] [place] [phone] Ashley Beal PA-C [address] [place] [address] documented as of this encounter Visit Diagnoses Not on filedocumented in this encounter Care Teams Van Loader Relationship Specialty Start Date End Date Pcp, No PCP - General General Medicine 10/03/23 10/10/23 Ashley Beal PA-C [address] [place] [address] PCP - General Internal Medicine 10/11/23 Solange Kaur Physician Gastroenterology 09/26/23 Gab Campos Physician Ophthalmology 09/26/23 documented as of this encounter
--- OUTSIDE RECORDS SUMMARY | 2025-01-15 07:53 | XMS_ITS | Encounter Summary ---
Author Organization [facility] Address [address] [place] [address] Care Team Providers Care Residential Sales Manager Name Role Phone Pcp, No Primary Care Provider Ashley Tyson PA-C Primary Care Provi mario Encounter Details Date Type Department Care Team (Late st Contact Info) Description 09/15/2022 Scanned Document [facility] INTERNAL MED SCAN [...] Description 03/18/2025 1:45 PM EST Office Visit [address] [place] [phone] Ashley Beal PA-C [address] [place] [address] documented as of this encounter Visit Diagnoses Not on filedocumented in this encounter Care Teams Residential Sales Manager Relationship Specialty Start Date End Date Pcp, No PCP - General General Medicine 10/03/23 10/10/23 Ashley Beal PA-C [address] [place] [address] PCP - General Internal Medicine 10/11/23 Solange Kaur Physician Gastroenterology 09/26/23 Gab Campos Physician Ophthalmology 09/26/23 documented as of this encounter
--- OUTSIDE RECORDS SUMMARY | 2025-01-15 07:53 | XMS_ITS | Encounter Summary ---
Author Organization [facility] Address [address] [place] [address] Care Team Providers Care Supply Service Worker Name Role Phone Pcp, No Primary Care Provider Ashley Tyson PA-C Primary Care Provi mario Encounter Details Date Type Department Care Team (Late st Contact Info) Description 08/16/2022 Scanned Document [facility] INTERNAL MED SCAN Provider, Generic External Data [...] Description 03/18/2025 1:45 PM EST Office Visit [address] [place] [phone] Ashley Beal PA-C [address] [place] [address] documented as of this encounter Visit Diagnoses Not on filedocumented in this encounter Care Teams Supply Service Worker Relationship Specialty Start Date End Date Pcp, No PCP - General General Medicine 10/03/23 10/10/23 Ashley Beal PA-C [address] [place] [address] PCP - General Internal Medicine 10/11/23 Solange Kaur Physician Gastroenterology 09/26/23 Gab Campos Physician Ophthalmology 09/26/23 documented as of this encounter
--- OUTSIDE RECORDS SUMMARY | 2025-01-15 07:53 | XMS_ITS | Encounter Summary ---
Author Organization [facility] Address [address] [place] [address] Care Team Providers Care Heel Seat Filler Name Role Phone Pcp, No Primary Care Provider Ashley Tyson PA-C Primary Care Provi mario Encounter Details Date Type Department Care Team (Late st Contact Info) Description 03/16/2023 Scanned Document [facility] INTERNAL MED SCAN Provider, Generic External [...] Description 03/18/2025 1:45 PM EST Office Visit [address] [place] [phone] Ashley Beal PA-C [address] [place] [address] documented as of this encounter Visit Diagnoses Not on filedocumented in this encounter Care Teams Heel Seat Filler Relationship Specialty Start Date End Date Pcp, No PCP - General General Medicine 10/03/23 10/10/23 Ashley Beal PA-C [address] [place] [address] PCP - General Internal Medicine 10/11/23 Solange Kaur Physician Gastroenterology 09/26/23 Gab Campos Physician Ophthalmology 09/26/23 documented as of this encounter
--- OUTSIDE RECORDS SUMMARY | 2025-01-15 07:53 | XMS_ITS | Encounter Summary ---
Author Organization [facility] Address [address] [place] [address] Care Team Providers Care Behavioral Medical Director Name Role Phone Kirit Amado MD Primary Care Provider [phone] [facility], [facility] Primary Care Provider [facility] Encounter Details Date Type Department Care Team Description 10/01/2020 Pt. Non Urgent Medic al Question Adult Medicine [address] [address] Tigist Duncan PA Social History Tobacco Use [...] letter about the MRI being sent to [facility]. I need it to be done at [facility] because of my insurance. If you could please fax the order and any additional paperwork to [phone]. The paperwork at that I was given this morning was not an actual order according to [facility]'s MRI department. Thank you. documented in this encounter Plan of Treatment Not on file documented as of this encounter Visit Diagnoses Not on filedocumented in this encounter Care Teams Behavioral Medical Director Relationship Specialty Start Date End Date Kirit Amado MD [address] [place] [address] PCP - General 07/15/09 07/07/21 [facility], Pcp [address] [place] [address] PCP - General Internal Medicine 07/08/21 documented as of this encounter
--- OUTSIDE RECORDS SUMMARY | 2025-01-15 07:53 | XMS_ITS | Encounter Summary ---
Author Organization [facility] Address [address] [place] [address] Care Team Providers Care Party Host/Hostess Name Role Phone Pcp, No Primary Care Provider Ashley Tyson PA-C Primary Care Provi mario Encounter Details Date Type Department Care Team (Late st Contact Info) Description 02/05/2022 Scanned Document [facility] INTERNAL MED SCAN Provider, Generic [...] Description 03/18/2025 1:45 PM EST Office Visit [address] [place] [phone] Ashley Beal PA-C [address] [place] [address] documented as of this encounter Visit Diagnoses Not on filedocumented in this encounter Care Teams Party Host/Hostess Relationship Specialty Start Date End Date Pcp, No PCP - General General Medicine 10/03/23 10/10/23 Ashley Beal PA-C [address] [place] [address] PCP - General Internal Medicine 10/11/23 Solange Kaur Physician Gastroenterology 09/26/23 Gab Campos Physician Ophthalmology 09/26/23 documented as of this encounter
--- OUTSIDE RECORDS SUMMARY | 2025-01-15 07:53 | XMS_ITS | Encounter Summary ---
Author Organization [facility] Address [address] [place] [address] Care Team Providers Care Telephone Maintainer Name Role Phone Kirit Amado MD Primary Care Provider [phone] [facility], Pcp Primary Care Provider Unavailabl e Encounter Details Date Type Department Care Team Description 04/20/2016 Hospital Medical Records [address] [place] [address] Precious Pressley MD Social History Tobacco Use [...] on filedocumented in this encounter Care Teams Telephone Maintainer Relationship Specialty Start Date End Date Kirit Amado MD [address] [place], [place] [phone] PCP - General 07/15/09 07/07/21 [facility], Pcp [address] [place] [address] PCP - General Internal Medicine 07/08/21 documented as of this encounter
[2025-01-15 07:57] VITALS: BMI 35.5
--- NOTE | 2025-01-15 07:57 | A.OFFVIS_ITS ---
Vital Signs 3 01/15/25 07:57 Height 5 ft 1 in Weight 188 lb BMI 35.5 Intake Visit Reasons: Follow Up left great toe pain Intake Note: Lyla is a 50 year old female who presents to the office today for a follow up for a Left hallux total nail avulsion on 01/03/25. Patient reports the toenail is doing better but she notices slight discomfort in her nuckle on the great left toe. Allergies Iodinated Contrast Media Adverse Reaction (Severe, Verified 01/15/25 07:58) Hives HPI Comments Details: The patient is a 50-year-old female who presents to the office today for follow- up status post left hallux total nail avulsion. She states her symptoms have significantly improved following the nail avulsion. She denies any purulence or drainage from the site. Patient states she adhere to the aftercare instructions. Patient states she still experiences pain to the area of the 1st MPJ. She continues to experience a constant cramping sensation, exacerbated by movement and pressure, and states it still affect her ability to sleep comfortably on her side. She states she continues to feel radiation of pain along the 1st metatarsal with tendinous involvement. She denies any other pedal concerns today. She denies any current nausea, vomiting, fever, or chills. 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 Toe pain, left Hypersomnia Snoring Coarse tremors Breast pain, right Rapid palpitations Intermittent palpitations GERD (gastroesophageal reflux disease) Anxiety Low vitamin D level Hypothyroid Migraine Lichen planus Surgical History History of esophagogastroduodenoscopy (EGD) Hx of colonoscopy H/O partial thyroidectomy H/O wisdom tooth extraction Hx of cholecystectomy H/O: hysterectomy Social History Alcohol intake: never Patient Tobacco Use Status: Never used Tobacco Current occupational status: employed Current occupation: MA at [employer] Review of Systems Const Details: - Musculoskeletal: Reports persistent cramping pain in the left hallux in the area of the 1st MPJ. All systems reviewed & are unremarkable except as noted in HPI and below Physical Exam Vital Signs: BMI result Body Mass Index 35.5 Extrem Other: Left lower extremity focused Physical exam: Derm: Left hallux total nail avulsion site noted to be well healed with no drainage, erythema, or purulence noted. No edema noted. Skin turgor within normal limits. No hyperkeratotic lesions noted. Vascular exam: DP/PT pulses intact. Capillary refill time less than 3 seconds. No varicosities noted. Pedal hair absent. Temperature gradient warm to warm. Neuro exam: Protective sensation is grossly intact. Musculoskeletal exam: Pain on palpation to the area of the left 1st MPJ. No crepitus noticed with range of motion of 1st MPJ. Limited range of motion noted to the left hallux at the level of the MPJ, guarding due to pain. Range of motion of remaining toes within normal limits. Ankle/foot/toe images: 2 1. 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 I discussed with the patient the use of a Thompson's extension to help alleviate the pain in her left hallux by limiting motion to the joint. We also talked about using Voltaren gel for temporary relief of arthritic pain. Prescribed Voltaren gel. I explained that if the pain does not improve with these measures, we might consider a joint injection, which can be administered up to three times a year if necessary. Patient no longer needs to do Epsom salt soaks and no longer needs to apply Neosporin and a Band-Aid to the left hallux total nail avulsion site. Advised patient to wear supportive shoe gear, a shoe with a solid sole in order to reduce motion noted to the left 1st MPJ. Patient is to return to the office in 2 months for re-evaluation. If pain persists or worsen we will consider injection. 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
== END 2025-01-15 08:07 | disposition home or self-care (01) ==
PROVIDERS: PCP Physician Assistant Medical; Visit Provider Student in an Organized Health Care Education/Training Program
DX: M79.675 Pain in left toe(s) (principal); S91.202D Unspecified open wound of left great toe with damage to nail, subsequent encounter; M19.079 Primary osteoarthritis, unspecified ankle and foot
CPT/HCPCS: 99213

== ENCOUNTER 2025-01-25 09:01 | Outpatient (REF) | payer OTHER, SELFPAY ==
--- NOTE | ~2025-01-25 | US_ITS ---
EXAMINATION: US ABDOMEN LIMITED WITH LIVER ELASTOGRAPHY CLINICAL INFORMATION: Nonalcoholic steatohepatitis. COMPARISON: No prior elastography. Abdomen ultrasound 12/19/2023. TECHNIQUE: Real-time imaging of the abdominal viscera. Noninvasive ultrasound liver fibrosis assessment is performed using Siemens point quantification shear wave elastography (2D-SWE) with a C5-2 MHz transducer. Multiple elastography samples are obtained. FINDINGS: PANCREAS: The visualized pancreatic head and body are normal in appearance. The remainder of the pancreas is obscured from visualization by the overlying bowel gas. LIVER: The liver demonstrates borderline increased size, normal contour, and diffusely increased echogenicity. No suspicious focal lesion or intrahepatic biliary duct dilatation. There is a right lobe simple cyst measuring 7 mm. The right lobe measures 18.5 cm in length. The left lobe measures 13.6 cm in length. Portal flow is towards the liver (hepatopetal). Shear wave liver elastography median stiffness is 1.19 m/s (reference: normal median stiffness is 1.2 m/s or less). IQR/median stiffness to assess sampling precision is 0.13 (reference: good quality data set is IQR/median stiffness of 0.3 or less). This represents a quality data set. GALLBLADDER: Surgically absent. COMMON BILE DUCT: Normal in caliber measuring 0.8 cm in diameter. RIGHT KIDNEY: No hydronephrosis. No renal calculi or focal parenchymal lesions. The kidney measures 11.1 cm in maximum dimension. FREE FLUID: None. US/US abdomen garcia w elastography IMPRESSION: 1. Mild hepatomegaly and diffusely increased hepatic echogenicity consistent with steatosis. No suspicious focal lesion or biliary dilatation. 2. Liver elastography: Measurements are consistent with a high probability of normal liver stiffness. 3. Remainder of the examination is normal. ----- REFERENCE: Society of Radiologists in Ultrasound Liver Stiffness Thresholds (2019): LIVER STIFFNESS THRESHOLDS: *Liver Stiffness equal or less than 1.2 m/s: High probability of being normal. *Liver Stiffness less than 1.5 m/s: In the absence of other known clinical signs, rules out compensated advanced chronic liver disease. *Liver Stiffness less than 1.7 m/s: Suggestive of compensated advanced chronic liver disease but need further test for confirmation. *Liver Stiffness over 1.7 m/s: Rules in compensated advanced chronic liver disease. QUALITY OF DATA SET: *IQR/Median value equal or less than 0.3 implies a quality data set. *IQR/Median value over 0.3 implies a poor quality data set. SIGNIFICANT CHANGE FROM PRIOR EXAM: Significant change if liver stiffness measurement is 10% or greater from prior exam. OTHER CONSIDERATIONS: The stage of liver fibrosis may be overestimated in the setting of acute hepatitis, liver inflammation, elevated liver function tests, hepatic vascular congestion, obstructive cholestasis, non-fasting state, and infiltrative diseases such as amyloidosis and lymphoma. In some patients with NAFLD, the liver stiffness thresholds for compensated advanced chronic liver disease may be lower. In causes other than viral hepatitis and NAFLD, liver stiffness thresholds are not well established. Electronically signed by: Holland Giles MD 01/25/2025 09:42 AM EDT
--- OUTSIDE RECORDS SUMMARY | 2025-01-25 09:38 | XMS_ITS | Encounter Summary ---
Author Organization [facility] Address [address] [place] [address] Care Team Providers Care Greenhouse Laborer Name Role Phone Pcp, No Primary Care Provider Ashley Tyson PA-C Primary Care Provi mario Encounter Details Date Type Department Care Team (Late st Contact Info) Description 03/12/2022 Scanned Document [facility] INTERNAL MED SCAN Provider, Generic External [...] Description 03/18/2025 1:45 PM EST Office Visit [address] [place] [phone] Ashley Beal PA-C [address] [place] [address] documented as of this encounter Visit Diagnoses Not on filedocumented in this encounter Care Teams Greenhouse Laborer Relationship Specialty Start Date End Date Pcp, No PCP - General General Medicine 10/03/23 10/10/23 Ashley Beal PA-C [address] [place] [address] PCP - General Internal Medicine 10/11/23 Solange Kaur Physician Gastroenterology 09/26/23 Gab Campos Physician Ophthalmology 09/26/23 documented as of this encounter
--- OUTSIDE RECORDS SUMMARY | 2025-01-25 09:38 | XMS_ITS | Encounter Summary ---
Author Organization [facility] Address [address] [place] [address] Care Team Providers Care Senior Hr Manager Name Role Phone Pcp, No Primary Care Provider Ashley Tyson PA-C Primary Care Provi mario Encounter Details Date Type Department Care Team (Late st Contact Info) Description 06/04/2022 Scanned Document [facility] INTERNAL MED SCAN Provider, Generic [...] Description 03/18/2025 1:45 PM EST Office Visit [address] [place] [phone] Ashley Beal PA-C [address] [place] [address] documented as of this encounter Visit Diagnoses Not on filedocumented in this encounter Care Teams Senior Hr Manager Relationship Specialty Start Date End Date Pcp, No PCP - General General Medicine 10/03/23 10/10/23 Ashley Beal PA-C [address] [place] [address] PCP - General Internal Medicine 10/11/23 Solange Kaur Physician Gastroenterology 09/26/23 Gab Campos Physician Ophthalmology 09/26/23 documented as of this encounter
--- OUTSIDE RECORDS SUMMARY | 2025-01-25 09:38 | XMS_ITS | Encounter Summary ---
Author Organization [facility] Address [address] [place] [address] Care Team Providers Care Master Planner Name Role Phone Pcp, No Primary Care Provider Ashley Tyson PA-C Primary Care Provi mario Encounter Details Date Type Department Care Team (Late st Contact Info) Description 02/16/2023 Scanned Document [facility] INTERNAL MED SCAN Provider, Generic [...] Description 03/18/2025 1:45 PM EST Office Visit [address] [place] [phone] Ashley Beal PA-C [address] [place] [address] documented as of this encounter Visit Diagnoses Not on filedocumented in this encounter Care Teams Master Planner Relationship Specialty Start Date End Date Pcp, No PCP - General General Medicine 10/03/23 10/10/23 Ashley Beal PA-C [address] [place] [address] PCP - General Internal Medicine 10/11/23 Solange Kaur Physician Gastroenterology 09/26/23 Gab Campos Physician Ophthalmology 09/26/23 documented as of this encounter
--- OUTSIDE RECORDS SUMMARY | 2025-01-25 09:38 | XMS_ITS | Encounter Summary ---
Author Organization [facility] Address [address] [place] [address] Care Team Providers Care Sequins Winder Name Role Phone Pcp, No Primary Care Provider Ashley Tyson PA-C Primary Care Provi mario Encounter Details Date Type Department Care Team (Late st Contact Info) Description 09/15/2022 Scanned Document [facility] INTERNAL MED SCAN Provider, Generic External [...] 03/18/2025 1:45 PM EST Office Visit [address] [place] [phone] Ashley Beal PA-C [address] [place] [address] documented as of this encounter Visit Diagnoses Not on filedocumented in this encounter Care Teams Sequins Winder Relationship Specialty Start Date End Date Pcp, No PCP - General General Medicine 10/03/23 10/10/23 Ashley Beal PA-C [address] [place] [address] PCP - General Internal Medicine 10/11/23 Solange Kaur Physician Gastroenterology 09/26/23 Gab Campos Physician Ophthalmology 09/26/23 documented as of this encounter
--- OUTSIDE RECORDS SUMMARY | 2025-01-25 09:38 | XMS_ITS | Encounter Summary ---
Author Organization [facility]ly [facility] Address [address] [place] [address] Care Team Providers Care Business Unit Manager Name Role Phone Pcp, No Primary Care Provider Ashley Tyson PA-C Primary Care [facility] Encounter Details Date Type Department Care Team (Late st Contact Info) Description 06/11/2022 Scanned Document [facility] [...] 03/18/2025 1:45 PM EST Office Visit [address] [place] [phone] Ashley Beal PA-C [address] [place] [phone] documented as of this encounter Visit Diagnoses Not on filedocumented in this encounter Care Teams Business Unit Manager Relationship Specialty Start Date End Date Pcp, No PCP - General General Medicine 10/03/23 10/10/23 Ashley Beal PA-C [address] [place] [address] PCP - General Internal Medicine 10/11/23 Solange Kaur Physician Gastroenterology 09/26/23 Gab Campos Physician Ophthalmology 09/26/23 documented as of this encounter
--- OUTSIDE RECORDS SUMMARY | 2025-01-25 09:38 | XMS_ITS | Encounter Summary ---
Author Organization [facility] Address [address] [place] [address] Care Team Providers Care Automotive Power Electronics Engineer Name Role Phone Pcp, No Primary Care Provider Ashley Tyson PA-C Primary Care Provi mario Encounter Details Date Type Department Care Team (Late st Contact Info) Description 04/19/2022 Scanned Document [facility] INTERNAL MED SCAN Provider, Generic External [...] Description 03/18/2025 1:45 PM EST Office Visit [address] [place] [phone] Ashley Beal PA-C [address] [place] [address] documented as of this encounter Visit Diagnoses Not on filedocumented in this encounter Care Teams Automotive Power Electronics Engineer Relationship Specialty Start Date End Date Pcp, No PCP - General General Medicine 10/03/23 10/10/23 Ashley Beal PA-C [address] [place] [address] PCP - General Internal Medicine 10/11/23 Solange Kaur Physician Gastroenterology 09/26/23 Gab Campos Physician Ophthalmology 09/26/23 documented as of this encounter
--- OUTSIDE RECORDS SUMMARY | 2025-01-25 09:38 | XMS_ITS | Encounter Summary ---
Author Organization [facility]ly [facility] Address [address] [place] [address] Care Team Providers Care Warp Splitter Name Role Phone Pcp, No Primary Care Provider Ashley Tyson PA-C Primary Care Provi mario Encounter Details Date Type Department Care Team (Late st Contact Info) Description 08/01/2023 Scanned Document [facility] INTERNAL MED SCAN Provider, Generic [...] 03/18/2025 1:45 PM EST Office Visit [address] [place] [phone] Ashley Beal PA-C [address] [place] [address] documented as of this encounter Visit Diagnoses Not on filedocumented in this encounter Care Teams Warp Splitter Relationship Specialty Start Date End Date Pcp, No PCP - General General Medicine 10/03/23 10/10/23 Ashley Beal PA-C [address] [place] [address] PCP - General Internal Medicine 10/11/23 Solange Kaur Physician Gastroenterology 09/26/23 Gab Campos Physician Ophthalmology 09/26/23 documented as of this encounter
--- OUTSIDE RECORDS SUMMARY | 2025-01-25 09:38 | XMS_ITS | Encounter Summary ---
Author Organization [facility] Address [address] [place] [address] Care Team Providers Care Esl Instructor Name Role Phone Ashley Beal PA-C Primary Care [facility] Encounter Details Date Type Department Care Team (Late st Contact Info) Description 04/26/2024 Scanned Document [address] [phone] Primary Care, Scan Social History Tobacco Use [...] Description 03/18/2025 1:45 PM EST Office Visit [address] [phone] Ashley Beal PA-C [address] [place] [address] [phone] documented as of this encounter Visit Diagnoses Not on filedocumented in this encounter Care Teams Esl Instructor Relationship Specialty Start Date End Date Ashley Beal PA-C [address] [place] [address] PCP - General Internal Medicine 10/11/23 Solange Kaur Physician Gastroenterology 09/26/23 Gab Campos Physician Ophthalmology 09/26/23 documented as of this encounter
--- OUTSIDE RECORDS SUMMARY | 2025-01-25 09:38 | XMS_ITS | Encounter Summary ---
Author Organization [facility] Address [address] [place] [address] Care Team Providers Care Railroad Maintenance Clerk Name Role Phone Ashley Beal PA-C Primary Care [facility] Encounter Details Date Type Department Care Team (Late st Contact Info) Description 11/27/2024 Scanned Document [facility] [address] [place] [address] Orthopedic Surgery, Scan Social History Tobacco Use Types Packs/Day Years Used Date Smoking Tobacco: Former Cigarettes Smokeless Tobacco: Former Alcohol Use Standard Drinks/Week Comments Yes 0 (1 standard drink = 0.6 oz pur e alcohol) [facility] Utilities Answer Date Recorded In the past [...] and Family Not on file 05/13/2024 Attends [employer] Not on file 05/13 Active Member [...] any time in the past 12 m [facility], were you homeless or [...] Description 03/18/2025 1:45 PM EST Office Visit [address] [place] [phone] Ashley Beal PA-C [address] [place] [address] documented as of this encounter Visit Diagnoses Not on filedocumented in this encounter Care Teams Railroad Maintenance Clerk Relationship Specialty Start Date End Date Ashley Beal PA-C [address] [place] [address] PCP - General Internal Medicine 10/11/23 Solange Kaur Physician Gastroenterology 09/26/23 Gab Campos Physician Ophthalmology 09/26/23 documented as of this encounter
--- OUTSIDE RECORDS SUMMARY | 2025-01-25 09:38 | XMS_ITS | Encounter Summary ---
Author Organization [facility] Address [address] [place] [address] Care Team Providers Care Business Process Expert Name Role Phone Pcp, No Primary Care Provider Ashley Tyson PA-C Primary Care Pro[facility] mar[facility] Encounter Details Date Type Department Care Team (Late st Contact Info) Description 04/12/2023 Scanned Document [facility] INTERNAL MED SCAN Provider, Generic External Data [...] Description 03/18/2025 1:45 PM EST Office Visit [address] [place] [address] [phone] Ashley Beal PA-C [address] [place] [address] documented as of this encounter Visit Diagnoses Not on filedocumented in this encounter Care Teams Business Process Expert Relationship Specialty Start Date End Date Pcp, No PCP - General General Medicine 10/03/23 10/10/23 Ashley Beal PA-C [address] [place] [address] PCP - General Internal Medicine 10/11/23 Solange Kaur Physician Gastroenterology 09/26/23 Gab Campos Physician Ophthalmology 09/26/23 documented as of this encounter
--- OUTSIDE RECORDS SUMMARY | 2025-01-25 09:38 | XMS_ITS | Encounter Summary ---
Author Organization [facility] Address [address] [place] [address] Care Team Providers Care Clothing Presser Name Role Phone Ashley Beal PA-C Primary Care [facility] Encounter Details Date Type Department Care Team (Late st Contact Info) Description 11/14/2024 Scanned Document [facility] ORTHO SURGERY SCAN Orthopedic Surgery, Scan Social History Tobacco Use Types Packs/Day Years Used Date Smoking Tobacco: Former Cigarettes Smokeless Tobacco: Former Alcohol Use Standard Drinks/Week Comments Yes 0 (1 standard drink = 0.6 oz pur e alcohol) [facility] Utilities Answer Date Recorded In the past 12 months has [employer], gas, oil, or water company threatened to shut off services in your home? No 05/13/2024 Social Connection and Isolation Panel [NHANES] A nswer Date Recorded In a typical week, how many times do you talk on the phone with family, friends, or neighbors? Once a week 05/13/2024 Frequency of Social Gatherings with Friends and Family Not on file 05/13/2024 Attends [employer] Not on file 05/13 Active Member [...] time in the past 12 m [facility], were you homeless or living in a intermediate (including now)? No 05/13/2024 Education Answer Date [...] 03/18/2025 1:45 PM EST Office Visit [address] [phone] Ashley Beal PA-C [address] [place] [address] documented as of this encounter Visit Diagnoses Not on filedocumented in this encounter Care Teams Clothing Presser Relationship Specialty Start Date End Date Ashley Beal PA-C [address] [place] [address] PCP - General Internal Medicine 10/11/23 Solange Kaur Physician Gastroenterology 09/26/23 Gab Campos Physician Ophthalmology 09/26/23 documented as of this encounter
--- OUTSIDE RECORDS SUMMARY | 2025-01-25 09:38 | XMS_ITS | Encounter Summary ---
Author Organization [facility] Address [address] [place] [address] Care Team Providers Care Assortment Planner Name Role Phone Ashley Beal PA-C Primary Care [facility] Encounter Details Date Type Department Care Team (Late st Contact Info) Description 10/18/2024 Scanned Document [facility] [address] [place] [address] Neurology, Scan Social History Tobacco Use Types Packs/Day Years Used Date Smoking Tobacco: Former Cigarettes Smokeless Tobacco: Former Alcohol Use Standard Drinks/Week Comments Yes 0 (1 standard drink = 0.6 oz pur e alcohol) [facility] Utilities Answer Date Recorded In the [...] and Family Not on file 05/13/2024 Attends [employer] Not on file 05/13 Active Member [...] any time in the past 12 m [facility], were you homeless or living in a senior care (including now)? No 05/13/2024 Education Answer Date [...] 03/18/2025 1:45 PM EST Office Visit [address] [place] [phone] Ashley Beal PA-C [address] [place] [address] documented as of this encounter Visit Diagnoses Not on filedocumented in this encounter Care Teams Assortment Planner Relationship Specialty Start Date End Date Ashley Beal PA-C [address] [place] [address] PCP - General Internal Medicine 10/11/23 Solange Kaur Physician Gastroenterology 09/26/23 Gab Campos Physician Ophthalmology 09/26/23 documented as of this encounter
--- OUTSIDE RECORDS SUMMARY | 2025-01-25 09:38 | XMS_ITS | Continuity of Care Document ---
Author Organization [facility] Address [address] [place] [address] Phone [phone] Social History Type Date Description Comments Sex Female Sex Unknown Medications Active Medications SIG Qnty Indications Ordering Provider Date Hydroxyzine SIL95pd Tablets take 2 tablets at bedtime, can add 1 extra tab as needed Misty Sharma M.D. 11/11/2021 Sertraline [id number] Tablets 1 by mouth every day Misty Sharma M.D. 11/11/2021 Metoprolol Succinate ER25mg Tablets ER 24HR 1 by mouth every day Misty Sharma M.D. 11/11/[id number] 1 tab by mouth as needed 90caps Misty Sharma M.D. 11/11/2021 [id number] Tablets take 1 tablet twice daily Misty Sharma M.D. 11/11/2021 Levothyroxine [id number] Capsules 1 cap by mouth every day [...]
--- OUTSIDE RECORDS SUMMARY | 2025-01-25 09:38 | XMS_ITS | Encounter Summary ---
Author Organization [facility] Address [address] [place] [address] Care Team Providers Care Senior Account Clerk Name Role Phone Ashley Beal PA-C Primary Care [facility] Encounter Details Date Type Department Care Team (Late st Contact Info) Description 06/12/2024 Scanned Document [facility] [address] [place] [address] Neurology, Scan Social History Tobacco Use Types Packs/Day Years Used Date Smoking Tobacco: Former Cigarettes Smokeless Tobacco: Former Alcohol Use Standard Drinks/Week Comments Yes 0 (1 standard drink = 0.6 oz pur e alcohol) [facility] Utilities Answer Date Recorded In the [...] and Family Not on file 05/13/2024 Attends [employer] Services Not on file 05/13 Active Member [...] any time in the past 12 m [facility], were you homeless or [...] Description 03/18/2025 1:45 PM EST Office Visit [address] [place] [phone] Ashley Beal PA-C [address] [place] [address] documented as of this encounter Visit Diagnoses Not on filedocumented in this encounter Care Teams Senior Account Clerk Relationship Specialty Start Date End Date Ashley Beal PA-C [address] [place] [address] PCP - General Internal Medicine 10/11/23 Solange Kaur Physician Gastroenterology 09/26/23 Gab Campos Physician Ophthalmology 09/26/23 documented as of this encounter
--- OUTSIDE RECORDS SUMMARY | 2025-01-25 09:38 | XMS_ITS | Encounter Summary ---
Author Organization [facility] Address [address] [place] [address] Care Team Providers Care Roller Name Role Phone Pcp, No Primary Care Provider Ashley Tyson PA-C Primary Care [facility] Encounter Details Date Type Department Care Team (Late st Contact Info) Description 07/08/2023 Scanned Document [facility] INTERNAL MED SCAN Provider, Generic External Data [...] Description 03/18/2025 1:45 PM EST Office Visit [address] [place] [phone] Ashley Beal PA-C [address] [place] [address] documented as of this encounter Visit Diagnoses Not on filedocumented in this encounter Care Teams Roller Relationship Specialty Start Date End Date Pcp, No PCP - General General Medicine 10/03/23 10/10/23 Ashley Beal PA-C [address] [place] [address] PCP - General Internal Medicine 10/11/23 Solange Kaur Physician Gastroenterology 09/26/23 Gab Campos Physician Ophthalmology 09/26/23 documented as of this encounter
--- OUTSIDE RECORDS SUMMARY | 2025-01-25 09:38 | XMS_ITS | Encounter Summary ---
Author Organization [facility] Address [address] [place] [address] Care Team Providers Care Box Packer Name Role Phone Ashley Beal PA-C Primary Care [facility] Encounter Details Date Type Department Care Team (Late st Contact Info) Description 07/27/2024 Scanned Document [address] [place] [phone] Ashley Beal PA-C [address] [place] [address] Social History Tobacco Use Types Packs/Day Years Used Date Smoking Tobacco: Former Cigarettes Smokeless Tobacco: Former Alcohol Use Standard Drinks/Week Comments Yes 0 (1 standard drink = 0.6 oz pur e alcohol) [facility] Utilities Answer Date Recorded In the past [address] [facility] [employer], gas, oil, or water [employer] threatened to shut off services in your home? No 05/13/2024 Social Connection and Isolation Panel [NHANES] A nswer Date Recorded In a typical week, how many times do you talk on the phone with family, friends, or neighbors? Once a week 05/13/2024 Frequency of Social Gatherings with Friends and Family Not on file 05/13/2024 Attends [employer]ism Services Not on file 05/13 Active Member [...] any time in the past 12 m [facility], were you homeless or living in a nursing home (including now)? No 05/13/2024 Education Answer [...] Description 03/18/2025 1:45 PM [place] [phone] Ashley Beal PA-C [address] [place] [address] documented as of this encounter Visit Diagnoses Not on filedocumented in this encounter Care Teams Box Packer Relationship Specialty Start Date End Date Ashley Beal PA-C [address] [place] [address] PCP - General Internal Medicine 10/11/23 Solange Kaur Physician Gastroenterology 09/26/23 Gab Campos Physician Ophthalmology 09/26/23 documented as of this encounter
--- OUTSIDE RECORDS SUMMARY | 2025-01-25 09:38 | XMS_ITS | Encounter Summary ---
Author Organization [facility] Address [address] [place] [address] Care Team Providers Care Brush Maker Name Role Phone Pcp, No Primary Care Provider Ashley Tyson PA-C Primary Care [facility] Encounter Details Date Type Department Care Team (Late st Contact Info) Description 08/16/2022 Scanned Document [facility] INTERNAL MED SCAN Provider, Generic External Data [...] Description 03/18/2025 1:45 PM EST Office Visit [address] [place] [phone] Ashley Beal PA-C [address] [place] [address] documented as of this encounter Visit Diagnoses Not on filedocumented in this encounter Care Teams Brush Maker Relationship Specialty Start Date End Date Pcp, No PCP - General General Medicine 10/03/23 10/10/23 Ashley Beal PA-C [address] [place] [address] PCP - General Internal Medicine 10/11/23 Solange Kaur Physician Gastroenterology 09/26/23 Gab Campos Physician Ophthalmology 09/26/23 documented as of this encounter
--- OUTSIDE RECORDS SUMMARY | 2025-01-25 09:38 | XMS_ITS | Encounter Summary ---
Author Organization [facility] Address [address] [place] [address] Care Team Providers Care Communications Tech Name Role Phone Pcp, No Primary Care Provider Ashley Tyson PA-C Primary Care [facility] Encounter Details Date Type Department Care Team (Late st Contact Info) Description 02/05/2022 Scanned Document [facility] INTERNAL MED SCAN Provider, Generic [...] 03/18/2025 1:45 PM EST Office Visit [address] [place] [phone] Ashley Beal PA-C [address] [place] [address] documented as of this encounter Visit Diagnoses Not on filedocumented in this encounter Care Teams Communications Tech Relationship Specialty Start Date End Date Pcp, No PCP - General General Medicine 10/03/23 10/10/23 Ashley Beal PA-C [address] [place] [address] PCP - General Internal Medicine 10/11/23 Solange Kaur Physician Gastroenterology 09/26/23 Gab Campos Physician Ophthalmology 09/26/23 documented as of this encounter
--- OUTSIDE RECORDS SUMMARY | 2025-01-25 09:38 | XMS_ITS | Clinical Summary ---
Author Organization [facility] Address [address] [place] [address] Care Team Providers Care Market Researcher Name Role Phone Ashley Beal PA-C Primary [...] DAY 90 capsule 2 10/23/19 25 Active sertraline (ZOLOFT) 50 MG tabletIndicatio [...] FOOD 90 capsule 1 01/05/20 25 Active metoPROLOL SUCCINATE (TOPROL-XL) 25 MG 24 hr tabletIndicatio ns:Anxiety TAKE 1 TABLET (25 MG TOTAL) BY MOUTH DAILY. 90 tablet 1 01/23/20 25 Active fenofibrate micronized (LOFIBRA) 134 MG capsuleIndicati ons:Hypertrigly ceridemia TAKE ONE (1) CAPSULE BY MOUTH EVERY DAY WITH FOOD 90 capsule 1 07/31/19 25 025 Discontinued metoPROLOL SUCCINATE (TOPROL-XL) 25 MG 24 hr tabletIndicatio ns:Anxiety Take 1 tablet (25 mg total) by mouth daily. 90 tablet 1 10/24/19 25 025 Discontinued Active Problems Problem Noted Date Diagnosed Date Class 2 obesity 01/08/2024 Palpitations 12/01/2023 Tremor 12/01/2023 Recurrent major depressive disorder, in partial remission 12/01/2023 Other specified hypothyroidism 10/12/2023 Psoriasis 10/12/2023 Elevated LFTs 10/12/2023 IFG (impaired fasting glucose) 10/12/2023 Hypertriglyceridemia 10/12/2023 Anxiety 10/11/2023 10/11/2023 Fatty (change of) liver, not elsewhere classifie d 10/11/2023 10/11/2023 GERD (gastroesophageal reflux disease) 4 10/11/2023 Lichen planus 10/11/2023 10/11/2023 Migraine 10/11/2023 10/11/2023 Degenerative disc disease, cervical 10/11/2023 10/11/2023 Degenerative disc disease, lumbar 10/11/2023 10/11/2023 PCOS (polycystic ovarian syndrome) 10/11/2023 Degenerative cervical spinal stenosis 11/17/2020 Overview (01/08/2024): Has been evaluated by neurosurgery and she is not a surgical candidate. Follows with [facility] spine and sport on a [...] Encounters Date Type Department Care Team Description 01/21/[address] [phone] Ashley Beal PA-C Anxiety 01/04/[address] [place] [address] Ashley Beal PA-C Hypertriglyceridemia 12/04/2024 Scanned Document [facility] [address] [place] [address] Urology, Scan 11/30/2024 Orders Only [facility] [address] [place] [address] Primary Care, Scan 11/29/2024 Orders Only [facility] [address] [place] [address] Primary Care, Scan 11/27/2024 Orders Only [facility] [address] [place] [address] Primary Care, Scan 11/27/2024 Scanned Document [facility] [address] [place] [address] Orthopedic Surgery, Scan 11/14/2024 Scanned Document [facility] ORTHO SURGERY SCAN Orthopedic Surgery, Scan 11/12/[address] [place] [phone] Ashley Beal PA-C Hypothyroidism, unspecified type 11/06/2024 Orders Only [facility] [address] [place] [address] Primary Care, Scan 11/05/[address] [place] [address] Ashley Beal PA-C 11/04/[address] [place] [address] Ashley Beal PA-C Anxiety (Primary Dx) 10/29/[address] [place] [phone] Ashley Beal PA-C Migraine without aura and without status migrainosus, not intractable 10/25/2024 Scanned Document [facility] [address] [place] [address] Gastroentero logy, Scan from Last 3 Months Immunizations Immunization [...] drink = 0.6 oz pur e alcohol) [facility] Utilities Answer Date Recorded In the [...] and Family Not on file 05/13/2024 Attends Jainism Services Not on file 05/13 Active Member [...] any time in the past 12 m [facility], were you homeless or living [...] Description 03/18/2025 1:45 PM EST Office Visit [facility] [address] [facility] [address] [place] [address] Ashley Beal PA-C [address] [place] [address] Health Maintenance Due Date Last Done Comments HIV Screening 01/09/1989 Physical 01/09/1994 Pap Smear (Ages 21-65) 01/09/1997 DTaP/Tdap/Td Vaccines (2 - Td or Tdap) 06/07/2021 06/07/2011 Influenza Vaccine 11/30/2024 03/04/2017, , 02/09/2010 COVID-19 Vaccine ( season) 2024 Mammogram 10/05/2026 10/05/2024 Colonoscopy 05/02/2031 [...] EDT IMAGING-SCAN Routine 11/05/2024 6:52 AM EDT IMAGING BREAST/BX/MAMMO Routine 10/05/2024 10:06 [...] PROCEDURES Edited Resul t - Final * Imaging Breast/Bx/Mammo Result (10/05/2024 10:06 AM EDT) Anatomical Region Laterality Modality Other us Scan Obstetrics And Gynecology IMG LEGACY PROCED URES Edited Result - Final * HEPATITIS C VIRUS (HCV) ANTIBODY (04/04/2024) Blood Blood specimen / Unknown 04/04/2024 Ashley Beal PA-C LAB BLOOD ORDERABLE S Final Result [facility] from Last 3 Months or Most Recently Relevant to Health Maintenance Insurance [facility] - PPO Care Teams Market Researcher Relationship Specialty Start Date End Date Ashley Beal PA-C [address] [place] [address] PCP - General Internal Medicine 10/11/23 Solange Kaur Physician Gastroenterology 09/26/23 Gab Campos Physician Ophthalmology 09/26/23
--- OUTSIDE RECORDS SUMMARY | 2025-01-25 09:38 | XMS_ITS | Encounter Summary ---
Author Organization Formerly [facility] Address [address] [place] [address] Care Team Providers Care Data Processing Systems Consultant Name Role Phone Ashley Beal PA-C Primary Care [facility] Encounter Details Date Type Department Care Team (Late st Contact Info) Description 12/04/2024 Scanned Document [facility] [address] [place] [address] Urology, Scan Social History Tobacco Use Types Packs/Day Years Used Date Smoking Tobacco: Former Cigarettes Smokeless Tobacco: Former Alcohol Use Standard Drinks/Week Comments Yes 0 (1 standard drink = 0.6 oz pur e alcohol) [facility] Utilities Answer Date Recorded In [...] any time in the past 12 m [facility], were you homeless or living [...] Description 03/18/2025 1:45 PM EST Office Visit [address] [place] [address] Ashley Beal PA-C [address] [place] [address] documented as of this encounter Visit Diagnoses Not on filedocumented in this encounter Care Teams Data Processing Systems Consultant Relationship Specialty Start Date End Date Ashley Beal PA-C [address] [place] [address] PCP - General Internal Medicine 10/11/23 Solange Kaur Physician Gastroenterology 09/26/23 Gab Campos Physician Ophthalmology 09/26/23 documented as of this encounter
--- OUTSIDE RECORDS SUMMARY | 2025-01-25 09:38 | XMS_ITS | Encounter Summary ---
Author Organization [facility] Address [address] [place] [address] Care Team Providers Care Director It Project Name Role Phone Pcp, No Primary Care Provider Ashley Tyson PA-C Primary Care [facility] Encounter Details Date Type Department Care Team (Late st Contact Info) Description 03/04/2022 Scanned Document [facility] INTERNAL [...] Description 03/18/2025 1:45 PM EST Office Visit [address] [place] [phone] Ashley Beal PA-C [address] [place] [address] documented as of this encounter Visit Diagnoses Not on filedocumented in this encounter Care Teams Director It Project Relationship Specialty Start Date End Date Pcp, No PCP - General General Medicine 10/03/23 10/10/23 Ashley Beal PA-C [address] [place] [address] PCP - General Internal Medicine 10/11/23 Solange Kaur Physician Gastroenterology 09/26/23 Gab Campos Physician Ophthalmology 09/26/23 documented as of this encounter
--- OUTSIDE RECORDS SUMMARY | 2025-01-25 09:38 | XMS_ITS | Encounter Summary ---
Author Organization [facility] Address [address] [place] [address] Care Team Providers Care Mailing Jogger Name Role Phone Ashley Beal PA-C Primary Care [facility] Reason for Visit * Reason Comments Medication Refill Encounter Details Date Type Department Care Team ([facility] st Contact Info) Description 01/21/[address] [phone] Ashley Beal PA-C [address] [place] [address] Anxiety Social History Tobacco Use Types Packs/Day Years Used Date Smoking Tobacco: Former Cigarettes Smokeless Tobacco: Former Alcohol Use Standard Drinks/Week Comments Yes 0 (1 standard drink = 0.6 oz pur e alcohol) [facility] Utilities Answer Date Recorded In the past 12 months has [employer] gas, oil, or water [employer] threatened to shut off services in your home? No 05/13/2024 Social Connection and Isolation Panel [NHANES] A nswer Date Recorded In a typical week, how many times do you talk on the phone with family, friends, or neighbors? Once a week 05/13/2024 Frequency of Social Gatherings with Friends and Family Not on file 05/13/2024 Attends [employer] Not on file 05/13 Active Member [...] Description 03/18/2025 1:45 PM EST Office Visit [facility] [address] [facility] [address] [place] [address] Ashley Beal PA-C [address] [place] [address] documented as of this encounter Visit Diagnoses Diagnosis Anxiety Anxiety state, unspecified documented in this encounter Care Teams Mailing Jogger Relationship Specialty Start Date End Date Ashley Beal PA-C [address] [place] [address] PCP - General Internal Medicine 10/11/23 Solange Kaur Physician Gastroenterology 09/26/23 Gab Campos Physician Ophthalmology 09/26/23 documented as of this encounter
--- OUTSIDE RECORDS SUMMARY | 2025-01-25 09:38 | XMS_ITS | Encounter Summary ---
Author Organization [facility] Address [address] [place] [address] Care Team Providers Care Courier Driver Name Role Phone Pcp, No Primary Care Provider Ashley Tyson PA-C Primary Care [facility] Encounter Details Date Type Department Care Team (Late st Contact Info) Description 03/16/2023 Scanned Document [facility] INTERNAL MED SCAN Provider, Generic External Data [...] Description 03/18/2025 1:45 PM EST Office Visit [address] [place] [phone] Ashley Beal PA-C [address] [place] [address] documented as of this encounter Visit Diagnoses Not on filedocumented in this encounter Care Teams Courier Driver Relationship Specialty Start Date End Date Pcp, No PCP - General General Medicine 10/03/23 10/10/23 Ashley Beal PA-C [address] [place] [address] PCP - General Internal Medicine 10/11/23 Solange Kaur Physician Gastroenterology 09/26/23 Gab Campos Physician Ophthalmology 09/26/23 documented as of this encounter
--- OUTSIDE RECORDS SUMMARY | 2025-01-25 09:38 | XMS_ITS | Encounter Summary ---
Author Organization [facility] Address [address] [place] [address] Care Team Providers Care Product Safety Coordinator Name Role Phone Pcp, No Primary Care Provider Ashley Tyson PA-C Primary Care [facility] Encounter Details Date Type Department Care Team (Late st Contact Info) Description 06/23/2022 Scanned Document [facility] INTERNAL [...] Description 03/18/2025 1:45 PM EST Office Visit [address] [place] [phone] sAhley Beal PA-C [address] [place] [address] documented as of this encounter Visit Diagnoses Not on filedocumented in this encounter Care Teams Product Safety Coordinator Relationship Specialty Start Date End Date Pcp, No PCP - General General Medicine 10/03/23 10/10/23 Ashley Beal PA-C [address] [place] [address] PCP - General Internal Medicine 10/11/23 Solange Kaur Physician Gastroenterology 09/26/23 Gab Campos Physician Ophthalmology 09/26/23 documented as of this encounter
--- OUTSIDE RECORDS SUMMARY | 2025-01-25 09:38 | XMS_ITS | Encounter Summary ---
Author Organization Formerly [facility] Address [address] [place] [address] Care Team Providers Care Hog Scraper Name Role Phone Ashley Beal PA-C Primary Care [facility] Encounter Details Date Type Department Care Team (Late st Contact Info) Description 10/25/2024 Scanned Document [facility] [address] [place] [address] Gastroenterology, Scan Social History Tobacco Use Types Packs/Day Years Used Date Smoking Tobacco: Former Cigarettes Smokeless Tobacco: Former Alcohol Use Standard Drinks/Week Comments Yes 0 (1 standard drink = 0.6 oz pur e alcohol) [facility] Utilities Answer Date Recorded In the [...] any time in the past 12 m [facility], were you homeless or living in a [...] Description 03/18/2025 1:45 PM EST Office Visit [address] [place] [address] Ashley Beal PA-C [address] [place] [address] documented as of this encounter Visit Diagnoses Not on filedocumented in this encounter Care Teams Hog Scraper Relationship Specialty Start Date End Date Ashley Beal PA-C [address] [place] [address] PCP - General Internal Medicine 10/11/23 Solange Kaur Physician Gastroenterology 09/26/23 Gab Campos Physician Ophthalmology 09/26/23 documented as of this encounter
== END 2025-01-25 09:02 | disposition home or self-care (01) ==
LOC: HO.US 09:01
PROVIDERS: PCP Physician Assistant Medical; Visit Provider Internal Medicine Gastroenterology
DX: K75.81 Nonalcoholic steatohepatitis (NASH) (principal); K74.60 Unspecified cirrhosis of liver
CPT/HCPCS: 76705; 76981

== ENCOUNTER → 2025-01-25 09:06 | Outpatient (BNV) | payer OTHER, SELFPAY | PROVIDERS: PCP Physician Assistant Medical; Visit Provider Radiology Diagnostic Radiology | DX: K75.81 Nonalcoholic steatohepatitis (NASH) (principal) | CPT/HCPCS: 76705 ==

== ENCOUNTER 2025-03-25 13:40 | Outpatient (AMB) | payer OTHER, SELFPAY ==
--- NOTE | 2025-03-25 13:54 | A.OFFVIS_ITS ---
Vital Signs 03/25/25 13:55 Height 5 ft 1 in Weight 188 lb BMI 35.5 Intake Visit Reasons: Follow Up left great toe pain Intake Note: Lyla is a 50 year old female who presents today for a follow up on her left great toe pain. At her last visit she was advised to purchase Thompson extension pads and she was prescribed Voltaren gel for her arthritic pain. She states the insert caused her toe to go numb and the gel did not provide relief. Patient reports she has seen moderate improvement with her pain however she still notices stiffness and pain towards the end of her work shift. Allergies Iodinated Contrast Media Adverse Reaction (Severe, Verified 03/25/25 13:57) Hives HPI Comments Details: The patient is a 50-year-old female presenting for a follow up of the left hallux arthritis. She states she continues to experience pain and the stiffness to the IPJ of the left hallux. The issue has been persistent, with the patient experiencing increased stiffness and soreness by the end of the day. Patient states the Thompson's extension was uncomfortable to use. Patient states the Voltaren gel provided minimal relief. The patient reports that the discomfort is exacerbated by pressure and certain footwear, leading to numbness in the toe. She denies any other pedal concerns today. She denies any current nausea, vomiting, fever, or chills. 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 Toe pain, left Hypersomnia Snoring Coarse tremors Breast pain, right Rapid palpitations Intermittent palpitations GERD (gastroesophageal reflux disease) Anxiety Low vitamin D level Hypothyroid Migraine Lichen planus Surgical History History of esophagogastroduodenoscopy (EGD) Hx of colonoscopy H/O partial thyroidectomy H/O wisdom tooth extraction Hx of cholecystectomy H/O: hysterectomy Social History Alcohol intake: never Patient Tobacco Use Status: Never used Tobacco Current occupational status: employed Current occupation: MA at [employer] Review of Systems Const Details: - Musculoskeletal: Reports persistent pain and stiffness in the left hallux in the area of the 1st MPJ. All systems reviewed & are unremarkable except as noted in HPI and below Physical Exam Vital Signs: BMI result Body Mass Index 35.5 Extrem Other: Left lower extremity focused Physical exam: Derm: Left hallux total nail avulsion site noted to be well healed with no drainage, erythema, or purulence noted. No edema noted. Skin turgor within normal limits. No hyperkeratotic lesions noted. Vascular exam: DP/PT pulses intact. Capillary refill time less than 3 seconds. No varicosities noted. Pedal hair absent. Temperature gradient warm to warm. Neuro exam: Protective sensation is grossly intact. Musculoskeletal exam: Pain on palpation to the area of the left 1st MPJ/IPJ, worse to the area of the IPJ. Pain with ROM of the 1st IPJ. No crepitus noticed with range of motion of 1st MPJ or IPJ. Range of motion of remaining toes within normal limits. ROM of the hindfoot and ankle WNL. Mildly antalgic gait noted unassisted. Office Procedures AMB Joint Injection/Aspir Pod Joint Injection/Aspiration Podiatry: Procedure: Left hallux cortisone injection: Cleansed the left hallux with an alcohol swab in the area of IPJ (the most painful location previously marked). Next injected 2cc of a mix of 1.5 cc of lidocaine plain, 1 cc of dexamethasone, and 0.5 cc of triamcinolone in the area of the previously marked area with no incidents. A band-aid was applied to the area. Provided patient with after care instructions. LT - Injection of small joint LT Procedure code (CPT) selection complete Office Meds triamcinolone acetonide 40 mg/mL suspension for injection Performing Provider: Sofi Collier DPM Performing Location: [facility] Administered by: Sofi Collier DPM on 03/28/25 20:39 Dose Route Admin Location Dispensed Lot Number Expiration Date [facility] Construction Director 20 mg intra-articular 1 mL [id number] [employer] Total Dispensed Waste 1 mL 50 % dexamethasone sodium phosphate 4 mg/mL injection solution Performing Provider: Sofi Collier DPM Performing Location: [facility] Administered by: Sofi Collier DPM on 03/28/25 20:39 Dose Route Admin Location Dispensed Lot Number Expiration Date [facility] Construction Director 4 mg intra-articular 1 mL [id number] [employer] Total Dispensed Waste 1 mL 0 % lidocaine HCl 10 mg/mL (1 %) injection solution Performing Provider: Sofi Collier DPM Performing Location: [facility] Administered by: Sofi Collier DPM on 03/28/25 20:39 Dose Route Admin Location Dispensed Lot Number Expiration Date [facility] Construction Director 1.5 mL intra-articular 1.5 mL [id number] Total Dispensed Waste 1.5 mL 0 % Comments: Xylocaine 1% used Results Reviewed Results Reviewed: Podiatry read of Left foot x-ray three views (11/05/2024): Unremarkable exam of the left foot. Podiatry read of Left foot x-ray three views (11/26/2024): Unremarkable exam of the left foot. 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 I discussed with the patient the option of a cortisone injection for the left hallux. I also informed the patient about the limitation of not exceeding three injections per year in the same location. We talked about the importance of wearing appropriate footwear and avoiding barefoot walking to help manage the condition. - Administered a cortisone injection to the left hallux interphalangeal joint to alleviate pain and stiffness. - Advise the patient to avoid barefoot walking at home to reduce pain. - Advised patient to use Thompson's extension under sole of shoes. - Advised patient to wear supportive shoe gear. RTC in 1 month. 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
[2025-03-25 13:55] VITALS: BMI 35.5
--- OUTSIDE RECORDS SUMMARY | 2025-03-25 18:29 | XMS_ITS | Encounter Summary ---
Author Organization [facility] Address [address] [place] [address] Care Team Providers Care Asset Specialist Name Role Phone Ashley Beal PA-C Primary Care [facility] Encounter Details Date Type Department Care Team (Late st Contact Info) Description 11/14/2024 Scanned Document [facility] ORTHO SURGERY SCAN Orthopedic Surgery, Scan Social History Tobacco Use Types Packs/Day Years Used Date Smoking Tobacco: Former Cigarettes Smokeless Tobacco: Former Alcohol Use Standard Drinks/Week Comments Yes 0 (1 standard drink = 0.6 oz pur e alcohol) [facility] Utilities Answer Date Recorded In the past 12 months has [employer], gas, oil, or water company threatened to shut off services in your home? No 05/13/2024 Social Connection and Isolation Panel Answer Date Recorded In a typical week, how [...] Frequency of Binge Drinking Not on file 01/1 06/2024 PHQ-2 Answer Date Recorded PHQ-2 Total Score [...] in the past 12 m [facility], were you homeless or living in [...] on filedocumented in this encounter Care Teams Asset Specialist Relationship Specialty Start Date End Date Ashley Beal PA-C [address] [place] [address] PCP - General Internal Medicine 10/11/23 Solange Kaur Physician Gastroenterology 09/26/23 L[employer]fter[employer] Physician Ophthalmology 09/26/23 documented as of this encounter
--- OUTSIDE RECORDS SUMMARY | 2025-03-25 18:29 | XMS_ITS | Encounter Summary ---
Author Organization [facility] Address [address] [place] [address] Care Team Providers Care Pmo Analyst Name Role Phone Pcp, Lolis Primary Care Provider Ashley Tyson PA-C Primary Care Provi mario Encounter Details Date Type Department Care Team (Late st Contact Info) Description 08/16/2022 Scanned Document [facility] INTERNAL MED SCAN Provider, Generic External [...] on filedocumented in this encounter Care Teams Pmo Analyst Relationship Specialty Start Date End Date Pcp, Lolis PCP - General General Medicine 10/03/23 10/10/23 Ashley Beal PA-C [address] [place] [address] PCP - General Internal Medicine 10/11/23 Solange Kaur Physician Gastroenterology 09/26/23 Gab Campos Physician Ophthalmology 09/26/23 documented as of this encounter
--- OUTSIDE RECORDS SUMMARY | 2025-03-25 18:29 | XMS_ITS | Encounter Summary ---
Author Organization [facility] Address [address] [place] [address] Care Team Providers Care Operations Intern Name Role Phone Ashley Beal PA-C Primary Care [facility] Encounter Details Date Type Department Care Team (Late st Contact Info) Description 04/26/2024 Scanned Document [address] [place] [id number] Primary Care, Scan Social History Tobacco Use [...] on filedocumented in this encounter Care Teams Operations Intern Relationship Specialty Start Date End Date Ashley Beal PA-C [address] [place] [address] PCP - General Internal Medicine 10/11/23 Solange Kaur Physician Gastroenterology 09/26/23 [facility] 09/26/23 documented as of this encounter
--- OUTSIDE RECORDS SUMMARY | 2025-03-25 18:29 | XMS_ITS | Encounter Summary ---
Author Organization [facility] Address [address] [place] [address] Care Team Providers Care It Project Lead Name Role Phone Pcp, Lolis Primary Care Provider Ashley Tyson PA-C Primary Care [facility] Encounter Details Date Type Department Care Team (Late st Contact Info) Description 06/11/2022 Scanned Document [facility] INTERNAL MED SCAN Provider, Generic External Data [...] filedocumented in this encounter Care Teams It Project Lead Relationship Specialty Start Date End Date Pcp, Lolis PCP - General General Medicine 10/03/23 10/10/23 Ashley Beal PA-C [address] [place] [address] PCP - General Internal Medicine 10/11/23 Solange Kaur Physician Gastroenterology 09/26/23 Gab Campos Physician Ophthalmology 09/26/23 documented as of this encounter
--- OUTSIDE RECORDS SUMMARY | 2025-03-25 18:29 | XMS_ITS | Encounter Summary ---
Author Organization [facility] Address [address] [place] [address] Care Team Providers Care Hydrogen Power Plant Manager Name Role Phone Pcp, Lolis Primary Care Provider Ashley Tyson PA-C Primary Care [facility] Encounter Details Date Type Department Care Team (Late st Contact Info) Description 07/08/2023 Scanned Document [facility] INTERNAL MED SCAN Provider, Generic External Data [...] on filedocumented in this encounter Care Teams Hydrogen Power Plant Manager Relationship Specialty Start Date End Date Pcp, Lolis PCP - General General Medicine 10/03/23 10/10/23 Ashley Beal PA-C [address] [place] [address] PCP - General Internal Medicine 10/11/23 Solange Kaur Physician Gastroenterology 09/26/23 Gab Campos Physician Ophthalmology 09/26/23 documented as of this encounter
--- OUTSIDE RECORDS SUMMARY | 2025-03-25 18:29 | XMS_ITS | Encounter Summary ---
Author Organization [facility] Address [address] [place] [address] Care Team Providers Care Admissions Dean Name Role Phone Pcp, Lolis Primary Care Provider Ashley Tyson PA-C Primary Care [facility] Encounter Details Date Type Department Care Team (Late st Contact Info) Description 04/19/2022 Scanned Document [facility] INTERNAL MED [...] on filedocumented in this encounter Care Teams Admissions Dean Relationship Specialty Start Date End Date Pcp, Lolis PCP - General General Medicine 10/03/23 10/10/23 Ashley Beal PA-C [address] [place] [address] PCP - General Internal Medicine 10/11/23 Solange Kaur Physician Gastroenterology 09/26/23 Gab Campos Physician Ophthalmology 09/26/23 documented as of this encounter
--- OUTSIDE RECORDS SUMMARY | 2025-03-25 18:29 | XMS_ITS | Encounter Summary ---
Author Organization [facility] Address [address] [place] [address] Care Team Providers Care Uke Driver Name Role Phone Ashley Beal PA-C Primary Care [facility] Encounter Details Date Type Department Care Team (Late st Contact Info) Description 06/12/2024 Scanned Document [facility] [address] [place] [address] Neurology, Scan Social History Tobacco Use Types Packs/Day Years Used Date Smoking Tobacco: Former Cigarettes Smokeless Tobacco: Former Alcohol Use Standard Drinks/Week Comments Yes 0 (1 standard drink = 0.6 oz pur e alcohol) [facility] Utilities Answer Date Recorded In the past [...] and Family Not on file 05/13/2024 Attends Church Services Not on file 05/13 Active Member [...] any time in the past 12 m [facility], were you homeless or living [...] on filedocumented in this encounter Care Teams Uke Driver Relationship Specialty Start Date End Date Ashley Beal PA-C [address] [place] [address] PCP - General Internal Medicine 10/11/23 Solange Kaur Physician Gastroenterology 09/26/23 Gab Campos Physician Ophthalmology 09/26/23 documented as of this encounter
--- OUTSIDE RECORDS SUMMARY | 2025-03-25 18:29 | XMS_ITS | Encounter Summary ---
Author Organization [facility] Address [address] [place] [address] Care Team Providers Care Packager Hand Name Role Phone Ashley Beal PA-C Primary Care [facility] Encounter Details Date Type Department Care Team (Late st Contact Info) Description 12/04/2024 Scanned Document [facility] [address] [place] [address] Urology, Scan Social History Tobacco Use Types Packs/Day Years Used Date Smoking Tobacco: Former Cigarettes Smokeless Tobacco: Former Alcohol Use Standard Drinks/Week Comments Yes 0 (1 standard drink = 0.6 oz pur e alcohol) [facility] Utilities Answer Date Recorded In the past [...] and Family Not on file 05/13/2024 Attends Nondenominational Services Not on file 05/13 Active Member [...] on filedocumented in this encounter Care Teams Packager Hand Relationship Specialty Start Date End Date Ashley Beal PA-C [address] [place] [address] PCP - General Internal Medicine 10/11/23 Solange Kaur Physician Gastroenterology 09/26/23 Gab Campos Physician Ophthalmology 09/26/23 documented as of this encounter
--- OUTSIDE RECORDS SUMMARY | 2025-03-25 18:29 | XMS_ITS | Encounter Summary ---
Author Organization [facility] Address [address] [place] [address] Care Team Providers Care Street Light Inspector Name Role Phone Pcp, Lolis Primary Care Provider Ashley Tyson PA-C Primary Care [facility] Encounter Details Date Type Department Care Team (Late st Contact Info) Description 03/04/2022 Scanned Document [facility] INTERNAL MED SCAN Provider, Generic External [...] on filedocumented in this encounter Care Teams Street Light Inspector Relationship Specialty Start Date End Date Pcp, Lolis PCP - General General Medicine 10/03/23 10/10/23 Ashley Beal PA-C [address] [place] [address] PCP - General Internal Medicine 10/11/23 Solange Kaur Physician Gastroenterology 09/26/23 Gab Campos Physician Ophthalmology 09/26/23 documented as of this encounter
--- OUTSIDE RECORDS SUMMARY | 2025-03-25 18:29 | XMS_ITS | Encounter Summary ---
Author Organization [facility] Address [address] [place] [address] Care Team Providers Care Chemical Research Engineer Name Role Phone Ashley Beal PA-C Primary Care [facility] Encounter Details Date Type Department Care Team (Late st Contact Info) Description 10/25/2024 Scanned Document [facility] [address] [place] [address] Gastroenterology, Scan Social History Tobacco Use Types Packs/Day Years Used Date Smoking Tobacco: Former Cigarettes Smokeless Tobacco: Former Alcohol Use Standard Drinks/Week Comments Yes 0 (1 standard drink = 0.6 oz pur e alcohol) [facility] Utilities Answer Date Recorded In [...] and Family Not on file 05/13/2024 Attends Yazdanism Services Not on file 05/13 Active Member [...] were you homeless or living in a residential (including now)? No 05/13/2024 Education Answer Date [...] on filedocumented in this encounter Care Teams Chemical Research Engineer Relationship Specialty Start Date End Date Ashley Beal PA-C [address] [place] [address] PCP - General Internal Medicine 10/11/23 Solange Kaur Physician Gastroenterology 09/26/23 Gab Campos Physician Ophthalmology 09/26/23 documented as of this encounter
--- OUTSIDE RECORDS SUMMARY | 2025-03-25 18:29 | XMS_ITS | Encounter Summary ---
Author Organization [facility] Address [address] [place] [address] Care Team Providers Care Developmental Psychologist Name Role Phone Pcp, Lolis Primary Care Provider Ashley Tyson PA-C Primary Care [facility] Encounter Details Date Type Department Care Team (Late st Contact Info) Description 02/16/2023 Scanned Document [facility] INTERNAL MED SCAN Provider, Generic External [...] on filedocumented in this encounter Care Teams Developmental Psychologist Relationship Specialty Start Date End Date Pcp, Lolis PCP - General General Medicine 10/03/23 10/10/23 Ashley Beal PA-C [address] [place] [address] PCP - General Internal Medicine 10/11/23 Solange Kaur Physician Gastroenterology 09/26/23 Gab Campos Physician Ophthalmology 09/26/23 documented as of this encounter
--- OUTSIDE RECORDS SUMMARY | 2025-03-25 18:29 | XMS_ITS | Encounter Summary ---
Author Organization [facility] Address [address] [place] [address] Care Team Providers Care Evaluation Engineer Name Role Phone Ashley Beal PA-C Primary Care [facility] Encounter Details Date Type Department Care Team (Late st Contact Info) Description 10/18/2024 Scanned Document [facility] [address] [place] [address] Neurology, Scan Social History Tobacco Use Types Packs/Day Years Used Date Smoking Tobacco: Former Cigarettes Smokeless Tobacco: Former Alcohol Use Standard Drinks/Week Comments Yes 0 (1 standard drink = 0.6 oz pur e alcohol) [facility] Utilities Answer Date Recorded [...] and Family Not on file 05/13/2024 Attends Bahai Services Not on file 05/13 Active Member [...] any time in the past 12 m [facility], were you homeless or living in a [...] on filedocumented in this encounter Care Teams Evaluation Engineer Relationship Specialty Start Date End Date Ashley Beal PA-C [address] [place] [address] PCP - General Internal Medicine 10/11/23 Solange Kaur Physician Gastroenterology 09/26/23 Gab Campos Physician Ophthalmology 09/26/23 documented as of this encounter
--- OUTSIDE RECORDS SUMMARY | 2025-03-25 18:29 | XMS_ITS | Encounter Summary ---
Author Organization [facility] Address [address] [place] [address] Care Team Providers Care Leadership Program Associate Name Role Phone Pcp, Lolis Primary Care Provider Ashley Tyson PA-C Primary Care [facility] Encounter Details Date Type Department Care Team (Late st Contact Info) Description 09/15/[address] [facility] INTERNAL MED SCAN Provider, Generic External [...] on filedocumented in this encounter Care Teams Leadership Program Associate Relationship Specialty Start Date End Date Pcp, Lolis PCP - General General Medicine 10/03/23 10/10/23 Ashley Beal PA-C [address] [place] [address] PCP - General Internal Medicine 10/11/23 Solange Kaur Physician Gastroenterology 09/26/23 Gab Campos Physician Ophthalmology 09/26/23 documented as of this encounter
--- OUTSIDE RECORDS SUMMARY | 2025-03-25 18:29 | XMS_ITS | Encounter Summary ---
Author Organization [facility] Address [address] [place] [address] Care Team Providers Care Slicer Machine Operator Name Role Phone Pcp, Lolis Primary Care Provider Ashley Tyson PA-C Primary Care [facility] Encounter Details Date Type Department Care Team (Late st Contact Info) Description 08/01/2023 Scanned Document [facility] INTERNAL MED SCAN Provider, Generic [...] on filedocumented in this encounter Care Teams Slicer Machine Operator Relationship Specialty Start Date End Date Pcp, Lolis PCP - General General Medicine 10/03/23 10/10/23 Ashley Beal PA-C [address] [place] [address] PCP - General Internal Medicine 10/11/23 Solange Kaur Physician Gastroenterology 09/26/23 Gab Campos Physician Ophthalmology 09/26/23 documented as of this encounter
--- OUTSIDE RECORDS SUMMARY | 2025-03-25 18:29 | XMS_ITS | Encounter Summary ---
Author Organization [facility] Address [address] [place] [address] Care Team Providers Care Cabinet Professional Name Role Phone Pcp, Lolis Primary Care Provider Ashley Tyson PA-C Primary Care [facility] Encounter Details Date Type Department Care Team (Late st Contact Info) Description 06/04/2022 Scanned Document [facility] INTERNAL MED SCAN Provider, Generic External [...] on filedocumented in this encounter Care Teams Cabinet Professional Relationship Specialty Start Date End Date Pcp, Lolis PCP - General General Medicine 10/03/23 10/10/23 Ashley Beal PA-C [address] [place] [address] PCP - General Internal Medicine 10/11/23 Solange Kaur Physician Gastroenterology 09/26/23 Gab Campos Physician Ophthalmology 09/26/23 documented as of this encounter
--- OUTSIDE RECORDS SUMMARY | 2025-03-25 18:29 | XMS_ITS | Encounter Summary ---
Author Organization [facility] Address [address] [place] [address] Care Team Providers Care 1St Grade Teacher Name Role Phone Pcp, Lolis Primary Care Provider Ashley Tyson PA-C Primary Care [facility] Encounter Details Date Type Department Care Team (Late st Contact Info) Description 02/05/2022 Scanned Document [facility] INTERNAL MED SCAN Provider, Generic [...] on filedocumented in this encounter Care Teams 1St Grade Teacher Relationship Specialty Start Date End Date Pcp, Lolis PCP - General General Medicine 10/03/23 10/10/23 Ashley Beal PA-C [address] [place] [address] PCP - General Internal Medicine 10/11/23 Solange Kaur Physician Gastroenterology 09/26/23 Gab Campos Physician Ophthalmology 09/26/23 documented as of this encounter
--- OUTSIDE RECORDS SUMMARY | 2025-03-25 18:29 | XMS_ITS | Encounter Summary ---
Author Organization [facility] Address [address] [place] [address] Care Team Providers Care Building Trades Instructor Name Role Phone Pcp, Lolis Primary Care Provider Ashley Tyson PA-C Primary Care [facility] Encounter Details Date Type Department Care Team (Late st Contact Info) Description 04/12/2023 Scanned Document [facility] INTERNAL MED SCAN Provider, Generic [...] on filedocumented in this encounter Care Teams Building Trades Instructor Relationship Specialty Start Date End Date Pcp, Lolis PCP - General General Medicine 10/03/23 10/10/23 Ashley Beal PA-C [address] [place] [address] PCP - General Internal Medicine 10/11/23 Solange Kaur Physician Gastroenterology 09/26/23 Gab Campos Physician Ophthalmology 09/26/23 documented as of this encounter
--- OUTSIDE RECORDS SUMMARY | 2025-03-25 18:29 | XMS_ITS | Encounter Summary ---
Author Organization [facility] Address [address] [place] [address] Care Team Providers Care Final Operations Technician Name Role Phone Pcp, Lolis Primary Care Provider Ashley Tyson PA-C Primary Care [facility] Encounter Details Date Type Department Care Team (Late st Contact Info) Description 06/23/2022 Scanned Document [facility] INTERNAL MED SCAN Provider, Generic [...] on filedocumented in this encounter Care Teams Final Operations Technician Relationship Specialty Start Date End Date Pcp, Lolis PCP - General General Medicine 10/03/23 10/10/23 Ashley Beal PA-C [address] [place] [address] PCP - General Internal Medicine 10/11/23 Solange Kaur Physician Gastroenterology 09/26/23 Gab Capmos Physician Ophthalmology 09/26/23 documented as of this encounter
--- OUTSIDE RECORDS SUMMARY | 2025-03-25 18:29 | XMS_ITS | Continuity of Care Document ---
Author Organization [facility] Address [address] [facility] [address] [place] [address] Phone [phone] Social History Type Date Description Comments Sex Female Sex Unknown Medications Active Medications SIG Qnty Indications Ordering Provider Date Hydroxyzine [id number] Tablets take 2 tablets at bedtime, can add 1 extra tab as needed Misty Sharma M.D. 11/11/2021 Sertraline [id number] Tablets 1 by mouth every day Misty Sharma M.D. 11/11/2021 Metoprolol Succinate ER25mg Tablets ER 24HR 1 by mouth every day Misty Sharma M.D. 11/11/[id number] 1 tab by mouth as needed 90caps Misty Sharma M.D. 11/11/2021 [id number] Tablets take 1 tablet twice daily Misty Sharma M.D. 11/11/2021 Levothyroxine [id number] Capsules 1 cap by mouth every day [...]
--- OUTSIDE RECORDS SUMMARY | 2025-03-25 18:29 | XMS_ITS | Clinical Summary ---
Author Organization [facility] Address [address] [place] [id number] Care Team Providers Care Aws Solution Architect Name Role Phone Ashley Beal PA-C Primary Care Provi mario Allergies Active Allergy Reactions Criticality Noted Date Comments Oxymetazoline Unknown/Patient and Family Unable to Define Medium 10/12/2023 Iodinated Contrast Media Hives,Shortness Of Breath High 10/12/2023 Medications colestipol (COLESTID) 1 g tablet Take 1 tablet (1 g total) by mouth 2 (two) times a day. Active niacin 250 MG tablet Take 2 tablets (500 mg total) by mouth daily. Active fexofenadine (BIRDIE) 180 MG tablet Take 1 tablet (180 mg total) by mouth daily. Administer with water only; do not administer with fruit juices. Active Vitamin D3 (CHOLECALCIFERO L) 50 MCG (2000 UT) tablet Take 2 tablets (4,000 Units total) by mouth daily. Active MAGNESIUM GLYCINATE PO Take 400 mg by mouth. Active clobetasol (TEMOVATE) 0.05 % ointment Apply topically as needed. Active Ubrelvy 50 MG tabletIndicatio ns:Migraine without aura and without status migrainosus, not intractable Take 1 tablet (50 mg total) by mouth as needed for migraine. For Migraine. 10 tablet 1 5 Active OMEprazole (PriLOSEC) 20 MG capsuleIndicati ons:Gastroesoph ageal reflux disease without esophagitis TAKE ONE (1) CAPSULE BY MOUTH EVERY DAY 90 capsule 2 5 Active topiramate (TOPAMAX) 50 MG tabletIndicatio ns:Migraine without aura and without status migrainosus, not intractable TAKE 1 TABLET (50 MG TOTAL) BY MOUTH 2 TIMES A DAY. 60 tablet 5 5 Active fenofibrate micronized (LOFIBRA) 134 MG capsuleIndicati ons:Hypertrigly ceridemia TAKE ONE (1) CAPSULE BY MOUTH EVERY DAY WITH FOOD 90 capsule 1 5 Active metoPROLOL SUCCINATE (TOPROL-XL) 25 MG 24 hr tabletIndicatio ns:Anxiety TAKE 1 TABLET (25 MG TOTAL) BY MOUTH DAILY. 90 tablet 1 5 Active sertraline (ZOLOFT) 50 MG tabletIndicatio ns:Anxiety TAKE 3 TABLETS (150 MG TOTAL) BY MOUTH DAILY. 90 tablet 3 5 Active buPROPion (WELLBUTRIN XL) 150 MG 24 hr tabletIndicatio ns:Anxiety TAKE 1 TABLET BY MOUTH EVERY MORNING. SWALLOW WHOLE; DO NOT CRUSH CHEW OR DIVIDE. 90 tablet 1 5 Active levothyroxine (SYNTHROID, LEVOTHROID) 100 MCG tabletIndicatio ns:Hypothyroidi sm, unspecified type TAKE 1 TABLET (100 MCG TOTAL) BY MOUTH DAILY. 30 tablet 5 5 Active vitamin E 400 UNIT capsule Take 1 capsule (400 Units total) by mouth daily. Active TiZANidine (ZANAFLEX) 4 MG capsuleIndicati ons:Degenerativ e cervical spinal stenosis Take 1 capsule (4 mg total) by mouth 3 (three) times a day. 30 capsule 5 Active ALPRAZolam (XANAX) 0.5 MG tabletIndicatio ns:Anxiety Take 1 tablet (0.5 mg total) by mouth nightly as needed for anxiety. 30 tablet 5 Active hydrOXYzine HCl (ATARAX) 25 MG tabletIndicatio ns:Anxiety Take 1 tablet by daily as needed. Take 1 to 2 tablets by mouth at night as needed. 90 tablet 5 Active estradiol (VIVELLE-DOT) 0.0375 MG/24HR external patch Apply twice weekly 03/18/20 25 Discontin ued(Med List Clean-up/ Old Med - No E-Cancel/ No AVS) progesterone (PROMETRIUM) 100 MG capsule Take 1 capsule (100 mg total) by mouth nightly. 4 03/18/20 25 Discontin ued(Med List Clean-up/ Old Med - No E-Cancel/ No AVS) hydrOXYzine pamoate (VISTARIL) 50 MG capsule Take 1 capsule (50 mg total) by mouth 3 (three) times a day as needed for itching. 03/18/20 25 Discontin ued(Med List Clean-up/ Old Med - No E-Cancel/ No AVS) TiZANidine (ZANAFLEX) 4 MG capsule Take 1 capsule (4 mg total) by mouth 3 (three) times a day. 03/18/20 25 Discontin ued(Reord er) estradiol (ESTRACE) 0.01 % vaginal cream Insert 2 g into the vagina daily. 03/18/20 25 Discontin ued(Med List Clean-up/ Old Med - No E-Cancel/ No AVS) ALPRAZolam (XANAX) 0.5 MG tabletIndicatio ns:Anxiety TAKE ONE (1) TABLET BY MOUTH EVERY 8 HOURS NEEDED FOR ANXIETY 30 tablet 5 03/18/20 25 Discontin ued(Reord er) hydrOXYzine HCl (ATARAX) 25 MG tabletIndicatio ns:Anxiety Take 1 tablet by daily as needed. Take 1 to 2 tablets by mouth at night as needed. 90 tablet 5 03/24/20 25 Discontin ued(Reord er) Active Problems Problem Noted Date Diagnosed Date Class 2 obesity 01/08/2024 Assessment & Plan (03/18/2025 3:24 PM EST): Patient's working on diet and exercise. Recurrent major depressive disorder, in partial remission 12/01/2023 Assessment & Plan (03/18/2025 3:24 PM EST): Compliant with Wellbutrin and sertraline. Takes alprazolam as needed. CSA online filled out. Other specified hypothyroidism 10/12/2023 Assessment & Plan (03/18/2025 3:24 PM EST): Compliant with levothyroxine TSH has been normal. Psoriasis 10/12/2023 Assessment & Plan (03/18/2025 3:24 PM EST): Follows with Derm. Elevated LFTs 10/12/2023 Assessment & Plan (03/18/2025 3:24 PM EST): Patient states she saw GI at [facility]. We did an abdominal ultrasound which showed a mildly enlarged liver. Liver contour is normal. Moderately increased hepatic echogenicity which can be seen in the setting of fatty liver or underlying liver disease. Subcentimeter simple hepatic cyst. Labs repeated. Another abdominal ultrasound was ordered. Ozempic most likely will not be covered by her insurance for fatty liver however it may be covered for her diagnosis of mild sleep apnea. She can reach out to see if they will cover it. For now work on diet and exercise. IFG (impaired fasting glucose) 10/12/2023 Assessment & Plan (03/18/2025 3:24 PM EST): Last A1c was 5.3. Hypertriglyceridemia 10/12/2023 Assessment & Plan (03/18/2025 3:24 PM EST): On fenofibrate. Will check fasting lipid profile. Anxiety 10/11/2023 10/11/2023 Assessment & Plan (03/18/2025 3:24 PM EST): Compliant with Wellbutrin and sertraline. Takes alprazolam as needed. CSA online filled out. Fatty (change of) liver, not elsewhere classifie d 10/11/2023 10/11/2023 Assessment & Plan (03/18/2025 3:24 PM EST): Patient states she saw GI at [facility]. We did an abdominal ultrasound which showed a mildly enlarged liver. Liver contour is normal. Moderately increased hepatic echogenicity which can be seen in the setting of fatty liver or underlying liver disease. Subcentimeter simple hepatic cyst. Labs repeated. Another abdominal ultrasound was ordered. Ozempic most likely will not be covered by her insurance for fatty liver however it may be covered for her diagnosis of mild sleep apnea. She can reach out to see if they will cover it. For now work on diet and exercise. GERD (gastroesophageal reflux disease) 4 10/11/2023 Assessment & Plan (03/18/2025 3:24 PM EST): On omeprazole 20 mg daily. Lichen planus 10/11/2023 10/11/2023 Assessment & Plan (03/18/2025 3:24 PM EST): Vaginal. Patient is overdue. She is looking for a vulvar specialist. Migraine 10/11/2023 10/11/2023 Assessment & Plan (03/18/2025 3:24 PM EST): Follows with neurology at [facility]. On topiramate for invention. Takes Ubrelvy as needed. Has not had a migraine in over 59 days. Degenerative disc disease, cervical 10/11/2023 10/11/2023 Degenerative disc disease, lumbar 10/11/2023 10/11/2023 PCOS (polycystic ovarian syndrome) 10/11/2023 Assessment & Plan (03/18/2025 3:24 PM EST): History of. Patient is status post hysterectomy secondary to endometriosis. Has both ovaries. Degenerative cervical spinal stenosis 11/17/2020 Overview (01/08/2024): Has been evaluated by neurosurgery and she is not a surgical candidate. Follows with [facility] on a as needed basis. Has had good relief with cortisone injections. Assessment & Plan (03/18/2025 3:24 PM EST): Stable. Takes as needed. Vaginal atrophy 09/07/2019 Overview (01/08/2024): Last Assessment & Plan: Continue Estrace cream. Use oil based lubricant and superior position to see if more comfortable. TRINITY (obstructive sleep apnea) 07/12/2019 Overview (01/08/2024): Mild. Currently on CPAP. Assessment & Plan (03/18/2025 3:24 PM EST): Mild. Does not use a CPAP. Vitamin D deficiency 04/04/2016 Assessment & Plan (03/18/2025 3:24 PM EST): Compliant with vitamin D supplements. Will check vitamin D level. 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 We will get their last note. She is status post left thyroid lobectomy in 2015 for nodule of follicular hyperplasia. Unsure of last thyroid ultrasound. Premature atrial contraction 02/25/2015 Resolved Problems Problem Noted Date Diagnosed Date Resolved Date Palpitations 12/01/2023 03/18/2025 Tremor 12/01/2023 03/18/2025 Bilateral ovarian cysts 10/11/2023 09/0 12/2023 Perimenopausal [...] Encounters Date Type Department Care Team Description 03/18/2025 1:30 PM EST Office Visit [address] [place] [phone] Ashley Beal PA-C Annual physical exam (Primary Dx); Anxiety; Recurrent major depressive disorder, in partial remission; Fatty (change of) liver, not elsewhere classified; Elevated LFTs; Gastroesophageal reflux disease without esophagitis; Lichen planus; Migraine without aura and without status migrainosus, not intractable; PCOS (polycystic ovarian syndrome); Other specified hypothyroidism; Psoriasis; IFG (impaired fasting glucose); Hypertriglyceridemia; Class 2 obesity; Degenerative cervical spinal stenosis; TRINITY (obstructive sleep apnea); Vitamin D deficiency; Thyroid nodule; Chronic diarrhea from Last 3 Months Immunizations Immunization Administration [...] 0.6 oz pur e alcohol) [facility] Utilities Answer Date Recorded In the past 12 months has e [employer], gas, oil, or water [employer] threatened to shut off services in your home? No 05/13/2024 Social Connection and Isolation Panel Answer Date Recorded In a typical week, how many times do you talk on the phone with family, friends, or neighbors? Once a week 05/13/2024 Frequency of Social Gatherings with Friends and Family Not on file 05/13/2024 Attends Judaism Services Not on file 05/13 Active Member [...] Answer Date Recorded PHQ-2 Total Score 2 03/16/2025 Hunger Vital Sign Answer Date Recorded Within [...] any time in the past 12 m [facility], were you homeless or living in a prison (including now)? No 05/13/2024 Physical Activity Answer Date Recorded On average, how many days pe r week do you engage in moderate to strenuous exercise (like a brisk walk)? Patient declined On average, how many minutes do you exercise per day at this level? Patient declined 03/16/2025 Education Answer Date Recorded What is the [...] Sign Reading Time Taken Comments Blood Pressure 122/82 03/18/2025 1:15 PM EST Pulse 90 03/18/2025 1:15 PM EST Temperature 36.4 C (97.5 F) 03/18/2025 1:15 PM EST Respiratory Rate 18 03/18/2025 1:15 PM EST Oxygen Saturation 98% 03/18/2025 1:15 PM EST Inhaled Oxygen Concentration - - Weight 84.7 kg (186 lb 12.8 oz) 03/18/2025 1:15 PM EST Height 154.9 cm (5' 1 ) 03/18/2025 1:15 PM EST Body Mass Index 35.3 03/18/2025 1:15 PM EST Plan of Treatment Health Maintenance Due Date Last Done Comments HIV Screening 01/09/1989 Pap Smear (Ages 21-65) 01/09/1997 DTaP/Tdap/Td Vaccines (2 - Td or Tdap) 06/07/2021 06/07/2011 Influenza Vaccine 11/30/2024 03/04/2017, , 02/09/2010 COVID-19 Vaccine ( season) 2024 Mammogram 10/05/2026 10/05/2024, 04/03/2020 Physical 03/18/2027 03/18/2025 Colonoscopy 05/02/2031 05/02/2021 (Prev iously Completed) Hepatitis [...] Recently Relevant to Health Maintenance Results * Imaging Breast/Bx/Mammo Result (10/05/2024 10:06 AM EDT) Anatomical Region Laterality Modality Other us Scan Obstetrics And Gynecology IMG LEGACY PROCED URES Edited Result - Final * HEPATITIS C VIRUS (HCV) ANTIBODY (04/04/2024) Blood Blood specimen / Unknown 04/04/2024 us Ashley Beal PA-C LAB BLOOD ORDERABLE S Final Result [facility] from Last 3 Months or Most Recently Relevant to Health Maintenance Insurance [facility] - O Care Teams Aws Solution Architect Relationship Specialty Start Date End Date Ashley Beal PA-C [address] [place] [address] PCP - General Internal Medicine 10/11/23 Solange Kaur Physician Gastroenterology 09/26/23 Gab Campos Physician Ophthalmology 09/26/23
--- OUTSIDE RECORDS SUMMARY | 2025-03-25 18:29 | XMS_ITS | Encounter Summary ---
Author Organization [facility] Address [address] [place] [address] Care Team Providers Care Feed And Farm Management Adviser Name Role Phone Ashley Beal PA-C Primary Care [facility] Encounter Details Date Type Department Care Team (Late st Contact Info) Description 11/27/2024 Scanned Document [facility] [address] [place] [phone] Orthopedic Surgery, Scan Social History Tobacco Use [...] on filedocumented in this encounter Care Teams Feed And Farm Management Adviser Relationship Specialty Start Date End Date Ashley Beal PA-C [address] [place] [address] PCP - General Internal Medicine 10/11/23 Solange Kaur Physician Gastroenterology 09/26/23 Gab Campos Physician Ophthalmology 09/26/23 documented as of this encounter
--- OUTSIDE RECORDS SUMMARY | 2025-03-25 18:29 | XMS_ITS | Encounter Summary ---
Author Organization [facility] Address [address] [place] [address] Care Team Providers Care Wellness Program Manager Name Role Phone Pcp, Lolis Primary Care Provider Ashley Tyson PA-C Primary Care Provi mario Encounter Details Date Type Department Care Team (Late st Contact Info) Description 03/16/2023 Scanned Document [facility] INTERNAL MED SCAN Provider, Generic External Data [...] on filedocumented in this encounter Care Teams Wellness Program Manager Relationship Specialty Start Date End Date Pcp, Lolis PCP - General General Medicine 10/03/23 10/10/23 Ashley Beal PA-C [address] [place] [address] PCP - General Internal Medicine 10/11/23 Solange Kaur Physician Gastroenterology 09/26/23 Gab Campos Physician Ophthalmology 09/26/23 documented as of this encounter
--- OUTSIDE RECORDS SUMMARY | 2025-03-25 18:29 | XMS_ITS | Encounter Summary ---
Author Organization [facility] Address [address] [place] [address] Care Team Providers Care Industrial Engineering Name Role Phone Ashley Beal PA-C Primary Care [facility] Encounter Details Date Type Department Care Team (Late st Contact Info) Description 07/27/2024 Scanned Document [address] [place] [phone] Ashley Beal PA-C [address] [place] [address] Social History Tobacco Use Types Packs/Day Years Used Date Smoking Tobacco: Former Cigarettes Smokeless Tobacco: Former Alcohol Use Standard Drinks/Week Comments Yes 0 (1 standard drink = 0.6 oz pur e alcohol) [facility] Utilities Answer Date Recorded In the past 12 months has [facility] [employer], gas, oil, or water [employer] threatened to shut off services in your home? No 05/13/2024 Social Connection and Isolation Panel Answer Date Recorded In a typical week, how many times do you talk on the phone with family, friends, or neighbors? Once a week 05/13/2024 Frequency of Social Gatherings with Friends and Family Not on file 05/13/2024 Attends Worship Services Not on file 05/13 Active Member [...] any time in the past 12 m [facility], were you homeless or living in a long term (including now)? No 05/13/2024 Education Answer Date [...] filedocumented in this encounter Care Teams Industrial Engineering Relationship Specialty Start Date End Date Ashley Beal PA-C [address] [place] [address] PCP - General Internal Medicine 10/11/23 Solange Kaur Physician Gastroenterology 09/26/23 Gab Campos Physician Ophthalmology 09/26/23 documented as of this encounter
--- OUTSIDE RECORDS SUMMARY | 2025-03-25 18:29 | XMS_ITS | Encounter Summary ---
Author Organization [facility] Address [address] [place] [address] Care Team Providers Care Bag Making Machine Operator Name Role Phone Pcp, Lolis Primary Care Provider Ashley Tyson PA-C Primary Care Provi mario Encounter Details Date Type Department Care Team (Late st Contact Info) Description 03/12/2022 Scanned Document [facility] INTERNAL MED SCAN Provider, Generic [...] on filedocumented in this encounter Care Teams Bag Making Machine Operator Relationship Specialty Start Date End Date Pcp, Lolis PCP - General General Medicine 10/03/23 10/10/23 Ashley Beal PA-C [address] [place] [address] PCP - General Internal Medicine 10/11/23 Solange Kaur Physician Gastroenterology 09/26/23 Gab Campos Physician Ophthalmology 09/26/23 documented as of this encounter
== END 2025-03-25 14:16 | disposition home or self-care (01) ==
LOC: HO.HPODS 13:40
PROVIDERS: PCP Physician Assistant Medical; Visit Provider Student in an Organized Health Care Education/Training Program
DX: M19.079 Primary osteoarthritis, unspecified ankle and foot (principal); M79.675 Pain in left toe(s)
CPT/HCPCS: 20600; 99214

== ENCOUNTER → 2025-03-25 13:40 | Outpatient (BNVA) | payer OTHER, SELFPAY | PROVIDERS: PCP Physician Assistant Medical; Visit Provider Student in an Organized Health Care Education/Training Program | DX: M79.675 Pain in left toe(s) (principal); M19.079 Primary osteoarthritis, unspecified ankle and foot | CPT/HCPCS: 20600; J1100; J2003; J3301 ==

== ENCOUNTER 2025-04-29 13:04 | Outpatient (AMB) | payer OTHER, SELFPAY ==
--- OUTSIDE RECORDS SUMMARY | 2025-02-12 03:30 | XMS_ITS ---
Author Organization [facility] Address [address] [facility] [place] [address] Care Team Providers Care Financial Underwriter Name Role Phone Ashley Kennedy PA-C Primary Care Provider Abimbola Swain Unavailable [phone] Umm Cowart Unavailable [phone] Allergies Allergen (clinical drug ingredient) Drug/Non Drug Allergy documented on EMR Reaction Allergy Type Onset Date Status IV dye (uncoded) hives, itchy throat Allergy Active Medications Medication SIG (Take, Route, Fr equency, Duration) Notes Start Date End Date Status Ubrelvy Active hydrOXYzine HCl Acti ve Xanax Active Magnesium Glycinate Active Niacin Active Omeprazole Active Fenofibrate Active Vitamin D3 Active Colestipol HCl Activ e Topamax Active Metoprolol Succinate Active Wellbutrin Active Levothyroxine Sodium Active Zoloft Active Minoo Active Social History Tobacco Use: Social History Observation Description Date Details (start date - stop date) Former Smoker NA - NA Tobacco use other than smoking: Question Answer Notes Are you an other tobacco user? No Tobacco Control (Standard) Question Answer Notes Tobacco use: Former smoker Additional Findings: Tobacco non-user Current no nsmoker AUDIT-C (Standard) Question Answer Notes Did you have a drink containing alcohol in the p ast year? No Points 0 Interpretation Negative Encounters Encounter Location Date Provider Diagnosis [facility] [address] [phone] 02/12/2025 Umm Cowart Plan Of Treatment No Information Progress Notes * DEBORAH MartinDiomedes:[birth year] (50 yo F)Acc No.[id number]:02/12/2025 Progress Notes Patient: Lyla DELEON Provider: Natalya Cowart DPM :1975 A ge:50 Y S ex:Female Date:02/12/2025 Address:[address] [place], [place] [id number] Pcp:Ashley Kennedy PA-C Subjective: * Chief Complaints: * * Medical History: A nxiety, Broken Bone(s), Depression, Headaches /Migraines, Numbness (Neuropathy), Thyroid, Chicken Pox. * Surgical History: h ysterectomy 2011, Gall bladder removal 2010, left thyroid 2015. * Family History: M other: alive, diagnosed with Unspecified essential hypertension. F ather: alive. * Social History: T obacco Use: T obacco use other than smoking A re you an other tobacco user? N o Tobacco Control (Standard) T obacco use: F ormer smoker A dditional Findings: Tobacco non-user C urrent nonsmoker M iscellaneous: C affeine: yes, frequency:. Children: yes, 2. Marital status: . Occupation: Supervisor [employer]. D rug/Alcohol: A SHILOH-C (Standard) D id you have a drink containing alcohol in the past year? N o P oints 0 I nterpretation N egative * Medications: T aking Minoo , Taking Zoloft , Taking Wellbutrin , Taking Levothyroxine Sodium , Taking Metoprolol Succinate , Taking Omeprazole , Taking Colestipol HCl , Taking Topamax , Taking Fenofibrate , Taking Vitamin D3 , Taking Magnesium Glycinate , Taking Niacin , Taking Ubrelvy , Taking hydrOXYzine HCl , Taking Xanax * Allergies: I V dye: hives, itchy throat. Objective: * Vitals: Assessment: Plan: * Treatment: * Images: * The named appointment provid er may or may not be the originator of this progress note, and it is not deemed complete until electronically signed by the appointment provider. Sign off status: Pending * Provider: Natalya Cowart DPM Date: 1 Generated for Jessica flanagan/Faxing/eTransmitting on: 1 03:00 PM EST
--- NOTE | 2025-04-29 13:13 | MHC.OFFVIS ---
Vital Signs 04/29/25 13:14 Height 5 ft 1 in Weight 188 lb BMI 35.5 Intake Visit Reasons: left hallux arthritis Intake Note: Lyla is a 50 year old female who presents today for a follow up on her left hallux arthritis. At her last visit she was administered a cortisone injection to her left hallux interphalangeal joint to alleviate pain and stiffness. She was advised to utilize Borrero extension pads, supportive shoe gear,and to avoid barefoot walking. Patient was prescribed Voltaren gel for her arthritic pain. Patient reports the injections has helped significantly and she finds the voltaren gel did do much for her pain and the borrero extension pads had made her foot numb. She has concerns that an ingrown is developing on her left hallux medial border. Allergies Iodinated Contrast Media Adverse Reaction (Severe, Verified 04/29/25 13:15) Hives HPI Comments Details: The patient is a 50 year old female presenting for a follow-up of left hallux arthritis. The patient states she no use longer uses the Borrero's extension or Voltaren gel due to insignificant improvement of pain. Patient states the previous cortisone injection has been helping with her pain. She states she noticed some discomfort to the medial nail border of the left hallux and has concerns of an ingrown toenail. She denies any drainage, purulence, or bleeding from the site. Patient states she noticed the symptoms over the last week and a half. The patient has been applying Epsom salt lotion to keep the area soft. She also reports experiencing soreness in her great toe joint only at night when there is pressure on it while lying down, but it is not bothersome when walking. She denies any other pedal concerns. She denies any new pedal injuries. [facility] Medical History (Updated 05/05/25 @ 18:40 by Sofi Collier DPM) Other specified epidermal thickening Unspecified open wound of left great toe with damage to nail, subsequent encounter Arthritis of great toe at metatarsophalangeal joint Toe pain, left Hypersomnia Snoring Coarse tremors Breast pain, right Rapid palpitations Intermittent palpitations GERD (gastroesophageal reflux disease) Anxiety Low vitamin D level Hypothyroid Migraine Lichen planus Surgical History History of esophagogastroduodenoscopy (EGD) Hx of colonoscopy H/O partial thyroidectomy H/O wisdom tooth extraction Hx of cholecystectomy H/O: hysterectomy Social History Alcohol intake: never Patient Tobacco Use Status: Never used Tobacco Current occupational status: employed Current occupation: MA at [employer] Review of Systems Const Details: - Musculoskeletal: Reports soreness at medial nail border of the left hallux and experiences mild pain to the 1st MPJ of the left foot when lying down with pressure. All systems reviewed & are unremarkable except as noted in HPI and below Physical Exam Vital Signs: BMI result Body Mass Index 35.5 Extrem Other: Left lower extremity focused Physical exam: Derm: Left hallux total nail avulsion site noted to be well healed with no drainage, erythema, or purulence noted. Increased hyperkeratotic tissue noted to the medial nail border of the left hallux. No edema noted. Skin turgor within normal limits. No maceration noted. No clinical signs of infection noted. Vascular exam: DP/PT pulses intact. Capillary refill time less than 3 seconds. No varicosities noted. Pedal hair absent. Temperature gradient warm to warm. Neuro exam: Protective sensation is grossly intact. Musculoskeletal exam: Mild Pain on palpation to the area of the left 1st MPJ/IPJ, worse to the area of the IPJ. Mild pain on palpation to the medial nail border of the left hallux at the site of the hyperkeratotic lesion. Mild Pain with ROM of the 1st IPJ. No crepitus noticed with range of motion of 1st MPJ or IPJ. Range of motion of remaining toes within normal limits. ROM of the hindfoot and ankle WNL. Mildly antalgic gait noted unassisted. Office Procedures AMB Debridement/Avulsion Podia Details: Debrided the hyperkeratotic lesion noted to the medial nail border of the left hallux using a curette without incidents. [id number] of Callus (1) Procedure code (CPT) selection complete Results Reviewed Results Reviewed: Podiatry read of Left foot x-ray three views (11/05/2024): Unremarkable exam of the left foot. Podiatry read of Left foot x-ray three views (11/26/2024): Unremarkable exam of the left foot. Assessment & Plan Assessment & Plan (1) Toe pain, left: Code(s): M79.675 - Pain in left toe(s) Category: Medical (2) Arthritis of great toe at metatarsophalangeal joint: Code(s): M19.079 - Primary osteoarthritis, unspecified ankle and foot Category: Medical (3) Other specified epidermal thickening: Code(s): L85.8 - Other specified epidermal thickening Category: Medical Plan Patient was informed and verbally consented to the use of an ambient scribe for clinic note documentation during this visit. I discussed with the patient that her symptoms were caused by a hyperkeratotic lesion to the left hallux. I advised her to continue using Epsom salt cream to keep the skin soft, which can help prevent reoccurrence of the hyperkeratotic lesion to the site. We discussed the follow-up plan, which includes returning in two months for another cortisone injection pending evaluation of symptoms. - Debrided the hyperkeratotic lesion to the medial nail border of the left hallux. - Continue using Epsom salt cream to keep the skin soft. - Wear supportive shoe gear and avoid barefoot walking. RTC in 2 months. Orders: Orders AMB Debridement/Avulsion Podiatry 04/29/25 L85.8 - Other specified epidermal thickening, M19.079 - Primary osteoarthritis, unspecified ankle and foot, M79.675 - Pain in left toe(s) Coding Level of Care Code Est Pt Level 4 (60598) Diagnoses Toe pain, left M79.675 Arthritis of great toe at metatarsophalangeal joint M19.079 Other specified epidermal thickening L85.8 CPT Codes Skin Debridement - CPT: 98405-Eakrgfeocsp of Callus (1) ([id number]) Time Spent (min) 34 Comment 4 mins for the procedure
[2025-04-29 13:14] VITALS: BMI 35.5
--- OUTSIDE RECORDS SUMMARY | 2025-04-29 15:00 | XMS_ITS | Encounter Summary ---
Author Organization [facility] Address [address] [place] [address] Care Team Providers Care Airport Baggage Screener Name Role Phone Pcp, No Primary Care [...] Care Team (Late st Contact Info) Description 06/21/2025 10:30 AM EST Office Visit [address] [phone] Ashley Beal PA-C [address] [place] [address] documented as of this encounter Visit Diagnoses Not on filedocumented in this encounter Care Teams Airport Baggage Screener Relationship Specialty Start Date End Date Pcp, No PCP - General General Medicine 10/03/23 10/10/23 Ashley Beal PA-C [address] [place] [address] PCP - General Internal Medicine 10/11/23 Solange Kaur Physician Gastroenterology 09/26/23 Gab Campos Physician Ophthalmology 09/26/23 documented as of this encounter
--- OUTSIDE RECORDS SUMMARY | 2025-04-29 15:00 | XMS_ITS | Encounter Summary ---
Author Organization Formerly [facility] Address [address] [place] [address] Care Team Providers Care Bartender Server Name Role Phone Pcp, No Primary Care Provider Ashley Tyson PA-C Primary Care Pro[facility] mar[facility] Encounter Details Date Type Department Care Team (Late st Contact Info) Description 02/16/2023 Scanned Document [facility] INTERNAL MED SCAN Provider, [...] Description 06/21/2025 10:30 AM EST Office Visit [address] [phone] Ashley Beal PA-C [address] [place] [address] documented as of this encounter Visit Diagnoses Not on filedocumented in this encounter Care Teams Bartender Server Relationship Specialty Start Date End Date Pcp, No PCP - General General Medicine 10/03/23 10/10/23 Ashley Beal PA-C [address] [place] [address] PCP - General Internal Medicine 10/11/23 Solange Kaur Physician Gastroenterology 09/26/23 Gab Campos Physician Ophthalmology 09/26/23 documented as of this encounter
--- OUTSIDE RECORDS SUMMARY | 2025-04-29 15:01 | XMS_ITS | Encounter Summary ---
Author Organization [facility] Address [address] [place] [address] Care Team Providers Care Executive Steward Name Role Phone Pcp, No Primary Care Provider Ashley Tyson PA-C Primary Care Provi mario Encounter Details Date Type Department Care Team (Late st Contact Info) Description 07/08/2023 Scanned Document [facility] INTERNAL MED SCAN Provider, Generic [...] Description 06/21/2025 10:30 AM EST Office Visit [address] [phone] Ashley Beal PA-C [address] [place] [address] documented as of this encounter Visit Diagnoses Not on filedocumented in this encounter Care Teams Executive Steward Relationship Specialty Start Date End Date Pcp, No PCP - General General Medicine 10/03/23 10/10/23 Ashley Beal PA-C [address] [place] [address] PCP - General Internal Medicine 10/11/23 Solange Kaur Physician Gastroenterology 09/26/23 Gab Campos Physician Ophthalmology 09/26/23 documented as of this encounter
--- OUTSIDE RECORDS SUMMARY | 2025-04-29 15:01 | XMS_ITS | Continuity of Care Document ---
Author Organization [facility] Address [address] [facility] [address] [place] [address] Phone [phone] Social History Type Date Description Comments Sex Female Sex Unknown Medications Active Medications SIG Qnty Indications Ordering Provider Date Hydroxyzine [id number] Tablets take 2 tablets at bedtime, can add 1 extra tab as needed Misty Sharma M.D. 11/11/2021 Sertraline [id number] Tablets 1 by mouth every day Misty Sharma M.D. 11/11/2021 Metoprolol Succinate ER25mg Tablets ER 24HR 1 by mouth every day Misty Sharma M.D. 11/11/[id number] 1 tab by mouth as needed 90caps Misty Sharma M.D. 11/11/2021 [id number] Tablets take 1 tablet twice daily Misty Sharma M.D. 11/11/2021 Levothyroxine [id number] Capsules 1 cap by mouth every day [...]
--- OUTSIDE RECORDS SUMMARY | 2025-04-29 15:01 | XMS_ITS | Encounter Summary ---
Author Organization [facility] Address [address] [place] [address] Care Team Providers Care Logging Supervisor Name Role Phone Pcp, No Primary Care Provider Ashley Tyson PA-C Primary Care Provi mario Encounter Details Date Type Department Care Team (Late st Contact Info) Description 08/01/2023 Scanned Document [facility] [...] Description 06/21/2025 10:30 AM EST Office Visit [address] [phone] Ashley Beal PA-C [address] [place] [address] documented as of this encounter Visit Diagnoses Not on filedocumented in this encounter Care Teams Logging Supervisor Relationship Specialty Start Date End Date Pcp, No PCP - General General Medicine 10/03/23 10/10/23 Ashley Beal PA-C [address] [place] [address] PCP - General Internal Medicine 10/11/23 Solange Kaur Physician Gastroenterology 09/26/23 Gab Campos Physician Ophthalmology 09/26/23 documented as of this encounter
--- OUTSIDE RECORDS SUMMARY | 2025-04-29 15:01 | XMS_ITS | Encounter Summary ---
Author Organization [facility] Address [address] [place] [address] Care Team Providers Care Penology Professor Name Role Phone Pcp, No Primary Care Provider Ashley Tyson PA-C Primary Care Provi mario Encounter Details Date Type Department Care Team (Late st Contact Info) Description 04/19/2022 Scanned Document [facility] INTERNAL MED [...] Description 06/21/2025 10:30 AM EST Office Visit [address] [phone] Ashley Beal PA-C [address] [place] [address] documented as of this encounter Visit Diagnoses Not on filedocumented in this encounter Care Teams Penology Professor Relationship Specialty Start Date End Date Pcp, No PCP - General General Medicine 10/03/23 10/10/23 Ashley Beal PA-C [address] [place] [address] PCP - General Internal Medicine 10/11/23 Solange Kaur Physician Gastroenterology 09/26/23 Gab Campos Physician Ophthalmology 09/26/23 documented as of this encounter
--- OUTSIDE RECORDS SUMMARY | 2025-04-29 15:01 | XMS_ITS | Encounter Summary ---
Author Organization [facility] Address [address] [place] [address] Care Team Providers Care Grain Origination Specialist Name Role Phone Ashley Beal PA-C Primary Care [facility] Encounter Details Date Type Department Care Team (Late st Contact Info) Description 06/12/2024 Scanned Document [facility] [address] [place] [address] Neurology, Scan Social History Tobacco Use Types [...] and Family Not on file 05/13/2024 Attends Scientology Services Not on file 05/13 Active Member [...] any time in the past 12 m [facility], were you homeless or living in [...] Description 06/21/2025 10:30 AM EST Office Visit [address] [place] [address] Ashley Beal PA-C [address] [place] [address] documented as of this encounter Visit Diagnoses Not on filedocumented in this encounter Care Teams Grain Origination Specialist Relationship Specialty Start Date End Date Ashley Beal PA-C [address] [place] [address] PCP - General Internal Medicine 10/11/23 Solange Kaur Physician Gastroenterology 09/26/23 Gab Campos Physician Ophthalmology 09/26/23 documented as of this encounter
--- OUTSIDE RECORDS SUMMARY | 2025-04-29 15:01 | XMS_ITS | Encounter Summary ---
Author Organization [facility] Address [address] [place] [address] Care Team Providers Care Stable Cleaner Name Role Phone Ashley Beal PA-C Primary Care [facility] Encounter Details Date Type Department Care Team (Late st Contact Info) Description 11/14/2024 Scanned Document [facility] ORTHO SURGERY SCAN Orthopedic Surgery, Scan Social History Tobacco Use Types Packs/Day Years Used Date Smoking Tobacco: Former Cigarettes Smokeless Tobacco: Former Alcohol Use Standard Drinks/Week Comments Yes 0 (1 standard drink = 0.6 oz pur e alcohol) [facility] Utilities Answer Date Recorded In the past 12 months has [employer] electric, gas, oil, or water company threatened to shut off services in your home? No 05/13/2024 Social Connection and Isolation Panel Answer Date Recorded In a typical week, how many times do you talk on the phone with family, friends, or neighbors? Once a week 05/13/2024 Frequency of Social Gatherings with Friends and Family Not on file 05/13/2024 Attends Tenriism Services Not on file 05/13 Active Member [...] any time in the past 12 m [facility], were you homeless or living [...] Description 06/21/2025 10:30 AM EST Office Visit [address] [place] [phone] Ashley Beal PA-C [address] [place] [address] documented as of this encounter Visit Diagnoses Not on filedocumented in this encounter Care Teams Stable Cleaner Relationship Specialty Start Date End Date Ashley Beal PA-C [address] [place] [address] PCP - General Internal Medicine 10/11/23 Solange Kaur Physician Gastroenterology 09/26/23 Gab Campos Physician Ophthalmology 09/26/23 documented as of this encounter
--- OUTSIDE RECORDS SUMMARY | 2025-04-29 15:01 | XMS_ITS | Encounter Summary ---
Author Organization [facility] Address [address] [place] [address] Care Team Providers Care Cleaning Specialist Name Role Phone Ashley Beal PA-C Primary Care [facility] Encounter Details Date Type Department Care Team (Late st Contact Info) Description 10/18/2024 Scanned Document [facility] [address] [place] [address] Neurology, Scan Social History Tobacco Use Types Packs/Day Years Used Date Smoking Tobacco: Former Cigarettes Smokeless Tobacco: Former Alcohol Use Standard Drinks/Week Comments Yes 0 (1 standard drink = 0.6 oz pur e alcohol) [facility] Utilities Answer Date Recorded In [...] and Family Not on file 05/13/2024 Attends Congregational Services Not on file 05/13 Active Member [...] time in the past 12 [facility], were you homeless or living in [...] Description 06/21/2025 10:30 AM EST Office Visit [address] [place] [address] Ashley Beal PA-C [address] [place] [address] documented as of this encounter Visit Diagnoses Not on filedocumented in this encounter Care Teams Cleaning Specialist Relationship Specialty Start Date End Date Ashley Beal PA-C [address] [place] [address] PCP - General Internal Medicine 10/11/23 Solange Kaur Physician Gastroenterology 09/26/23 Gab Campos Physician Ophthalmology 09/26/23 documented as of this encounter
--- OUTSIDE RECORDS SUMMARY | 2025-04-29 15:01 | XMS_ITS | Encounter Summary ---
Author Organization [facility] Address [address] [place] [address] Care Team Providers Care Middle School History Teacher Name Role Phone Pcp, No Primary Care Provider Ashley Tyson PA-C Primary Care [facility] Encounter Details Date Type Department Care Team (Late st Contact Info) Description 04/12/2023 Scanned Document [facility] INTERNAL MED SCAN Provider, Generic [...] Description 06/21/2025 10:30 AM EST Office Visit [address] [phone] Ashley Beal PA-C [address] [place] [address] documented as of this encounter Visit Diagnoses Not on filedocumented in this encounter Care Teams Middle School History Teacher Relationship Specialty Start Date End Date Pcp, No PCP - General General Medicine 10/03/23 10/10/23 Ashley Beal PA-C [address] [place] [address] PCP - General Internal Medicine 10/11/23 Solange Kaur Physician Gastroenterology 09/26/23 Gab Campos Physician Ophthalmology 09/26/23 documented as of this encounter
--- OUTSIDE RECORDS SUMMARY | 2025-04-29 15:01 | XMS_ITS | Encounter Summary ---
Author Organization [facility] Address [address] [place] [address] Care Team Providers Care Medical Office Technology Instructor Name Role Phone Pcp, No Primary Care Provider Ashley Tyson PA-C Primary Care Provi mario Encounter Details Date Type Department Care Team (Late st Contact Info) Description 06/04/2022 Scanned Document [facility] INTERNAL MED SCAN Provider, Generic [...] Description 06/21/2025 10:30 AM EST Office Visit [address] [phone] Ashley Beal PA-C [address] [place] [address] documented as of this encounter Visit Diagnoses Not on filedocumented in this encounter Care Teams Medical Office Technology Instructor Relationship Specialty Start Date End Date Pcp, No PCP - General General Medicine 10/03/23 10/10/23 Ashley Beal PA-C [address] [place] [address] PCP - General Internal Medicine 10/11/23 Solange Kaur Physician Gastroenterology 09/26/23 Gab Campos Physician Ophthalmology 09/26/23 documented as of this encounter
--- OUTSIDE RECORDS SUMMARY | 2025-04-29 15:01 | XMS_ITS | Encounter Summary ---
Author Organization [facility] Address [address] [place] [address] Care Team Providers Care Peoplesoft Financials Name Role Phone Ashley Beal PA-C Primary Care [facility] Encounter Details Date Type Department Care Team (Late st Contact Info) Description 04/26/2024 Scanned Document [address] [phone] Primary Care, Scan Social History Tobacco Use [...] Description 06/21/2025 10:30 AM EST Office Visit [address] [phone] Ashley Beal PA-C [address] [place] [address] documented as of this encounter Visit Diagnoses Not on filedocumented in this encounter Care Teams [employer] Financials Relationship Specialty Start Date End Date Ashley Beal PA-C [address] [place] [address] PCP - General Internal Medicine 10/11/23 Solange Kaur Physician Gastroenterology 09/26/23 Gab Campos Physician Ophthalmology 09/26/23 documented as of this encounter
--- OUTSIDE RECORDS SUMMARY | 2025-04-29 15:01 | XMS_ITS | Encounter Summary ---
Author Organization [facility] Address [address] [place] [address] Care Team Providers Care Artisan Plasterer Name Role Phone Ashley Beal PA-C Primary Care [facility] Encounter Details Date Type Department Care Team (Late st Contact Info) Description 07/27/2024 Scanned Document [address] [place] [phone] Ashley Beal PA-C [address] [place] [address] Social History Tobacco Use Types Packs/Day Years Used Date Smoking Tobacco: Former Cigarettes Smokeless Tobacco: Former Alcohol Use Standard Drinks/Week Comments Yes 0 (1 standard drink = 0.6 oz pur e alcohol) [facility] Utilities Answer Date Recorded In the past 12 months has [facility] [employer], gas, oil, or water [employer] threatened to shut off services in your [...] in the past 12 m [facility], were you homeless or living in a [...] Description 06/21/2025 10:30 AM EST Office Visit [address] [phone] Ashley Beal PA-C [address] [place] [address] documented as of this encounter Visit Diagnoses Not on filedocumented in this encounter Care Teams Artisan Plasterer Relationship Specialty Start Date End Date Ashley Beal PA-C [address] [place] [address] PCP - General Internal Medicine 10/11/23 Solange Kaur Physician Gastroenterology 09/26/23 Gab Campos Physician Ophthalmology 09/26/23 documented as of this encounter
--- OUTSIDE RECORDS SUMMARY | 2025-04-29 15:01 | XMS_ITS | Clinical Summary ---
Author Organization [facility] Address [address] [place] [address] Care Team Providers Care Aquaculture Director Name Role Phone Ashley Beal PA-C [...] administer with fruit juices. Active Vitamin D3 (CHOLECALCIFER OL) 50 MCG (2000 UT) tablet Take 2 tablets (4,000 Units total) by mouth daily. Active MAGNESIUM GLYCINATE PO Take 400 mg by mouth. Active clobetasol (TEMOVATE) 0.05 % ointment Apply topically as needed. Active OMEprazole (PriLOSEC) 20 MG capsuleIndicat ions:Gastroeso phageal reflux disease without esophagitis TAKE ONE (1) CAPSULE BY MOUTH EVERY DAY 90 capsule 2 10/23/19 25 Active fenofibrate micronized (LOFIBRA) 134 MG capsuleIndicat ions:Hypertrig lyceridemia TAKE ONE (1) CAPSULE BY MOUTH EVERY DAY WITH FOOD 90 capsule 1 01/05/20 25 Active metoPROLOL SUCCINATE (TOPROL-XL) 25 MG 24 hr tabletIndicati ons:Anxiety TAKE 1 TABLET (25 MG TOTAL) BY MOUTH DAILY. 90 tablet 1 01/23/20 25 Active sertraline (ZOLOFT) 50 MG tabletIndicati ons:Anxiety TAKE 3 TABLETS (150 MG TOTAL) BY MOUTH DAILY. 90 tablet 3 01/31/20 25 Active levothyroxine (SYNTHROID, LEVOTHROID) 100 MCG tabletIndicati ons:Hypothyroi dism, unspecified type TAKE 1 TABLET (100 MCG TOTAL) BY MOUTH DAILY. 30 tablet 5 02/09/20 25 Active vitamin E 400 UNIT capsule Take 1 capsule (400 Units total) by mouth daily. Active TiZANidine (ZANAFLEX) 4 MG capsuleIndicat ions:Degenerat kael cervical spinal stenosis Take 1 capsule (4 mg total) by mouth 3 (three) times a day. 30 capsule 03/18/20 25 Active ALPRAZolam (XANAX) 0.5 MG tabletIndicati ons:Anxiety Take 1 tablet (0.5 mg total) by mouth nightly as needed for anxiety. 30 tablet 03/18/20 25 Active hydrOXYzine HCl (ATARAX) 25 MG tabletIndicati ons:Anxiety Take 1 tablet by daily as needed. Take 1 to 2 tablets by mouth at night as needed. 90 tablet 03/25/20 25 Active buPROPion (WELLBUTRIN XL) 150 MG 24 hr tabletIndicati ons:Anxiety Take 1 tablet (150 mg total) by mouth every morning. 90 tablet 1 04/09/20 25 Active topiramate (TOPAMAX) 50 MG tabletIndicati ons:Migraine without aura and without status migrainosus, not intractable TAKE ONE (1) TABLET BY MOUTH TWICE DAILY 60 tablet 5 04/10/20 25 Active Ubrelvy 50 MG tabletIndicati ons:Migraine without aura and without status migrainosus, not intractable TAKE 1 TABLET (50 MG TOTAL) BY MOUTH NEEDED FOR MIGRAINE. 10 tablet 1 04/11/20 25 Active Ubrelvy 50 MG tabletIndicati ons:Migraine without aura and without status migrainosus, not intractable Take 1 tablet (50 mg total) by mouth as needed for migraine. For Migraine. 10 tablet 1 06/04/19 25 025 Discontinued topiramate (TOPAMAX) 50 MG tabletIndicati ons:Migraine without aura and without status migrainosus, not intractable TAKE 1 TABLET (50 MG TOTAL) BY MOUTH 2 TIMES A DAY. 60 tablet 5 11/01/19 25 025 Discontinued buPROPion (WELLBUTRIN XL) 150 MG 24 hr tabletIndicati ons:Anxiety TAKE 1 TABLET BY MOUTH EVERY MORNING. SWALLOW WHOLE; DO NOT CRUSH CHEW OR DIVIDE. 90 tablet 1 02/02/20 25 025 Discontinued(Re order) Active Problems Problem Noted Date Diagnosed Date [...] EST): Patient states she saw GI at [facility]. We did an abdominal ultrasound which showed a mildly enlarged liver. Liver contour is normal. Moderately increased hepatic echogenicity which can be seen in the setting of fatty liver or underlying liver disease. Subcentimeter simple hepatic cyst. Labs repeated. Another abdominal ultrasound was ordered. Calderon most likely will not be covered by [...] EST): Patient states she saw GI at [facility]. We did an abdominal ultrasound which showed [...] 3:24 PM EST): Follows with neurology at [place]. On topiramate for invention. Takes Ubrelvy as [...] is not a surgical candidate. 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 Unsure of [...] Encounters Date Type Department Care Team Description 04/04/2025 Scanned Document [facility] [address] [place] [address] Neurology, Scan 03/18/2025 1:30 PM EST Office Visit [address] [place] [phone] Ashley Beal PA-C Annual physical exam (Primary Dx); Anxiety; Recurrent major depressive disorder, in partial remission; Fatty (change of) liver, not elsewhere classified; Elevated LFTs; Gastroesophageal reflux disease without esophagitis; Lichen planus; Migraine without aura and without status migrainosus, not intractable; PCOS (polycystic ovarian syndrome); Other specified hypothyroidism; Psoriasis; IFG (impaired fasting glucose); Hypertriglyceridemia ; Class 2 obesity; Degenerative cervical spinal stenosis; [...] drink = 0.6 oz pur e alcohol) [facility] Utilities Answer Date Recorded In [...] any time in the past 12 m [facility], were you homeless or living in a fdc (including now)? No 05/13/2024 Physical Activity Answer [...] 03/18/2025 1:15 PM EST Plan of Treatment Upcoming Encounters Date Type Department Care Team (Late st Contact Info) Description 06/21/2025 10:30 AM EST Office Visit [address] [place] [address] Ashley Bela PA-C [address] [place] [address] Health Maintenance Due Date Last Done Comments [...] Most Recently Relevant to Health Maintenance Insurance [employer] - PPO Care Teams Aquaculture Director Relationship Specialty Start Date End Date Ashley Beal PA-C [address] [place] [address] PCP - General Internal Medicine 10/11/23 Solange Kaur Physician Gastroenterology 09/26/23 Gab Campos Physician Ophthalmology 09/26/23
--- OUTSIDE RECORDS SUMMARY | 2025-04-29 15:01 | XMS_ITS | Encounter Summary ---
Author Organization [facility] Address [address] [place] [address] Care Team Providers Care Library Acquisitions Technician Name Role Phone Pcp, No Primary Care Provider Ashley Tyson PA-C Primary Care [facility] Encounter Details Date Type Department Care Team (Late st Contact Info) Description 09/15/2022 Scanned Document [facility] INTERNAL MED SCAN Provider, Generic External [...] Description 06/21/2025 10:30 AM EST Office Visit [address] [phone] Ashley Beal PA-C [address] [place] [address] documented as of this encounter Visit Diagnoses Not on filedocumented in this encounter Care Teams Library Acquisitions Technician Relationship Specialty Start Date End Date Pcp, No PCP - General General Medicine 10/03/23 10/10/23 Ashley Beal PA-C [address] [place] [address] PCP - General Internal Medicine 10/11/23 Solange Kaur Physician Gastroenterology 09/26/23 Gab Campos Physician Ophthalmology 09/26/23 documented as of this encounter
--- OUTSIDE RECORDS SUMMARY | 2025-04-29 15:01 | XMS_ITS | Encounter Summary ---
Author Organization [facility] Address [address] [place] [address] Care Team Providers Care City Designer Name Role Phone Pcp, No Primary Care Provider Ashley Tyson PA-C Primary Care Pro[facility] mar[facility] Encounter Details Date Type Department Care Team (Late st Contact Info) Description 08/16/2022 Scanned Document [facility] INTERNAL MED SCAN Provider, Generic [...] 06/21/2025 10:30 AM EST Office Visit [address] [phone] Ashley Beal PA-C [address] [place] [address] documented as of this encounter Visit Diagnoses Not on filedocumented in this encounter Care Teams City Designer Relationship Specialty Start Date End Date Pcp, No PCP - General General Medicine 10/03/23 10/10/23 Ashley Beal PA-C [address] [place] [address] PCP - General Internal Medicine 10/11/23 Solange Kaur Physician Gastroenterology 09/26/23 Gab Campos Physician Ophthalmology 09/26/23 documented as of this encounter
--- OUTSIDE RECORDS SUMMARY | 2025-04-29 15:01 | XMS_ITS | Encounter Summary ---
Author Organization [facility] Address [address] [place] [address] Care Team Providers Care Piped Buttonhole Machine Operator Name Role Phone Ashley Beal PA-C Primary Care [facility] Encounter Details Date Type Department Care Team (Late st Contact Info) Description 12/04/2024 Scanned Document [facility] [address] [place] [address] Urology, Scan Social History Tobacco Use Types [...] and Family Not on file 05/13/2024 Attends Zoroastrian Services Not on file 05/13 Active Member [...] time in the past 12 m [facility], were you homeless or living in a [...] Description 06/21/2025 10:30 AM EST Office Visit [address] [place] [address] Ashley Beal PA-C [address] [place] [address] documented as of this encounter Visit Diagnoses Not on filedocumented in this encounter Care Teams Piped Buttonhole Machine Operator Relationship Specialty Start Date End Date Ashley Beal PA-C [address] [place] [address] PCP - General Internal Medicine 10/11/23 Solange Kaur Physician Gastroenterology 09/26/23 Gab Campos Physician Ophthalmology 09/26/23 documented as of this encounter
--- OUTSIDE RECORDS SUMMARY | 2025-04-29 15:01 | XMS_ITS | Encounter Summary ---
Author Organization Formerly [facility] Address [address] [place] [address] Care Team Providers Care Nremt Name Role Phone Ashley Beal PA-C Primary Care [facility] Encounter Details Date Type Department Care Team (Late st Contact Info) Description 11/27/2024 Scanned Document [facility] [address] [place] [address] Orthopedic Surgery, Scan Social History Tobacco Use Types Packs/Day Years Used Date Smoking Tobacco: Former Cigarettes Smokeless Tobacco: Former Alcohol Use Standard Drinks/Week Comments Yes 0 (1 standard drink = 0.6 oz pur e alcohol) [facility] Utilities Answer Date Recorded In the past [...] and Family Not on file 05/13/2024 Attends Voodoo Services Not on file 05/13 Active Member [...] were you homeless or living in a usp (including now)? No 05/13/2024 Education Answer Date [...] Description 06/21/2025 10:30 AM EST Office Visit [address] [place] [address] Ashley Beal PA-C [address] [place] [address] documented as of this encounter Visit Diagnoses Not on filedocumented in this encounter Care Teams Nremt Relationship Specialty Start Date End Date Ashley Beal PA-C [address] [place] [address] PCP - General Internal Medicine 10/11/23 Solange Kaur Physician Gastroenterology 09/26/23 Gab Campos Physician Ophthalmology 09/26/23 documented as of this encounter
--- OUTSIDE RECORDS SUMMARY | 2025-04-29 15:01 | XMS_ITS | Encounter Summary ---
Author Organization [facility] Address [address] [place] [address] Care Team Providers Care Solid Center Winder Name Role Phone Pcp, No Primary Care Provider Ashley Tyson PA-C Primary Care [facility] Encounter Details Date Type Department Care Team (Late st Contact Info) Description 06/11/2022 Scanned Document [facility] INTERNAL MED SCAN Provider, Generic External [...] Description 06/21/2025 10:30 AM EST Office Visit [address] [phone] Ashley Beal PA-C [address] [place] [address] documented as of this encounter Visit Diagnoses Not on filedocumented in this encounter Care Teams Solid [place] Winder Relationship Specialty Start Date End Date Pcp, No PCP - General General Medicine 10/03/23 10/10/23 Ashley Beal PA-C [address] [place] [address] PCP - General Internal Medicine 10/11/23 Solange Kaur Physician Gastroenterology 09/26/23 Gab Campos Physician Ophthalmology 09/26/23 documented as of this encounter
--- OUTSIDE RECORDS SUMMARY | 2025-04-29 15:01 | XMS_ITS | Encounter Summary ---
Author Organization [facility] Address [address] [place] [address] Care Team Providers Care Mold Holder Name Role Phone Pcp, No Primary Care Provider Ashley Tyson PA-C Primary Care [facility] Encounter Details Date Type Department Care Team (Late st Contact Info) Description 03/04/2022 Scanned Document [facility] INTERNAL MED SCAN Provider, Generic [...] Description 06/21/2025 10:30 AM EST Office Visit [address] [phone] Ashley Bela PA-C [address] [place] [address] documented as of this encounter Visit Diagnoses Not on filedocumented in this encounter Care Teams Mold Holder Relationship Specialty Start Date End Date Pcp, No PCP - General General Medicine 10/03/23 10/10/23 Ashley Beal PA-C [address] [place] [address] PCP - General Internal Medicine 10/11/23 Solange Kaur Physician Gastroenterology 09/26/23 Gab Campos Physician Ophthalmology 09/26/23 documented as of this encounter
--- OUTSIDE RECORDS SUMMARY | 2025-04-29 15:01 | XMS_ITS | Encounter Summary ---
Author Organization [facility] Address [address] [place] [address] Care Team Providers Care Billiard Player Name Role Phone Ashley Beal PA-C Primary Care [facility] Encounter Details Date Type Department Care Team (Late st Contact Info) Description 04/04/2025 Scanned Document [facility] [address] [place] [address] Neurology, Scan Social History Tobacco Use Types Packs/Day Years Used Date Smoking Tobacco: Former Cigarettes Smokeless Tobacco: Former Alcohol Use Standard Drinks/Week Comments Yes 0 (1 standard drink = 0.6 oz pur e alcohol) [facility] Utilities Answer Date Recorded [...] and Family Not on file 05/13/2024 Attends Amish Services Not on file 05/13 Active Member [...] time in the past 12 m [facility], were you homeless or living in a retirement (including now)? No 05/13/2024 Physical Activity Answer [...] Description 06/21/2025 10:30 AM EST Office Visit [address] [place] [address] Ashley Beal PA-C [address] [place] [address] documented as of this encounter Visit Diagnoses Not on filedocumented in this encounter Care Teams Billiard Player Relationship Specialty Start Date End Date Ashley Beal PA-C [address] [place] [address] PCP - General Internal Medicine 10/11/23 Solange Kaur Physician Gastroenterology 09/26/23 Gab Campos Physician Ophthalmology 09/26/23 documented as of this encounter
--- OUTSIDE RECORDS SUMMARY | 2025-04-29 15:01 | XMS_ITS | Encounter Summary ---
Author Organization [facility] Address [address] [place] [address] Care Team Providers Care Senior Infrastructure Architect Name Role Phone Pcp, No Primary Care Provider Ashley Tyson PA-C Primary Care [facility] Encounter Details Date Type Department Care Team (Late st Contact Info) Description 02/05/2022 Scanned Document [facility] INTERNAL MED SCAN Provider, Generic External [...] Description 06/21/2025 10:30 AM EST Office Visit [address] [phone] Ashley Beal PA-C [address] [place] [address] documented as of this encounter Visit Diagnoses Not on filedocumented in this encounter Care Teams Senior Infrastructure Architect Relationship Specialty Start Date End Date Pcp, No PCP - General General Medicine 10/03/23 10/10/23 Ashley Beal PA-C [address] [place] [address] PCP - General Internal Medicine 10/11/23 Solange Kaur Physician Gastroenterology 09/26/23 Gab Campos Physician Ophthalmology 09/26/23 documented as of this encounter
--- OUTSIDE RECORDS SUMMARY | 2025-04-29 15:01 | XMS_ITS | Encounter Summary ---
Author Organization [facility] Address [address] [place] [address] Care Team Providers Care Thread Spooler Name Role Phone Pcp, No Primary Care Provider Ashley Tyson PA-C Primary Care [facility] Encounter Details Date Type Department Care Team (Late st Contact Info) Description 06/23/2022 Scanned Document [facility] INTERNAL MED SCAN Provider, Generic [...] 06/21/2025 10:30 AM EST Office Visit [address] [phone] Ashley Beal PA-C [address] [place] [address] documented as of this encounter Visit Diagnoses Not on filedocumented in this encounter Care Teams Thread Spooler Relationship Specialty Start Date End Date Pcp, No PCP - General General Medicine 10/03/23 10/10/23 Ashley Beal PA-C [address] [place] [address] PCP - General Internal Medicine 10/11/23 Solange Kaur Physician Gastroenterology 09/26/23 Gab Campos Physician Ophthalmology 09/26/23 documented as of this encounter
--- OUTSIDE RECORDS SUMMARY | 2025-04-29 15:01 | XMS_ITS | Encounter Summary ---
Author Organization [facility] Address [address] [place] [address] Care Team Providers Care Animal Care Provider Name Role Phone Pcp, No Primary Care Provider Ashley Tyson PA-C Primary Care [facility] Encounter Details Date Type Department Care Team (Late st Contact Info) Description 03/12/2022 Scanned Document [facility] INTERNAL MED SCAN Provider, Generic External [...] Description 06/21/2025 10:30 AM EST Office Visit [address] [phone] Ashley Beal PA-C [address] [place] [address] documented as of this encounter Visit Diagnoses Not on filedocumented in this encounter Care Teams Animal Care Provider Relationship Specialty Start Date End Date Pcp, No PCP - General General Medicine 10/03/23 10/10/23 Ashley Beal PA-C [address] [place] [address] PCP - General Internal Medicine 10/11/23 Solange Kaur Physician Gastroenterology 09/26/23 Gab Campos Physician Ophthalmology 09/26/23 documented as of this encounter
--- OUTSIDE RECORDS SUMMARY | 2025-04-29 15:01 | XMS_ITS | Encounter Summary ---
Author Organization [facility] Address [address] [place] [address] Care Team Providers Care Oven Worker Name Role Phone Ashley Beal PA-C Primary Care [facility] Encounter Details Date Type Department Care Team (Late st Contact Info) Description 10/25/2024 Scanned Document [facility] [address] [place] [address] Gastroenterology, Scan Social History Tobacco Use Types Packs/Day Years Used Date Smoking Tobacco: Former Cigarettes Smokeless Tobacco: Former Alcohol Use Standard Drinks/Week Comments Yes 0 (1 standard drink = 0.6 oz pur e alcohol) [facility] Utilities Answer Date Recorded In the past [...] and Family Not on file 05/13/2024 Attends Religion Services Not on file 05/13 Active Member [...] any time in the past 12 m [facility], were you homeless or living in [...] Description 06/21/2025 10:30 AM EST Office Visit [address] [place] [address] Ashley Beal PA-C [address] [place] [address] documented as of this encounter Visit Diagnoses Not on filedocumented in this encounter Care Teams Oven Worker Relationship Specialty Start Date End Date Ashley Beal PA-C [address] [place] [address] PCP - General Internal Medicine 10/11/23 Solange Kaur Physician Gastroenterology 09/26/23 Gab Campos Physician Ophthalmology 09/26/23 documented as of this encounter
--- OUTSIDE RECORDS SUMMARY | 2025-04-29 15:01 | XMS_ITS | Patient Health Record ---
Author Organization [facility] Address [address] [place] [address] Care Team Providers Care Reuse Technician Name Role Phone Ashley Kennedy PA-C Primary Care Provider Abimbola Swain Unavailable [phone] Umm Cowart Unavailable [phone] Allergies Allergen (clinical drug ingredient) Drug/Non Drug Allergy documented on EMR Reaction Allergy Type Onset Date Status IV dye (uncoded) hives, itchy throat Allergy Active Reason For Referral No Information Medications Medication SIG (Take, Route, Fr equency, Duration) Notes Start Date End Date Status Ubrelvy Active Metoprolol Succinate Active Omeprazole Active Wellbutrin Active hydrOXYzine HCl Acti ve Levothyroxine Sodium Active Xanax Active Fenofibrate Active Vitamin D3 Active Colestipol HCl Activ e Topamax Active Zoloft Active Magnesium Glycinate Active Minoo Active Niacin Active Social History Tobacco Use: Social History [...] Negative Encounters [facility] [address] [place] [address] [facility]/25/[facility]24 Abimbola Casillas [address] [address] 02/04/2025 Abimbola Casillas Plan Of Treatment No Information Insurance Providers Payer Name Payer Address Payer Phone Subscriber Number Group Number Insured Name Patient Relationship to Insured Coverage Start Date Coverage End Date Blue Benefits [address] [address] [place] [address] [id number] Lyla Castaneda Self - patient is the insured Medical (General) History Medical History History ICD Code Anxiety Broken Bone(s) Depression Headaches /Migraines Numbness (Neuropathy) Thyroid Chicken Pox Surgical History Surgery Date(Month/Year) hysterectomy 2012 Gall bladder removal 2010 left thyroid 2016
== END 2025-04-29 13:24 | disposition home or self-care (01) ==
LOC: HO.HPODS 13:05
PROVIDERS: PCP Physician Assistant Medical; Visit Provider Student in an Organized Health Care Education/Training Program
DX: M79.675 Pain in left toe(s) (principal); M19.079 Primary osteoarthritis, unspecified ankle and foot; L85.8 Other specified epidermal thickening
CPT/HCPCS: 11055; 99214

== ENCOUNTER → 2025-04-29 13:04 | Outpatient (BNVA) | payer OTHER, SELFPAY | PROVIDERS: PCP Physician Assistant Medical; Visit Provider Student in an Organized Health Care Education/Training Program | DX: L85.8 Other specified epidermal thickening (principal); M19.072 Primary osteoarthritis, left ankle and foot; M79.675 Pain in left toe(s); L57.0 Actinic keratosis; L43.9 Lichen planus, unspecified | CPT/HCPCS: 11055 ==